=== PATIENT | male | born 1975 | race Caucasian/White ===

== ENCOUNTER 2021-06-12 09:33 | Emergency (ER) | payer OTHER ==
[~2021-06-12] VITALS: Ht 162.6 cm; Wt 59.1 kg
[2021-06-12 09:58] LABS: VENOUS BASE EXCESS -9.2 (-2.0-2.0); VENOUS HCO3 16.9 MEQ/L (23.0-27.0); VENOUS O2 SATURATION 61.9 % (60.0-80.0); VENOUS PARTIAL PRESSURE CO2 37.6 mmHg (38.0-50.0); VENOUS PARTIAL PRESSURE O2 34.9 mmHg (30.0-50.0); VENOUS PH 7.271 UNITS (7.330-7.430); VENOUS STANDARD HCO3 16.5 MEQ/L; VENOUS TOTAL CO2 18.1 MEQ/L (24.0-28.0)
[2021-06-12 10:02] LABS: BASO # 0.1 10^3/uL (0.0-0.2); BASO % 0.5 % (0.0-1.0); EOS # 0.1 10^3/uL (0.0-0.5); EOS % 1.2 % (0.0-3.0); HEMATOCRIT 39.1 % (42.0-52.0); HEMOGLOBIN 12.9 g/dl (13.5-17.5); LYMPH % 19.2 % (24.0-44.0); MEAN CORPUSCULAR HEMOGLOBIN 32.6 pg (27.0-33.0); MEAN CORPUSCULAR VOLUME 98.7 fl (80.0-96.0); MONO % 9.6 % (2.0-8.0); NEUTROPHILS # 7.2 10^3/uL (1.5-8.5); NEUTROPHILS % 68.2 % (36.0-66.0); PLATELET COUNT, AUTOMATED 181 10^3/uL (150-450); RED BLOOD COUNT 3.96 10^6/uL (4.30-6.10); WHITE BLOOD COUNT 10.5 10^3/uL (4.0-10.0)
--- NOTE | 2021-06-12 10:07 | REP ---
INDICATION: Altered Mental Status. COMPARISON: None. TECHNIQUE: Portable FINDINGS: The technique utilized in obtaining the radiograph has magnified the cardiac silhouette and accentuated the interstitial markings. The superior mediastinal structures are midline. The cardiac silhouette is unremarkable in size, shape, and position. The diaphragmatic surfaces of the lungs are regular, and the costophrenic angles are clear. The pulmonary zarco are clear. The imaged osseous structures are intact. IMPRESSION: There is no acute cardiopulmonary disease. <Electronically signed by Kamlesh Choudhury > 06/12/21 [id number]
[2021-06-12 10:18] LABS: OSMOLALITY SERUM 319 MOSM/KG (275-295)
[2021-06-12 10:33] LABS: ACETAMINOPHEN LEVEL < 2.0 UG/ML (10.0-30.0); ALT/SGPT 38 U/L (12-78); BILIRUBIN,DIRECT 0.3 MG/DL (0.0-0.2); BILIRUBIN,TOTAL 0.4 MG/DL (0.2-1.0); BLOOD UREA NITROGEN 28 MG/DL (7-18); CARBON DIOXIDE LEVEL 16 MEQ/L (21-32); CHLORIDE LEVEL 103 MEQ/L (98-107); CK-MB VALUE MASS < 1.0 NG/ML (<3.6); CPK CREATINE PHOSPHOKINASE 154 U/L (39-308); ETHYL ALCOHOL (ETHANOL) 0.133 % (0.000-0.010); GLOMERULAR FILTRATION RATE 11.8 (>60); GLUCOSE, FASTING 108 MG/DL (70-100); MB/CK RELATIVE INDEX 0.65 (< OR =4); POTASSIUM SERUM 3.3 MEQ/L (3.5-5.1); SALICYLATE LEVEL 3.3 MG/DL (5.0-30.0); SODIUM LEVEL 137 MEQ/L (136-145); TOTAL PROTEIN 7.1 GM/DL (6.4-8.2); TROPONIN I < 0.02 NG/ML (< 0.10)
[2021-06-12] MEDS ORDERED: NS 1,770 ML in IV 1 EA IV ONE (10:45)
--- NOTE | 2021-06-12 10:51 | REP ---
INDICATION: trauma. COMPARISON: None. TECHNIQUE: 2 x 2 mm increments using helical technique and reconstructed in both sagittal and coronal planes. FINDINGS: Vertebral body height and alignment is within normal limits. There is no acute fracture or destructive osseous lesion. The facet joints are well aligned bilaterally. There is no abnormal anterior spinal soft tissue swelling. There is air density in the C3-4 disc space consistent with vacuum phenomena. IMPRESSION: No acute osseous abnormality. Vacuum phenomena in the C3-4 disc space consistent with discogenic change. If clinically relevant follow-up with C-spine MRI if acute discopathy is of clinical concern. <Electronically signed by Kamlesh Choudhury > 06/12/21 [id number]
--- NOTE | 2021-06-12 10:53 | REP ---
INDICATION: trauma. COMPARISON: None. TECHNIQUE: 5 mm contiguous transaxial sections were obtained from the skull base to the cerebral convexities with thin cuts through the posterior fossa without the administration of intravenous contrast. FINDINGS: The ventricles and sulci are consistent with the patient's age. There are no extra-axial fluid collections. There is no mass effect. The deep cerebral white matter is consistent with the patient's age. The orbital and petrous structures, cerebellopontine angles, and posterior fossa are unremarkable. The sella turcica, cavernous, and paracavernous structures are essentially unremarkable. The visualized portions of the paranasal sinuses and mastoid air cells are clear. Images of the skull base show no gross abnormality. IMPRESSION: Unremarkable CT examination of the brain. <Electronically signed by Kamlesh Choudhury > 06/12/21 [id number]
[2021-06-12] MEDS ORDERED: cefTRIAXone SOD 2 GM in D5W MINI-BAG PLUS 50 ML IV ONE (10:55)
--- NOTE | 2021-06-12 10:58 | REP ---
INDICATION: trauma COMPARISON: None. TECHNIQUE: Standard helical technique without contrast. This causes exam limitations. FINDINGS: There is no evidence of mediastinal or hilar adenopathy. There are no pleural or pericardial effusions. The imaged osseous structures are within normal limits. Evaluation of the lung zarco shows subtle bibasilar subsegmental atelectatic change. No abnormal nodules, masses, or opacities are evident. IMPRESSION: Limited noncontrast enhanced CT examination of the chest showing no evidence of acute disease. <Electronically signed by Kamlesh Choudhury > 06/12/21 [id number]
--- NOTE | 2021-06-12 11:11 | REP ---
INDICATION: trauma. COMPARISON: None. TECHNIQUE: Noncontrast images through the abdomen and pelvis. Coronal and sagittal reconstructions provided. FINDINGS: CT abdomen: Dependent atelectatic changes noted on the right and some subsegmental atelectasis deep sulcus left lower lobe. No effusion or infiltrate. Heart is not enlarged no hiatal hernia. Stomach unremarkable. Liver has some geographic fatty replacement appearance and prominent left hepatic lobe but somewhat limited evaluation due to spray artifact from the patient's arms at his sides. No hepatic mass or biliary dilatation. Gallbladder without calcified stone. Spleen unremarkable. There is no ascites in the upper abdomen. There are calcifications scattered throughout the pancreatic head, neck, body and proximal tail consistent with chronic pancreatitis. Very minimal stranding in the peripancreatic fat about the tail the pancreas. The duodenal bulb and 2nd portion suggest thickening of its wall may reflect some mild duodenitis and some edema in the fat adjacent to that region. Adrenal glands are normal. Kidneys show no solid mass, hydronephrosis or stone. The aorta is without aneurysm. Has some calcifications there are no pathologic sized periaortic, mesenteric or other retroperitoneal lymph adenopathy. Small bowel loops not abnormally dilated. The lung window shows reviewed showed no sign of perforation or free air anywhere in the abdomen or pelvis. Abdominal portion of the colon grossly unremarkable. The bone windows show a grade 2-3 biconcave burst type fracture of L3. Posterior neural arch is retropulsed a few mm within AP canal diameter of 6 mm and central canal stenosis. Linear fracture lines seen in the spinous process of L3 and L4. No other compression fractures or focal lesions. Visualized ribs intact. CT pelvis: The sacral ala, SI joints and iliac bones unremarkable. The patient has undergone bilateral hip arthroplasty. Visualized portions of ischia, pubic rami and symphysis pubis were intact spray artifact limits evaluation of the deep central pelvis. Distal left colon sigmoid and rectum grossly intact bladder seen only in part a portion of ureters seen show no dilatation no ventral or inguinal hernia. IMPRESSION: 1. Grade 2-3 biconcave burst type fracture of the L3 vertebral body with retropulsion of the posterior neural arch and central canal stenosis with only 6 mm AP diameter. Linear fractures through the spinous processes of L3 and L4 noted. No other fracture. 2. Status post bilateral hip arthroplasty. 3. Evidence of chronic pancreatitis. 4. Geographic fatty infiltration of the liver suggested with prominent left hepatic lobe but no gross hepatomegaly. Critical Findings: Biconcave compression burst fracture of L3 with retropulsion of the posterior neural arch and a 6 millimeter AP diameter of the central canal representing spinal stenosis. The critical information above was relayed directly by me by telephone to Lisa Lovell on 06/12/2021 at 11:06 am with readback verification. <Electronically signed by Deangelo Tay > 06/12/21 [id number]
[2021-06-12 11:44] LABS: RSV AMPLIFICATION NEGATIVE (NEGATIVE)
[2021-06-12] MEDS ORDERED: CYCL-707 PO (11:52)
[2021-06-12] MEDS ORDERED: IBUP80TA PO (11:52)
[2021-06-12] MEDS ORDERED: GABA-282 PO (11:52)
[2021-06-12] MEDS ORDERED: TAMS1CAP17 PO (11:52)
[2021-06-12] MEDS ORDERED: KAPS50CA PO (11:52)
[2021-06-12] MEDS ORDERED: BACTDSTA PO (11:52)
[2021-06-12] MEDS ORDERED: LOSA50TA88 PO (11:52)
[2021-06-12] MEDS ORDERED: ONDANSETRON 4MG/2ML VIAL IV ONE (12:15)
[2021-06-12] MEDS: MORPHINE 4 MG/ML 1ML VIAL/SYRINGE (J2270) IV PRN ×2 (12:19→12:52)
[2021-06-12 12:45] VITALS: BP 106/65
--- NOTE | 2021-06-12 20:33 | ECGEPIP ---
[facility] - ED Test Date: 2021-06-12 Pat Name: ELISA VÁSQUEZ Department: Room: - Gender: Male [employer] Admin: ASTRID : [id number] Requested By: Lisa Lovell Order Number: [id number] Reading MD: Lisa Lovell Measurements Intervals Guston Rate: 113 P: 79 OK: 134 QRS: 80 QRSD: 78 T: 56 QT: 376 QTc: 515 Interpretive Statements Sinus tachycardia NSTTW abnormalities prolonged qtc, clinical correlation No prior Electronically Signed on 06-12-2021 20:33:25 EST by Lisa Lovell
== END 2021-06-12 12:54 | disposition short-term general hospital (02) ==
LOC: M ED 09:33
DX: S32.031A Stable burst fracture of third lumbar vertebra, initial encounter for closed fracture (principal); S32.048A Other fracture of fourth lumbar vertebra, initial encounter for closed fracture; V48.5XXA Car driver injured in noncollision transport accident in traffic accident, initial encounter; F10.120 Alcohol abuse with intoxication, uncomplicated; N17.9 Acute kidney failure, unspecified; Y92.9 Unspecified place or not applicable; Y93.9 Activity, unspecified; Y99.9 Unspecified external cause status
CPT/HCPCS: 70450; 71045; 71250; 72125; 74176; 80047; 80048; 80076; 80143; 82077; 82140; 82550; 82553; 82803; 83605; 83930; 84443; 84484; 85025; 87040; 87077; 87186; 87631; 93005; 93041; 96365; 96366; 96375; 96376; 99285; J0696; J2270; J2405

== ENCOUNTER 2021-06-24 10:48 | Inpatient (IN) | payer OTHER ==
[~2021-06-24] VITALS: Ht 162.6 cm; Wt 55.0 kg
[~2021-06-24 10:48] MED LIST: BACTDSTA PO; CYCL-707 PO; GABA-282 PO; IBUP80TA PO; KAPS50CA PO; LOSA50TA28 PO; TAMS1CAP17 PO
[2021-06-24] MEDS ORDERED: ONDANSETRON 4 MG TAB PO PRN (12:00)
[2021-06-24 13:15] VITALS: BP_SYST 123; BP_DIAS 74; BP_DIAS 94
[2021-06-24] MEDS ORDERED: ACET1TAB55 PO (13:50)
[2021-06-24] MEDS ORDERED: THERTAB21 PO (13:50)
[2021-06-24] MEDS ORDERED: OXAZ10CA3 PO (13:50)
[2021-06-24] MEDS ORDERED: GABA-283 PO (13:50)
[2021-06-24] MEDS ORDERED: METH-1164 PO (13:50)
[2021-06-24] MEDS ORDERED: POLY17PO18 PO (13:50)
[2021-06-24] MEDS ORDERED: MIDO10TA PO (13:50)
[2021-06-24] MEDS ORDERED: HEPA500057 SC (13:50)
[2021-06-24] MEDS ORDERED: PANT-23 PO (13:50)
[2021-06-24] MEDS ORDERED: IBUP1TAB6 PO (13:50)
[2021-06-24] MEDS ORDERED: CHOL400T PO (13:50)
[2021-06-24] MEDS ORDERED: OXYC10TA12 PO (13:50)
[2021-06-24] MEDS ORDERED: NICOINH INH (13:50)
[2021-06-24] MEDS ORDERED: LIDO5DIS41 TOP (13:50)
[2021-06-24] MEDS ORDERED: DOCU100C16 PO (13:50)
[2021-06-24] MEDS ORDERED: HOME MED LIST COMPLETE! XX SCH (13:55)
[2021-06-24 14:00] VITALS: BP 124/83
[2021-06-24] MEDS: MIDODRINE 5 MG TAB PO SCH (16:00)
[2021-06-24] MEDS ORDERED: MIDODRINE 5 MG TAB PO SCH (16:00)
[2021-06-24] MEDS: OXAZEPAM 10 MG CAP PO SCH ×2 (17:11→20:40)
[2021-06-24] MEDS: OYSTER SHELL CALCIUM 500 MG TAB PO SCH ×2 (17:11→20:40)
[2021-06-24] MEDS: GABAPENTIN 400MG CAP PO SCH ×2 (17:11→20:40)
[2021-06-24] MEDS: ACETAMINOPHEN TAB 650MG DOSE (2X325MG) PO PRN (17:12)
[2021-06-24] MEDS: METOPROLOL TART 12.5 MG PER 1/2 TAB PO SCH ×2 (17:12→23:50)
[2021-06-24] MEDS: oxyCODONE 5MG TAB PO PRN (19:27)
[2021-06-24 20:00] VITALS: BP 125/93
[2021-06-24] MEDS: SENNA 8.6 MG TAB (SENOKOT) PO SCH (20:40)
[2021-06-24] MEDS: DOCUSATE SODIUM 100MG CAPSULE PO SCH (20:40)
[2021-06-24] MEDS: HEPARIN SOD (PORCINE) 5000UNITS/ML 1ML VIAL/SYRINGE SC SCH (20:40)
[2021-06-24] MEDS: **NOTE PATIENT COMMENT** MISC XX SCH (20:41)
[2021-06-25] MEDS: methocarbamoL 500 MG TAB PO PRN ×2 (01:47→17:37)
[2021-06-25] MEDS: oxyCODONE 5MG TAB PO PRN ×3 (05:18→20:10)
[2021-06-25] MEDS: METOPROLOL TART 12.5 MG PER 1/2 TAB PO SCH ×4 (05:19→23:44)
[2021-06-25 06:00] VITALS: BP 104/73
[2021-06-25 08:09] LABS: BASO # 0.1 10^3/uL (0.0-0.2); EOS # 0.2 10^3/uL (0.0-0.5); HEMATOCRIT 31.1 % (42.0-52.0); HEMOGLOBIN 9.8 g/dl (13.5-17.5); LYMPH # 2.1 10^3/uL (1.5-5.0); LYMPH % 17.3 % (24.0-44.0); MEAN CORPUSCULAR HEMOGLOBIN 30.6 pg (27.0-33.0); MEAN CORPUSCULAR HGB CONC 31.5 g/dl (32.0-36.5); MEAN CORPUSCULAR VOLUME 97.2 fl (80.0-96.0); MONO # 0.7 10^3/uL (0.0-0.8); NEUTROPHILS # 8.6 10^3/uL (1.5-8.5); NEUTROPHILS % 72.5 % (36.0-66.0); PLATELET COUNT, AUTOMATED 643 10^3/uL (150-450); WHITE BLOOD COUNT 11.8 10^3/uL (4.0-10.0)
[2021-06-25] MEDS: OXAZEPAM 10 MG CAP PO SCH ×3 (08:15→20:10)
[2021-06-25] MEDS: OYSTER SHELL CALCIUM 500 MG TAB PO SCH ×3 (08:16→20:09)
[2021-06-25] MEDS: PANTOPRAZOLE 40MG TAB (PROTONIX) PO SCH (08:16)
[2021-06-25] MEDS: MULTIVITAMINS/MINERALS THERAP 1 TAB PO SCH (08:16)
[2021-06-25] MEDS: MIDODRINE 5 MG TAB PO SCH ×3 (08:16→17:34)
[2021-06-25] MEDS: VITAMIN D (CHOLECALCIFEROL) 400 INTERNATIONAL UNITS TAB PO SCH (08:16)
[2021-06-25] MEDS: DOCUSATE SODIUM 100MG CAPSULE PO SCH ×2 (08:16→20:09)
[2021-06-25] MEDS: HEPARIN SOD (PORCINE) 5000UNITS/ML 1ML VIAL/SYRINGE SC SCH ×2 (08:17→20:08)
[2021-06-25] MEDS: LIDOCAINE 5% (LIDODERM) PATCH TD SCH (08:18)
[2021-06-25] MEDS: NICOTINE 7 MG/24 HR TRANSDERMAL TD SCH ×2 (08:18→17:36)
[2021-06-25] MEDS: GABAPENTIN 400MG CAP PO SCH ×3 (08:19→20:09)
[2021-06-25 08:25] LABS: ALBUMIN 2.9 GM/DL (3.2-5.2); ALT/SGPT 34 U/L (12-78); BILIRUBIN,TOTAL 0.5 MG/DL (0.2-1.0); BLOOD UREA NITROGEN 13 MG/DL (7-18); CALCIUM LEVEL 9.3 MG/DL (8.5-10.1); CARBON DIOXIDE LEVEL 23 MEQ/L (21-32); CHLORIDE LEVEL 107 MEQ/L (98-107); CREATININE FOR GFR 0.54 MG/DL (0.70-1.30); GLOMERULAR FILTRATION RATE > 60.0 (>60); GLUCOSE, FASTING 140 MG/DL (70-100); POTASSIUM SERUM 4.6 MEQ/L (3.5-5.1); SODIUM LEVEL 137 MEQ/L (136-145); TOTAL PROTEIN 7.3 GM/DL (6.4-8.2)
[2021-06-25 14:00] VITALS: BP 145/84
[2021-06-25] MEDS: ACETAMINOPHEN TAB 650MG DOSE (2X325MG) PO PRN (17:34)
[2021-06-25] MEDS: DICLOFENAC EPOLAMINE 1.3 % PATCH TOP SCH (17:36)
[2021-06-25] MEDS: **NOTE PATIENT COMMENT** MISC XX SCH (20:08)
[2021-06-25] MEDS: SENNA 8.6 MG TAB (SENOKOT) PO SCH (20:09)
[2021-06-25] MEDS: TAMSULOSIN 0.4 MG CAP PO SCH (20:09)
[2021-06-25] MEDS ORDERED: traZODone 25MG PER 1/2 TABLET PO SCH (21:00)
[2021-06-25 22:20] VITALS: BP 134/91
[2021-06-26] MEDS: METOPROLOL TART 12.5 MG PER 1/2 TAB PO SCH ×3 (05:43→17:15)
[2021-06-26] MEDS: DICLOFENAC EPOLAMINE 1.3 % PATCH TOP SCH ×2 (05:45→17:15)
[2021-06-26] MEDS: methocarbamoL 500 MG TAB PO PRN ×2 (05:50→22:40)
[2021-06-26] MEDS: oxyCODONE 5MG TAB PO PRN ×4 (05:51→20:24)
[2021-06-26 06:00] VITALS: BP 109/80
[2021-06-26] MEDS: MIDODRINE 5 MG TAB PO SCH ×3 (07:22→15:24)
[2021-06-26] MEDS: NICOTINE 7 MG/24 HR TRANSDERMAL TD SCH (07:29)
[2021-06-26] MEDS: LIDOCAINE 5% (LIDODERM) PATCH TD SCH (07:30)
[2021-06-26] MEDS: OYSTER SHELL CALCIUM 500 MG TAB PO SCH ×3 (07:31→20:23)
[2021-06-26] MEDS: VITAMIN D (CHOLECALCIFEROL) 400 INTERNATIONAL UNITS TAB PO SCH (07:31)
[2021-06-26] MEDS: HEPARIN SOD (PORCINE) 5000UNITS/ML 1ML VIAL/SYRINGE SC SCH ×2 (07:31→20:24)
[2021-06-26] MEDS: DOCUSATE SODIUM 100MG CAPSULE PO SCH ×2 (07:31→20:23)
[2021-06-26] MEDS: PANTOPRAZOLE 40MG TAB (PROTONIX) PO SCH (07:31)
[2021-06-26] MEDS: MULTIVITAMINS/MINERALS THERAP 1 TAB PO SCH (07:31)
[2021-06-26] MEDS: GABAPENTIN 400MG CAP PO SCH (07:31)
[2021-06-26] MEDS: OXAZEPAM 10 MG CAP PO SCH ×3 (07:31→20:23)
[2021-06-26 08:12] LABS: BASO # 0.1 10^3/uL (0.0-0.2); EOS # 0.3 10^3/uL (0.0-0.5); EOS % 2.7 % (0.0-3.0); HEMATOCRIT 30.9 % (42.0-52.0); HEMOGLOBIN 9.7 g/dl (13.5-17.5); LYMPH # 1.8 10^3/uL (1.5-5.0); LYMPH % 19.5 % (24.0-44.0); MEAN CORPUSCULAR HEMOGLOBIN 30.6 pg (27.0-33.0); MEAN CORPUSCULAR HGB CONC 31.4 g/dl (32.0-36.5); MEAN CORPUSCULAR VOLUME 97.5 fl (80.0-96.0); MONO # 0.6 10^3/uL (0.0-0.8); MONO % 6.6 % (2.0-8.0); NEUTROPHILS # 6.3 10^3/uL (1.5-8.5); NEUTROPHILS % 68.8 % (36.0-66.0); PLATELET COUNT, AUTOMATED 594 10^3/uL (150-450); RED BLOOD COUNT 3.17 10^6/uL (4.30-6.10); WHITE BLOOD COUNT 9.1 10^3/uL (4.0-10.0)
[2021-06-26 08:40] LABS: BLOOD UREA NITROGEN 17 MG/DL (7-18); CALCIUM LEVEL 9.5 MG/DL (8.5-10.1); CARBON DIOXIDE LEVEL 23 MEQ/L (21-32); CHLORIDE LEVEL 105 MEQ/L (98-107); CREATININE FOR GFR 0.54 MG/DL (0.70-1.30); GLOMERULAR FILTRATION RATE > 60.0 (>60); GLUCOSE, FASTING 145 MG/DL (70-100); POTASSIUM SERUM 4.5 MEQ/L (3.5-5.1); SODIUM LEVEL 136 MEQ/L (136-145)
[2021-06-26 12:00] VITALS: BP_SYST 116; BP_SYST 136; BP_DIAS 85
[2021-06-26] MEDS: ACETAMINOPHEN TAB 650MG DOSE (2X325MG) PO PRN ×2 (13:11→20:23)
[2021-06-26 14:00] VITALS: BP 132/86
[2021-06-26] MEDS: GABAPENTIN 300 MG CAP PO SCH ×2 (15:50→20:23)
[2021-06-26 17:14] VITALS: BP 129/83
[2021-06-26 20:00] VITALS: BP 119/90
[2021-06-26] MEDS: TAMSULOSIN 0.4 MG CAP PO SCH (20:23)
[2021-06-26] MEDS: traZODone 50 MG TAB PO SCH (20:23)
[2021-06-26] MEDS: SENNA 8.6 MG TAB (SENOKOT) PO SCH (20:23)
[2021-06-26] MEDS: **NOTE PATIENT COMMENT** MISC XX SCH (20:25)
[2021-06-27] MEDS: oxyCODONE 5MG TAB PO PRN ×3 (00:52→21:07)
[2021-06-27] MEDS: DICLOFENAC EPOLAMINE 1.3 % PATCH TOP SCH ×2 (05:18→17:20)
[2021-06-27] MEDS: METOPROLOL TART 12.5 MG PER 1/2 TAB PO SCH ×4 (05:19→17:21)
[2021-06-27 06:00] VITALS: BP 112/72
[2021-06-27] MEDS: ACETAMINOPHEN TAB 650MG DOSE (2X325MG) PO PRN ×2 (06:04→21:06)
[2021-06-27] MEDS: VITAMIN D (CHOLECALCIFEROL) 400 INTERNATIONAL UNITS TAB PO SCH (10:02)
[2021-06-27] MEDS: LIDOCAINE 5% (LIDODERM) PATCH TD SCH (10:02)
[2021-06-27] MEDS: HEPARIN SOD (PORCINE) 5000UNITS/ML 1ML VIAL/SYRINGE SC SCH ×2 (10:02→21:07)
[2021-06-27] MEDS: DOCUSATE SODIUM 100MG CAPSULE PO SCH ×2 (10:03→21:05)
[2021-06-27] MEDS: OYSTER SHELL CALCIUM 500 MG TAB PO SCH ×3 (10:03→21:06)
[2021-06-27] MEDS: NICOTINE 14 MG/24 HR TRANSDERMAL TD SCH (10:03)
[2021-06-27] MEDS: PANTOPRAZOLE 40MG TAB (PROTONIX) PO SCH (10:04)
[2021-06-27] MEDS: MULTIVITAMINS/MINERALS THERAP 1 TAB PO SCH (10:04)
[2021-06-27] MEDS: GABAPENTIN 300 MG CAP PO SCH ×3 (10:04→21:06)
[2021-06-27] MEDS: MIDODRINE 5 MG TAB PO SCH ×3 (10:04→17:22)
[2021-06-27] MEDS: OXAZEPAM 10 MG CAP PO SCH ×3 (10:05→21:06)
[2021-06-27 14:00] VITALS: BP 128/81
[2021-06-27 20:00] VITALS: BP 131/87
[2021-06-27] MEDS: SENNA 8.6 MG TAB (SENOKOT) PO SCH (21:05)
[2021-06-27] MEDS: TAMSULOSIN 0.4 MG CAP PO SCH (21:06)
[2021-06-27] MEDS: traZODone 50 MG TAB PO SCH (21:06)
[2021-06-27] MEDS: **NOTE PATIENT COMMENT** MISC XX SCH (21:07)
[2021-06-27] MEDS: methocarbamoL 500 MG TAB PO PRN (22:28)
[2021-06-28] MEDS: oxyCODONE 5MG TAB PO PRN ×3 (05:16→20:33)
[2021-06-28] MEDS: DICLOFENAC EPOLAMINE 1.3 % PATCH TOP SCH ×2 (05:16→18:12)
[2021-06-28] MEDS: METOPROLOL TART 12.5 MG PER 1/2 TAB PO SCH ×4 (05:17→18:00)
[2021-06-28 06:00] VITALS: BP 103/78
[2021-06-28] MEDS: DOCUSATE SODIUM 100MG CAPSULE PO SCH ×2 (09:00→20:22)
[2021-06-28] MEDS: GABAPENTIN 300 MG CAP PO SCH ×3 (09:13→20:21)
[2021-06-28] MEDS: HEPARIN SOD (PORCINE) 5000UNITS/ML 1ML VIAL/SYRINGE SC SCH ×2 (09:14→20:22)
[2021-06-28] MEDS: OYSTER SHELL CALCIUM 500 MG TAB PO SCH ×3 (09:14→20:22)
[2021-06-28] MEDS: MULTIVITAMINS/MINERALS THERAP 1 TAB PO SCH (09:14)
[2021-06-28] MEDS: PANTOPRAZOLE 40MG TAB (PROTONIX) PO SCH (09:15)
[2021-06-28] MEDS: NICOTINE 14 MG/24 HR TRANSDERMAL TD SCH (09:17)
[2021-06-28] MEDS: LIDOCAINE 5% (LIDODERM) PATCH TD SCH (09:18)
[2021-06-28] MEDS: OXAZEPAM 10 MG CAP PO SCH ×3 (09:18→20:22)
[2021-06-28] MEDS: VITAMIN D (CHOLECALCIFEROL) 400 INTERNATIONAL UNITS TAB PO SCH (09:18)
[2021-06-28] MEDS: MIDODRINE 5 MG TAB PO SCH ×3 (09:26→16:00)
[2021-06-28 14:00] VITALS: BP 133/89
[2021-06-28 20:00] VITALS: BP 135/82
[2021-06-28] MEDS: traZODone 50 MG TAB PO SCH (20:22)
[2021-06-28] MEDS: TAMSULOSIN 0.4 MG CAP PO SCH (20:22)
[2021-06-28] MEDS: SENNA 8.6 MG TAB (SENOKOT) PO SCH (20:22)
[2021-06-28] MEDS: **NOTE PATIENT COMMENT** MISC XX SCH (20:23)
[2021-06-28] MEDS: methocarbamoL 500 MG TAB PO PRN (20:33)
[2021-06-29 06:00] VITALS: BP 112/85
[2021-06-29] MEDS: METOPROLOL TART 12.5 MG PER 1/2 TAB PO SCH ×5 (06:26→23:17)
[2021-06-29] MEDS: DICLOFENAC EPOLAMINE 1.3 % PATCH TOP SCH ×2 (06:27→17:32)
[2021-06-29] MEDS: methocarbamoL 500 MG TAB PO PRN ×2 (06:31→21:47)
[2021-06-29] MEDS: oxyCODONE 5MG TAB PO PRN ×4 (06:32→21:48)
[2021-06-29] MEDS: LIDOCAINE 5% (LIDODERM) PATCH TD SCH (07:34)
[2021-06-29] MEDS: NICOTINE 14 MG/24 HR TRANSDERMAL TD SCH (07:35)
[2021-06-29] MEDS: OYSTER SHELL CALCIUM 500 MG TAB PO SCH ×3 (07:36→21:48)
[2021-06-29] MEDS: HEPARIN SOD (PORCINE) 5000UNITS/ML 1ML VIAL/SYRINGE SC SCH ×2 (07:36→21:47)
[2021-06-29] MEDS: PANTOPRAZOLE 40MG TAB (PROTONIX) PO SCH (07:36)
[2021-06-29] MEDS: VITAMIN D (CHOLECALCIFEROL) 400 INTERNATIONAL UNITS TAB PO SCH (07:36)
[2021-06-29] MEDS: OXAZEPAM 10 MG CAP PO SCH ×3 (07:36→21:49)
[2021-06-29] MEDS: MULTIVITAMINS/MINERALS THERAP 1 TAB PO SCH (07:36)
[2021-06-29] MEDS: GABAPENTIN 300 MG CAP PO SCH ×3 (07:37→21:49)
[2021-06-29] MEDS: MIDODRINE 5 MG TAB PO SCH ×3 (07:37→15:54)
[2021-06-29] MEDS: DOCUSATE SODIUM 100MG CAPSULE PO SCH ×2 (07:47→21:48)
[2021-06-29 13:53] VITALS: BP 109/85
[2021-06-29 20:00] VITALS: BP 107/83
[2021-06-29] MEDS: traZODone 50 MG TAB PO SCH (21:48)
[2021-06-29] MEDS: SENNA 8.6 MG TAB (SENOKOT) PO SCH (21:48)
[2021-06-29] MEDS: TAMSULOSIN 0.4 MG CAP PO SCH (21:48)
[2021-06-29] MEDS: **NOTE PATIENT COMMENT** MISC XX SCH (21:49)
[2021-06-30 06:00] VITALS: BP 114/80
[2021-06-30] MEDS: oxyCODONE 5MG TAB PO PRN ×3 (06:23→16:27)
[2021-06-30] MEDS: DICLOFENAC EPOLAMINE 1.3 % PATCH TOP SCH ×2 (06:24→16:27)
[2021-06-30] MEDS: METOPROLOL TART 12.5 MG PER 1/2 TAB PO SCH ×4 (06:24→20:32)
[2021-06-30] MEDS: LIDOCAINE 5% (LIDODERM) PATCH TD SCH (09:06)
[2021-06-30] MEDS: VITAMIN D (CHOLECALCIFEROL) 400 INTERNATIONAL UNITS TAB PO SCH (09:07)
[2021-06-30] MEDS: OYSTER SHELL CALCIUM 500 MG TAB PO SCH ×3 (09:09→20:32)
[2021-06-30] MEDS: methocarbamoL 500 MG TAB PO PRN (09:09)
[2021-06-30] MEDS: OXAZEPAM 10 MG CAP PO SCH ×3 (09:09→20:33)
[2021-06-30] MEDS: MULTIVITAMINS/MINERALS THERAP 1 TAB PO SCH (09:09)
[2021-06-30] MEDS: PANTOPRAZOLE 40MG TAB (PROTONIX) PO SCH (09:09)
[2021-06-30] MEDS: MIDODRINE 5 MG TAB PO SCH ×3 (09:09→16:06)
[2021-06-30] MEDS: NICOTINE 14 MG/24 HR TRANSDERMAL TD SCH (09:09)
[2021-06-30] MEDS: GABAPENTIN 300 MG CAP PO SCH ×3 (09:09→20:31)
[2021-06-30] MEDS: HEPARIN SOD (PORCINE) 5000UNITS/ML 1ML VIAL/SYRINGE SC SCH ×2 (09:10→20:31)
[2021-06-30] MEDS: DOCUSATE SODIUM 100MG CAPSULE PO SCH ×2 (09:10→20:31)
[2021-06-30 14:00] VITALS: BP 101/66
[2021-06-30 20:00] VITALS: BP 122/86
[2021-06-30] MEDS: SENNA 8.6 MG TAB (SENOKOT) PO SCH (20:31)
[2021-06-30] MEDS: **NOTE PATIENT COMMENT** MISC XX SCH (20:33)
[2021-06-30] MEDS: traZODone 50 MG TAB PO SCH (20:33)
[2021-06-30] MEDS: TAMSULOSIN 0.4 MG CAP PO SCH (20:33)
[2021-07-01] MEDS: METOPROLOL TART 12.5 MG PER 1/2 TAB PO SCH ×3 (05:25→18:06)
[2021-07-01] MEDS: DICLOFENAC EPOLAMINE 1.3 % PATCH TOP SCH ×2 (05:26→18:00)
[2021-07-01] MEDS: oxyCODONE 5MG TAB PO PRN ×3 (05:30→21:01)
[2021-07-01 06:00] VITALS: BP 124/57
[2021-07-01] MEDS: MIDODRINE 5 MG TAB PO SCH ×3 (08:00→16:00)
[2021-07-01] MEDS: HEPARIN SOD (PORCINE) 5000UNITS/ML 1ML VIAL/SYRINGE SC SCH ×3 (09:00→21:01)
[2021-07-01] MEDS: LIDOCAINE 5% (LIDODERM) PATCH TD SCH (09:02)
[2021-07-01] MEDS: DOCUSATE SODIUM 100MG CAPSULE PO SCH ×2 (09:05→21:00)
[2021-07-01] MEDS: NICOTINE 14 MG/24 HR TRANSDERMAL TD SCH (09:05)
[2021-07-01] MEDS: GABAPENTIN 300 MG CAP PO SCH ×3 (09:05→21:01)
[2021-07-01] MEDS: PANTOPRAZOLE 40MG TAB (PROTONIX) PO SCH (09:05)
[2021-07-01] MEDS: MULTIVITAMINS/MINERALS THERAP 1 TAB PO SCH (09:05)
[2021-07-01] MEDS: OYSTER SHELL CALCIUM 500 MG TAB PO SCH ×3 (09:05→21:00)
[2021-07-01] MEDS: VITAMIN D (CHOLECALCIFEROL) 400 INTERNATIONAL UNITS TAB PO SCH (09:06)
[2021-07-01] MEDS: OXAZEPAM 10 MG CAP PO SCH ×3 (09:06→21:00)
[2021-07-01] MEDS: ACETAMINOPHEN TAB 650MG DOSE (2X325MG) PO PRN (09:07)
[2021-07-01 10:25] LABS: BASO # 0.1 10^3/uL (0.0-0.2); BASO % 1.1 % (0.0-1.0); EOS # 0.3 10^3/uL (0.0-0.5); EOS % 3.1 % (0.0-3.0); HEMATOCRIT 33.8 % (42.0-52.0); HEMOGLOBIN 10.5 g/dl (13.5-17.5); LYMPH % 18.8 % (24.0-44.0); MEAN CORPUSCULAR HGB CONC 31.1 g/dl (32.0-36.5); MEAN CORPUSCULAR VOLUME 96.6 fl (80.0-96.0); MONO # 1.2 10^3/uL (0.0-0.8); MONO % 11.3 % (2.0-8.0); NEUTROPHILS # 6.9 10^3/uL (1.5-8.5); PLATELET COUNT, AUTOMATED 505 10^3/uL (150-450); WHITE BLOOD COUNT 10.6 10^3/uL (4.0-10.0)
[2021-07-01 10:52] LABS: BLOOD UREA NITROGEN 15 MG/DL (7-18); CALCIUM LEVEL 9.7 MG/DL (8.5-10.1); CARBON DIOXIDE LEVEL 24 MEQ/L (21-32); CHLORIDE LEVEL 105 MEQ/L (98-107); CREATININE FOR GFR 0.64 MG/DL (0.70-1.30); GLOMERULAR FILTRATION RATE > 60.0 (>60); GLUCOSE, FASTING 110 MG/DL (70-100); POTASSIUM SERUM 4.2 MEQ/L (3.5-5.1); SODIUM LEVEL 135 MEQ/L (136-145)
[2021-07-01 14:00] VITALS: BP 120/87
[2021-07-01] MEDS ORDERED: GABA-282 PO (14:05)
[2021-07-01] MEDS ORDERED: TRAZ-252 PO (14:05)
[2021-07-01] MEDS ORDERED: MIDO5TA PO (14:05)
[2021-07-01] MEDS ORDERED: OXYC-517 PO (14:05)
[2021-07-01] MEDS ORDERED: METO1TAB87 PO (14:05)
[2021-07-01] MEDS ORDERED: FLOM0.4C39 PO (14:05)
[2021-07-01] MEDS ORDERED: OXAZ10CA3 PO (14:05)
[2021-07-01 20:00] VITALS: BP 132/92
[2021-07-01] MEDS: SENNA 8.6 MG TAB (SENOKOT) PO SCH (21:00)
[2021-07-01] MEDS: TAMSULOSIN 0.4 MG CAP PO SCH (21:00)
[2021-07-01] MEDS: traZODone 50 MG TAB PO SCH (21:01)
[2021-07-01] MEDS: **NOTE PATIENT COMMENT** MISC XX SCH (21:02)
[2021-07-02 05:12] VITALS: BP 125/74
[2021-07-02] MEDS: METOPROLOL TART 12.5 MG PER 1/2 TAB PO SCH ×2 (05:12)
[2021-07-02] MEDS: oxyCODONE 5MG TAB PO PRN (05:12)
[2021-07-02] MEDS: DICLOFENAC EPOLAMINE 1.3 % PATCH TOP SCH (05:12)
[2021-07-02 06:00] VITALS: BP 125/74
[2021-07-02] MEDS: MIDODRINE 5 MG TAB PO SCH (08:00)
[2021-07-02] MEDS: MULTIVITAMINS/MINERALS THERAP 1 TAB PO SCH (08:24)
[2021-07-02] MEDS: PANTOPRAZOLE 40MG TAB (PROTONIX) PO SCH (08:24)
[2021-07-02] MEDS: VITAMIN D (CHOLECALCIFEROL) 400 INTERNATIONAL UNITS TAB PO SCH (08:24)
[2021-07-02] MEDS: LIDOCAINE 5% (LIDODERM) PATCH TD SCH (08:24)
[2021-07-02] MEDS: DOCUSATE SODIUM 100MG CAPSULE PO SCH (08:24)
[2021-07-02] MEDS: OYSTER SHELL CALCIUM 500 MG TAB PO SCH (08:24)
[2021-07-02] MEDS: GABAPENTIN 300 MG CAP PO SCH (08:24)
[2021-07-02] MEDS: NICOTINE 14 MG/24 HR TRANSDERMAL TD SCH (08:24)
[2021-07-02] MEDS: OXAZEPAM 10 MG CAP PO SCH (08:24)
[2021-07-02] MEDS: HEPARIN SOD (PORCINE) 5000UNITS/ML 1ML VIAL/SYRINGE SC SCH (08:25)
[2021-07-02] MEDS: ACETAMINOPHEN TAB 650MG DOSE (2X325MG) PO PRN (08:26)
[2021-07-02] MEDS ORDERED: OXAZ10CA3 PO (08:41)
== END 2021-07-02 09:00 | disposition home health service (06) | DRG 48 ==
LOC: M PM&R 13:01
PROVIDERS: ADMIT Physical Medicine & Rehabilitation; ATTEND Physical Medicine & Rehabilitation
DX: G83.4 Cauda equina syndrome (principal); I10 Essential (primary) hypertension; F10.10 Alcohol abuse, uncomplicated; Z74.09 Other reduced mobility; Z74.1 Need for assistance with personal care; S32.031D Stable burst fracture of third lumbar vertebra, subsequent encounter for fracture with routine healing; Z98.1 Arthrodesis status; Z79.899 Other long term (current) drug therapy; F17.200 Nicotine dependence, unspecified, uncomplicated; N40.0 Benign prostatic hyperplasia without lower urinary tract symptoms; K21.9 Gastro-esophageal reflux disease without esophagitis

== ENCOUNTER 2021-08-08 13:16 | Emergency (ER) | payer OTHER ==
[~2021-08-08] VITALS: Ht 162.6 cm; Wt 65.9 kg
[~2021-08-08 13:16] MED LIST changes: +ACET1TAB55 PO; +CHOL400T PO; +DOCU100C16 PO; +FLOM0.4C39 PO; +GABA-283 PO; +HEPA500057 SC; +IBUP1TAB6 PO; +LIDO5DIS41 TOP; +METH-1164 PO; +METO1TAB87 PO; +MIDO10TA PO; +MIDO5TA PO; +NICOINH INH; +OXAZ10CA3 PO; +OXYC-517 PO; +OXYC10TA12 PO; +PANT-23 PO; +POLY17PO18 PO; +THERTAB21 PO; +TRAZ-252 PO
[2021-08-08] MEDS ORDERED: CYCL-707 (13:35)
[2021-08-08] MEDS ORDERED: IBUP80TA (13:35)
[2021-08-08 15:04] LABS: BASO # 0.1 10^3/uL (0.0-0.2); BASO % 1.1 % (0.0-1.0); EOS # 0.1 10^3/uL (0.0-0.5); EOS % 0.8 % (0.0-3.0); HEMATOCRIT 40.4 % (42.0-52.0); HEMOGLOBIN 12.4 g/dl (13.5-17.5); LYMPH # 2.6 10^3/uL (1.5-5.0); LYMPH % 32.8 % (24.0-44.0); MEAN CORPUSCULAR HEMOGLOBIN 27.9 pg (27.0-33.0); MEAN CORPUSCULAR HGB CONC 30.7 g/dl (32.0-36.5); MEAN CORPUSCULAR VOLUME 90.8 fl (80.0-96.0); MONO # 0.7 10^3/uL (0.0-0.8); MONO % 9.4 % (2.0-8.0); NEUTROPHILS # 4.4 10^3/uL (1.5-8.5); NEUTROPHILS % 55.3 % (36.0-66.0); PLATELET COUNT, AUTOMATED 284 10^3/uL (150-450); RED BLOOD COUNT 4.45 10^6/uL (4.30-6.10); WHITE BLOOD COUNT 7.9 10^3/uL (4.0-10.0)
[2021-08-08 15:34] LABS: BLOOD UREA NITROGEN 12 MG/DL (7-18); CALCIUM LEVEL 9.1 MG/DL (8.5-10.1); CARBON DIOXIDE LEVEL 20 MEQ/L (21-32); CHLORIDE LEVEL 108 MEQ/L (98-107); GLOMERULAR FILTRATION RATE > 60.0 (>60); GLUCOSE, FASTING 74 MG/DL (70-100); SODIUM LEVEL 141 MEQ/L (136-145)
[2021-08-08] MEDS ORDERED: KETOROLAC 30 MG/ML 1ML VIAL IV ONE (15:40)
[2021-08-08 15:43] LABS: ERYTHROCYTE SEDIMENTATION RATE 51 mm/hr (0-15)
[2021-08-08] MEDS ORDERED: KETO10TAB PO (16:28)
[2021-08-08 16:35] VITALS: BP 123/90
== END 2021-08-08 16:36 | disposition home or self-care (01) ==
LOC: M ED 13:16
DX: M62.830 Muscle spasm of back (principal); F17.200 Nicotine dependence, unspecified, uncomplicated; I10 Essential (primary) hypertension
CPT/HCPCS: 70450; 72125; 80048; 85025; 85652; 86140; 96374; 99284; J1885

== ENCOUNTER → 2021-09-04 | Outpatient (CLI) | payer OTHER ==
[~2021-09-04] MED LIST changes: +CYCL-707; +IBUP80TA; +KETO10TAB PO
== END ==
LOC: M RAD 09:12
PROVIDERS: ATTEND Internal Medicine Gastroenterology
DX: R94.5 Abnormal results of liver function studies (principal)

== ENCOUNTER → 2021-11-04 | Outpatient (CLI) | payer OTHER ==
[~2021-11-04] MED LIST changes: +FOLI1TAB11 PO; +METO1TAB7; +METO25TA4 PO; +NEUR300C PO; +OXYC-517; +THIA100T22
== END ==
LOC: M LABSMTC 10:16
PROVIDERS: ATTEND Anesthesiology
DX: Z11.52 Encounter for screening for COVID-19 (principal); Z20.822 Contact with and (suspected) exposure to COVID-19

== ENCOUNTER → 2021-12-31 | Outpatient (CLI) | payer OTHER | LOC: M PLAIMG 10:23 | PROVIDERS: ATTEND Nurse Practitioner Family | DX: M54.2 Cervicalgia (principal); M43.9 Deforming dorsopathy, unspecified ==

== ENCOUNTER → 2022-01-20 | Outpatient (REF) | LOC: M RAD 10:11 | PROVIDERS: ATTEND Internal Medicine | DX: S32.031D Stable burst fracture of third lumbar vertebra, subsequent encounter for fracture with routine healing (principal); M48.07 Spinal stenosis, lumbosacral region; R52 Pain, unspecified ==

== ENCOUNTER 2022-02-19 22:29 | Emergency (ER) | payer OTHER ==
[~2022-02-19] VITALS: Ht 162.6 cm; Wt 62.3 kg
[~2022-02-19 22:29] MED LIST changes: +CIPR500T39 PO; +CYCL10TA20 PO; +FURO20TA2 PO; +GABA600T4 PO; +IBUP1TAB7 PO; +LACT20EL PO; +PANT40TA29 PO; +POTA-141 PO; +THIA100T7 PO; +TOPR50TA PO
[2022-02-20 03:15] LABS: BASO % 0.8 % (0.0-1.0); EOS # 0.1 10^3/uL (0.0-0.5); EOS % 1.8 % (0.0-3.0); HEMATOCRIT 30.2 % (42.0-52.0); HEMOGLOBIN 9.8 g/dl (13.5-17.5); LYMPH # 1.8 10^3/uL (1.5-5.0); LYMPH % 35.5 % (24.0-44.0); MEAN CORPUSCULAR HEMOGLOBIN 28.8 pg (27.0-33.0); MEAN CORPUSCULAR HGB CONC 32.5 g/dl (32.0-36.5); MEAN CORPUSCULAR VOLUME 88.8 fl (80.0-96.0); MONO # 0.4 10^3/uL (0.0-0.8); MONO % 8.7 % (2.0-8.0); NEUTROPHILS # 2.6 10^3/uL (1.5-8.5); NEUTROPHILS % 52.8 % (36.0-66.0); PLATELET COUNT, AUTOMATED 100 10^3/uL (150-450)
[2022-02-20 03:34] LABS: BLOOD UREA NITROGEN 8 MG/DL (7-18); CALCIUM LEVEL 9.1 MG/DL (8.5-10.1); CARBON DIOXIDE LEVEL 22 MEQ/L (21-32); CHLORIDE LEVEL 111 MEQ/L (98-107); CREATININE FOR GFR 0.64 MG/DL (0.70-1.30); GLOMERULAR FILTRATION RATE > 60.0 (>60); GLUCOSE, FASTING 91 MG/DL (70-100); POTASSIUM SERUM 3.8 MEQ/L (3.5-5.1); SODIUM LEVEL 144 MEQ/L (136-145)
[2022-02-20 03:37] LABS: CK-MB VALUE MASS 2.7 NG/ML (<3.6); MB/CK RELATIVE INDEX 2.16 (< OR =4)
[2022-02-20] MEDS ORDERED: ISOVUE-370 76% 100ML VIAL As Ordered ONE (11:30)
[2022-02-20] MEDS ORDERED: NS 1,000 ML IV ONE (11:30)
[2022-02-20 11:50] LABS: ALBUMIN 3.6 GM/DL (3.2-5.2); ALT/SGPT 31 U/L (12-78); BILIRUBIN,TOTAL 1.5 MG/DL (0.2-1.0); LIPASE 92 U/L (73-393); TOTAL PROTEIN 8.8 GM/DL (6.4-8.2)
[2022-02-20] MEDS ORDERED: LACTULOSE 20 GM/30 ML SYRUP UD PO ONE (13:20)
[2022-02-20] MEDS ORDERED: MIRALAX *UNIT DOSE* 17GM PACKET PO SCH (13:20)
[2022-02-20 13:31] VITALS: BP 139/73
[2022-02-20] MEDS ORDERED: MIRA3350 PO (14:57)
== END 2022-02-20 15:35 | disposition home or self-care (01) ==
LOC: M ED 22:29
DX: K86.1 Other chronic pancreatitis (principal); K74.60 Unspecified cirrhosis of liver; I10 Essential (primary) hypertension; F17.200 Nicotine dependence, unspecified, uncomplicated; Z79.810 Long term (current) use of selective estrogen receptor modulators (SERMs); Z79.83 Long term (current) use of bisphosphonates; Z79.899 Other long term (current) drug therapy
CPT/HCPCS: 71045; 74177; 80048; 80076; 82550; 82553; 83690; 85025; 93005; 93041; 94760; 96360; 96361; 99284; Q9967

== ENCOUNTER → 2022-05-09 | Outpatient (CLI) | payer OTHER ==
[~2022-05-09] MED LIST changes: +MIRA3350 PO
== END ==
LOC: M PAIN 09:00
PROVIDERS: ATTEND Nurse Practitioner Family
DX: M96.1 Postlaminectomy syndrome, not elsewhere classified (principal); G89.29 Other chronic pain; I10 Essential (primary) hypertension; Z96.643 Presence of artificial hip joint, bilateral; Z87.891 Personal history of nicotine dependence; Z79.899 Other long term (current) drug therapy

== ENCOUNTER → 2022-06-14 | Outpatient (CLI) | payer OTHER | LOC: M PLARAD 13:53 | PROVIDERS: ATTEND Nurse Practitioner Family | DX: M96.1 Postlaminectomy syndrome, not elsewhere classified (principal) ==

== ENCOUNTER 2022-07-23 22:32 | Inpatient (IN) | payer OTHER ==
[~2022-07-23] VITALS: Ht 162.6 cm; Wt 60.0 kg
[2022-07-24] VITALS (7 sets, daily range): BP systolic 101–116; BP diastolic 56–75; O2SAT 93–98
[2022-07-24 00:36] LABS: BASO # 0.1 10^3/uL (0.0-0.2); BASO % 0.5 % (0.0-1.0); EOS # 0.2 10^3/uL (0.0-0.5); EOS % 1.6 % (0.0-3.0); HEMATOCRIT 24.4 % (42.0-52.0); HEMOGLOBIN 8.3 g/dl (13.5-17.5); LYMPH # 0.9 10^3/uL (1.5-5.0); LYMPH % 9.1 % (24.0-44.0); MEAN CORPUSCULAR HEMOGLOBIN 37.1 pg (27.0-33.0); MEAN CORPUSCULAR VOLUME 108.9 fl (80.0-96.0); MONO % 10.6 % (2.0-8.0); NEUTROPHILS # 7.2 10^3/uL (1.5-8.5); NEUTROPHILS % 74.1 % (36.0-66.0); PLATELET COUNT, AUTOMATED 102 10^3/uL (150-450); RED BLOOD COUNT 2.24 10^6/uL (4.30-6.10); WHITE BLOOD COUNT 9.7 10^3/uL (4.0-10.0)
[2022-07-24 00:45] LABS: INR 1.79; PROTHROMBIN TIME 21.1 SECONDS (12.5-14.5)
[2022-07-24 00:46] LABS: PARTIAL THROMBOPLASTIN TIME 36.9 SECONDS (24.8-34.2)
[2022-07-24 00:57] LABS: ETHYL ALCOHOL (ETHANOL) 0.035 % (0.000-0.010); LIPASE 664 U/L (12-53)
[2022-07-24 00:59] LABS: ALBUMIN 1.6 G/DL (3.2-5.2); ALKALINE PHOSPHATASE 176 U/L (46-116); ALT/SGPT 86 U/L (7.0-40); AST/SGOT 179 U/L (<34); BILIRUBIN,DIRECT 8.5 MG/DL (<0.4); BILIRUBIN,TOTAL 10.8 MG/DL (0.3-1.2); BLOOD UREA NITROGEN 10 MG/DL (9-23); CALCIUM LEVEL 7.3 MG/DL (8.5-10.1); CARBON DIOXIDE LEVEL 20 MMOL/L (20-31); CHLORIDE LEVEL 107 MMOL/L (98-107); CREATININE FOR GFR 0.59 MG/DL (0.70-1.30); GLOMERULAR FILTRATION RATE > 60.0 (>60); GLUCOSE, FASTING 119 MG/DL (60-100); POTASSIUM SERUM 3.9 MMOL/L (3.5-5.1); SODIUM LEVEL 135 MMOL/L (136-145); TOTAL PROTEIN 6.3 G/DL (5.7-8.2)
[2022-07-24 01:07] LABS: RSV AMPLIFICATION NEGATIVE (NEGATIVE)
[2022-07-24 01:14] LABS: ANISOCYTOSIS 1+; PLATELET ESTIMATE DECREASED (NORMAL); POIKILOCYTOSIS 1+; POLYCHROMASIA 1+; SCHISTOCYTES 1+; TARGET CELLS 1+
[2022-07-24] MEDS ORDERED: ISOVUE-370 76% 100ML VIAL As Ordered ONE (01:20)
[2022-07-24] MEDS ORDERED: NS 1,000 ML IV ONE ×2 (04:30→05:05)
[2022-07-24] MEDS ORDERED: cefTRIAXone SOD 2 GM in D5W MINI-BAG PLUS 50 ML IV ONE (05:05)
[2022-07-24] MEDS ORDERED: XIFA550T PO (06:52)
[2022-07-24] MEDS ORDERED: NADO20TA PO (06:52)
[2022-07-24] MEDS ORDERED: MIDO10TA PO (06:52)
[2022-07-24] MEDS ORDERED: PANT40TA29 PO (06:52)
[2022-07-24] MEDS ORDERED: GABA-1171 PO (06:52)
[2022-07-24] MEDS ORDERED: LACT10PA PO (06:52)
[2022-07-24] MEDS ORDERED: SPIR50TA4 PO (06:52)
[2022-07-24] MEDS ORDERED: VITMTA PO (06:52)
[2022-07-24] MEDS ORDERED: BENZ1LOZ9 MT (06:52)
[2022-07-24] MEDS ORDERED: HOME MED LIST COMPLETE! XX SCH (07:00)
[2022-07-24] MEDS: FUROSEMIDE 20 MG TAB PO SCH (09:00)
[2022-07-24] MEDS: THIAMINE 100 MG TAB PO SCH (09:00)
[2022-07-24] MEDS: SPIRONOLACTONE 50 MG TAB PO SCH (09:00)
[2022-07-24] MEDS: FOLIC ACID 1MG TAB PO SCH (09:00)
[2022-07-24] MEDS: NADOLOL 20MG TABLET PO SCH (09:00)
[2022-07-24] MEDS: MULTIVITAMINS/MINERALS THERAP 1 TAB PO SCH (09:00)
[2022-07-24] MEDS: LACTULOSE 20GM/30ML SYRUP UDC PO SCH ×2 (09:43→20:26)
[2022-07-24] MEDS: MIDODRINE 5 MG TAB PO SCH ×3 (09:44→15:55)
[2022-07-24] MEDS: rifAXIMin 550 MG TAB (XIFAXAN) PO SCH ×2 (11:32→20:25)
[2022-07-24 12:33] LABS: SOURCE, BODY FLUID ALBUMIN ASCITES
[2022-07-24 12:38] LABS: SOURCE, BODY FLUID GLUCOSE ASCITES
[2022-07-24 12:40] LABS: SOURCE, BODY FLUID TOT PROTEIN ASCITES; TOTAL PROTEIN, BODY FLUID < 2.0 G/DL (NOT ESTABLISHED)
[2022-07-24 13:08] LABS: ASCITES FL COLOR YELLOW (COLORLESS); SOURCE, BODY FLUID ASCITES
[2022-07-24 13:09] LABS: APPEARANCE, BODY FLUID CLEAR (CLEAR)
[2022-07-24] MEDS ORDERED: CEPACOL LOZENGE MT PRN (14:05)
[2022-07-24] MEDS: GABAPENTIN 100 MG CAP PO SCH ×2 (16:22→20:25)
[2022-07-24] MEDS ORDERED: FUROSEMIDE 20 MG TAB PO ONE (16:55)
[2022-07-24] MEDS: ONDANSETRON 4MG 2ML VIAL IV PRN (18:36)
[2022-07-24] MEDS: MORPHINE 2 MG/ML 1ML VIAL IV PRN (18:36)
[2022-07-24] MEDS: oxyCODONE 5MG TAB PO PRN (19:40)
[2022-07-24] MEDS: PANTOPRAZOLE 40MG TAB (PROTONIX) PO SCH (20:25)
[2022-07-25] VITALS (22 sets, daily range): BP systolic 86–109; BP diastolic 51–68; O2SAT 92–97
[2022-07-25] MEDS: MORPHINE 2 MG/ML 1ML VIAL IV PRN (03:48)
[2022-07-25 05:25] LABS: HEMATOCRIT 22.5 % (42.0-52.0); HEMOGLOBIN 7.8 g/dl (13.5-17.5); MEAN CORPUSCULAR HEMOGLOBIN 38.6 pg (27.0-33.0); MEAN CORPUSCULAR HGB CONC 34.7 g/dl (32.0-36.5); MEAN CORPUSCULAR VOLUME 111.4 fl (80.0-96.0); RED BLOOD COUNT 2.02 10^6/uL (4.30-6.10)
[2022-07-25 05:29] LABS: LIPASE 199 U/L (12-53)
[2022-07-25 05:30] LABS: MAGNESIUM LEVEL 1.7 MG/DL (1.8-2.4)
[2022-07-25 05:32] LABS: ALBUMIN 1.4 G/DL (3.2-5.2); ALKALINE PHOSPHATASE 144 U/L (46-116); ALT/SGPT 90 U/L (7.0-40); AST/SGOT 198 U/L (<34); BILIRUBIN,TOTAL 12.3 MG/DL (0.3-1.2); BLOOD UREA NITROGEN 10 MG/DL (9-23); CALCIUM LEVEL 7.7 MG/DL (8.5-10.1); CARBON DIOXIDE LEVEL 20 MMOL/L (20-31); CHLORIDE LEVEL 107 MMOL/L (98-107); CREATININE FOR GFR 0.65 MG/DL (0.70-1.30); GLOMERULAR FILTRATION RATE > 60.0 (>60); GLUCOSE, FASTING 118 MG/DL (60-100); POTASSIUM SERUM 4.3 MMOL/L (3.5-5.1); SODIUM LEVEL 133 MMOL/L (136-145); TOTAL PROTEIN 5.8 G/DL (5.7-8.2)
[2022-07-25 05:33] LABS: PLATELET COUNT, AUTOMATED 89 10^3/uL (150-450)
[2022-07-25] MEDS ORDERED: MAGNESIUM OXIDE 400MG TAB (MAG-OX) PO ONE (07:25)
[2022-07-25] MEDS: SPIRONOLACTONE 50 MG TAB PO SCH (09:00)
[2022-07-25] MEDS: MULTIVITAMINS/MINERALS THERAP 1 TAB PO SCH (09:35)
[2022-07-25] MEDS: FOLIC ACID 1MG TAB PO SCH (09:35)
[2022-07-25] MEDS: NADOLOL 20MG TABLET PO SCH (09:35)
[2022-07-25] MEDS: rifAXIMin 550 MG TAB (XIFAXAN) PO SCH ×2 (09:35→20:21)
[2022-07-25] MEDS: LACTULOSE 20GM/30ML SYRUP UDC PO SCH ×3 (09:35→20:21)
[2022-07-25] MEDS: MIDODRINE 5 MG TAB PO SCH ×3 (09:35→16:48)
[2022-07-25] MEDS: GABAPENTIN 100 MG CAP PO SCH ×3 (09:36→20:21)
[2022-07-25] MEDS: THIAMINE 100 MG TAB PO SCH (09:36)
[2022-07-25] MEDS: PANTOPRAZOLE 40MG TAB (PROTONIX) PO SCH ×2 (09:36→20:21)
[2022-07-25] MEDS: FUROSEMIDE 20 MG TAB PO SCH (09:45)
[2022-07-25] MEDS ORDERED: FUROSEMIDE 20MG/2ML VIAL IV ONE (11:10)
[2022-07-25] MEDS: oxyCODONE 5MG TAB PO PRN ×2 (12:32→20:21)
[2022-07-25] MEDS: SODIUM CHLORIDE 0.9% NASAL GEL 15GM (AYR) PRN (16:48)
[2022-07-26] VITALS (9 sets, daily range): BP systolic 86–99; BP diastolic 51–65
[2022-07-26] MEDS ORDERED: FUROSEMIDE 20MG/2ML VIAL IV ONE (07:55)
[2022-07-26 08:00] LABS: HEMATOCRIT 22.6 % (42.0-52.0); HEMOGLOBIN 7.9 g/dl (13.5-17.5); MEAN CORPUSCULAR VOLUME 108.7 fl (80.0-96.0); RED BLOOD COUNT 2.08 10^6/uL (4.30-6.10); WHITE BLOOD COUNT 8.7 10^3/uL (4.0-10.0)
[2022-07-26 08:03] LABS: PLATELET COUNT, AUTOMATED 84 10^3/uL (150-450)
[2022-07-26 08:23] LABS: LIPASE 19 U/L (12-53)
[2022-07-26 08:26] LABS: ALBUMIN 1.4 G/DL (3.2-5.2); ALKALINE PHOSPHATASE 135 U/L (46-116); ALT/SGPT 83 U/L (7.0-40); AST/SGOT 170 U/L (<34); BILIRUBIN,TOTAL 10.7 MG/DL (0.3-1.2); BLOOD UREA NITROGEN 9 MG/DL (9-23); CALCIUM LEVEL 7.3 MG/DL (8.5-10.1); CARBON DIOXIDE LEVEL 21 MMOL/L (20-31); CHLORIDE LEVEL 102 MMOL/L (98-107); CREATININE FOR GFR 0.73 MG/DL (0.70-1.30); GLOMERULAR FILTRATION RATE > 60.0 (>60); GLUCOSE, FASTING 90 MG/DL (60-100); POTASSIUM SERUM 4.1 MMOL/L (3.5-5.1); SODIUM LEVEL 130 MMOL/L (136-145)
[2022-07-26] MEDS: LACTULOSE 20GM/30ML SYRUP UDC PO SCH ×4 (10:28→20:03)
[2022-07-26] MEDS: MIDODRINE 5 MG TAB PO SCH ×3 (10:29→16:00)
[2022-07-26] MEDS: NADOLOL 20MG TABLET PO SCH (10:29)
[2022-07-26] MEDS: rifAXIMin 550 MG TAB (XIFAXAN) PO SCH ×2 (10:29→20:03)
[2022-07-26] MEDS: FOLIC ACID 1MG TAB PO SCH (10:29)
[2022-07-26] MEDS: GABAPENTIN 100 MG CAP PO SCH ×3 (10:30→20:03)
[2022-07-26] MEDS: PANTOPRAZOLE 40MG TAB (PROTONIX) PO SCH ×2 (10:30→20:03)
[2022-07-26] MEDS: SPIRONOLACTONE 50 MG TAB PO SCH (10:30)
[2022-07-26] MEDS: FUROSEMIDE 20 MG TAB PO SCH (10:30)
[2022-07-26] MEDS: THIAMINE 100 MG TAB PO SCH (10:31)
[2022-07-26] MEDS: MULTIVITAMINS/MINERALS THERAP 1 TAB PO SCH (10:31)
[2022-07-26] MEDS: oxyCODONE 5MG TAB PO PRN (10:44)
[2022-07-26] MEDS: SODIUM CHLORIDE 0.9% NASAL GEL 15GM (AYR) PRN (10:45)
[2022-07-27] VITALS (22 sets, daily range): BP systolic 90–104; BP diastolic 40–57; O2SAT 89–98
[2022-07-27 05:42] LABS: HEMOGLOBIN 7.2 g/dl (13.5-17.5); MEAN CORPUSCULAR HEMOGLOBIN 37.9 pg (27.0-33.0); MEAN CORPUSCULAR VOLUME 108.4 fl (80.0-96.0); WHITE BLOOD COUNT 8.5 10^3/uL (4.0-10.0)
[2022-07-27 05:46] LABS: HEMATOCRIT 20.6 % (42.0-52.0); PLATELET COUNT, AUTOMATED 79 10^3/uL (150-450)
[2022-07-27 06:04] LABS: LIPASE 26 U/L (12-53)
[2022-07-27 06:15] LABS: ALBUMIN 1.5 G/DL (3.2-5.2); ALKALINE PHOSPHATASE 150 U/L (46-116); ALT/SGPT 66 U/L (7.0-40); AST/SGOT 156 U/L (<34); BILIRUBIN,TOTAL 8.5 MG/DL (0.3-1.2); BLOOD UREA NITROGEN 7 MG/DL (9-23); CARBON DIOXIDE LEVEL 20 MMOL/L (20-31); CHLORIDE LEVEL 103 MMOL/L (98-107); CREATININE FOR GFR 0.73 MG/DL (0.70-1.30); GLOMERULAR FILTRATION RATE > 60.0 (>60); GLUCOSE, FASTING 106 MG/DL (60-100); POTASSIUM SERUM 3.4 MMOL/L (3.5-5.1); SODIUM LEVEL 130 MMOL/L (136-145); TOTAL PROTEIN 5.8 G/DL (5.7-8.2)
[2022-07-27] MEDS: LACTULOSE 20GM/30ML SYRUP UDC PO SCH ×4 (09:43→21:26)
[2022-07-27] MEDS: GABAPENTIN 100 MG CAP PO SCH ×3 (09:44→21:26)
[2022-07-27] MEDS: MULTIVITAMINS/MINERALS THERAP 1 TAB PO SCH (09:44)
[2022-07-27] MEDS: PANTOPRAZOLE 40MG TAB (PROTONIX) PO SCH ×2 (09:44→21:26)
[2022-07-27] MEDS: THIAMINE 100 MG TAB PO SCH (09:44)
[2022-07-27] MEDS: rifAXIMin 550 MG TAB (XIFAXAN) PO SCH ×2 (09:44→21:26)
[2022-07-27] MEDS: FOLIC ACID 1MG TAB PO SCH (09:44)
[2022-07-27] MEDS: SPIRONOLACTONE 50 MG TAB PO SCH (09:44)
[2022-07-27] MEDS: ACETAMINOPHEN 325 MG TAB PO PRN ×2 (09:45→17:37)
[2022-07-27 13:16] LABS: HEMATOCRIT 22.3 % (42.0-52.0); HEMOGLOBIN 7.6 g/dl (13.5-17.5)
[2022-07-27] MEDS: FUROSEMIDE 20 MG TAB PO SCH (17:38)
[2022-07-27] MEDS ORDERED: POTASSIUM CHLORIDE 10MEQ SR TABLET PO ONE (18:00)
[2022-07-27] MEDS: oxyCODONE 5MG TAB PO PRN (21:26)
[2022-07-27] MEDS: MORPHINE 2 MG/ML 1ML VIAL IV PRN (23:52)
[2022-07-28 01:30] VITALS: BP 98/59
[2022-07-28 04:37] LABS: HEMATOCRIT 21.4 % (42.0-52.0); HEMOGLOBIN 7.5 g/dl (13.5-17.5); MEAN CORPUSCULAR HEMOGLOBIN 38.5 pg (27.0-33.0); MEAN CORPUSCULAR VOLUME 109.7 fl (80.0-96.0); RED BLOOD COUNT 1.95 10^6/uL (4.30-6.10)
[2022-07-28 04:52] VITALS: BP 100/63
[2022-07-28 04:58] LABS: LIPASE 26 U/L (12-53)
[2022-07-28 05:00] LABS: ALBUMIN 1.7 G/DL (3.2-5.2); ALKALINE PHOSPHATASE 154 U/L (46-116); ALT/SGPT 66 U/L (7.0-40); AST/SGOT 157 U/L (<34); BILIRUBIN,TOTAL 8.8 MG/DL (0.3-1.2); BLOOD UREA NITROGEN 9 MG/DL (9-23); CALCIUM LEVEL 7.1 MG/DL (8.5-10.1); CARBON DIOXIDE LEVEL 20 MMOL/L (20-31); CHLORIDE LEVEL 103 MMOL/L (98-107); CREATININE FOR GFR 0.69 MG/DL (0.70-1.30); GLOMERULAR FILTRATION RATE > 60.0 (>60); GLUCOSE, FASTING 123 MG/DL (60-100); SODIUM LEVEL 129 MMOL/L (136-145); TOTAL PROTEIN 5.9 G/DL (5.7-8.2)
[2022-07-28] MEDS: oxyCODONE 5MG TAB PO PRN ×2 (06:02→20:12)
[2022-07-28 08:00] VITALS: BP 92/66
[2022-07-28 08:50] LABS: BASO # 0.1 10^3/uL (0.0-0.2); BASO % 0.9 % (0.0-1.0); EOS # 0.2 10^3/uL (0.0-0.5); EOS % 1.9 % (0.0-3.0); HEMATOCRIT 25.8 % (42.0-52.0); HEMOGLOBIN 8.7 g/dl (13.5-17.5); LYMPH # 0.9 10^3/uL (1.5-5.0); MEAN CORPUSCULAR HEMOGLOBIN 38.7 pg (27.0-33.0); MEAN CORPUSCULAR HGB CONC 33.7 g/dl (32.0-36.5); MONO # 0.6 10^3/uL (0.0-0.8); MONO % 7.9 % (2.0-8.0); NEUTROPHILS # 6.1 10^3/uL (1.5-8.5); NEUTROPHILS % 76.8 % (36.0-66.0); RED BLOOD COUNT 2.25 10^6/uL (4.30-6.10); WHITE BLOOD COUNT 7.9 10^3/uL (4.0-10.0)
[2022-07-28] MEDS: MULTIVITAMINS/MINERALS THERAP 1 TAB PO SCH (08:50)
[2022-07-28] MEDS: FOLIC ACID 1MG TAB PO SCH (08:50)
[2022-07-28] MEDS: LACTULOSE 20GM/30ML SYRUP UDC PO SCH ×4 (08:50→20:11)
[2022-07-28] MEDS: rifAXIMin 550 MG TAB (XIFAXAN) PO SCH ×2 (08:50→20:11)
[2022-07-28] MEDS: FUROSEMIDE 20 MG TAB PO SCH (08:50)
[2022-07-28] MEDS: SPIRONOLACTONE 50 MG TAB PO SCH ×2 (08:51→09:00)
[2022-07-28] MEDS: THIAMINE 100 MG TAB PO SCH (08:52)
[2022-07-28] MEDS: GABAPENTIN 100 MG CAP PO SCH ×3 (08:52→20:11)
[2022-07-28] MEDS: PANTOPRAZOLE 40MG TAB (PROTONIX) PO SCH ×2 (08:52→20:11)
[2022-07-28 09:29] LABS: PLATELET COUNT, AUTOMATED 81 10^3/uL (150-450)
[2022-07-28 09:30] LABS: MEAN CORPUSCULAR VOLUME 114.7 fl (80.0-96.0)
[2022-07-28] MEDS ORDERED: FUROSEMIDE 40MG/4ML VIAL IV ONE (10:30)
[2022-07-28] MEDS: SENOKOT S TAB PO SCH ×2 (11:22→20:11)
[2022-07-28 12:00] VITALS: BP 111/72
[2022-07-28 16:00] VITALS: BP 94/62
[2022-07-28 19:33] VITALS: BP 101/67
[2022-07-28] MEDS: MORPHINE 2 MG/ML 1ML VIAL IV PRN (21:55)
[2022-07-29] VITALS (7 sets, daily range): BP systolic 96–134; BP diastolic 54–64
[2022-07-29 05:37] LABS: HEMATOCRIT 22.4 % (42.0-52.0); HEMOGLOBIN 7.7 g/dl (13.5-17.5); MEAN CORPUSCULAR HGB CONC 34.4 g/dl (32.0-36.5); MEAN CORPUSCULAR VOLUME 107.7 fl (80.0-96.0); RED BLOOD COUNT 2.08 10^6/uL (4.30-6.10); WHITE BLOOD COUNT 6.7 10^3/uL (4.0-10.0)
[2022-07-29 05:41] LABS: PLATELET COUNT, AUTOMATED 79 10^3/uL (150-450)
[2022-07-29 06:08] LABS: ALBUMIN 1.8 G/DL (3.2-5.2); ALKALINE PHOSPHATASE 172 U/L (46-116); ALT/SGPT 66 U/L (7.0-40); AST/SGOT 156 U/L (<34); BILIRUBIN,TOTAL 8.6 MG/DL (0.3-1.2); BLOOD UREA NITROGEN 10 MG/DL (9-23); CALCIUM LEVEL 7.2 MG/DL (8.5-10.1); CARBON DIOXIDE LEVEL 18 MMOL/L (20-31); CHLORIDE LEVEL 102 MMOL/L (98-107); CREATININE FOR GFR 0.54 MG/DL (0.70-1.30); GLOMERULAR FILTRATION RATE > 60.0 (>60); GLUCOSE, FASTING 111 MG/DL (60-100); POTASSIUM SERUM 3.5 MMOL/L (3.5-5.1); SODIUM LEVEL 131 MMOL/L (136-145); TOTAL PROTEIN 5.9 G/DL (5.7-8.2)
[2022-07-29] MEDS: SENOKOT S TAB PO SCH ×2 (09:00→20:01)
[2022-07-29] MEDS: LACTULOSE 20GM/30ML SYRUP UDC PO SCH ×4 (09:00→20:01)
[2022-07-29] MEDS: GABAPENTIN 100 MG CAP PO SCH ×3 (09:55→20:01)
[2022-07-29] MEDS: FUROSEMIDE 40 MG TAB PO SCH ×2 (09:55→17:16)
[2022-07-29] MEDS: PANTOPRAZOLE 40MG TAB (PROTONIX) PO SCH ×2 (09:55→20:01)
[2022-07-29] MEDS: MULTIVITAMINS/MINERALS THERAP 1 TAB PO SCH (09:55)
[2022-07-29] MEDS: SPIRONOLACTONE 50 MG TAB PO SCH (09:55)
[2022-07-29] MEDS: FOLIC ACID 1MG TAB PO SCH (09:55)
[2022-07-29] MEDS: rifAXIMin 550 MG TAB (XIFAXAN) PO SCH ×2 (09:55→20:01)
[2022-07-29] MEDS: THIAMINE 100 MG TAB PO SCH (09:56)
[2022-07-29 14:12] LABS: HEMATOCRIT 22.6 % (42.0-52.0); HEMOGLOBIN 7.7 g/dl (13.5-17.5)
[2022-07-29] MEDS: oxyCODONE 5MG TAB PO PRN ×2 (14:56→23:48)
[2022-07-29] MEDS: HEPARIN SOD (PORCINE) 5000UNITS/ML 1ML VIAL/SYRINGE SQ SCH (20:00)
[2022-07-29] MEDS: MORPHINE 2 MG/ML 1ML VIAL IV PRN (20:02)
[2022-07-30] VITALS (9 sets, daily range): BP systolic 90–111; BP diastolic 50–61; PULSE 95
[2022-07-30] MEDS: MORPHINE 2 MG/ML 1ML VIAL IV PRN (03:13)
[2022-07-30] MEDS: HEPARIN SOD (PORCINE) 5000UNITS/ML 1ML VIAL/SYRINGE SQ SCH (04:41)
[2022-07-30 05:51] LABS: HEMOGLOBIN 7.3 g/dl (13.5-17.5); MEAN CORPUSCULAR HEMOGLOBIN 38.6 pg (27.0-33.0); MEAN CORPUSCULAR HGB CONC 35.3 g/dl (32.0-36.5); MEAN CORPUSCULAR VOLUME 109.5 fl (80.0-96.0); RED BLOOD COUNT 1.89 10^6/uL (4.30-6.10); WHITE BLOOD COUNT 7.1 10^3/uL (4.0-10.0)
[2022-07-30 05:54] LABS: HEMATOCRIT 20.7 % (42.0-52.0); PLATELET COUNT, AUTOMATED 74 10^3/uL (150-450)
[2022-07-30 06:07] LABS: ALBUMIN 1.7 G/DL (3.2-5.2); ALKALINE PHOSPHATASE 167 U/L (46-116); ALT/SGPT 56 U/L (7.0-40); AST/SGOT 132 U/L (<34); BILIRUBIN,TOTAL 7.6 MG/DL (0.3-1.2); BLOOD UREA NITROGEN 12 MG/DL (9-23); CALCIUM LEVEL 6.9 MG/DL (8.5-10.1); CARBON DIOXIDE LEVEL 22 MMOL/L (20-31); CHLORIDE LEVEL 99 MMOL/L (98-107); CREATININE FOR GFR 0.62 MG/DL (0.70-1.30); GLOMERULAR FILTRATION RATE > 60.0 (>60); GLUCOSE, FASTING 123 MG/DL (60-100); POTASSIUM SERUM 3.4 MMOL/L (3.5-5.1); SODIUM LEVEL 129 MMOL/L (136-145); TOTAL PROTEIN 5.7 G/DL (5.7-8.2)
[2022-07-30 07:51] LABS: IRON (FE) 38 UG/DL (65-175); PERCENT SATURATION 25.3 % (19.7-50.0); TOTAL IRON BINDING CAPACITY 150 UG/DL (250-425)
[2022-07-30 07:53] LABS: FERRITIN 107.2 NG/ML (10.5-307.3)
[2022-07-30 07:54] LABS: FOLATE 9.6 NG/ML (>5.4); VITAMIN B12 LEVEL 1012 PG/ML (211-911)
[2022-07-30] MEDS: PANTOPRAZOLE 40MG TAB (PROTONIX) PO SCH ×2 (08:41→20:20)
[2022-07-30] MEDS: GABAPENTIN 100 MG CAP PO SCH ×3 (08:41→20:20)
[2022-07-30] MEDS: rifAXIMin 550 MG TAB (XIFAXAN) PO SCH ×2 (08:41→20:21)
[2022-07-30] MEDS: LACTULOSE 20GM/30ML SYRUP UDC PO SCH ×4 (08:41→20:20)
[2022-07-30] MEDS: MULTIVITAMINS/MINERALS THERAP 1 TAB PO SCH (08:41)
[2022-07-30] MEDS: FOLIC ACID 1MG TAB PO SCH (08:42)
[2022-07-30] MEDS: SPIRONOLACTONE 50 MG TAB PO SCH ×2 (08:42→17:06)
[2022-07-30] MEDS: THIAMINE 100 MG TAB PO SCH (08:42)
[2022-07-30] MEDS: FUROSEMIDE 40 MG TAB PO SCH (08:42)
[2022-07-30] MEDS: SENOKOT S TAB PO SCH ×2 (08:42→20:21)
[2022-07-30] MEDS: oxyCODONE 5MG TAB PO PRN ×2 (08:43→18:27)
[2022-07-30] MEDS: ONDANSETRON 4MG 2ML VIAL IV PRN (13:04)
[2022-07-30] MEDS: ACETAMINOPHEN 325 MG TAB PO PRN (13:05)
[2022-07-30 15:42] LABS: CK-MB VALUE MASS < 1.0 NG/ML (<3.6)
[2022-07-30 15:43] LABS: CPK CREATINE PHOSPHOKINASE 30 U/L (46-171); MB/CK RELATIVE INDEX 3.33 (< OR =4)
[2022-07-30] MEDS ORDERED: GI COCKTAIL 50ML BTL(HYOSCYAMINE/MAALOX/LIDOCAINE VISCOUS)(1:3:1) PO ONE (16:00)
[2022-07-30] MEDS: SODIUM CHLORIDE 0.9% NASAL GEL 15GM (AYR) PRN (16:30)
[2022-07-30] MEDS: FUROSEMIDE 20 MG TAB PO SCH (17:05)
[2022-07-30 19:47] LABS: CK-MB VALUE MASS < 1.0 NG/ML (<3.6)
[2022-07-30 19:53] LABS: CPK CREATINE PHOSPHOKINASE 28 U/L (46-171); MB/CK RELATIVE INDEX 3.57 (< OR =4)
[2022-07-30] MEDS: predniSONE 20 MG TAB PO SCH (20:20)
[2022-07-31] MEDS: oxyCODONE 5MG TAB PO PRN ×4 (01:20→22:31)
[2022-07-31 04:00] VITALS: BP 99/51
[2022-07-31 05:21] LABS: HEMATOCRIT 22.6 % (42.0-52.0); HEMOGLOBIN 7.7 g/dl (13.5-17.5); MEAN CORPUSCULAR HEMOGLOBIN 36.8 pg (27.0-33.0); MEAN CORPUSCULAR HGB CONC 34.1 g/dl (32.0-36.5); MEAN CORPUSCULAR VOLUME 108.1 fl (80.0-96.0); RED BLOOD COUNT 2.09 10^6/uL (4.30-6.10)
[2022-07-31 05:22] LABS: PLATELET COUNT, AUTOMATED 78 10^3/uL (150-450)
[2022-07-31 05:46] LABS: ALBUMIN 1.9 G/DL (3.2-5.2); ALKALINE PHOSPHATASE 187 U/L (46-116); ALT/SGPT 57 U/L (7.0-40); AST/SGOT 133 U/L (<34); BILIRUBIN,TOTAL 8.2 MG/DL (0.3-1.2); BLOOD UREA NITROGEN 13 MG/DL (9-23); CALCIUM LEVEL 7.2 MG/DL (8.5-10.1); CARBON DIOXIDE LEVEL 23 MMOL/L (20-31); CHLORIDE LEVEL 97 MMOL/L (98-107); CREATININE FOR GFR 0.68 MG/DL (0.70-1.30); GLOMERULAR FILTRATION RATE > 60.0 (>60); GLUCOSE, FASTING 214 MG/DL (60-100); POTASSIUM SERUM 3.6 MMOL/L (3.5-5.1); SODIUM LEVEL 129 MMOL/L (136-145); TOTAL PROTEIN 6.2 G/DL (5.7-8.2)
[2022-07-31] MEDS: LACTULOSE 20GM/30ML SYRUP UDC PO SCH ×4 (08:03→20:32)
[2022-07-31] MEDS: THIAMINE 100 MG TAB PO SCH (08:03)
[2022-07-31] MEDS: FOLIC ACID 1MG TAB PO SCH (08:03)
[2022-07-31] MEDS: GABAPENTIN 100 MG CAP PO SCH ×3 (08:04→20:31)
[2022-07-31] MEDS: SPIRONOLACTONE 50 MG TAB PO SCH ×2 (08:04→15:56)
[2022-07-31] MEDS: FUROSEMIDE 20 MG TAB PO SCH ×2 (08:04→15:56)
[2022-07-31] MEDS: MULTIVITAMINS/MINERALS THERAP 1 TAB PO SCH (08:05)
[2022-07-31] MEDS: predniSONE 20 MG TAB PO SCH (08:05)
[2022-07-31] MEDS: PANTOPRAZOLE 40MG TAB (PROTONIX) PO SCH ×2 (08:05→20:31)
[2022-07-31] MEDS: SENOKOT S TAB PO SCH ×2 (08:05→20:32)
[2022-07-31] MEDS: rifAXIMin 550 MG TAB (XIFAXAN) PO SCH ×2 (08:10→20:31)
[2022-07-31 08:19] VITALS: BP 105/61
[2022-07-31 16:35] VITALS: BP 104/53
[2022-07-31] MEDS: ACETAMINOPHEN 325 MG TAB PO PRN (18:27)
[2022-07-31 20:00] VITALS: BP 97/57
[2022-07-31 22:00] VITALS: BP 93/62
[2022-08-01] MEDS: ACETAMINOPHEN 325 MG TAB PO PRN (03:36)
[2022-08-01] MEDS: oxyCODONE 5MG TAB PO PRN ×3 (04:39→16:21)
[2022-08-01 06:00] VITALS: BP 85/53
[2022-08-01 06:35] LABS: BASO % 0.1 % (0.0-1.0); EOS # 0.1 10^3/uL (0.0-0.5); EOS % 0.7 % (0.0-3.0); HEMATOCRIT 21.6 % (42.0-52.0); HEMOGLOBIN 7.5 g/dl (13.5-17.5); LYMPH # 1.3 10^3/uL (1.5-5.0); LYMPH % 14.5 % (24.0-44.0); MEAN CORPUSCULAR HEMOGLOBIN 37.1 pg (27.0-33.0); MEAN CORPUSCULAR HGB CONC 34.7 g/dl (32.0-36.5); MEAN CORPUSCULAR VOLUME 106.9 fl (80.0-96.0); MONO # 0.7 10^3/uL (0.0-0.8); MONO % 8.2 % (2.0-8.0); NEUTROPHILS # 6.6 10^3/uL (1.5-8.5); NEUTROPHILS % 75.4 % (36.0-66.0); RED BLOOD COUNT 2.02 10^6/uL (4.30-6.10); WHITE BLOOD COUNT 8.7 10^3/uL (4.0-10.0)
[2022-08-01 06:44] LABS: PLATELET COUNT, AUTOMATED 78 10^3/uL (150-450)
[2022-08-01 07:02] LABS: ALBUMIN 1.8 G/DL (3.2-5.2); ALKALINE PHOSPHATASE 193 U/L (46-116); ALT/SGPT 54 U/L (7.0-40); AST/SGOT 115 U/L (<34); BILIRUBIN,TOTAL 7.2 MG/DL (0.3-1.2); BLOOD UREA NITROGEN 19 MG/DL (9-23); CALCIUM LEVEL 7.5 MG/DL (8.5-10.1); CARBON DIOXIDE LEVEL 24 MMOL/L (20-31); CHLORIDE LEVEL 101 MMOL/L (98-107); CREATININE FOR GFR 0.71 MG/DL (0.70-1.30); GLOMERULAR FILTRATION RATE > 60.0 (>60); GLUCOSE, FASTING 116 MG/DL (60-100); POTASSIUM SERUM 3.5 MMOL/L (3.5-5.1); SODIUM LEVEL 133 MMOL/L (136-145)
[2022-08-01] MEDS: LACTULOSE 20GM/30ML SYRUP UDC PO SCH ×4 (10:06→20:54)
[2022-08-01] MEDS: THIAMINE 100 MG TAB PO SCH (10:13)
[2022-08-01] MEDS: SENOKOT S TAB PO SCH ×2 (10:13→20:55)
[2022-08-01] MEDS: FUROSEMIDE 20 MG TAB PO SCH ×2 (10:14→16:20)
[2022-08-01] MEDS: PANTOPRAZOLE 40MG TAB (PROTONIX) PO SCH ×2 (10:14→20:55)
[2022-08-01] MEDS: rifAXIMin 550 MG TAB (XIFAXAN) PO SCH ×2 (10:14→20:54)
[2022-08-01] MEDS: SPIRONOLACTONE 50 MG TAB PO SCH ×2 (10:14→16:20)
[2022-08-01] MEDS: predniSONE 20 MG TAB PO SCH (10:14)
[2022-08-01] MEDS: MULTIVITAMINS/MINERALS THERAP 1 TAB PO SCH (10:14)
[2022-08-01] MEDS: FOLIC ACID 1MG TAB PO SCH (10:14)
[2022-08-01] MEDS: GABAPENTIN 100 MG CAP PO SCH ×3 (10:14→20:54)
[2022-08-01 10:23] VITALS: BP 100/70
[2022-08-01] MEDS ORDERED: POTASSIUM CHLORIDE 10MEQ SR TABLET PO ONE (10:30)
[2022-08-01] MEDS: ONDANSETRON 4MG ORAL DISINTEGRATING TAB SL PRN (13:20)
[2022-08-01] MEDS: IBUPROFEN 600MG TAB PO PRN (13:40)
[2022-08-01 14:00] VITALS: BP 96/56
[2022-08-01] MEDS: MIDODRINE 2.5 MG TAB PO SCH (16:20)
[2022-08-01 20:05] VITALS: BP 103/67
[2022-08-01] MEDS: traZODone 50 MG TAB PO PRN (20:55)
[2022-08-02 05:00] VITALS: BP 102/60
[2022-08-02 06:29] LABS: EOS % 0.1 % (0.0-3.0); HEMOGLOBIN 7.1 g/dl (13.5-17.5); LYMPH # 0.8 10^3/uL (1.5-5.0); LYMPH % 11.4 % (24.0-44.0); MEAN CORPUSCULAR HEMOGLOBIN 36.6 pg (27.0-33.0); MEAN CORPUSCULAR HGB CONC 34.5 g/dl (32.0-36.5); MEAN CORPUSCULAR VOLUME 106.2 fl (80.0-96.0); MONO # 0.7 10^3/uL (0.0-0.8); NEUTROPHILS # 5.2 10^3/uL (1.5-8.5); NEUTROPHILS % 77.5 % (36.0-66.0); RED BLOOD COUNT 1.94 10^6/uL (4.30-6.10); WHITE BLOOD COUNT 6.7 10^3/uL (4.0-10.0)
[2022-08-02 06:31] LABS: HEMATOCRIT 20.6 % (42.0-52.0); PLATELET COUNT, AUTOMATED 78 10^3/uL (150-450)
[2022-08-02 06:53] LABS: ALBUMIN 1.8 G/DL (3.2-5.2); ALKALINE PHOSPHATASE 167 U/L (46-116); ALT/SGPT 70 U/L (7.0-40); AST/SGOT 175 U/L (<34); BILIRUBIN,TOTAL 7.2 MG/DL (0.3-1.2); BLOOD UREA NITROGEN 20 MG/DL (9-23); CALCIUM LEVEL 7.4 MG/DL (8.5-10.1); CARBON DIOXIDE LEVEL 23 MMOL/L (20-31); CHLORIDE LEVEL 102 MMOL/L (98-107); GLOMERULAR FILTRATION RATE > 60.0 (>60); GLUCOSE, FASTING 90 MG/DL (60-100); POTASSIUM SERUM 3.5 MMOL/L (3.5-5.1); SODIUM LEVEL 133 MMOL/L (136-145); TOTAL PROTEIN 5.9 G/DL (5.7-8.2)
[2022-08-02] MEDS: MIDODRINE 2.5 MG TAB PO SCH ×2 (10:21→17:05)
[2022-08-02] MEDS: PANTOPRAZOLE 40MG TAB (PROTONIX) PO SCH ×2 (10:23→21:02)
[2022-08-02] MEDS: THIAMINE 100 MG TAB PO SCH (10:23)
[2022-08-02] MEDS: GABAPENTIN 100 MG CAP PO SCH ×3 (10:23→21:02)
[2022-08-02] MEDS: predniSONE 20 MG TAB PO SCH (10:23)
[2022-08-02] MEDS: oxyCODONE 5MG TAB PO PRN (10:23)
[2022-08-02] MEDS: rifAXIMin 550 MG TAB (XIFAXAN) PO SCH ×2 (10:23→21:03)
[2022-08-02] MEDS: SPIRONOLACTONE 50 MG TAB PO SCH ×2 (10:23→17:05)
[2022-08-02] MEDS: MULTIVITAMINS/MINERALS THERAP 1 TAB PO SCH (10:24)
[2022-08-02] MEDS: FOLIC ACID 1MG TAB PO SCH (10:24)
[2022-08-02] MEDS: FUROSEMIDE 20 MG TAB PO SCH ×2 (10:24→17:06)
[2022-08-02] MEDS: SENOKOT S TAB PO SCH ×2 (10:24→21:03)
[2022-08-02] MEDS: LACTULOSE 20GM/30ML SYRUP UDC PO SCH ×4 (10:24→21:02)
[2022-08-02] MEDS: POTASSIUM CHLORIDE 10MEQ SR TABLET PO SCH ×2 (13:41→21:03)
[2022-08-02] MEDS: IBUPROFEN 600MG TAB PO PRN (13:41)
[2022-08-02 14:00] VITALS: BP 113/73
[2022-08-02 20:00] VITALS: BP 108/56
[2022-08-02] MEDS: traZODone 50 MG TAB PO PRN (21:03)
[2022-08-03 06:00] VITALS: BP 118/64
[2022-08-03 06:27] LABS: EOS # 0.1 10^3/uL (0.0-0.5); EOS % 1.1 % (0.0-3.0); HEMOGLOBIN 7.2 g/dl (13.5-17.5); LYMPH # 1.2 10^3/uL (1.5-5.0); LYMPH % 14.7 % (24.0-44.0); MEAN CORPUSCULAR HEMOGLOBIN 37.3 pg (27.0-33.0); MEAN CORPUSCULAR HGB CONC 34.6 g/dl (32.0-36.5); MEAN CORPUSCULAR VOLUME 107.8 fl (80.0-96.0); MONO # 0.8 10^3/uL (0.0-0.8); MONO % 9.7 % (2.0-8.0); NEUTROPHILS # 6.2 10^3/uL (1.5-8.5); NEUTROPHILS % 73.7 % (36.0-66.0); RED BLOOD COUNT 1.93 10^6/uL (4.30-6.10); WHITE BLOOD COUNT 8.4 10^3/uL (4.0-10.0)
[2022-08-03 06:34] LABS: PLATELET COUNT, AUTOMATED 78 10^3/uL (150-450)
[2022-08-03 06:35] LABS: HEMATOCRIT 20.8 % (42.0-52.0)
[2022-08-03 06:49] LABS: ALBUMIN 1.8 G/DL (3.2-5.2); ALKALINE PHOSPHATASE 180 U/L (46-116); ALT/SGPT 76 U/L (7.0-40); AST/SGOT 175 U/L (<34); BILIRUBIN,TOTAL 6.7 MG/DL (0.3-1.2); BLOOD UREA NITROGEN 21 MG/DL (9-23); CALCIUM LEVEL 7.5 MG/DL (8.5-10.1); CARBON DIOXIDE LEVEL 21 MMOL/L (20-31); CHLORIDE LEVEL 101 MMOL/L (98-107); CREATININE FOR GFR 0.99 MG/DL (0.70-1.30); GLOMERULAR FILTRATION RATE > 60.0 (>60); GLUCOSE, FASTING 138 MG/DL (60-100); POTASSIUM SERUM 3.3 MMOL/L (3.5-5.1); SODIUM LEVEL 133 MMOL/L (136-145); TOTAL PROTEIN 5.9 G/DL (5.7-8.2)
[2022-08-03 07:49] LABS: MAGNESIUM LEVEL 1.8 MG/DL (1.8-2.4)
[2022-08-03] MEDS: predniSONE 20 MG TAB PO SCH (08:28)
[2022-08-03] MEDS: rifAXIMin 550 MG TAB (XIFAXAN) PO SCH ×2 (08:28→22:51)
[2022-08-03] MEDS: FOLIC ACID 1MG TAB PO SCH (08:28)
[2022-08-03] MEDS: GABAPENTIN 100 MG CAP PO SCH ×3 (08:29→22:52)
[2022-08-03] MEDS: PANTOPRAZOLE 40MG TAB (PROTONIX) PO SCH ×2 (08:29→22:52)
[2022-08-03] MEDS: MIDODRINE 2.5 MG TAB PO SCH ×2 (08:29→17:22)
[2022-08-03] MEDS: SPIRONOLACTONE 50 MG TAB PO SCH ×2 (08:29→17:00)
[2022-08-03] MEDS: MULTIVITAMINS/MINERALS THERAP 1 TAB PO SCH (08:29)
[2022-08-03] MEDS: SENOKOT S TAB PO SCH ×2 (08:30→22:52)
[2022-08-03] MEDS: FUROSEMIDE 20 MG TAB PO SCH ×2 (08:30→17:00)
[2022-08-03] MEDS: MAGNESIUM OXIDE 400MG TAB (MAG-OX) PO SCH ×2 (08:30→22:52)
[2022-08-03] MEDS: THIAMINE 100 MG TAB PO SCH (08:30)
[2022-08-03] MEDS: LACTULOSE 20GM/30ML SYRUP UDC PO SCH ×4 (08:31→21:00)
[2022-08-03] MEDS: POTASSIUM CHLORIDE 10MEQ SR TABLET PO SCH ×2 (08:31→22:54)
[2022-08-03 08:34] VITALS: BP 108/70
[2022-08-03] MEDS: oxyCODONE 5MG TAB PO PRN (08:44)
[2022-08-03] MEDS: ANALGESIC BALM CRM 3OZ TOP SCH ×3 (09:00→22:55)
[2022-08-03] MEDS: IBUPROFEN 600MG TAB PO PRN (09:41)
[2022-08-03 17:23] VITALS: BP 96/54
[2022-08-03 18:35] VITALS: BP 90/52
[2022-08-03] MEDS ORDERED: SODIUM CHLORIDE 0.9% NASAL GEL 15GM (AYR) SCH (21:00)
[2022-08-03] MEDS: traZODone 50 MG TAB PO PRN (22:52)
[2022-08-03] MEDS: SODIUM CHLORIDE 0.9% NASAL GEL 15GM (AYR) SCH (23:01)
[2022-08-04] MEDS: ONDANSETRON 4MG ORAL DISINTEGRATING TAB SL PRN ×3 (00:28→22:24)
[2022-08-04] MEDS: oxyCODONE 5MG TAB PO PRN ×3 (00:28→20:24)
[2022-08-04] MEDS ORDERED: MORPHINE 2 MG/ML 1ML VIAL IV ONE (02:00)
[2022-08-04] MEDS ORDERED: oxyCODONE 5MG TAB PO ONE (02:10)
[2022-08-04 03:44] LABS: EOS % 0.4 % (0.0-3.0); HEMATOCRIT 21.1 % (42.0-52.0); HEMOGLOBIN 7.2 g/dl (13.5-17.5); LYMPH # 0.9 10^3/uL (1.5-5.0); LYMPH % 11.8 % (24.0-44.0); MEAN CORPUSCULAR HEMOGLOBIN 36.2 pg (27.0-33.0); MEAN CORPUSCULAR HGB CONC 34.1 g/dl (32.0-36.5); MONO # 0.7 10^3/uL (0.0-0.8); MONO % 8.4 % (2.0-8.0); NEUTROPHILS # 6.2 10^3/uL (1.5-8.5); NEUTROPHILS % 78.4 % (36.0-66.0); RED BLOOD COUNT 1.99 10^6/uL (4.30-6.10); WHITE BLOOD COUNT 7.9 10^3/uL (4.0-10.0)
[2022-08-04 03:48] LABS: PLATELET COUNT, AUTOMATED 75 10^3/uL (150-450)
[2022-08-04 03:57] LABS: LIPASE 20 U/L (12-53)
[2022-08-04 03:59] LABS: ALBUMIN 1.8 G/DL (3.2-5.2); ALKALINE PHOSPHATASE 185 U/L (46-116); ALT/SGPT 85 U/L (7.0-40); AST/SGOT 173 U/L (<34); BILIRUBIN,TOTAL 6.5 MG/DL (0.3-1.2); BLOOD UREA NITROGEN 22 MG/DL (9-23); CALCIUM LEVEL 7.4 MG/DL (8.5-10.1); CARBON DIOXIDE LEVEL 23 MMOL/L (20-31); CHLORIDE LEVEL 101 MMOL/L (98-107); GLOMERULAR FILTRATION RATE > 60.0 (>60); GLUCOSE, FASTING 121 MG/DL (60-100); INR 1.8; POTASSIUM SERUM 3.7 MMOL/L (3.5-5.1); PROTHROMBIN TIME 21.2 SECONDS (12.5-14.5); SODIUM LEVEL 131 MMOL/L (136-145)
[2022-08-04 06:00] VITALS: BP 100/66
[2022-08-04] MEDS: LACTULOSE 20GM/30ML SYRUP UDC PO SCH ×2 (08:40→20:25)
[2022-08-04 08:55] VITALS: BP 92/50
[2022-08-04] MEDS: rifAXIMin 550 MG TAB (XIFAXAN) PO SCH ×2 (08:58→20:24)
[2022-08-04] MEDS: MIDODRINE 5 MG TAB PO SCH ×2 (08:58→16:30)
[2022-08-04] MEDS: PANTOPRAZOLE 40MG TAB (PROTONIX) PO SCH ×2 (08:58→20:23)
[2022-08-04] MEDS: GABAPENTIN 100 MG CAP PO SCH ×3 (08:58→20:23)
[2022-08-04] MEDS: FOLIC ACID 1MG TAB PO SCH (08:58)
[2022-08-04] MEDS: predniSONE 20 MG TAB PO SCH (08:58)
[2022-08-04] MEDS: POTASSIUM CHLORIDE 10MEQ SR TABLET PO SCH ×2 (08:59→20:24)
[2022-08-04] MEDS: MAGNESIUM OXIDE 400MG TAB (MAG-OX) PO SCH ×2 (08:59→20:25)
[2022-08-04] MEDS: MULTIVITAMINS/MINERALS THERAP 1 TAB PO SCH (08:59)
[2022-08-04] MEDS: THIAMINE 100 MG TAB PO SCH (08:59)
[2022-08-04] MEDS: SENOKOT S TAB PO SCH ×2 (08:59→20:23)
[2022-08-04] MEDS: SODIUM CHLORIDE 0.9% NASAL GEL 15GM (AYR) SCH ×4 (09:00→20:26)
[2022-08-04] MEDS: ANALGESIC BALM CRM 3OZ TOP SCH ×3 (09:00→20:26)
[2022-08-04] MEDS: SPIRONOLACTONE 50 MG TAB PO SCH ×2 (09:00→16:53)
[2022-08-04] MEDS: FUROSEMIDE 20 MG TAB PO SCH ×2 (09:00→16:53)
[2022-08-04 14:00] VITALS: BP 90/54
[2022-08-04 16:22] VITALS: BP 90/48
[2022-08-04 20:35] VITALS: BP 96/56
[2022-08-04] MEDS: IBUPROFEN 600MG TAB PO PRN (22:24)
[2022-08-05] VITALS (8 sets, daily range): BP systolic 99–112; BP diastolic 55–71
[2022-08-05 06:05] LABS: BASO % 0.1 % (0.0-1.0); EOS # 0.2 10^3/uL (0.0-0.5); EOS % 2.7 % (0.0-3.0); HEMATOCRIT 21.8 % (42.0-52.0); HEMOGLOBIN 7.4 g/dl (13.5-17.5); LYMPH # 1.3 10^3/uL (1.5-5.0); LYMPH % 15.7 % (24.0-44.0); MEAN CORPUSCULAR HEMOGLOBIN 36.1 pg (27.0-33.0); MEAN CORPUSCULAR HGB CONC 33.9 g/dl (32.0-36.5); MEAN CORPUSCULAR VOLUME 106.3 fl (80.0-96.0); MONO # 0.8 10^3/uL (0.0-0.8); MONO % 9.5 % (2.0-8.0); NEUTROPHILS % 70.6 % (36.0-66.0); RED BLOOD COUNT 2.05 10^6/uL (4.30-6.10); WHITE BLOOD COUNT 8.5 10^3/uL (4.0-10.0)
[2022-08-05 06:08] LABS: PLATELET COUNT, AUTOMATED 78 10^3/uL (150-450)
[2022-08-05 06:34] LABS: ALBUMIN 1.8 G/DL (3.2-5.2); ALKALINE PHOSPHATASE 203 U/L (46-116); ALT/SGPT 83 U/L (7.0-40); AST/SGOT 169 U/L (<34); BILIRUBIN,TOTAL 6.6 MG/DL (0.3-1.2); BLOOD UREA NITROGEN 24 MG/DL (9-23); CALCIUM LEVEL 7.8 MG/DL (8.5-10.1); CARBON DIOXIDE LEVEL 22 MMOL/L (20-31); CHLORIDE LEVEL 100 MMOL/L (98-107); CREATININE FOR GFR 0.84 MG/DL (0.70-1.30); GLOMERULAR FILTRATION RATE > 60.0 (>60); GLUCOSE, FASTING 110 MG/DL (60-100); POTASSIUM SERUM 4.2 MMOL/L (3.5-5.1); SODIUM LEVEL 131 MMOL/L (136-145); TOTAL PROTEIN 6.1 G/DL (5.7-8.2)
[2022-08-05] MEDS ORDERED: LASI40TA9 PO (08:36)
[2022-08-05] MEDS ORDERED: ALDA50TA2 PO (08:36)
[2022-08-05] MEDS ORDERED: PRED20TA PO (08:38)
[2022-08-05] MEDS: LACTULOSE 20GM/30ML SYRUP UDC PO SCH ×2 (08:55→20:06)
[2022-08-05] MEDS: MULTIVITAMINS/MINERALS THERAP 1 TAB PO SCH (08:56)
[2022-08-05] MEDS: FUROSEMIDE 20 MG TAB PO SCH ×2 (08:56→16:44)
[2022-08-05] MEDS: SENOKOT S TAB PO SCH ×2 (08:56→20:06)
[2022-08-05] MEDS: THIAMINE 100 MG TAB PO SCH (08:56)
[2022-08-05] MEDS: GABAPENTIN 100 MG CAP PO SCH ×3 (08:56→20:07)
[2022-08-05] MEDS: FOLIC ACID 1MG TAB PO SCH (08:56)
[2022-08-05] MEDS: SPIRONOLACTONE 50 MG TAB PO SCH ×2 (08:56→16:44)
[2022-08-05] MEDS: predniSONE 20 MG TAB PO SCH (08:57)
[2022-08-05] MEDS: rifAXIMin 550 MG TAB (XIFAXAN) PO SCH ×2 (08:57→20:07)
[2022-08-05] MEDS: MIDODRINE 5 MG TAB PO SCH ×3 (08:57→16:44)
[2022-08-05] MEDS: PANTOPRAZOLE 40MG TAB (PROTONIX) PO SCH ×2 (08:57→20:07)
[2022-08-05] MEDS: MAGNESIUM OXIDE 400MG TAB (MAG-OX) PO SCH ×2 (08:57→20:10)
[2022-08-05] MEDS: ANALGESIC BALM CRM 3OZ TOP SCH ×3 (08:58→20:11)
[2022-08-05] MEDS: SODIUM CHLORIDE 0.9% NASAL GEL 15GM (AYR) SCH ×4 (08:58→20:11)
[2022-08-05] MEDS: POTASSIUM CHLORIDE 10MEQ SR TABLET PO SCH ×2 (08:58→20:10)
[2022-08-05 12:12] LABS: HEMATOCRIT 23.1 % (42.0-52.0); HEMOGLOBIN 7.7 g/dl (13.5-17.5)
[2022-08-05] MEDS ORDERED: LIDOCAINE 1% MDV 20ML VIAL As Ordered ONE (13:01)
[2022-08-05 14:49] LABS: ASCITES FL COLOR YELLOW (COLORLESS); SOURCE, BODY FLUID ASCITES
[2022-08-05 14:50] LABS: APPEARANCE, BODY FLUID HAZY (CLEAR)
[2022-08-05 15:39] LABS: HEMATOCRIT 25.4 % (42.0-52.0); HEMOGLOBIN 8.6 g/dl (13.5-17.5)
[2022-08-05] MEDS: oxyCODONE 5MG TAB PO PRN (23:43)
[2022-08-06] MEDS ORDERED: OXYC1TAB23 PO (05:57)
[2022-08-06 06:00] VITALS: BP 111/65
[2022-08-06 08:15] VITALS: BP 104/62
[2022-08-06] MEDS: FOLIC ACID 1MG TAB PO SCH (08:21)
[2022-08-06] MEDS: PANTOPRAZOLE 40MG TAB (PROTONIX) PO SCH (08:21)
[2022-08-06] MEDS: predniSONE 20 MG TAB PO SCH (08:21)
[2022-08-06] MEDS: POTASSIUM CHLORIDE 10MEQ SR TABLET PO SCH (08:22)
[2022-08-06] MEDS: rifAXIMin 550 MG TAB (XIFAXAN) PO SCH (08:23)
[2022-08-06] MEDS: MIDODRINE 5 MG TAB PO SCH (08:23)
[2022-08-06] MEDS: MULTIVITAMINS/MINERALS THERAP 1 TAB PO SCH (08:23)
[2022-08-06] MEDS: THIAMINE 100 MG TAB PO SCH (08:23)
[2022-08-06] MEDS: GABAPENTIN 100 MG CAP PO SCH (08:23)
[2022-08-06] MEDS: SPIRONOLACTONE 50 MG TAB PO SCH (08:23)
[2022-08-06] MEDS: FUROSEMIDE 20 MG TAB PO SCH (08:23)
[2022-08-06] MEDS: SENOKOT S TAB PO SCH (08:23)
[2022-08-06] MEDS: SODIUM CHLORIDE 0.9% NASAL GEL 15GM (AYR) SCH (08:24)
[2022-08-06] MEDS: MAGNESIUM OXIDE 400MG TAB (MAG-OX) PO SCH (08:24)
[2022-08-06] MEDS: LACTULOSE 20GM/30ML SYRUP UDC PO SCH (08:24)
[2022-08-06] MEDS: ANALGESIC BALM CRM 3OZ TOP SCH (08:25)
== END 2022-08-06 08:59 | disposition home or self-care (01) | DRG 280 ==
LOC: EDBD 22:32 → M ED 22:32 → M ED INP 07-24 05:05 → ENRESERV 07-24 13:31 → M PCU 07-24 15:07 → M MSPAV 07-31 21:50 → UNDODISIN 08-05 12:30
PROVIDERS: ADMIT Internal Medicine; ATTEND General Practice
PROC: 0W9G3ZZ Drainage of Peritoneal Cavity, Percutaneous Approach (ICD-10-PCS; principal; 2022-07-29 10:00)
PROC: 30233N1 Transfusion of Nonautologous Red Blood Cells into Peripheral Vein, Percutaneous Approach (ICD-10-PCS; 2022-08-05)
PROC: 0W9G3ZZ Drainage of Peritoneal Cavity, Percutaneous Approach (ICD-10-PCS; 2022-08-05)
DX: K70.31 Alcoholic cirrhosis of liver with ascites (principal); K70.10 Alcoholic hepatitis without ascites; K76.6 Portal hypertension; E72.20 Disorder of urea cycle metabolism, unspecified; E87.1 Hypo-osmolality and hyponatremia; I95.89 Other hypotension; K72.90 Hepatic failure, unspecified without coma; D69.6 Thrombocytopenia, unspecified; E87.70 Fluid overload, unspecified; K86.0 Alcohol-induced chronic pancreatitis; D53.9 Nutritional anemia, unspecified; D63.8 Anemia in other chronic diseases classified elsewhere; F10.20 Alcohol dependence, uncomplicated; F17.210 Nicotine dependence, cigarettes, uncomplicated; K44.9 Diaphragmatic hernia without obstruction or gangrene; K64.9 Unspecified hemorrhoids; K76.82 Hepatic encephalopathy; R74.01 Elevation of levels of liver transaminase levels; Z96.643 Presence of artificial hip joint, bilateral; I10 Essential (primary) hypertension; Z79.899 Other long term (current) drug therapy; R26.89 Other abnormalities of gait and mobility

== ENCOUNTER 2022-08-18 18:34 | Inpatient (IN) | payer OTHER ==
[~2022-08-18] VITALS: Ht 162.6 cm; Wt 61.5 kg
[~2022-08-18 18:34] MED LIST changes: +ALDA50TA2 PO; +BENZ1LOZ9 MT; +GABA-1171 PO; +LACT10PA PO; +LASI40TA9 PO; +NADO20TA PO; +OXYC1TAB23 PO; +PRED20TA PO; +SPIR50TA4 PO; +VITMTA PO; +XIFA550T PO
[2022-08-18] MEDS ORDERED: ONDANSETRON 4MG 2ML VIAL IV ONE (19:25)
[2022-08-18] MEDS ORDERED: MORPHINE 4 MG/ML 1ML VIAL IV ONE (19:25)
[2022-08-18] MEDS ORDERED: NS 1,000 ML IV ONE (19:25)
[2022-08-18 19:47] LABS: BASO % 0.3 % (0.0-1.0); EOS # 0.1 10^3/uL (0.0-0.5); EOS % 1.2 % (0.0-3.0); HEMATOCRIT 29.4 % (42.0-52.0); HEMOGLOBIN 9.6 g/dl (13.5-17.5); LYMPH # 1.1 10^3/uL (1.5-5.0); LYMPH % 14.4 % (24.0-44.0); MEAN CORPUSCULAR HEMOGLOBIN 33.7 pg (27.0-33.0); MEAN CORPUSCULAR HGB CONC 32.7 g/dl (32.0-36.5); MEAN CORPUSCULAR VOLUME 103.2 fl (80.0-96.0); MONO # 0.6 10^3/uL (0.0-0.8); MONO % 7.9 % (2.0-8.0); NEUTROPHILS # 5.6 10^3/uL (1.5-8.5); NEUTROPHILS % 75.5 % (36.0-66.0); RED BLOOD COUNT 2.85 10^6/uL (4.30-6.10); WHITE BLOOD COUNT 7.4 10^3/uL (4.0-10.0)
[2022-08-18 19:49] LABS: PLATELET COUNT, AUTOMATED 61 10^3/uL (150-450)
[2022-08-18 19:52] LABS: MAGNESIUM LEVEL 1.7 MG/DL (1.8-2.4)
[2022-08-18 19:53] LABS: BILIRUBIN,DIRECT 4.4 MG/DL (<0.4); CPK CREATINE PHOSPHOKINASE 45 U/L (46-171)
[2022-08-18 20:20] LABS: ALBUMIN 2.3 G/DL (3.2-5.2); ALKALINE PHOSPHATASE 233 U/L (46-116); ALT/SGPT 65 U/L (7.0-40); AST/SGOT 120 U/L (<34); BILIRUBIN,TOTAL 6.9 MG/DL (0.3-1.2); BLOOD UREA NITROGEN 9 MG/DL (9-23); CARBON DIOXIDE LEVEL 24 MMOL/L (20-31); CHLORIDE LEVEL 105 MMOL/L (98-107); GLOMERULAR FILTRATION RATE > 60.0 (>60); GLUCOSE, FASTING 131 MG/DL (60-100); POTASSIUM SERUM 2.9 MMOL/L (3.5-5.1); SODIUM LEVEL 138 MMOL/L (136-145)
[2022-08-18 20:44] LABS: LIPASE 47 U/L (12-53)
[2022-08-18] MEDS ORDERED: KCL 10MEQ/100ML SWI (KRUN) 10 MEQ in IV 1 EA IV ONE (20:50)
[2022-08-18] MEDS ORDERED: MAG SULF 1GM/100ML (MAG RUN) 1 GM in IV 1 EA IV ONE ×4 (20:50)
[2022-08-18] MEDS ORDERED: ISOVUE-370 76% 100ML VIAL As Ordered ONE (20:54)
[2022-08-18] MEDS ORDERED: METOCLOPRAMIDE INJ 10MG/2ML VIAL IV ONE (21:15)
[2022-08-18] MEDS ORDERED: HEPARIN SOD (PORCINE) 5000UNITS/ML 1ML VIAL/SYRINGE SC SCH (23:25)
[2022-08-18] MEDS ORDERED: cefTRIAXone SOD 1 GM in D5W MINI-BAG PLUS 50 ML IV SCH (23:30)
[2022-08-19] MEDS ORDERED: FURO40TA2 PO (00:05)
[2022-08-19] MEDS ORDERED: PROM25TA12 PO (00:05)
[2022-08-19] MEDS ORDERED: PRED20TA PO (00:05)
[2022-08-19] MEDS ORDERED: SPIR50TA4 PO (00:05)
[2022-08-19] MEDS ORDERED: HOME MED LIST COMPLETE! XX SCH (00:10)
[2022-08-19] MEDS ORDERED: POTASSIUM CHLORIDE 10MEQ SR TABLET PO ONE (00:10)
[2022-08-19] MEDS ORDERED: MAG SULF 1GM/100ML (MAG RUN) 1 GM in IV 1 EA IV ONE (00:20)
[2022-08-19] MEDS ORDERED: PROMETHAZINE 25 MG TAB PO PRN (00:25)
[2022-08-19] MEDS ORDERED: CEPACOL LOZENGE MT PRN (00:25)
[2022-08-19] MEDS: KCL 10MEQ/100ML SWI (KRUN) 10 MEQ in IV 1 EA IV SCH ×4 (01:45→08:47)
[2022-08-19] MEDS: CYCLOBENZAPRINE 10MG TABLET PO PRN (01:59)
[2022-08-19] MEDS ORDERED: LACTULOSE 20GM/30ML SYRUP UDC PO ONE (06:05)
[2022-08-19] MEDS ORDERED: PROMETHAZINE 25MG/ML 1ML VIAL IV PRN (06:40)
[2022-08-19 07:00] LABS: BASO % 0.4 % (0.0-1.0); EOS # 0.1 10^3/uL (0.0-0.5); EOS % 1.8 % (0.0-3.0); HEMATOCRIT 27.4 % (42.0-52.0); HEMOGLOBIN 8.9 g/dl (13.5-17.5); LYMPH # 1.3 10^3/uL (1.5-5.0); LYMPH % 19.5 % (24.0-44.0); MEAN CORPUSCULAR HEMOGLOBIN 34.1 pg (27.0-33.0); MEAN CORPUSCULAR HGB CONC 32.5 g/dl (32.0-36.5); MONO # 0.4 10^3/uL (0.0-0.8); MONO % 5.2 % (2.0-8.0); NEUTROPHILS # 4.9 10^3/uL (1.5-8.5); NEUTROPHILS % 72.4 % (36.0-66.0); RED BLOOD COUNT 2.61 10^6/uL (4.30-6.10); WHITE BLOOD COUNT 6.8 10^3/uL (4.0-10.0)
[2022-08-19 07:17] LABS: PLATELET COUNT, AUTOMATED 56 10^3/uL (150-450)
[2022-08-19 07:46] LABS: ALBUMIN 2.1 G/DL (3.2-5.2); ALKALINE PHOSPHATASE 204 U/L (46-116); ALT/SGPT 55 U/L (7.0-40); AST/SGOT 110 U/L (<34); BILIRUBIN,TOTAL 6.3 MG/DL (0.3-1.2); BLOOD UREA NITROGEN 10 MG/DL (9-23); CALCIUM LEVEL 7.3 MG/DL (8.5-10.1); CARBON DIOXIDE LEVEL 19 MMOL/L (20-31); CHLORIDE LEVEL 106 MMOL/L (98-107); CREATININE FOR GFR 0.56 MG/DL (0.70-1.30); GLOMERULAR FILTRATION RATE > 60.0 (>60); GLUCOSE, FASTING 225 MG/DL (60-100); POTASSIUM SERUM 3.3 MMOL/L (3.5-5.1); SODIUM LEVEL 135 MMOL/L (136-145); TOTAL PROTEIN 6.5 G/DL (5.7-8.2)
[2022-08-19] MEDS: PANTOPRAZOLE 40MG VIAL IV SCH ×2 (08:06→20:05)
[2022-08-19] MEDS: MULTIVITAMINS/MINERALS THERAP 1 TAB PO SCH (08:06)
[2022-08-19] MEDS: GABAPENTIN 100 MG CAP PO SCH ×3 (08:06→20:05)
[2022-08-19] MEDS: FOLIC ACID 1MG TAB PO SCH (08:06)
[2022-08-19] MEDS: DOCUSATE SODIUM 100MG CAPSULE PO SCH ×2 (08:07→20:05)
[2022-08-19] MEDS: THIAMINE 100 MG TAB PO SCH (08:07)
[2022-08-19] MEDS: predniSONE 20 MG TAB PO SCH (08:07)
[2022-08-19] MEDS: rifAXIMin 550 MG TAB (XIFAXAN) PO SCH ×2 (08:15→20:05)
[2022-08-19] MEDS ORDERED: LIDOCAINE 1% MDV 20ML VIAL As Ordered ONE (08:29)
[2022-08-19] MEDS ORDERED: PANTOPRAZOLE 40MG TAB (PROTONIX) PO SCH (09:00)
[2022-08-19] MEDS ORDERED: POTASSIUM CHLORIDE 10MEQ SR TABLET PO SCH (09:00)
[2022-08-19] MEDS: MIDODRINE 5 MG TAB PO SCH ×3 (09:39→18:05)
[2022-08-19 09:47] LABS: APPEARANCE, BODY FLUID HAZY (CLEAR); ASCITES FL COLOR PALE YELLOW (COLORLESS); SOURCE, BODY FLUID ASCITES
[2022-08-19] MEDS: LACTULOSE 20GM/30ML SYRUP UDC PO SCH ×7 (10:00→20:03)
[2022-08-19 10:16] LABS: SOURCE, BODY FLUID ALBUMIN ASCITES
[2022-08-19 10:21] LABS: SOURCE, BODY FLUID GLUCOSE ASCITES
[2022-08-19 10:23] LABS: SOURCE, BODY FLUID TOT PROTEIN ASCITES; TOTAL PROTEIN, BODY FLUID < 2.0 G/DL (NOT ESTABLISHED)
[2022-08-19 14:22] VITALS: BP_SYST 114; BP_SYST 118; BP_DIAS 69; BP_DIAS 74
[2022-08-19 15:54] VITALS: BP 102/62
[2022-08-19 16:29] LABS: POTASSIUM SERUM 4.3 MMOL/L (3.5-5.1)
[2022-08-19] MEDS ORDERED: LACTULOSE 20GM/30ML SYRUP UDC PR ONE ×2 (16:35→21:00)
[2022-08-19] MEDS ORDERED: cefTRIAXone SOD 2 GM in D5W MINI-BAG PLUS 50 ML IV SCH (18:00)
[2022-08-19 18:09] VITALS: BP 115/71
[2022-08-19 18:26] VITALS: BP 110/62
[2022-08-19 20:00] VITALS: BP 92/55
[2022-08-19] MEDS: cefTRIAXone SOD 2 GM in D5W MINI-BAG PLUS 50 ML IV SCH (20:06)
[2022-08-19] MEDS: oxyCODONE 5MG TAB PO PRN (20:08)
[2022-08-19 22:00] VITALS: BP 92/55
[2022-08-20] VITALS (13 sets, daily range): BP systolic 92–113; BP diastolic 53–66
[2022-08-20] MEDS ORDERED: cefTRIAXone SOD 1 GM in D5W MINI-BAG PLUS 50 ML IV SCH (01:00)
[2022-08-20 05:42] LABS: BASO % 0.2 % (0.0-1.0); EOS # 0.1 10^3/uL (0.0-0.5); EOS % 1.6 % (0.0-3.0); HEMATOCRIT 27.4 % (42.0-52.0); HEMOGLOBIN 8.8 g/dl (13.5-17.5); LYMPH # 1.7 10^3/uL (1.5-5.0); LYMPH % 19.1 % (24.0-44.0); MEAN CORPUSCULAR HEMOGLOBIN 33.8 pg (27.0-33.0); MEAN CORPUSCULAR HGB CONC 32.1 g/dl (32.0-36.5); MEAN CORPUSCULAR VOLUME 105.4 fl (80.0-96.0); MONO # 0.6 10^3/uL (0.0-0.8); MONO % 7.2 % (2.0-8.0); NEUTROPHILS # 6.3 10^3/uL (1.5-8.5); NEUTROPHILS % 71.4 % (36.0-66.0); WHITE BLOOD COUNT 8.8 10^3/uL (4.0-10.0)
[2022-08-20 05:47] LABS: PLATELET COUNT, AUTOMATED 61 10^3/uL (150-450)
[2022-08-20 06:04] LABS: ALBUMIN 2.4 G/DL (3.2-5.2); ALKALINE PHOSPHATASE 200 U/L (46-116); ALT/SGPT 49 U/L (7.0-40); AST/SGOT 95 U/L (<34); BLOOD UREA NITROGEN 8 MG/DL (9-23); CALCIUM LEVEL 8.1 MG/DL (8.5-10.1); CARBON DIOXIDE LEVEL 18 MMOL/L (20-31); CHLORIDE LEVEL 111 MMOL/L (98-107); CREATININE FOR GFR 0.65 MG/DL (0.70-1.30); GLOMERULAR FILTRATION RATE > 60.0 (>60); GLUCOSE, FASTING 120 MG/DL (60-100); POTASSIUM SERUM 3.5 MMOL/L (3.5-5.1); SODIUM LEVEL 139 MMOL/L (136-145); TOTAL PROTEIN 6.5 G/DL (5.7-8.2)
[2022-08-20] MEDS: LACTULOSE 20GM/30ML SYRUP UDC PO SCH ×10 (08:20→17:22)
[2022-08-20] MEDS: DOCUSATE SODIUM 100MG CAPSULE PO SCH ×2 (08:20→20:35)
[2022-08-20] MEDS: predniSONE 20 MG TAB PO SCH (08:20)
[2022-08-20] MEDS: MIDODRINE 5 MG TAB PO SCH ×3 (08:21→17:22)
[2022-08-20] MEDS: GABAPENTIN 100 MG CAP PO SCH ×3 (08:21→20:36)
[2022-08-20] MEDS: THIAMINE 100 MG TAB PO SCH (08:21)
[2022-08-20] MEDS: FOLIC ACID 1MG TAB PO SCH (08:21)
[2022-08-20] MEDS: oxyCODONE 5MG TAB PO PRN ×2 (08:21→20:36)
[2022-08-20] MEDS: PANTOPRAZOLE 40MG VIAL IV SCH ×2 (08:22→20:35)
[2022-08-20] MEDS: MULTIVITAMINS/MINERALS THERAP 1 TAB PO SCH (08:22)
[2022-08-20] MEDS: rifAXIMin 550 MG TAB (XIFAXAN) PO SCH ×2 (08:22→20:35)
[2022-08-20] MEDS ORDERED: SODIUM BICARBONATE 150 MEQ in STERILE WATER LITER BAG 1,000 ML IV SCH (10:00)
[2022-08-20] MEDS: LORazepam 2 MG TAB PO PRN ×2 (12:38→22:07)
[2022-08-20 16:21] LABS: BLOOD UREA NITROGEN 10 MG/DL (9-23); CALCIUM LEVEL 8.1 MG/DL (8.5-10.1); CARBON DIOXIDE LEVEL 21 MMOL/L (20-31); CHLORIDE LEVEL 110 MMOL/L (98-107); CREATININE FOR GFR 0.69 MG/DL (0.70-1.30); GLOMERULAR FILTRATION RATE > 60.0 (>60); GLUCOSE, FASTING 163 MG/DL (60-100); POTASSIUM SERUM 3.7 MMOL/L (3.5-5.1); SODIUM LEVEL 140 MMOL/L (136-145)
[2022-08-20] MEDS: CYCLOBENZAPRINE 10MG TABLET PO PRN (20:36)
[2022-08-20] MEDS: SODIUM BICARBONATE 325 MG TAB PO SCH (20:36)
[2022-08-20] MEDS: cefTRIAXone SOD 2 GM in D5W MINI-BAG PLUS 50 ML IV SCH (20:37)
[2022-08-21] VITALS (10 sets, daily range): BP systolic 98–114; BP diastolic 57–68
[2022-08-21] MEDS: LORazepam 2 MG TAB PO PRN (02:07)
[2022-08-21 05:16] LABS: BASO % 0.1 % (0.0-1.0); EOS % 0.3 % (0.0-3.0); HEMATOCRIT 25.8 % (42.0-52.0); HEMOGLOBIN 8.4 g/dl (13.5-17.5); LYMPH # 0.9 10^3/uL (1.5-5.0); LYMPH % 11.2 % (24.0-44.0); MEAN CORPUSCULAR HEMOGLOBIN 33.6 pg (27.0-33.0); MEAN CORPUSCULAR HGB CONC 32.6 g/dl (32.0-36.5); MEAN CORPUSCULAR VOLUME 103.2 fl (80.0-96.0); MONO # 0.4 10^3/uL (0.0-0.8); MONO % 5.3 % (2.0-8.0); NEUTROPHILS # 6.3 10^3/uL (1.5-8.5); NEUTROPHILS % 82.4 % (36.0-66.0); WHITE BLOOD COUNT 7.7 10^3/uL (4.0-10.0)
[2022-08-21 05:23] LABS: PLATELET COUNT, AUTOMATED 55 10^3/uL (150-450)
[2022-08-21 05:41] LABS: ALBUMIN 2.2 G/DL (3.2-5.2); ALKALINE PHOSPHATASE 213 U/L (46-116); ALT/SGPT 48 U/L (7.0-40); AST/SGOT 83 U/L (<34); BILIRUBIN,TOTAL 4.3 MG/DL (0.3-1.2); BLOOD UREA NITROGEN 11 MG/DL (9-23); CALCIUM LEVEL 8.1 MG/DL (8.5-10.1); CARBON DIOXIDE LEVEL 21 MMOL/L (20-31); CHLORIDE LEVEL 105 MMOL/L (98-107); CREATININE FOR GFR 0.62 MG/DL (0.70-1.30); GLOMERULAR FILTRATION RATE > 60.0 (>60); GLUCOSE, FASTING 123 MG/DL (60-100); POTASSIUM SERUM 3.8 MMOL/L (3.5-5.1); SODIUM LEVEL 136 MMOL/L (136-145)
[2022-08-21] MEDS ORDERED: LACT10SO3 PO (07:38)
[2022-08-21] MEDS ORDERED: SELF1KIT MC (07:38)
[2022-08-21] MEDS ORDERED: SODI325T9 PO (07:38)
[2022-08-21] MEDS: rifAXIMin 550 MG TAB (XIFAXAN) PO SCH ×2 (08:28→20:58)
[2022-08-21] MEDS: FOLIC ACID 1MG TAB PO SCH (08:28)
[2022-08-21] MEDS: SODIUM BICARBONATE 325 MG TAB PO SCH ×2 (08:28→20:58)
[2022-08-21] MEDS: MULTIVITAMINS/MINERALS THERAP 1 TAB PO SCH (08:28)
[2022-08-21] MEDS: predniSONE 20 MG TAB PO SCH (08:28)
[2022-08-21] MEDS: DOCUSATE SODIUM 100MG CAPSULE PO SCH (08:28)
[2022-08-21] MEDS: LACTULOSE 20GM/30ML SYRUP UDC PO SCH ×3 (08:28→12:25)
[2022-08-21] MEDS: THIAMINE 100 MG TAB PO SCH (08:29)
[2022-08-21] MEDS: MIDODRINE 5 MG TAB PO SCH ×3 (08:29→17:27)
[2022-08-21] MEDS: GABAPENTIN 100 MG CAP PO SCH (08:29)
[2022-08-21] MEDS: PANTOPRAZOLE 40MG VIAL IV SCH (08:29)
[2022-08-21] MEDS: SENOKOT S TAB PO SCH ×2 (10:05→20:59)
[2022-08-21] MEDS ORDERED: PILL CUTTER 1 EACH XX PRN (14:55)
[2022-08-21] MEDS: oxyCODONE 5MG TAB PO PRN ×2 (17:28→20:59)
[2022-08-21] MEDS: PANTOPRAZOLE 40MG TAB (PROTONIX) PO SCH (20:58)
[2022-08-21] MEDS: HYDROCORTISONE 5MG TABLET PO SCH (20:58)
[2022-08-22 04:52] LABS: BASO % 0.1 % (0.0-1.0); EOS # 0.1 10^3/uL (0.0-0.5); EOS % 1.2 % (0.0-3.0); HEMATOCRIT 24.9 % (42.0-52.0); HEMOGLOBIN 8.1 g/dl (13.5-17.5); LYMPH # 1.3 10^3/uL (1.5-5.0); LYMPH % 16.3 % (24.0-44.0); MEAN CORPUSCULAR HEMOGLOBIN 33.5 pg (27.0-33.0); MEAN CORPUSCULAR HGB CONC 32.5 g/dl (32.0-36.5); MEAN CORPUSCULAR VOLUME 102.9 fl (80.0-96.0); MONO # 0.6 10^3/uL (0.0-0.8); MONO % 7.8 % (2.0-8.0); NEUTROPHILS % 73.9 % (36.0-66.0); RED BLOOD COUNT 2.42 10^6/uL (4.30-6.10); WHITE BLOOD COUNT 8.2 10^3/uL (4.0-10.0)
[2022-08-22 05:02] LABS: PLATELET COUNT, AUTOMATED 63 10^3/uL (150-450)
[2022-08-22 05:21] LABS: ALKALINE PHOSPHATASE 208 U/L (46-116); ALT/SGPT 46 U/L (7.0-40); AST/SGOT 84 U/L (<34); BLOOD UREA NITROGEN 11 MG/DL (9-23); CARBON DIOXIDE LEVEL 21 MMOL/L (20-31); CHLORIDE LEVEL 109 MMOL/L (98-107); GLOMERULAR FILTRATION RATE > 60.0 (>60); GLUCOSE, FASTING 168 MG/DL (60-100); POTASSIUM SERUM 3.4 MMOL/L (3.5-5.1); SODIUM LEVEL 138 MMOL/L (136-145); TOTAL PROTEIN 5.8 G/DL (5.7-8.2)
[2022-08-22 08:08] VITALS: BP 106/65
[2022-08-22] MEDS: SENOKOT S TAB PO SCH ×2 (09:00→20:48)
[2022-08-22] MEDS: predniSONE 20 MG TAB PO SCH (09:12)
[2022-08-22] MEDS: LACTULOSE 20GM/30ML SYRUP UDC PO SCH ×3 (09:12→20:47)
[2022-08-22] MEDS: MULTIVITAMINS/MINERALS THERAP 1 TAB PO SCH (09:12)
[2022-08-22] MEDS: THIAMINE 100 MG TAB PO SCH (09:12)
[2022-08-22] MEDS: SODIUM BICARBONATE 325 MG TAB PO SCH ×2 (09:12→20:47)
[2022-08-22] MEDS: PANTOPRAZOLE 40MG TAB (PROTONIX) PO SCH ×2 (09:12→20:48)
[2022-08-22] MEDS: FLUDROCORTISONE ACETATE 0.1 MG TAB PO SCH (09:13)
[2022-08-22] MEDS: rifAXIMin 550 MG TAB (XIFAXAN) PO SCH ×2 (09:13→20:47)
[2022-08-22] MEDS: FOLIC ACID 1MG TAB PO SCH (09:14)
[2022-08-22] MEDS: POTASSIUM CHLORIDE 10MEQ SR TABLET PO SCH (09:14)
[2022-08-22] MEDS: MIDODRINE 5 MG TAB PO SCH ×3 (09:32→17:11)
[2022-08-22] MEDS: oxyCODONE 5MG TAB PO PRN (17:11)
[2022-08-22 19:49] VITALS: BP 101/63
[2022-08-22] MEDS: HYDROCORTISONE 5MG TABLET PO SCH (20:47)
[2022-08-22 22:27] VITALS: BP 117/78
[2022-08-23] MEDS: oxyCODONE 5MG TAB PO PRN ×2 (03:35→23:02)
[2022-08-23 05:53] VITALS: BP 96/51
[2022-08-23 08:00] VITALS: BP 101/68
[2022-08-23] MEDS: LACTOBACILLUS ACIDOPHILUS CAP (BACID) PO SCH ×3 (08:00→17:45)
[2022-08-23] MEDS: predniSONE 20 MG TAB PO SCH (08:12)
[2022-08-23] MEDS: FLUDROCORTISONE ACETATE 0.1 MG TAB PO SCH (08:12)
[2022-08-23] MEDS: rifAXIMin 550 MG TAB (XIFAXAN) PO SCH ×2 (08:12→20:15)
[2022-08-23] MEDS: SODIUM BICARBONATE 325 MG TAB PO SCH ×2 (08:13→20:15)
[2022-08-23] MEDS: POTASSIUM CHLORIDE 10MEQ SR TABLET PO SCH (08:13)
[2022-08-23] MEDS: MIDODRINE 5 MG TAB PO SCH ×3 (08:14→17:45)
[2022-08-23] MEDS: FOLIC ACID 1MG TAB PO SCH (08:14)
[2022-08-23] MEDS: MULTIVITAMINS/MINERALS THERAP 1 TAB PO SCH (08:15)
[2022-08-23] MEDS: THIAMINE 100 MG TAB PO SCH (08:15)
[2022-08-23] MEDS: PANTOPRAZOLE 40MG TAB (PROTONIX) PO SCH ×2 (08:15→20:16)
[2022-08-23] MEDS: LACTULOSE 20GM/30ML SYRUP UDC PO SCH ×3 (08:15→20:15)
[2022-08-23] MEDS: SENOKOT S TAB PO SCH ×2 (08:15→20:16)
[2022-08-23] MEDS ORDERED: DOXY-444 PO (10:08)
[2022-08-23] MEDS ORDERED: CORT5TAB2 PO (10:11)
[2022-08-23] MEDS ORDERED: FLUD0.1T PO (10:11)
[2022-08-23] MEDS ORDERED: BACI1CAP PO (10:11)
[2022-08-23] MEDS: DOXYCYCLINE HYCLATE 100MG TABLET PO SCH ×2 (11:05→20:16)
[2022-08-23] MEDS: HYDROCORTISONE 5MG TABLET PO SCH (20:15)
[2022-08-24] MEDS: oxyCODONE 5MG TAB PO PRN ×2 (05:16→15:37)
[2022-08-24 05:30] VITALS: BP 100/64
[2022-08-24] MEDS ORDERED: PROMETHAZINE 25 MG TAB PO PRN (05:40)
[2022-08-24] MEDS: MIDODRINE 5 MG TAB PO SCH ×3 (07:47→17:23)
[2022-08-24] MEDS: LACTOBACILLUS ACIDOPHILUS CAP (BACID) PO SCH ×3 (07:47→17:23)
[2022-08-24 07:52] VITALS: BP 115/82
[2022-08-24] MEDS: POTASSIUM CHLORIDE 10MEQ SR TABLET PO SCH (08:14)
[2022-08-24] MEDS: SODIUM BICARBONATE 325 MG TAB PO SCH ×2 (08:14→20:40)
[2022-08-24] MEDS: MULTIVITAMINS/MINERALS THERAP 1 TAB PO SCH (08:14)
[2022-08-24] MEDS: rifAXIMin 550 MG TAB (XIFAXAN) PO SCH ×2 (08:15→20:40)
[2022-08-24] MEDS: SENOKOT S TAB PO SCH ×2 (08:15→20:41)
[2022-08-24] MEDS: THIAMINE 100 MG TAB PO SCH (08:15)
[2022-08-24] MEDS: DOXYCYCLINE HYCLATE 100MG TABLET PO SCH ×2 (08:15→20:41)
[2022-08-24] MEDS: predniSONE 20 MG TAB PO SCH (08:15)
[2022-08-24] MEDS: PANTOPRAZOLE 40MG TAB (PROTONIX) PO SCH ×2 (08:15→20:40)
[2022-08-24] MEDS: FOLIC ACID 1MG TAB PO SCH (08:16)
[2022-08-24] MEDS: LACTULOSE 20GM/30ML SYRUP UDC PO SCH ×3 (08:16→20:40)
[2022-08-24] MEDS: FLUDROCORTISONE ACETATE 0.1 MG TAB PO SCH (08:48)
[2022-08-24] MEDS: HYDROCORTISONE 5MG TABLET PO SCH (20:40)
[2022-08-24] MEDS: CYCLOBENZAPRINE 10MG TABLET PO PRN (20:40)
[2022-08-25] MEDS: oxyCODONE 5MG TAB PO PRN ×3 (00:08→21:46)
[2022-08-25 06:00] VITALS: BP 101/60
[2022-08-25] MEDS: LACTULOSE 20GM/30ML SYRUP UDC PO SCH ×3 (08:45→21:38)
[2022-08-25] MEDS: predniSONE 20 MG TAB PO SCH (08:46)
[2022-08-25] MEDS: rifAXIMin 550 MG TAB (XIFAXAN) PO SCH ×2 (08:46→21:38)
[2022-08-25] MEDS: MULTIVITAMINS/MINERALS THERAP 1 TAB PO SCH (08:46)
[2022-08-25] MEDS: PANTOPRAZOLE 40MG TAB (PROTONIX) PO SCH ×2 (08:46→21:39)
[2022-08-25] MEDS: MIDODRINE 5 MG TAB PO SCH ×3 (08:46→18:15)
[2022-08-25] MEDS: SODIUM BICARBONATE 325 MG TAB PO SCH ×2 (08:46→21:38)
[2022-08-25] MEDS: LACTOBACILLUS ACIDOPHILUS CAP (BACID) PO SCH ×3 (08:46→18:15)
[2022-08-25] MEDS: FLUDROCORTISONE ACETATE 0.1 MG TAB PO SCH (08:47)
[2022-08-25] MEDS: THIAMINE 100 MG TAB PO SCH (08:47)
[2022-08-25] MEDS: FOLIC ACID 1MG TAB PO SCH (08:47)
[2022-08-25] MEDS: POTASSIUM CHLORIDE 10MEQ SR TABLET PO SCH (08:47)
[2022-08-25] MEDS: DOXYCYCLINE HYCLATE 100MG TABLET PO SCH ×2 (08:47→21:39)
[2022-08-25] MEDS: SENOKOT S TAB PO SCH ×2 (08:47→21:38)
[2022-08-25] MEDS ORDERED: SENOKOT S TAB PO ONE (11:00)
[2022-08-25] MEDS ORDERED: FLEET ENEMA PR ONE (11:00)
[2022-08-25 12:03] LABS: BASO % 0.1 % (0.0-1.0); EOS # 0.1 10^3/uL (0.0-0.5); HEMOGLOBIN 9.3 g/dl (13.5-17.5); LYMPH % 13.4 % (24.0-44.0); MEAN CORPUSCULAR HEMOGLOBIN 33.6 pg (27.0-33.0); MEAN CORPUSCULAR HGB CONC 32.1 g/dl (32.0-36.5); MEAN CORPUSCULAR VOLUME 104.7 fl (80.0-96.0); MONO # 0.5 10^3/uL (0.0-0.8); MONO % 6.9 % (2.0-8.0); NEUTROPHILS # 5.5 10^3/uL (1.5-8.5); NEUTROPHILS % 77.8 % (36.0-66.0); RED BLOOD COUNT 2.77 10^6/uL (4.30-6.10); WHITE BLOOD COUNT 7.1 10^3/uL (4.0-10.0)
[2022-08-25 12:04] LABS: PLATELET COUNT, AUTOMATED 74 10^3/uL (150-450)
[2022-08-25] MEDS ORDERED: SIMETHICONE 80MG CHEW TAB PO PRN (12:05)
[2022-08-25 12:32] LABS: ALBUMIN 2.3 G/DL (3.2-5.2); ALKALINE PHOSPHATASE 226 U/L (46-116); ALT/SGPT 70 U/L (7.0-40); AST/SGOT 112 U/L (<34); BILIRUBIN,TOTAL 4.5 MG/DL (0.3-1.2); BLOOD UREA NITROGEN 14 MG/DL (9-23); CALCIUM LEVEL 8.4 MG/DL (8.5-10.1); CARBON DIOXIDE LEVEL 21 MMOL/L (20-31); CHLORIDE LEVEL 110 MMOL/L (98-107); CREATININE FOR GFR 0.65 MG/DL (0.70-1.30); GLOMERULAR FILTRATION RATE > 60.0 (>60); GLUCOSE, FASTING 244 MG/DL (60-100); POTASSIUM SERUM 3.6 MMOL/L (3.5-5.1); SODIUM LEVEL 137 MMOL/L (136-145); TOTAL PROTEIN 6.3 G/DL (5.7-8.2)
[2022-08-25] MEDS: HYDROCORTISONE 5MG TABLET PO SCH (21:39)
[2022-08-26 05:58] VITALS: BP 100/62
[2022-08-26] MEDS: SENOKOT S TAB PO SCH (08:52)
[2022-08-26] MEDS: POTASSIUM CHLORIDE 10MEQ SR TABLET PO SCH (08:52)
[2022-08-26] MEDS: FOLIC ACID 1MG TAB PO SCH (08:52)
[2022-08-26] MEDS: LACTULOSE 20GM/30ML SYRUP UDC PO SCH (08:52)
[2022-08-26] MEDS: SODIUM BICARBONATE 325 MG TAB PO SCH (08:52)
[2022-08-26] MEDS: rifAXIMin 550 MG TAB (XIFAXAN) PO SCH (08:52)
[2022-08-26] MEDS: DOXYCYCLINE HYCLATE 100MG TABLET PO SCH (08:53)
[2022-08-26] MEDS: PANTOPRAZOLE 40MG TAB (PROTONIX) PO SCH (08:53)
[2022-08-26] MEDS: predniSONE 20 MG TAB PO SCH (08:53)
[2022-08-26] MEDS: LACTOBACILLUS ACIDOPHILUS CAP (BACID) PO SCH ×2 (08:53→12:41)
[2022-08-26] MEDS: THIAMINE 100 MG TAB PO SCH (08:53)
[2022-08-26] MEDS: FLUDROCORTISONE ACETATE 0.1 MG TAB PO SCH (08:53)
[2022-08-26] MEDS: MIDODRINE 5 MG TAB PO SCH ×2 (08:53→12:41)
[2022-08-26] MEDS: MULTIVITAMINS/MINERALS THERAP 1 TAB PO SCH (08:53)
== END 2022-08-26 14:16 | disposition home health service (06) | DRG 280 ==
LOC: M ED 20:19 → M ED INP 23:31 → ENRESERV 08-19 13:43 → M PCU 08-19 14:32 → M MSPAV 08-22 22:21
PROVIDERS: ADMIT Family Medicine; ATTEND General Practice
PROC: 0W9G3ZZ Drainage of Peritoneal Cavity, Percutaneous Approach (ICD-10-PCS; principal; 2022-08-20)
DX: K70.31 Alcoholic cirrhosis of liver with ascites (principal); I95.89 Other hypotension; E87.20 Acidosis, unspecified; E46 Unspecified protein-calorie malnutrition; K76.6 Portal hypertension; E87.1 Hypo-osmolality and hyponatremia; I85.10 Secondary esophageal varices without bleeding; E83.42 Hypomagnesemia; K70.10 Alcoholic hepatitis without ascites; D53.9 Nutritional anemia, unspecified; K29.20 Alcoholic gastritis without bleeding; E87.6 Hypokalemia; F17.200 Nicotine dependence, unspecified, uncomplicated; M62.838 Other muscle spasm; Z66 Do not resuscitate; Z79.899 Other long term (current) drug therapy

== ENCOUNTER 2022-10-21 15:04 | Inpatient (IN) | payer OTHER ==
[~2022-10-21] VITALS: Ht 162.6 cm; Wt 60.6 kg
[~2022-10-21 15:04] MED LIST changes: +BACI1CAP PO; +CORT5TAB2 PO; +DOXY-444 PO; +FLUD0.1T PO; +FURO40TA2 PO; +LACT10SO3 PO; +PROM25TA12 PO; +SELF1KIT MC; +SODI325T9 PO
[2022-10-21 15:53] LABS: BASO # 0.1 10^3/uL (0.0-0.2); BASO % 0.9 % (0.0-1.0); EOS # 0.2 10^3/uL (0.0-0.5); EOS % 3.9 % (0.0-3.0); HEMATOCRIT 28.1 % (42.0-52.0); HEMOGLOBIN 9.7 g/dl (13.5-17.5); LYMPH # 2.1 10^3/uL (1.5-5.0); MEAN CORPUSCULAR HEMOGLOBIN 32.7 pg (27.0-33.0); MEAN CORPUSCULAR HGB CONC 34.5 g/dl (32.0-36.5); MEAN CORPUSCULAR VOLUME 94.6 fl (80.0-96.0); MONO # 0.8 10^3/uL (0.0-0.8); NEUTROPHILS # 2.2 10^3/uL (1.5-8.5); NEUTROPHILS % 40.8 % (36.0-66.0); RED BLOOD COUNT 2.97 10^6/uL (4.30-6.10); WHITE BLOOD COUNT 5.4 10^3/uL (4.0-10.0)
[2022-10-21 15:58] LABS: PLATELET COUNT, AUTOMATED 66 10^3/uL (150-450)
[2022-10-21] MEDS ORDERED: NS 1,000 ML IV ONE ×2 (16:10→18:00)
[2022-10-21 16:14] LABS: ETHYL ALCOHOL (ETHANOL) 0.004 % (0.000-0.010)
[2022-10-21 16:16] LABS: ALBUMIN 2.4 G/DL (3.2-5.2); ALKALINE PHOSPHATASE 180 U/L (46-116); ALT/SGPT 23 U/L (7.0-40); AST/SGOT 72 U/L (<34); BILIRUBIN,DIRECT 1.6 MG/DL (<0.4); BILIRUBIN,TOTAL 2.7 MG/DL (0.3-1.2); BLOOD UREA NITROGEN 15 MG/DL (9-23); CALCIUM LEVEL 7.7 MG/DL (8.5-10.1); CARBON DIOXIDE LEVEL 30 MMOL/L (20-31); CHLORIDE LEVEL 102 MMOL/L (98-107); GLOMERULAR FILTRATION RATE > 60.0 (>60); GLUCOSE, FASTING 96 MG/DL (60-100); MAGNESIUM LEVEL 1.4 MG/DL (1.8-2.4); POTASSIUM SERUM 3.3 MMOL/L (3.5-5.1); SODIUM LEVEL 139 MMOL/L (136-145); TOTAL PROTEIN 6.4 G/DL (5.7-8.2)
[2022-10-21] MEDS ORDERED: MAG SULF 1GM/100ML (MAG RUN) 1 GM in IV 1 EA IV ONE ×2 (16:40→20:10)
[2022-10-21] MEDS ORDERED: MIDODRINE 5 MG TAB PO ONE (17:25)
[2022-10-21 19:48] LABS: PHOSPHORUS LEVEL 4.4 MG/DL (2.5-4.9)
[2022-10-21] MEDS ORDERED: POTASSIUM CHLORIDE 10MEQ SR TABLET PO ONE (20:10)
[2022-10-21] MEDS: MAGNESIUM OXIDE 400MG TAB (MAG-OX) PO SCH (21:20)
[2022-10-21] MEDS ORDERED: MIDO5TA PO (22:00)
[2022-10-21] MEDS ORDERED: FLOM0.4C39 PO (22:00)
[2022-10-21] MEDS ORDERED: OXYC-517 PO (22:00)
[2022-10-21] MEDS ORDERED: FOLI1TAB11 PO (22:00)
[2022-10-21] MEDS ORDERED: HOME MED LIST COMPLETE! XX SCH (22:00)
[2022-10-21] MEDS ORDERED: SODI650T PO (22:00)
[2022-10-21] MEDS ORDERED: POTA-150 PO (22:00)
[2022-10-21] MEDS ORDERED: LACT20EL PO (22:00)
[2022-10-21] MEDS ORDERED: MIRA1POW3 PO (22:00)
[2022-10-21] MEDS ORDERED: FURO20TA2 PO (22:00)
[2022-10-21 22:40] VITALS: BP 101/53
[2022-10-21 23:00] VITALS: BP 95/54
[2022-10-21] MEDS: VASOPRESSIN INJ 20 UNITS in NS 499 ML IV SCH (23:00)
[2022-10-21 23:22] VITALS: BP 95/54
[2022-10-22] VITALS (51 sets, daily range): BP systolic 69–103; BP diastolic 38–67
[2022-10-22] MEDS: VASOPRESSIN INJ 20 UNITS in NS 499 ML IV SCH (02:00)
[2022-10-22 06:28] LABS: EOS # 0.1 10^3/uL (0.0-0.5); EOS % 3.3 % (0.0-3.0); HEMATOCRIT 26.6 % (42.0-52.0); LYMPH # 1.3 10^3/uL (1.5-5.0); LYMPH % 32.6 % (24.0-44.0); MEAN CORPUSCULAR HEMOGLOBIN 32.5 pg (27.0-33.0); MEAN CORPUSCULAR HGB CONC 33.8 g/dl (32.0-36.5); MONO # 0.5 10^3/uL (0.0-0.8); MONO % 12.8 % (2.0-8.0); NEUTROPHILS # 1.9 10^3/uL (1.5-8.5); NEUTROPHILS % 49.8 % (36.0-66.0); RED BLOOD COUNT 2.77 10^6/uL (4.30-6.10); WHITE BLOOD COUNT 3.9 10^3/uL (4.0-10.0)
[2022-10-22 06:33] LABS: PLATELET COUNT, AUTOMATED 53 10^3/uL (150-450)
[2022-10-22 06:44] LABS: INR 1.83; PARTIAL THROMBOPLASTIN TIME 36.6 SECONDS (24.8-34.2); PROTHROMBIN TIME 21.5 SECONDS (12.5-14.5)
[2022-10-22 07:05] LABS: BLOOD UREA NITROGEN 12 MG/DL (9-23); CALCIUM LEVEL 7.8 MG/DL (8.5-10.1); CARBON DIOXIDE LEVEL 25 MMOL/L (20-31); CHLORIDE LEVEL 105 MMOL/L (98-107); CREATININE FOR GFR 0.86 MG/DL (0.70-1.30); GLOMERULAR FILTRATION RATE > 60.0 (>60); GLUCOSE, FASTING 113 MG/DL (60-100); MAGNESIUM LEVEL 1.9 MG/DL (1.8-2.4); POTASSIUM SERUM 3.7 MMOL/L (3.5-5.1); SODIUM LEVEL 140 MMOL/L (136-145)
[2022-10-22] MEDS ORDERED: MIDODRINE 5 MG TAB PO SCH (08:00)
[2022-10-22] MEDS: MAGNESIUM OXIDE 400MG TAB (MAG-OX) PO SCH ×2 (08:38→20:53)
[2022-10-22] MEDS: POTASSIUM CHLORIDE 10MEQ SR TABLET PO SCH (08:39)
[2022-10-22] MEDS ORDERED: SPIRONOLACTONE 50 MG TAB PO SCH (09:00)
[2022-10-22] MEDS: MIDODRINE 5 MG TAB PO SCH ×2 (13:04→20:53)
[2022-10-22] MEDS: THIAMINE 100 MG TAB PO SCH (13:04)
[2022-10-22] MEDS ORDERED: cefTRIAXone SOD 2GM VIAL IM SCH (15:20)
[2022-10-22] MEDS: cefTRIAXone SOD 2 GM in D5W MINI-BAG PLUS 50 ML IV SCH (15:48)
[2022-10-23] VITALS (14 sets, daily range): BP systolic 83–118; BP diastolic 48–76
[2022-10-23 05:35] LABS: BASO % 0.7 % (0.0-1.0); EOS # 0.1 10^3/uL (0.0-0.5); EOS % 2.8 % (0.0-3.0); HEMATOCRIT 23.9 % (42.0-52.0); LYMPH # 1.8 10^3/uL (1.5-5.0); LYMPH % 39.3 % (24.0-44.0); MEAN CORPUSCULAR HEMOGLOBIN 31.9 pg (27.0-33.0); MEAN CORPUSCULAR HGB CONC 33.5 g/dl (32.0-36.5); MEAN CORPUSCULAR VOLUME 95.2 fl (80.0-96.0); MONO # 0.5 10^3/uL (0.0-0.8); MONO % 11.7 % (2.0-8.0); NEUTROPHILS # 2.1 10^3/uL (1.5-8.5); NEUTROPHILS % 45.1 % (36.0-66.0); RED BLOOD COUNT 2.51 10^6/uL (4.30-6.10); WHITE BLOOD COUNT 4.6 10^3/uL (4.0-10.0)
[2022-10-23 05:37] LABS: PLATELET COUNT, AUTOMATED 54 10^3/uL (150-450)
[2022-10-23 06:00] LABS: BLOOD UREA NITROGEN 9 MG/DL (9-23); CALCIUM LEVEL 8.8 MG/DL (8.5-10.1); CARBON DIOXIDE LEVEL 24 MMOL/L (20-31); CHLORIDE LEVEL 110 MMOL/L (98-107); CREATININE FOR GFR 0.81 MG/DL (0.70-1.30); GLOMERULAR FILTRATION RATE > 60.0 (>60); GLUCOSE, FASTING 153 MG/DL (60-100); MAGNESIUM LEVEL 1.9 MG/DL (1.8-2.4); POTASSIUM SERUM 3.7 MMOL/L (3.5-5.1); SODIUM LEVEL 141 MMOL/L (136-145)
[2022-10-23] MEDS: MIDODRINE 5 MG TAB PO SCH ×3 (06:20→21:27)
[2022-10-23] MEDS: MAGNESIUM OXIDE 400MG TAB (MAG-OX) PO SCH ×2 (08:26→21:27)
[2022-10-23] MEDS: POTASSIUM CHLORIDE 10MEQ SR TABLET PO SCH (08:26)
[2022-10-23] MEDS: THIAMINE 100 MG TAB PO SCH (08:26)
[2022-10-23] MEDS ORDERED: SPIRONOLACTONE 25 MG TAB PO SCH ×2 (09:00→17:00)
[2022-10-23] MEDS: PANTOPRAZOLE 40MG TAB (PROTONIX) PO SCH (14:02)
[2022-10-23] MEDS: cefTRIAXone SOD 2 GM in D5W MINI-BAG PLUS 50 ML IV SCH (15:02)
[2022-10-23] MEDS: LACTULOSE 20GM/30ML SYRUP UDC PO SCH ×2 (16:13→21:26)
[2022-10-23] MEDS: FOLIC ACID 1MG TAB PO SCH (16:13)
[2022-10-23] MEDS: LORazepam 2 MG TAB PO PRN (22:47)
[2022-10-23] MEDS: KETOROLAC 30 MG/ML 1ML VIAL IV PRN (23:25)
[2022-10-24] VITALS (7 sets, daily range): BP systolic 92–120; BP diastolic 55–80
[2022-10-24] MEDS ORDERED: ACETAMINOPHEN TAB 650MG DOSE (2X325MG) PO ONE (01:00)
[2022-10-24] MEDS ORDERED: LORazepam 2 MG/ML 1ML VIAL IV ONE ×2 (01:00→03:00)
[2022-10-24] MEDS ORDERED: SODIUM CHLORIDE 0.9% 1000ML IV ONE (01:00)
[2022-10-24] MEDS: OXAZEPAM 15MG CAP PO SCH ×3 (02:24→18:47)
[2022-10-24] MEDS ORDERED: diphenhydrAMINE 50MG/ML VIAL IV ONE (03:00)
[2022-10-24] MEDS: LORazepam 2 MG TAB PO PRN (04:29)
[2022-10-24 05:26] LABS: VENOUS BASE EXCESS 0.8 (-2.0-2.0); VENOUS HCO3 24.4 MEQ/L (23.0-27.0); VENOUS O2 SATURATION 99.1 % (60.0-80.0); VENOUS PARTIAL PRESSURE CO2 35.3 mmHg (38.0-50.0); VENOUS PARTIAL PRESSURE O2 161.7 mmHg (30.0-50.0); VENOUS PH 7.458 UNITS (7.330-7.430); VENOUS STANDARD HCO3 25.2 MEQ/L; VENOUS TOTAL CO2 25.5 MEQ/L (24.0-28.0)
[2022-10-24 05:31] LABS: BASO # 0.1 10^3/uL (0.0-0.2); BASO % 0.8 % (0.0-1.0); EOS # 0.2 10^3/uL (0.0-0.5); EOS % 3.2 % (0.0-3.0); HEMATOCRIT 26.7 % (42.0-52.0); HEMOGLOBIN 9.1 g/dl (13.5-17.5); LYMPH # 2.3 10^3/uL (1.5-5.0); LYMPH % 37.5 % (24.0-44.0); MEAN CORPUSCULAR HEMOGLOBIN 32.3 pg (27.0-33.0); MEAN CORPUSCULAR HGB CONC 34.1 g/dl (32.0-36.5); MEAN CORPUSCULAR VOLUME 94.7 fl (80.0-96.0); MONO # 0.8 10^3/uL (0.0-0.8); NEUTROPHILS # 2.7 10^3/uL (1.5-8.5); NEUTROPHILS % 44.2 % (36.0-66.0); RED BLOOD COUNT 2.82 10^6/uL (4.30-6.10)
[2022-10-24 05:32] LABS: PLATELET COUNT, AUTOMATED 57 10^3/uL (150-450)
[2022-10-24] MEDS: MIDODRINE 5 MG TAB PO SCH ×3 (05:47→22:06)
[2022-10-24 05:53] LABS: IRON (FE) 146 UG/DL (65-175); PERCENT SATURATION 63.5 % (19.7-50.0); TOTAL IRON BINDING CAPACITY 230 UG/DL (250-425)
[2022-10-24 05:56] LABS: ALBUMIN 2.6 G/DL (3.2-5.2); ALKALINE PHOSPHATASE 150 U/L (46-116); ALT/SGPT 21 U/L (7.0-40); AST/SGOT 60 U/L (<34); BILIRUBIN,TOTAL 2.5 MG/DL (0.3-1.2); BLOOD UREA NITROGEN 8 MG/DL (9-23); CALCIUM LEVEL 9.9 MG/DL (8.5-10.1); CARBON DIOXIDE LEVEL 24 MMOL/L (20-31); CHLORIDE LEVEL 108 MMOL/L (98-107); CREATININE FOR GFR 0.78 MG/DL (0.70-1.30); FERRITIN 43.7 NG/ML (10.5-307.3); FOLATE 19.59 NG/ML (>5.4); GLOMERULAR FILTRATION RATE > 60.0 (>60); GLUCOSE, FASTING 106 MG/DL (60-100); MAGNESIUM LEVEL 1.9 MG/DL (1.8-2.4); SODIUM LEVEL 139 MMOL/L (136-145); TOTAL PROTEIN 6.3 G/DL (5.7-8.2); VITAMIN B12 LEVEL 343 PG/ML (211-911)
[2022-10-24] MEDS ORDERED: LACTULOSE 20GM/30ML SYRUP UDC PO SCH (09:00)
[2022-10-24] MEDS: MULTIVITAMINS/MINERALS THERAP 1 TAB PO SCH (10:19)
[2022-10-24] MEDS: THIAMINE 100 MG TAB PO SCH (10:19)
[2022-10-24] MEDS: PANTOPRAZOLE 40MG TAB (PROTONIX) PO SCH (10:19)
[2022-10-24] MEDS: SPIRONOLACTONE 25 MG TAB PO SCH (10:19)
[2022-10-24] MEDS: POTASSIUM CHLORIDE 10MEQ SR TABLET PO SCH (10:20)
[2022-10-24] MEDS: FOLIC ACID 1MG TAB PO SCH (10:20)
[2022-10-24] MEDS: MAGNESIUM OXIDE 400MG TAB (MAG-OX) PO SCH ×2 (10:20→22:06)
[2022-10-24] MEDS: cefTRIAXone SOD 2 GM in D5W MINI-BAG PLUS 50 ML IV SCH (17:01)
[2022-10-25] MEDS: OXAZEPAM 15MG CAP PO SCH (02:21)
[2022-10-25 05:10] VITALS: BP 104/69
[2022-10-25 05:56] LABS: BASO # 0.1 10^3/uL (0.0-0.2); EOS # 0.3 10^3/uL (0.0-0.5); EOS % 3.8 % (0.0-3.0); HEMATOCRIT 30.9 % (42.0-52.0); HEMOGLOBIN 10.5 g/dl (13.5-17.5); LYMPH # 1.9 10^3/uL (1.5-5.0); LYMPH % 26.9 % (24.0-44.0); MEAN CORPUSCULAR HEMOGLOBIN 32.1 pg (27.0-33.0); MEAN CORPUSCULAR VOLUME 94.5 fl (80.0-96.0); MONO # 0.9 10^3/uL (0.0-0.8); MONO % 12.9 % (2.0-8.0); NEUTROPHILS # 3.8 10^3/uL (1.5-8.5); RED BLOOD COUNT 3.27 10^6/uL (4.30-6.10); WHITE BLOOD COUNT 6.9 10^3/uL (4.0-10.0)
[2022-10-25 05:58] LABS: PLATELET COUNT, AUTOMATED 63 10^3/uL (150-450)
[2022-10-25 06:00] VITALS: BP 104/69
[2022-10-25] MEDS: MIDODRINE 5 MG TAB PO SCH ×3 (06:11→22:36)
[2022-10-25 06:24] LABS: BLOOD UREA NITROGEN 11 MG/DL (9-23); CALCIUM LEVEL 9.6 MG/DL (8.5-10.1); CARBON DIOXIDE LEVEL 22 MMOL/L (20-31); CHLORIDE LEVEL 109 MMOL/L (98-107); CREATININE FOR GFR 0.73 MG/DL (0.70-1.30); GLOMERULAR FILTRATION RATE > 60.0 (>60); GLUCOSE, FASTING 107 MG/DL (60-100); POTASSIUM SERUM 4.3 MMOL/L (3.5-5.1); SODIUM LEVEL 138 MMOL/L (136-145)
[2022-10-25] MEDS: LACTULOSE 20GM/30ML SYRUP UDC PO SCH ×3 (09:31→20:03)
[2022-10-25] MEDS: FOLIC ACID 1MG TAB PO SCH (09:32)
[2022-10-25] MEDS: PANTOPRAZOLE 40MG TAB (PROTONIX) PO SCH (09:32)
[2022-10-25] MEDS: MULTIVITAMINS/MINERALS THERAP 1 TAB PO SCH (09:32)
[2022-10-25] MEDS: MAGNESIUM OXIDE 400MG TAB (MAG-OX) PO SCH ×2 (09:32→20:03)
[2022-10-25] MEDS: POTASSIUM CHLORIDE 10MEQ SR TABLET PO SCH (09:32)
[2022-10-25] MEDS: SPIRONOLACTONE 25 MG TAB PO SCH (09:33)
[2022-10-25] MEDS: THIAMINE 100 MG TAB PO SCH (09:33)
[2022-10-25 14:00] VITALS: BP 101/69
[2022-10-25] MEDS ORDERED: ONDANSETRON 4MG ORAL DISINTEGRATING TAB SL PRN (14:10)
[2022-10-25 14:27] VITALS: BP 101/69
[2022-10-25] MEDS: KETOROLAC 30 MG/ML 1ML VIAL IV PRN (14:38)
[2022-10-25] MEDS ORDERED: LACT20EL PO (15:48)
[2022-10-25] MEDS ORDERED: MIDO10TA PO (15:48)
[2022-10-25] MEDS: DOCUSATE SODIUM 100MG CAPSULE PO SCH (20:03)
[2022-10-25 21:29] VITALS: BP 94/58
[2022-10-26] MEDS: MIDODRINE 5 MG TAB PO SCH (05:18)
[2022-10-26 05:39] VITALS: BP 95/56
[2022-10-26 06:24] LABS: BASO # 0.1 10^3/uL (0.0-0.2); BASO % 1.2 % (0.0-1.0); EOS # 0.3 10^3/uL (0.0-0.5); EOS % 3.4 % (0.0-3.0); HEMATOCRIT 29.1 % (42.0-52.0); LYMPH # 2.8 10^3/uL (1.5-5.0); LYMPH % 37.8 % (24.0-44.0); MEAN CORPUSCULAR HEMOGLOBIN 32.7 pg (27.0-33.0); MEAN CORPUSCULAR HGB CONC 34.4 g/dl (32.0-36.5); MEAN CORPUSCULAR VOLUME 95.1 fl (80.0-96.0); MONO # 1.1 10^3/uL (0.0-0.8); MONO % 14.3 % (2.0-8.0); NEUTROPHILS # 3.2 10^3/uL (1.5-8.5); NEUTROPHILS % 42.9 % (36.0-66.0); RED BLOOD COUNT 3.06 10^6/uL (4.30-6.10); WHITE BLOOD COUNT 7.4 10^3/uL (4.0-10.0)
[2022-10-26 06:26] LABS: PLATELET COUNT, AUTOMATED 68 10^3/uL (150-450)
[2022-10-26 06:49] LABS: BLOOD UREA NITROGEN 12 MG/DL (9-23); CARBON DIOXIDE LEVEL 23 MMOL/L (20-31); CHLORIDE LEVEL 108 MMOL/L (98-107); CREATININE FOR GFR 0.88 MG/DL (0.70-1.30); GLOMERULAR FILTRATION RATE > 60.0 (>60); GLUCOSE, FASTING 101 MG/DL (60-100); POTASSIUM SERUM 5.3 MMOL/L (3.5-5.1); SODIUM LEVEL 137 MMOL/L (136-145)
[2022-10-26] MEDS ORDERED: FURO20TA2 PO (08:24)
[2022-10-26] MEDS ORDERED: SPIR-10 PO (08:24)
[2022-10-26] MEDS: LACTULOSE 20GM/30ML SYRUP UDC PO SCH (08:52)
[2022-10-26] MEDS: MULTIVITAMINS/MINERALS THERAP 1 TAB PO SCH (08:52)
[2022-10-26] MEDS: DOCUSATE SODIUM 100MG CAPSULE PO SCH (08:53)
[2022-10-26] MEDS: PANTOPRAZOLE 40MG TAB (PROTONIX) PO SCH (08:53)
[2022-10-26] MEDS: THIAMINE 100 MG TAB PO SCH (08:53)
[2022-10-26] MEDS: MAGNESIUM OXIDE 400MG TAB (MAG-OX) PO SCH (08:53)
[2022-10-26] MEDS: FOLIC ACID 1MG TAB PO SCH (08:53)
== END 2022-10-26 12:22 | disposition home health service (06) | DRG 207 ==
LOC: M ED 15:04 → M ED INP 19:11 → M ICU 22:36 → M MSPAV 10-23 22:16
PROVIDERS: ADMIT Internal Medicine Nephrology; ATTEND Internal Medicine Nephrology
PROC: 30233J1 Transfusion of Nonautologous Serum Albumin into Peripheral Vein, Percutaneous Approach (ICD-10-PCS; principal; 2022-10-21)
DX: I95.9 Hypotension, unspecified (principal); I85.00 Esophageal varices without bleeding; D69.6 Thrombocytopenia, unspecified; K86.0 Alcohol-induced chronic pancreatitis; E83.42 Hypomagnesemia; K70.30 Alcoholic cirrhosis of liver without ascites; K70.10 Alcoholic hepatitis without ascites; M96.1 Postlaminectomy syndrome, not elsewhere classified; I10 Essential (primary) hypertension; F10.230 Alcohol dependence with withdrawal, uncomplicated; K25.9 Gastric ulcer, unspecified as acute or chronic, without hemorrhage or perforation; E87.6 Hypokalemia; D53.9 Nutritional anemia, unspecified; Z96.643 Presence of artificial hip joint, bilateral; F17.210 Nicotine dependence, cigarettes, uncomplicated; Z20.822 Contact with and (suspected) exposure to COVID-19; Z79.899 Other long term (current) drug therapy

== ENCOUNTER 2022-11-04 14:03 | Emergency (ER) | payer OTHER ==
[~2022-11-04] VITALS: Ht 162.6 cm; Wt 60.0 kg
[~2022-11-04 14:03] MED LIST changes: +MIRA1POW3 PO; +POTA-150 PO; +SODI650T PO; +SPIR-10 PO
[2022-11-04] MEDS ORDERED: POTA1TAB23 (15:19)
[2022-11-04 15:20] LABS: BASO % 0.5 % (0.0-1.0); EOS # 0.3 10^3/uL (0.0-0.5); HEMATOCRIT 28.8 % (42.0-52.0); HEMOGLOBIN 9.9 g/dl (13.5-17.5); LYMPH % 35.5 % (24.0-44.0); MEAN CORPUSCULAR HEMOGLOBIN 32.9 pg (27.0-33.0); MEAN CORPUSCULAR HGB CONC 34.4 g/dl (32.0-36.5); MEAN CORPUSCULAR VOLUME 95.7 fl (80.0-96.0); MONO # 0.7 10^3/uL (0.0-0.8); MONO % 12.8 % (2.0-8.0); NEUTROPHILS # 2.5 10^3/uL (1.5-8.5); NEUTROPHILS % 44.8 % (36.0-66.0); RED BLOOD COUNT 3.01 10^6/uL (4.30-6.10); WHITE BLOOD COUNT 5.6 10^3/uL (4.0-10.0)
[2022-11-04 15:31] LABS: PLATELET COUNT, AUTOMATED 63 10^3/uL (150-450)
[2022-11-04 15:51] LABS: RSV AMPLIFICATION NEGATIVE (NEGATIVE)
[2022-11-04 18:25] LABS: CK-MB VALUE MASS 1.2 NG/ML (<3.6)
[2022-11-04 18:26] LABS: BLOOD UREA NITROGEN 13 MG/DL (9-23); CARBON DIOXIDE LEVEL 22 MMOL/L (20-31); CHLORIDE LEVEL 111 MMOL/L (98-107); CPK CREATINE PHOSPHOKINASE 148 U/L (46-171); CREATININE FOR GFR 1.02 MG/DL (0.70-1.30); GLOMERULAR FILTRATION RATE > 60.0 (>60); GLUCOSE, FASTING 89 MG/DL (60-100); MB/CK RELATIVE INDEX 0.81 (< OR =4); POTASSIUM SERUM 3.2 MMOL/L (3.5-5.1); SODIUM LEVEL 142 MMOL/L (136-145)
[2022-11-04 18:51] VITALS: BP 101/67
== END 2022-11-04 18:58 | disposition home or self-care (01) ==
LOC: EDBD 14:03 → M ED 14:03
DX: R07.9 Chest pain, unspecified (principal); F17.200 Nicotine dependence, unspecified, uncomplicated; F10.10 Alcohol abuse, uncomplicated; Z79.83 Long term (current) use of bisphosphonates; Z79.899 Other long term (current) drug therapy

== ENCOUNTER 2022-11-30 08:18 | Inpatient (IN) | payer OTHER ==
[~2022-11-30] VITALS: Ht 162.6 cm; Wt 62.3 kg
[~2022-11-30 08:18] MED LIST changes: +POTA1TAB23 PO
[2022-11-30] MEDS ORDERED: NS 1,000 ML IV ONE ×2 (08:25→09:50)
[2022-11-30] MEDS ORDERED: THIAMINE 200MG 2ML VIAL IV ONE (08:25)
[2022-11-30 08:59] LABS: BASO # 0.1 10^3/uL (0.0-0.2); BASO % 1.3 % (0.0-1.0); EOS # 0.1 10^3/uL (0.0-0.5); EOS % 2.4 % (0.0-3.0); HEMATOCRIT 31.8 % (42.0-52.0); HEMOGLOBIN 10.6 g/dl (13.5-17.5); LYMPH # 1.4 10^3/uL (1.5-5.0); LYMPH % 26.6 % (24.0-44.0); MEAN CORPUSCULAR HEMOGLOBIN 32.1 pg (27.0-33.0); MEAN CORPUSCULAR HGB CONC 33.3 g/dl (32.0-36.5); MEAN CORPUSCULAR VOLUME 96.4 fl (80.0-96.0); MONO # 0.6 10^3/uL (0.0-0.8); MONO % 11.1 % (2.0-8.0); NEUTROPHILS # 3.2 10^3/uL (1.5-8.5); NEUTROPHILS % 58.2 % (36.0-66.0); WHITE BLOOD COUNT 5.4 10^3/uL (4.0-10.0)
[2022-11-30 09:11] LABS: PLATELET COUNT, AUTOMATED 91 10^3/uL (150-450)
[2022-11-30 09:19] LABS: ETHYL ALCOHOL (ETHANOL) 0.124 % (0.000-0.010); LIPASE 32 U/L (12-53)
[2022-11-30 09:21] LABS: ALBUMIN 2.9 G/DL (3.2-5.2); ALKALINE PHOSPHATASE 172 U/L (46-116); ALT/SGPT 19 U/L (7.0-40); AST/SGOT 53 U/L (<34); BILIRUBIN,DIRECT 1.5 MG/DL (<0.4); BILIRUBIN,TOTAL 2.8 MG/DL (0.3-1.2); BLOOD UREA NITROGEN 7 MG/DL (9-23); CALCIUM LEVEL 9.2 MG/DL (8.5-10.1); CARBON DIOXIDE LEVEL 19 MMOL/L (20-31); CHLORIDE LEVEL 108 MMOL/L (98-107); CREATININE FOR GFR 0.72 MG/DL (0.70-1.30); GLOMERULAR FILTRATION RATE > 60.0 (>60); GLUCOSE, FASTING 117 MG/DL (60-100); POTASSIUM SERUM 3.8 MMOL/L (3.5-5.1); SODIUM LEVEL 136 MMOL/L (136-145); TOTAL PROTEIN 7.6 G/DL (5.7-8.2)
[2022-11-30 10:10] LABS: INR 1.51; PROTHROMBIN TIME 18.5 SECONDS (12.5-14.5)
[2022-11-30 10:11] LABS: PARTIAL THROMBOPLASTIN TIME 32.2 SECONDS (24.8-34.2)
[2022-11-30 10:22] LABS: CK-MB VALUE MASS 2.9 NG/ML (<3.6); CPK CREATINE PHOSPHOKINASE 102 U/L (46-171); MB/CK RELATIVE INDEX 2.84 (< OR =4)
[2022-11-30] MEDS ORDERED: MORPHINE 2 MG/ML 1ML VIAL IV ONE (11:40)
[2022-11-30 13:43] LABS: VENOUS BASE EXCESS -6.3 (-2.0-2.0); VENOUS HCO3 17.1 MMOL/L (23.0-27.0); VENOUS O2 SATURATION 99.2 % (60.0-80.0); VENOUS PARTIAL PRESSURE CO2 27.8 mmHg (38.0-50.0); VENOUS PARTIAL PRESSURE O2 204.5 mmHg (30.0-50.0); VENOUS PH 7.408 UNITS (7.330-7.430); VENOUS STANDARD HCO3 19.3 MMOL/L
[2022-11-30] MEDS ORDERED: MOM 30ML SUSPENSION UDC PO PRN (13:55)
[2022-11-30] MEDS ORDERED: ISOVUE-370 76% 100ML VIAL As Ordered ONE (14:02)
[2022-11-30] MEDS ORDERED: MIDO5TA PO (14:16)
[2022-11-30] MEDS ORDERED: SODI650T PO (14:16)
[2022-11-30] MEDS ORDERED: CYCL-707 PO (14:16)
[2022-11-30] MEDS ORDERED: LACT20EL PO (14:16)
[2022-11-30] MEDS ORDERED: ALDA25TA2 PO (14:18)
[2022-11-30] MEDS ORDERED: HOME MED LIST COMPLETE! XX SCH (14:20)
[2022-11-30] MEDS ORDERED: LR 1,000 ML IV SCH (14:30)
[2022-11-30] MEDS: D5W/LR 1,000 ML IV SCH (15:03)
[2022-11-30 15:20] VITALS: BP 139/88
[2022-11-30 15:30] VITALS: BP_SYST 132; BP_SYST 138; BP_SYST 139; BP_DIAS 82; BP_DIAS 88
[2022-11-30 15:45] VITALS: BP 139/88
[2022-11-30] MEDS: FOLIC ACID 1MG TAB PO SCH (15:52)
[2022-11-30] MEDS: MULTIVITAMINS/MINERALS THERAP 1 TAB PO SCH (15:52)
[2022-11-30] MEDS: ACETAMINOPHEN TAB 650MG DOSE (2X325MG) PO PRN ×2 (15:52→20:28)
[2022-11-30] MEDS: DOCUSATE SODIUM 100MG CAPSULE PO SCH ×2 (15:52→20:28)
[2022-11-30 16:01] LABS: AMPHETAMINES LEVEL URINE NEGATIVE (NEGATIVE); BARBITURATES URINE NEGATIVE (NEGATIVE); BENZODIAZEPINES URINE NEGATIVE (NEGATIVE); COCAINE METABOLITE URINE NEGATIVE (NEGATIVE); METHADONE URINE NEGATIVE (NEGATIVE); OPIATES URINE NEGATIVE (NEGATIVE); PHENCYCLIDINE URINE NEGATIVE (NEGATIVE)
[2022-11-30 16:02] LABS: CANNABINOIDS URINE POSITIVE (NEGATIVE)
[2022-11-30] MEDS: ONDANSETRON 4MG ORAL DISINTEGRATING TAB SL PRN (18:33)
[2022-11-30 20:26] VITALS: BP 106/66
[2022-11-30] MEDS: THIAMINE 100 MG TAB PO SCH (20:27)
[2022-11-30 22:09] VITALS: BP 104/66
[2022-11-30] MEDS ORDERED: FIORICET TAB PO ONE (22:35)
[2022-11-30] MEDS: LORazepam 2 MG TAB PO PRN (22:58)
[2022-12-01] MEDS: OXAZEPAM 15MG CAP PO SCH ×4 (00:07→16:54)
[2022-12-01] MEDS: D5W/LR 1,000 ML IV SCH (01:09)
[2022-12-01 05:33] VITALS: BP 122/73
[2022-12-01 06:00] VITALS: BP 122/73
[2022-12-01 06:36] LABS: HEMATOCRIT 27.5 % (42.0-52.0); HEMOGLOBIN 9.3 g/dl (13.5-17.5); MEAN CORPUSCULAR HEMOGLOBIN 32.2 pg (27.0-33.0); MEAN CORPUSCULAR HGB CONC 33.8 g/dl (32.0-36.5); MEAN CORPUSCULAR VOLUME 95.2 fl (80.0-96.0); RED BLOOD COUNT 2.89 10^6/uL (4.30-6.10); WHITE BLOOD COUNT 5.2 10^3/uL (4.0-10.0)
[2022-12-01 06:39] LABS: PLATELET COUNT, AUTOMATED 76 10^3/uL (150-450)
[2022-12-01 06:53] LABS: ALBUMIN 2.3 G/DL (3.2-5.2); ALKALINE PHOSPHATASE 187 U/L (46-116); ALT/SGPT 15 U/L (7.0-40); AST/SGOT 45 U/L (<34); BILIRUBIN,TOTAL 1.8 MG/DL (0.3-1.2); BLOOD UREA NITROGEN 7 MG/DL (9-23); CALCIUM LEVEL 8.8 MG/DL (8.5-10.1); CARBON DIOXIDE LEVEL 21 MMOL/L (20-31); CHLORIDE LEVEL 108 MMOL/L (98-107); CREATININE FOR GFR 0.67 MG/DL (0.70-1.30); GLOMERULAR FILTRATION RATE > 60.0 (>60); GLUCOSE, FASTING 133 MG/DL (60-100); POTASSIUM SERUM 3.5 MMOL/L (3.5-5.1); SODIUM LEVEL 136 MMOL/L (136-145); TOTAL PROTEIN 6.4 G/DL (5.7-8.2)
[2022-12-01 06:57] LABS: INR 1.51; PROTHROMBIN TIME 18.5 SECONDS (12.5-14.5)
[2022-12-01] MEDS: MULTIVITAMINS/MINERALS THERAP 1 TAB PO SCH (07:57)
[2022-12-01] MEDS: FOLIC ACID 1MG TAB PO SCH (07:57)
[2022-12-01] MEDS: THIAMINE 100 MG TAB PO SCH ×2 (07:57→21:00)
[2022-12-01] MEDS: DOCUSATE SODIUM 100MG CAPSULE PO SCH ×2 (07:57→21:00)
[2022-12-01] MEDS: ONDANSETRON 4MG ORAL DISINTEGRATING TAB SL PRN (08:01)
[2022-12-01 13:16] VITALS: BP 119/80
[2022-12-01] MEDS: LORazepam 2 MG TAB PO PRN (13:32)
[2022-12-01 14:00] VITALS: BP 111/79
[2022-12-01] MEDS: MORPHINE 4 MG/ML 1ML VIAL IV PRN (14:35)
[2022-12-01] MEDS ORDERED: LORazepam 2 MG/ML 1ML VIAL IV PRN (15:10)
[2022-12-01] MEDS: SODIUM BICARBONATE 325 MG TAB PO SCH (15:48)
[2022-12-01] MEDS: SERTRALINE HCL 50 MG TAB PO SCH (15:48)
[2022-12-01] MEDS: TAMSULOSIN 0.4 MG CAP PO SCH (15:48)
[2022-12-01 16:56] VITALS: BP 130/84
[2022-12-01] MEDS ORDERED: MIDODRINE 5 MG TAB PO SCH (17:00)
[2022-12-01 20:00] VITALS: BP 126/83
[2022-12-01] MEDS: LACTULOSE 20GM/30ML SYRUP UDC PO SCH (21:00)
[2022-12-01] MEDS: POTASSIUM CHLORIDE 10MEQ SR TABLET PO SCH (21:00)
[2022-12-01] MEDS ORDERED: PANTOPRAZOLE 40MG TAB (PROTONIX) PO SCH (21:00)
[2022-12-01] MEDS ORDERED: PANTOPRAZOLE 40MG VIAL IV ONE (22:30)
[2022-12-02 00:45] VITALS: BP 105/62
[2022-12-02] MEDS: OXAZEPAM 15MG CAP PO SCH ×5 (00:49→23:15)
[2022-12-02 03:47] VITALS: BP 117/72
[2022-12-02] MEDS: LORazepam 2 MG TAB PO PRN ×2 (03:52→09:04)
[2022-12-02 05:43] VITALS: BP 95/61
[2022-12-02 06:00] LABS: HEMATOCRIT 27.1 % (42.0-52.0); HEMOGLOBIN 9.2 g/dl (13.5-17.5); MEAN CORPUSCULAR HEMOGLOBIN 32.2 pg (27.0-33.0); MEAN CORPUSCULAR HGB CONC 33.9 g/dl (32.0-36.5); MEAN CORPUSCULAR VOLUME 94.8 fl (80.0-96.0); RED BLOOD COUNT 2.86 10^6/uL (4.30-6.10); WHITE BLOOD COUNT 4.8 10^3/uL (4.0-10.0)
[2022-12-02 06:07] LABS: INR 1.71; PROTHROMBIN TIME 20.4 SECONDS (12.5-14.5)
[2022-12-02 06:11] LABS: PLATELET COUNT, AUTOMATED 77 10^3/uL (150-450)
[2022-12-02] MEDS: ACETAMINOPHEN TAB 650MG DOSE (2X325MG) PO PRN ×2 (06:21→21:37)
[2022-12-02 06:27] LABS: ALBUMIN 2.6 G/DL (3.2-5.2); ALKALINE PHOSPHATASE 151 U/L (46-116); ALT/SGPT 20 U/L (7.0-40); AST/SGOT 40 U/L (<34); BILIRUBIN,TOTAL 3.1 MG/DL (0.3-1.2); BLOOD UREA NITROGEN 10 MG/DL (9-23); CALCIUM LEVEL 8.6 MG/DL (8.5-10.1); CARBON DIOXIDE LEVEL 20 MMOL/L (20-31); CHLORIDE LEVEL 110 MMOL/L (98-107); CREATININE FOR GFR 0.72 MG/DL (0.70-1.30); GLOMERULAR FILTRATION RATE > 60.0 (>60); GLUCOSE, FASTING 98 MG/DL (60-100); POTASSIUM SERUM 3.6 MMOL/L (3.5-5.1); SODIUM LEVEL 139 MMOL/L (136-145); TOTAL PROTEIN 6.3 G/DL (5.7-8.2)
[2022-12-02] MEDS: SERTRALINE HCL 50 MG TAB PO SCH (09:04)
[2022-12-02] MEDS: MORPHINE 4 MG/ML 1ML VIAL IV PRN ×3 (09:07→23:14)
[2022-12-02] MEDS: PANTOPRAZOLE 40MG TAB (PROTONIX) PO SCH ×2 (10:27→21:37)
[2022-12-02] MEDS: POTASSIUM CHLORIDE 10MEQ SR TABLET PO SCH ×2 (10:27→21:36)
[2022-12-02] MEDS: TAMSULOSIN 0.4 MG CAP PO SCH (10:27)
[2022-12-02] MEDS: SODIUM BICARBONATE 325 MG TAB PO SCH (10:27)
[2022-12-02] MEDS: FOLIC ACID 1MG TAB PO SCH (10:27)
[2022-12-02] MEDS: MULTIVITAMINS/MINERALS THERAP 1 TAB PO SCH (10:27)
[2022-12-02] MEDS: LACTULOSE 20GM/30ML SYRUP UDC PO SCH ×2 (10:27→21:37)
[2022-12-02] MEDS: DOCUSATE SODIUM 100MG CAPSULE PO SCH ×2 (10:27→21:36)
[2022-12-02] MEDS: THIAMINE 100 MG TAB PO SCH ×2 (10:27→21:36)
[2022-12-02] MEDS: predniSONE 20 MG TAB PO SCH (11:47)
[2022-12-02] MEDS ORDERED: HEPARIN SOD (PORCINE) 5000UNITS/ML 1ML VIAL/SYRINGE SQ SCH (12:05)
[2022-12-02 12:43] LABS: IRON (FE) 135 UG/DL (65-175); PERCENT SATURATION 45.2 % (19.7-50.0); TOTAL IRON BINDING CAPACITY 299 UG/DL (250-425)
[2022-12-02 12:45] LABS: FERRITIN 26.1 NG/ML (10.5-307.3); FOLATE 17.5 NG/ML (>5.4); VITAMIN B12 LEVEL 499 PG/ML (211-911)
[2022-12-02 21:00] VITALS: BP_DIAS 95
[2022-12-02] MEDS ORDERED: TEMAZEPAM 7.5 MG CAP PO PRN (21:40)
[2022-12-02 21:50] VITALS: BP 95/57
[2022-12-02] MEDS: RAMELTEON 8 MG TAB (ROZEREM) PO PRN (23:14)
[2022-12-03 00:01] VITALS: BP_DIAS 125
[2022-12-03] MEDS: OXAZEPAM 15MG CAP PO SCH ×3 (05:21→21:10)
[2022-12-03 06:00] VITALS: BP 107/63
[2022-12-03 06:07] LABS: HEMATOCRIT 24.6 % (42.0-52.0); HEMOGLOBIN 8.3 g/dl (13.5-17.5); MEAN CORPUSCULAR HEMOGLOBIN 32.9 pg (27.0-33.0); MEAN CORPUSCULAR HGB CONC 33.7 g/dl (32.0-36.5); MEAN CORPUSCULAR VOLUME 97.6 fl (80.0-96.0); RED BLOOD COUNT 2.52 10^6/uL (4.30-6.10); WHITE BLOOD COUNT 6.3 10^3/uL (4.0-10.0)
[2022-12-03 06:10] LABS: PLATELET COUNT, AUTOMATED 68 10^3/uL (150-450)
[2022-12-03 06:17] LABS: INR 1.57; PROTHROMBIN TIME 19.1 SECONDS (12.5-14.5)
[2022-12-03 06:31] LABS: ALBUMIN 2.4 G/DL (3.2-5.2); ALKALINE PHOSPHATASE 139 U/L (46-116); ALT/SGPT 15 U/L (7.0-40); AST/SGOT 33 U/L (<34); BILIRUBIN,TOTAL 1.9 MG/DL (0.3-1.2); BLOOD UREA NITROGEN 9 MG/DL (9-23); CALCIUM LEVEL 8.4 MG/DL (8.5-10.1); CARBON DIOXIDE LEVEL 21 MMOL/L (20-31); CHLORIDE LEVEL 111 MMOL/L (98-107); CREATININE FOR GFR 0.66 MG/DL (0.70-1.30); GLOMERULAR FILTRATION RATE > 60.0 (>60); GLUCOSE, FASTING 132 MG/DL (60-100); POTASSIUM SERUM 3.7 MMOL/L (3.5-5.1); SODIUM LEVEL 139 MMOL/L (136-145); TOTAL PROTEIN 6.2 G/DL (5.7-8.2)
[2022-12-03] MEDS: SODIUM BICARBONATE 325 MG TAB PO SCH (08:18)
[2022-12-03] MEDS: TAMSULOSIN 0.4 MG CAP PO SCH (08:18)
[2022-12-03] MEDS: SERTRALINE HCL 50 MG TAB PO SCH (08:18)
[2022-12-03] MEDS: PANTOPRAZOLE 40MG TAB (PROTONIX) PO SCH ×2 (08:18→20:08)
[2022-12-03] MEDS: FOLIC ACID 1MG TAB PO SCH (08:18)
[2022-12-03] MEDS: THIAMINE 100 MG TAB PO SCH (08:18)
[2022-12-03] MEDS: predniSONE 20 MG TAB PO SCH (08:18)
[2022-12-03] MEDS: LACTULOSE 20GM/30ML SYRUP UDC PO SCH ×3 (08:18→20:06)
[2022-12-03] MEDS: MULTIVITAMINS/MINERALS THERAP 1 TAB PO SCH (08:18)
[2022-12-03] MEDS: POTASSIUM CHLORIDE 10MEQ SR TABLET PO SCH ×2 (08:19→20:08)
[2022-12-03] MEDS: DOCUSATE SODIUM 100MG CAPSULE PO SCH ×2 (08:19→20:07)
[2022-12-03] MEDS: ONDANSETRON 4MG ORAL DISINTEGRATING TAB SL PRN (12:18)
[2022-12-03 14:00] VITALS: BP 98/46
[2022-12-03] MEDS: MORPHINE 4 MG/ML 1ML VIAL IV PRN (14:49)
[2022-12-03] MEDS ORDERED: MORPHINE 4 MG/ML 1ML VIAL IV PRN (16:25)
[2022-12-03] MEDS ORDERED: MOM 30ML SUSPENSION UDC PO ONE (16:25)
[2022-12-03] MEDS: RAMELTEON 8 MG TAB (ROZEREM) PO PRN (21:10)
[2022-12-03 21:25] VITALS: BP 122/77
[2022-12-04] MEDS: OXAZEPAM 15MG CAP PO SCH (05:19)
[2022-12-04 05:54] VITALS: BP 110/64
[2022-12-04 06:23] LABS: HEMATOCRIT 25.4 % (42.0-52.0); HEMOGLOBIN 8.6 g/dl (13.5-17.5); MEAN CORPUSCULAR HEMOGLOBIN 32.7 pg (27.0-33.0); MEAN CORPUSCULAR HGB CONC 33.9 g/dl (32.0-36.5); MEAN CORPUSCULAR VOLUME 96.6 fl (80.0-96.0); RED BLOOD COUNT 2.63 10^6/uL (4.30-6.10); WHITE BLOOD COUNT 7.1 10^3/uL (4.0-10.0)
[2022-12-04 06:30] LABS: PLATELET COUNT, AUTOMATED 72 10^3/uL (150-450)
[2022-12-04 06:37] LABS: INR 1.65; PROTHROMBIN TIME 19.8 SECONDS (12.5-14.5)
[2022-12-04 06:56] LABS: ALBUMIN 2.5 G/DL (3.2-5.2); ALKALINE PHOSPHATASE 146 U/L (46-116); ALT/SGPT 11 U/L (7.0-40); AST/SGOT 34 U/L (<34); BILIRUBIN,TOTAL 1.8 MG/DL (0.3-1.2); BLOOD UREA NITROGEN 7 MG/DL (9-23); CALCIUM LEVEL 8.6 MG/DL (8.5-10.1); CARBON DIOXIDE LEVEL 24 MMOL/L (20-31); CHLORIDE LEVEL 110 MMOL/L (98-107); CREATININE FOR GFR 0.61 MG/DL (0.70-1.30); GLOMERULAR FILTRATION RATE > 60.0 (>60); GLUCOSE, FASTING 125 MG/DL (60-100); POTASSIUM SERUM 3.9 MMOL/L (3.5-5.1); SODIUM LEVEL 139 MMOL/L (136-145); TOTAL PROTEIN 6.1 G/DL (5.7-8.2)
[2022-12-04] MEDS: MULTIVITAMINS/MINERALS THERAP 1 TAB PO SCH (08:48)
[2022-12-04] MEDS: LACTULOSE 20GM/30ML SYRUP UDC PO SCH ×3 (08:48→20:06)
[2022-12-04] MEDS: TAMSULOSIN 0.4 MG CAP PO SCH (08:48)
[2022-12-04] MEDS: SODIUM BICARBONATE 325 MG TAB PO SCH (08:48)
[2022-12-04] MEDS: PANTOPRAZOLE 40MG TAB (PROTONIX) PO SCH ×2 (08:48→20:06)
[2022-12-04] MEDS: DOCUSATE SODIUM 100MG CAPSULE PO SCH ×2 (08:49→20:06)
[2022-12-04] MEDS: FOLIC ACID 1MG TAB PO SCH (08:49)
[2022-12-04] MEDS: POTASSIUM CHLORIDE 10MEQ SR TABLET PO SCH (08:49)
[2022-12-04] MEDS: SERTRALINE HCL 50 MG TAB PO SCH (08:49)
[2022-12-04] MEDS: predniSONE 20 MG TAB PO SCH (08:49)
[2022-12-04 14:00] VITALS: BP 101/60
[2022-12-04] MEDS ORDERED: MORPHINE 4 MG/ML 1ML VIAL IV PRN (14:30)
[2022-12-04] MEDS: SPIRONOLACTONE 12.5MG PER 1/2 TABLET PO SCH (16:59)
[2022-12-04] MEDS: SENNA 8.6 MG TAB (SENOKOT) PO SCH (16:59)
[2022-12-04] MEDS: RAMELTEON 8 MG TAB (ROZEREM) PO PRN (20:06)
[2022-12-04 20:53] VITALS: BP 116/66
[2022-12-05 05:58] LABS: HEMATOCRIT 28.1 % (42.0-52.0); HEMOGLOBIN 9.3 g/dl (13.5-17.5); MEAN CORPUSCULAR HEMOGLOBIN 32.2 pg (27.0-33.0); MEAN CORPUSCULAR HGB CONC 33.1 g/dl (32.0-36.5); MEAN CORPUSCULAR VOLUME 97.2 fl (80.0-96.0); RED BLOOD COUNT 2.89 10^6/uL (4.30-6.10); WHITE BLOOD COUNT 7.9 10^3/uL (4.0-10.0)
[2022-12-05 06:05] LABS: INR 1.5; PROTHROMBIN TIME 18.4 SECONDS (12.5-14.5)
[2022-12-05 06:13] VITALS: BP 102/55
[2022-12-05 06:15] LABS: PLATELET COUNT, AUTOMATED 80 10^3/uL (150-450)
[2022-12-05 06:27] LABS: ALBUMIN 2.6 G/DL (3.2-5.2); ALKALINE PHOSPHATASE 149 U/L (46-116); ALT/SGPT 20 U/L (7.0-40); AST/SGOT 40 U/L (<34); BILIRUBIN,TOTAL 1.9 MG/DL (0.3-1.2); BLOOD UREA NITROGEN 9 MG/DL (9-23); CALCIUM LEVEL 9.1 MG/DL (8.5-10.1); CARBON DIOXIDE LEVEL 22 MMOL/L (20-31); CHLORIDE LEVEL 110 MMOL/L (98-107); CREATININE FOR GFR 0.61 MG/DL (0.70-1.30); GLOMERULAR FILTRATION RATE > 60.0 (>60); GLUCOSE, FASTING 150 MG/DL (60-100); POTASSIUM SERUM 3.7 MMOL/L (3.5-5.1); SODIUM LEVEL 137 MMOL/L (136-145); TOTAL PROTEIN 6.6 G/DL (5.7-8.2)
[2022-12-05] MEDS: SERTRALINE HCL 50 MG TAB PO SCH (08:53)
[2022-12-05] MEDS: DOCUSATE SODIUM 100MG CAPSULE PO SCH (08:53)
[2022-12-05] MEDS: TAMSULOSIN 0.4 MG CAP PO SCH (08:53)
[2022-12-05] MEDS: LACTULOSE 20GM/30ML SYRUP UDC PO SCH (08:53)
[2022-12-05] MEDS: SENNA 8.6 MG TAB (SENOKOT) PO SCH (08:53)
[2022-12-05] MEDS: predniSONE 20 MG TAB PO SCH (08:53)
[2022-12-05] MEDS: FOLIC ACID 1MG TAB PO SCH (08:53)
[2022-12-05] MEDS: MULTIVITAMINS/MINERALS THERAP 1 TAB PO SCH (08:54)
[2022-12-05] MEDS: PANTOPRAZOLE 40MG TAB (PROTONIX) PO SCH (08:54)
[2022-12-05] MEDS: SODIUM BICARBONATE 325 MG TAB PO SCH (08:54)
[2022-12-05] MEDS: SPIRONOLACTONE 12.5MG PER 1/2 TABLET PO SCH (08:56)
[2022-12-05] MEDS ORDERED: OXAZEPAM 15MG CAP PO SCH (09:00)
[2022-12-05] MEDS ORDERED: PRED20TA PO (11:18)
[2022-12-05] MEDS: ONDANSETRON 4MG ORAL DISINTEGRATING TAB SL PRN (12:35)
[2022-12-05] MEDS ORDERED: SERT50TA29 PO (12:40)
[2022-12-05] MEDS ORDERED: COLA100C5 PO (12:40)
== END 2022-12-05 14:23 | disposition home health service (06) | DRG 280 ==
LOC: M ED 08:18 → EDBD 08:18 → M ED INP 14:16 → ENRESERV 14:46 → M MSPAV 15:17 → OBSVTOIN 12-01 13:16
PROVIDERS: ADMIT Student in an Organized Health Care Education/Training Program; ATTEND Internal Medicine
DX: K70.30 Alcoholic cirrhosis of liver without ascites (principal); I95.89 Other hypotension; E87.20 Acidosis, unspecified; I50.32 Chronic diastolic (congestive) heart failure; E46 Unspecified protein-calorie malnutrition; R45.851 Suicidal ideations; D69.6 Thrombocytopenia, unspecified; D64.9 Anemia, unspecified; K86.1 Other chronic pancreatitis; K70.10 Alcoholic hepatitis without ascites; E86.1 Hypovolemia; F10.959 Alcohol use, unspecified with alcohol-induced psychotic disorder, unspecified; F12.90 Cannabis use, unspecified, uncomplicated; F17.210 Nicotine dependence, cigarettes, uncomplicated; G89.29 Other chronic pain; K57.90 Diverticulosis of intestine, part unspecified, without perforation or abscess without bleeding; K64.8 Other hemorrhoids; M96.1 Postlaminectomy syndrome, not elsewhere classified; R07.9 Chest pain, unspecified; R11.0 Nausea; R53.81 Other malaise; R74.01 Elevation of levels of liver transaminase levels; Z79.899 Other long term (current) drug therapy; Z66 Do not resuscitate

== ENCOUNTER 2023-01-05 22:01 | Emergency (ER) | payer OTHER ==
[~2023-01-05] VITALS: Ht 162.6 cm; Wt 62.7 kg
[~2023-01-05 22:01] MED LIST changes: +ALDA25TA2 PO; +COLA100C5 PO; +SERT50TA29 PO
[2023-01-06 07:19] LABS: BASO % 0.7 % (0.0-1.0); EOS # 0.1 10^3/uL (0.0-0.5); EOS % 2.4 % (0.0-3.0); HEMATOCRIT 30.4 % (42.0-52.0); LYMPH # 1.5 10^3/uL (1.5-5.0); LYMPH % 35.4 % (24.0-44.0); MEAN CORPUSCULAR HGB CONC 32.9 g/dl (32.0-36.5); MEAN CORPUSCULAR VOLUME 94.1 fl (80.0-96.0); MONO # 0.4 10^3/uL (0.0-0.8); MONO % 10.5 % (2.0-8.0); NEUTROPHILS # 2.1 10^3/uL (1.5-8.5); NEUTROPHILS % 50.3 % (36.0-66.0); RED BLOOD COUNT 3.23 10^6/uL (4.30-6.10); WHITE BLOOD COUNT 4.2 10^3/uL (4.0-10.0)
[2023-01-06 07:30] LABS: PLATELET COUNT, AUTOMATED 88 10^3/uL (150-450)
[2023-01-06 07:32] LABS: INR 1.52; PROTHROMBIN TIME 18.6 SECONDS (12.5-14.5)
[2023-01-06 07:33] LABS: PARTIAL THROMBOPLASTIN TIME 34.9 SECONDS (24.8-34.2)
[2023-01-06 07:42] LABS: AMPHETAMINES LEVEL URINE NEGATIVE (NEGATIVE); BARBITURATES URINE NEGATIVE (NEGATIVE); BENZODIAZEPINES URINE NEGATIVE (NEGATIVE); COCAINE METABOLITE URINE NEGATIVE (NEGATIVE); METHADONE URINE NEGATIVE (NEGATIVE); OPIATES URINE NEGATIVE (NEGATIVE); PHENCYCLIDINE URINE NEGATIVE (NEGATIVE)
[2023-01-06 07:44] LABS: ETHYL ALCOHOL (ETHANOL) 0.201 % (0.000-0.010)
[2023-01-06 07:46] LABS: ALBUMIN 2.7 G/DL (3.2-5.2); ALKALINE PHOSPHATASE 124 U/L (46-116); ALT/SGPT 20 U/L (7.0-40); AST/SGOT 51 U/L (<34); BILIRUBIN,DIRECT 1.3 MG/DL (<0.4); BILIRUBIN,TOTAL 2.5 MG/DL (0.3-1.2); BLOOD UREA NITROGEN 9 MG/DL (9-23); CALCIUM LEVEL 9.1 MG/DL (8.5-10.1); CARBON DIOXIDE LEVEL 20 MMOL/L (20-31); CHLORIDE LEVEL 112 MMOL/L (98-107); CREATININE FOR GFR 0.64 MG/DL (0.70-1.30); GLOMERULAR FILTRATION RATE > 60.0 (>60); GLUCOSE, FASTING 114 MG/DL (60-100); POTASSIUM SERUM 3.2 MMOL/L (3.5-5.1); SALICYLATE LEVEL < 3.0 MG/DL (<30); SODIUM LEVEL 143 MMOL/L (136-145); TOTAL PROTEIN 7.2 G/DL (5.7-8.2)
[2023-01-06 07:47] LABS: CANNABINOIDS URINE POSITIVE (NEGATIVE)
[2023-01-06 07:48] LABS: THYROID STIMULATING HORMONE 0.865 uIU/ML (0.55-4.78)
[2023-01-06 07:50] LABS: ACETAMINOPHEN LEVEL < 2.0 UG/ML (10.0-20.0)
[2023-01-06] MEDS ORDERED: POTASSIUM CHLORIDE 10MEQ SR TABLET PO ONE (09:15)
[2023-01-06 10:20] VITALS: BP 133/78; TEMP 98.1; O2SAT 98
== END 2023-01-06 10:24 | disposition home or self-care (01) ==
LOC: M ED 22:01 → EDBD 22:01 → M ED 01-06 10:24
DX: F43.0 Acute stress reaction (principal); E87.6 Hypokalemia; F10.10 Alcohol abuse, uncomplicated; K70.30 Alcoholic cirrhosis of liver without ascites; M54.50 Low back pain, unspecified; F17.200 Nicotine dependence, unspecified, uncomplicated; I10 Essential (primary) hypertension; Z98.84 Bariatric surgery status; Z79.52 Long term (current) use of systemic steroids; Z79.899 Other long term (current) drug therapy

== ENCOUNTER 2023-03-18 09:53 | Inpatient (IN) | payer OTHER ==
[~2023-03-18] VITALS: Ht 162.6 cm; Wt 54.7 kg
[~2023-03-18 09:53] MED LIST changes: -GABA-283 PO; +GABA-284 PO
[2023-03-18 11:34] LABS: BASO % 0.6 % (0.0-1.0); EOS # 0.1 10^3/uL (0.0-0.5); EOS % 1.5 % (0.0-3.0); HEMATOCRIT 27.7 % (42.0-52.0); HEMOGLOBIN 9.6 g/dl (13.5-17.5); LYMPH # 1.1 10^3/uL (1.5-5.0); LYMPH % 20.1 % (24.0-44.0); MEAN CORPUSCULAR HEMOGLOBIN 30.2 pg (27.0-33.0); MEAN CORPUSCULAR HGB CONC 34.7 g/dl (32.0-36.5); MEAN CORPUSCULAR VOLUME 87.1 fl (80.0-96.0); MONO # 0.7 10^3/uL (0.0-0.8); MONO % 13.6 % (2.0-8.0); NEUTROPHILS # 3.4 10^3/uL (1.5-8.5); NEUTROPHILS % 62.7 % (36.0-66.0); RED BLOOD COUNT 3.18 10^6/uL (4.30-6.10); WHITE BLOOD COUNT 5.4 10^3/uL (4.0-10.0)
[2023-03-18] MEDS ORDERED: PANTOPRAZOLE 40MG VIAL IV ONE (11:35)
[2023-03-18] MEDS ORDERED: NS 1,000 ML IV ONE (11:35)
[2023-03-18] MEDS ORDERED: MORPHINE 4 MG/ML 1ML VIAL IV ONE (11:35)
[2023-03-18 11:39] LABS: PLATELET COUNT, AUTOMATED 51 10^3/uL (150-450)
[2023-03-18 11:54] LABS: LIPASE 23 U/L (12-53)
[2023-03-18 12:00] LABS: ALBUMIN 3.1 G/DL (3.2-5.2); ALKALINE PHOSPHATASE 149 U/L (46-116); ALT/SGPT 33 U/L (7.0-40); AST/SGOT 102 U/L (<34); BILIRUBIN,DIRECT 1.9 MG/DL (<0.4); BLOOD UREA NITROGEN 11 MG/DL (9-23); CALCIUM LEVEL 9.1 MG/DL (8.5-10.1); CARBON DIOXIDE LEVEL 22 MMOL/L (20-31); CHLORIDE LEVEL 106 MMOL/L (98-107); CREATININE FOR GFR 0.62 MG/DL (0.70-1.30); GLOMERULAR FILTRATION RATE > 60.0 (>60); GLUCOSE, FASTING 130 MG/DL (60-100); POTASSIUM SERUM 2.8 MMOL/L (3.5-5.1); SODIUM LEVEL 137 MMOL/L (136-145); TOTAL PROTEIN 7.6 G/DL (5.7-8.2)
[2023-03-18 12:16] LABS: MAGNESIUM LEVEL 1.9 MG/DL (1.8-2.4)
[2023-03-18 12:36] LABS: INR 1.75
[2023-03-18 12:37] LABS: PARTIAL THROMBOPLASTIN TIME 33.6 SECONDS (24.8-34.2)
[2023-03-18] MEDS ORDERED: ISOVUE-370 76% 100ML VIAL As Ordered ONE (12:37)
[2023-03-18] MEDS ORDERED: KCL 10MEQ/100ML SWI (KRUN) 10 MEQ in IV 1 EA IV ONE (12:45)
[2023-03-18] MEDS ORDERED: MED REC IN PROGRESS XX SCH (14:05)
[2023-03-18] MEDS ORDERED: MORPHINE 2 MG/ML 1ML VIAL IV ONE (14:25)
[2023-03-18] MEDS ORDERED: FERR325T18 PO (14:57)
[2023-03-18] MEDS ORDERED: MIDO10TA PO (14:57)
[2023-03-18] MEDS ORDERED: POTA-298 PO (14:57)
[2023-03-18] MEDS ORDERED: TRAZ-257 PO (14:57)
[2023-03-18] MEDS ORDERED: SERT50TA29 PO (14:57)
[2023-03-18] MEDS ORDERED: POTASSIUM CHLORIDE 10MEQ SR TABLET PO ONE ×2 (15:00→18:00)
[2023-03-18 15:13] LABS: ETHYL ALCOHOL (ETHANOL) 0.095 % (0.000-0.010)
[2023-03-18] MEDS: LACTULOSE 20GM/30ML SYRUP UDC PO SCH ×2 (15:17→21:32)
[2023-03-18] MEDS ORDERED: MED REC CURRENTLY UNOBTAINABLE XX SCH (18:35)
[2023-03-18 20:05] VITALS: BP 126/88; TEMP 98.7; O2SAT 99
[2023-03-18] MEDS ORDERED: oxyCODONE 10 MG CR TAB PO SCH (21:00)
[2023-03-18] MEDS: DOCUSATE SODIUM 100MG CAPSULE PO SCH (21:32)
[2023-03-18] MEDS ORDERED: HOME MED LIST COMPLETE! XX SCH (22:25)
[2023-03-18 23:32] LABS: BLOOD UREA NITROGEN 9 MG/DL (9-23); CALCIUM LEVEL 8.7 MG/DL (8.5-10.1); CARBON DIOXIDE LEVEL 23 MMOL/L (20-31); CHLORIDE LEVEL 107 MMOL/L (98-107); CREATININE FOR GFR 0.64 MG/DL (0.70-1.30); GLOMERULAR FILTRATION RATE > 60.0 (>60); GLUCOSE, FASTING 137 MG/DL (60-100); POTASSIUM SERUM 3.3 MMOL/L (3.5-5.1); SODIUM LEVEL 138 MMOL/L (136-145)
[2023-03-19] MEDS ORDERED: POTASSIUM CHLORIDE 10MEQ SR TABLET PO ONE
[2023-03-19] MEDS: LACTULOSE 20GM/30ML SYRUP UDC PO SCH ×7 (00:23→23:30)
[2023-03-19 01:09] VITALS: BP 107/67; TEMP 98.3; O2SAT 96
[2023-03-19 04:36] VITALS: BP 105/65; TEMP 98.5; O2SAT 94
[2023-03-19 05:33] LABS: BASO % 0.8 % (0.0-1.0); EOS # 0.1 10^3/uL (0.0-0.5); EOS % 3.3 % (0.0-3.0); HEMATOCRIT 25.3 % (42.0-52.0); HEMOGLOBIN 8.8 g/dl (13.5-17.5); LYMPH # 1.4 10^3/uL (1.5-5.0); LYMPH % 34.1 % (24.0-44.0); MEAN CORPUSCULAR HEMOGLOBIN 30.4 pg (27.0-33.0); MEAN CORPUSCULAR HGB CONC 34.8 g/dl (32.0-36.5); MEAN CORPUSCULAR VOLUME 87.5 fl (80.0-96.0); MONO # 0.6 10^3/uL (0.0-0.8); MONO % 15.8 % (2.0-8.0); NEUTROPHILS # 1.8 10^3/uL (1.5-8.5); NEUTROPHILS % 45.2 % (36.0-66.0); RED BLOOD COUNT 2.89 10^6/uL (4.30-6.10)
[2023-03-19 05:42] LABS: PLATELET COUNT, AUTOMATED 47 10^3/uL (150-450)
[2023-03-19 06:05] LABS: ALBUMIN 2.6 G/DL (3.2-5.2); ALKALINE PHOSPHATASE 123 U/L (46-116); ALT/SGPT 28 U/L (7.0-40); AST/SGOT 80 U/L (<34); BILIRUBIN,TOTAL 3.2 MG/DL (0.3-1.2); BLOOD UREA NITROGEN 7 MG/DL (9-23); CALCIUM LEVEL 8.6 MG/DL (8.5-10.1); CARBON DIOXIDE LEVEL 21 MMOL/L (20-31); CHLORIDE LEVEL 110 MMOL/L (98-107); CREATININE FOR GFR 0.65 MG/DL (0.70-1.30); GLOMERULAR FILTRATION RATE > 60.0 (>60); GLUCOSE, FASTING 106 MG/DL (60-100); MAGNESIUM LEVEL 1.8 MG/DL (1.8-2.4); POTASSIUM SERUM 3.5 MMOL/L (3.5-5.1); SODIUM LEVEL 139 MMOL/L (136-145); TOTAL PROTEIN 6.5 G/DL (5.7-8.2)
[2023-03-19 07:54] VITALS: BP 109/65; TEMP 98.7; O2SAT 95
[2023-03-19] MEDS: DOCUSATE SODIUM 100MG CAPSULE PO SCH ×2 (08:56→20:21)
[2023-03-19] MEDS: SPIRONOLACTONE 25 MG TAB PO SCH (08:56)
[2023-03-19] MEDS: MIDODRINE 5 MG TAB PO SCH ×3 (08:56→17:01)
[2023-03-19] MEDS: PANTOPRAZOLE 40MG TAB (PROTONIX) PO SCH ×2 (08:56→20:20)
[2023-03-19] MEDS: POTASSIUM CHLORIDE 10MEQ SR TABLET PO SCH (08:57)
[2023-03-19] MEDS: oxyCODONE 10 MG CR TAB PO SCH ×2 (08:57→20:21)
[2023-03-19] MEDS: SENNA 8.6 MG TAB (SENOKOT) PO SCH ×2 (08:58→20:21)
[2023-03-19] MEDS ORDERED: FLEET ENEMA PR ONE (10:00)
[2023-03-19 11:47] VITALS: BP 113/73; TEMP 98.7; O2SAT 98
[2023-03-19 20:00] VITALS: BP 98/63; TEMP 99.7; O2SAT 98
[2023-03-20 04:00] VITALS: BP 111/73; TEMP 99.7; O2SAT 97
[2023-03-20] MEDS: LACTULOSE 20GM/30ML SYRUP UDC PO SCH ×3 (04:07→12:59)
[2023-03-20 05:33] LABS: BASO # 0.1 10^3/uL (0.0-0.2); BASO % 1.1 % (0.0-1.0); EOS # 0.1 10^3/uL (0.0-0.5); EOS % 2.9 % (0.0-3.0); HEMATOCRIT 27.9 % (42.0-52.0); HEMOGLOBIN 9.4 g/dl (13.5-17.5); LYMPH # 1.5 10^3/uL (1.5-5.0); LYMPH % 32.8 % (24.0-44.0); MEAN CORPUSCULAR HEMOGLOBIN 29.7 pg (27.0-33.0); MEAN CORPUSCULAR HGB CONC 33.7 g/dl (32.0-36.5); MEAN CORPUSCULAR VOLUME 88.3 fl (80.0-96.0); MONO # 0.8 10^3/uL (0.0-0.8); MONO % 17.6 % (2.0-8.0); NEUTROPHILS % 44.5 % (36.0-66.0); RED BLOOD COUNT 3.16 10^6/uL (4.30-6.10); WHITE BLOOD COUNT 4.5 10^3/uL (4.0-10.0)
[2023-03-20 05:38] LABS: PLATELET COUNT, AUTOMATED 52 10^3/uL (150-450)
[2023-03-20 05:55] LABS: ALBUMIN 2.6 G/DL (3.2-5.2); ALKALINE PHOSPHATASE 139 U/L (46-116); ALT/SGPT 30 U/L (7.0-40); AST/SGOT 70 U/L (<34); BILIRUBIN,TOTAL 2.8 MG/DL (0.3-1.2); BLOOD UREA NITROGEN 8 MG/DL (9-23); CALCIUM LEVEL 9.2 MG/DL (8.5-10.1); CARBON DIOXIDE LEVEL 20 MMOL/L (20-31); CHLORIDE LEVEL 107 MMOL/L (98-107); CREATININE FOR GFR 0.67 MG/DL (0.70-1.30); GLOMERULAR FILTRATION RATE > 60.0 (>60); GLUCOSE, FASTING 130 MG/DL (60-100); POTASSIUM SERUM 3.7 MMOL/L (3.5-5.1); SODIUM LEVEL 135 MMOL/L (136-145); TOTAL PROTEIN 6.9 G/DL (5.7-8.2)
[2023-03-20 07:53] VITALS: BP 102/66; TEMP 98.6; O2SAT 98
[2023-03-20] MEDS: POTASSIUM CHLORIDE 10MEQ SR TABLET PO SCH (08:51)
[2023-03-20] MEDS: oxyCODONE 10 MG CR TAB PO SCH (08:51)
[2023-03-20] MEDS: SPIRONOLACTONE 25 MG TAB PO SCH (08:51)
[2023-03-20] MEDS: MIDODRINE 5 MG TAB PO SCH ×2 (08:51→12:59)
[2023-03-20] MEDS: PANTOPRAZOLE 40MG TAB (PROTONIX) PO SCH (08:51)
[2023-03-20] MEDS: DOCUSATE SODIUM 100MG CAPSULE PO SCH (08:51)
[2023-03-20] MEDS: SENNA 8.6 MG TAB (SENOKOT) PO SCH (08:51)
[2023-03-20] MEDS ORDERED: SENN-188 PO (10:35)
[2023-03-20] MEDS ORDERED: POTA-298 PO (10:35)
[2023-03-20] MEDS ORDERED: LACT20EL PO (10:35)
== END 2023-03-20 13:10 | disposition home or self-care (01) | DRG 425 ==
LOC: M ED 09:53 → EDBD 09:53 → M ED INP 14:59 → ENRESERV 19:53 → M PCU 20:01 → M MSPAV 03-20 07:47
PROVIDERS: ADMIT Internal Medicine Nephrology; ATTEND Internal Medicine Nephrology
DX: E87.6 Hypokalemia (principal); K59.00 Constipation, unspecified; K76.82 Hepatic encephalopathy; F10.10 Alcohol abuse, uncomplicated; E87.20 Acidosis, unspecified; K86.1 Other chronic pancreatitis; K70.10 Alcoholic hepatitis without ascites; K70.30 Alcoholic cirrhosis of liver without ascites; K21.9 Gastro-esophageal reflux disease without esophagitis; D69.6 Thrombocytopenia, unspecified; K76.6 Portal hypertension; F17.200 Nicotine dependence, unspecified, uncomplicated; M48.56XA Collapsed vertebra, not elsewhere classified, lumbar region, initial encounter for fracture; I85.00 Esophageal varices without bleeding; I95.9 Hypotension, unspecified; D64.9 Anemia, unspecified; M54.50 Low back pain, unspecified; Z96.643 Presence of artificial hip joint, bilateral; Z87.891 Personal history of nicotine dependence; Z79.899 Other long term (current) drug therapy; Z20.822 Contact with and (suspected) exposure to COVID-19

== ENCOUNTER 2023-03-25 09:00 | Inpatient (IN) | payer OTHER, MEDICAID ==
[~2023-03-25] VITALS: Ht 162.6 cm; Wt 58.4 kg
[~2023-03-25 09:00] MED LIST changes: +FERR325T18 PO; +POTA-298 PO; +SENN-188 PO; +TRAZ-257 PO
[2023-03-25] MEDS ORDERED: NS 1,000 ML IV ONE ×4 (12:10→17:00)
[2023-03-25 12:57] LABS: VENOUS BASE EXCESS -5.6 (-2.0-2.0); VENOUS HCO3 18.4 MMOL/L (23.0-27.0); VENOUS O2 SATURATION 91.2 % (60.0-80.0); VENOUS PARTIAL PRESSURE CO2 30.9 mmHg (38.0-50.0); VENOUS PARTIAL PRESSURE O2 67.3 mmHg (30.0-50.0); VENOUS PH 7.393 UNITS (7.330-7.430); VENOUS STANDARD HCO3 19.8 MMOL/L; VENOUS TOTAL CO2 19.4 MMOL/L (24.0-28.0)
[2023-03-25 13:05] LABS: BASO # 0.1 10^3/uL (0.0-0.2); BASO % 1.2 % (0.0-1.0); EOS # 0.1 10^3/uL (0.0-0.5); EOS % 1.6 % (0.0-3.0); HEMATOCRIT 27.9 % (42.0-52.0); HEMOGLOBIN 9.6 g/dl (13.5-17.5); LYMPH # 1.4 10^3/uL (1.5-5.0); LYMPH % 24.7 % (24.0-44.0); MEAN CORPUSCULAR HEMOGLOBIN 30.5 pg (27.0-33.0); MEAN CORPUSCULAR HGB CONC 34.4 g/dl (32.0-36.5); MEAN CORPUSCULAR VOLUME 88.6 fl (80.0-96.0); MONO # 0.7 10^3/uL (0.0-0.8); MONO % 12.2 % (2.0-8.0); NEUTROPHILS # 3.4 10^3/uL (1.5-8.5); NEUTROPHILS % 59.8 % (36.0-66.0); RED BLOOD COUNT 3.15 10^6/uL (4.30-6.10); WHITE BLOOD COUNT 5.7 10^3/uL (4.0-10.0)
[2023-03-25 13:18] LABS: PLATELET COUNT, AUTOMATED 59 10^3/uL (150-450)
[2023-03-25 13:19] LABS: INR 1.96; PROTHROMBIN TIME 21.8 SECONDS (12.5-14.5)
[2023-03-25 13:24] LABS: OSMOLALITY SERUM 321 MOSM/KG (275-295)
[2023-03-25 13:28] LABS: C REACTIVE PROTEIN QUANTITATIV < 0.40 MG/DL (<1.0); ETHYL ALCOHOL (ETHANOL) 0.138 % (0.000-0.010); LIPASE 27 U/L (12-53)
[2023-03-25 13:29] LABS: SALICYLATE LEVEL < 3.0 MG/DL (<30)
[2023-03-25 13:30] LABS: ALBUMIN 2.6 G/DL (3.2-5.2); ALKALINE PHOSPHATASE 142 U/L (46-116); ALT/SGPT 36 U/L (7.0-40); AST/SGOT 97 U/L (<34); BILIRUBIN,DIRECT 1.7 MG/DL (<0.4); BILIRUBIN,TOTAL 3.2 MG/DL (0.3-1.2); BLOOD UREA NITROGEN 6 MG/DL (9-23); CALCIUM LEVEL 8.2 MG/DL (8.5-10.1); CARBON DIOXIDE LEVEL 21 MMOL/L (20-31); CHLORIDE LEVEL 107 MMOL/L (98-107); CK-MB VALUE MASS 1.4 NG/ML (<3.6); CREATININE FOR GFR 0.54 MG/DL (0.70-1.30); GLOMERULAR FILTRATION RATE > 60.0 (>60); GLUCOSE, FASTING 120 MG/DL (60-100); MAGNESIUM LEVEL 1.6 MG/DL (1.8-2.4); POTASSIUM SERUM 4.3 MMOL/L (3.5-5.1); SODIUM LEVEL 138 MMOL/L (136-145); TOTAL PROTEIN 6.9 G/DL (5.7-8.2)
[2023-03-25 13:31] LABS: THYROID STIMULATING HORMONE 1.215 uIU/ML (0.55-4.78)
[2023-03-25 13:32] LABS: RSV AMPLIFICATION NEGATIVE (NEGATIVE)
[2023-03-25 13:34] LABS: ACETAMINOPHEN LEVEL 4.4 UG/ML (10.0-20.0); CPK CREATINE PHOSPHOKINASE 102 U/L (46-171); MB/CK RELATIVE INDEX 1.37 (< OR =4)
[2023-03-25] MEDS ORDERED: NS 890 ML in IV 1 EA IV ONE (13:35)
[2023-03-25 13:36] LABS: AMPHETAMINES LEVEL URINE NEGATIVE (NEGATIVE); BARBITURATES URINE NEGATIVE (NEGATIVE); BENZODIAZEPINES URINE NEGATIVE (NEGATIVE); COCAINE METABOLITE URINE NEGATIVE (NEGATIVE)
[2023-03-25 13:37] LABS: METHADONE URINE NEGATIVE (NEGATIVE); OPIATES URINE NEGATIVE (NEGATIVE); PHENCYCLIDINE URINE NEGATIVE (NEGATIVE)
[2023-03-25 13:40] LABS: CANNABINOIDS URINE POSITIVE (NEGATIVE)
[2023-03-25 13:41] LABS: ERYTHROCYTE SEDIMENTATION RATE 50 mm/hr (0-15)
[2023-03-25] MEDS: THIAMINE 100 MG TAB PO SCH ×2 (14:48→20:25)
[2023-03-25] MEDS: FOLIC ACID 1MG TAB PO SCH (14:48)
[2023-03-25] MEDS: MULTIVITAMINS/MINERALS THERAP 1 TAB PO SCH (14:48)
[2023-03-25] MEDS ORDERED: LACTULOSE 20GM/30ML SYRUP UDC PO SCH (15:00)
[2023-03-25] MEDS ORDERED: MAGNESIUM OXIDE 400MG TAB (MAG-OX) PO ONE (15:00)
[2023-03-25] MEDS ORDERED: ONDANSETRON 4MG 2ML VIAL IV PRN (15:10)
[2023-03-25] MEDS ORDERED: GLUCAGON INJ 1MG VIAL SC PRN (15:10)
[2023-03-25] MEDS ORDERED: DEXTROSE 50% 50ML SYRINGE IV PRN (15:10)
[2023-03-25] MEDS ORDERED: MORPHINE 2 MG/ML 1ML VIAL IV PRN (15:10)
[2023-03-25] MEDS ORDERED: GLUCOSE 4GM CHEW TABLET PO PRN (15:10)
[2023-03-25] MEDS ORDERED: MED REC IN PROGRESS XX SCH (15:30)
[2023-03-25] MEDS: GASTROGRAFIN SOLUTION 30ML PO SCH ×2 (15:45→16:15)
[2023-03-25 16:24] LABS: C REACTIVE PROTEIN QUANTITATIV < 0.40 MG/DL (<1.0)
[2023-03-25] MEDS ORDERED: PANTOPRAZOLE 40MG TAB (PROTONIX) PO ONE (16:25)
[2023-03-25 16:37] LABS: PROCALCITONIN 0.05 ng/ml
[2023-03-25] MEDS ORDERED: PHYTONADIONE 5 MG TAB PO ONE (17:00)
[2023-03-25] MEDS ORDERED: NS 1,000 ML IV SCH (18:00)
[2023-03-25] MEDS ORDERED: HOME MED LIST COMPLETE! XX SCH (19:25)
[2023-03-25 20:03] VITALS: BP 147/89
[2023-03-25 20:09] VITALS: BP 147/89; TEMP 100.2; O2SAT 97
[2023-03-25] MEDS: PANTOPRAZOLE 40MG TAB (PROTONIX) PO SCH (20:25)
[2023-03-25] MEDS: SUCRALFATE SUSP 1GM/10ML UD PO SCH (20:26)
[2023-03-25] MEDS: LACTULOSE 20GM/30ML SYRUP UDC PO SCH ×3 (20:26→22:28)
[2023-03-25] MEDS: LORazepam 2 MG TAB PO PRN (22:09)
[2023-03-25] MEDS: NS 1,000 ML IV SCH (22:10)
[2023-03-25 23:47] VITALS: BP 127/73; TEMP 99.9; O2SAT 98
[2023-03-26] MEDS: SUCRALFATE SUSP 1GM/10ML UD PO SCH ×5 (00:23→23:55)
[2023-03-26 03:51] VITALS: BP 140/76; TEMP 100.5; O2SAT 97
[2023-03-26 04:00] VITALS: BP 140/76
[2023-03-26] MEDS: LORazepam 2 MG TAB PO PRN (04:23)
[2023-03-26] MEDS: ACETAMINOPHEN 500 MG TAB PO PRN (04:43)
[2023-03-26] MEDS: NS 1,000 ML IV SCH ×3 (04:43→22:16)
[2023-03-26 05:10] LABS: HEMATOCRIT 26.2 % (42.0-52.0); HEMOGLOBIN 8.9 g/dl (13.5-17.5); MEAN CORPUSCULAR HEMOGLOBIN 29.8 pg (27.0-33.0); MEAN CORPUSCULAR VOLUME 87.6 fl (80.0-96.0); RED BLOOD COUNT 2.99 10^6/uL (4.30-6.10); WHITE BLOOD COUNT 5.6 10^3/uL (4.0-10.0)
[2023-03-26 05:15] LABS: PLATELET COUNT, AUTOMATED 43 10^3/uL (150-450)
[2023-03-26 05:27] LABS: INR 1.99; PARTIAL THROMBOPLASTIN TIME 40.4 SECONDS (24.8-34.2); PROTHROMBIN TIME 22.1 SECONDS (12.5-14.5)
[2023-03-26 05:43] LABS: ALBUMIN 2.4 G/DL (3.2-5.2); ALKALINE PHOSPHATASE 141 U/L (46-116); ALT/SGPT 35 U/L (7.0-40); AST/SGOT 108 U/L (<34); BILIRUBIN,TOTAL 4.6 MG/DL (0.3-1.2); BLOOD UREA NITROGEN < 5 MG/DL (9-23); CALCIUM LEVEL 8.3 MG/DL (8.5-10.1); CARBON DIOXIDE LEVEL 22 MMOL/L (20-31); CHLORIDE LEVEL 108 MMOL/L (98-107); CREATININE FOR GFR 0.53 MG/DL (0.70-1.30); GLOMERULAR FILTRATION RATE > 60.0 (>60); GLUCOSE, FASTING 113 MG/DL (60-100); POTASSIUM SERUM 3.4 MMOL/L (3.5-5.1); SODIUM LEVEL 138 MMOL/L (136-145); TOTAL PROTEIN 6.3 G/DL (5.7-8.2)
[2023-03-26 06:26] VITALS: BP 131/74; TEMP 100
[2023-03-26] MEDS ORDERED: POTASSIUM CHLORIDE 10MEQ SR TABLET PO ONE ×2 (07:00→08:30)
[2023-03-26] MEDS: PHYTONADIONE 5 MG TAB PO SCH (08:54)
[2023-03-26] MEDS: LACTULOSE 20GM/30ML SYRUP UDC PO SCH ×3 (08:54→11:41)
[2023-03-26] MEDS: PANTOPRAZOLE 40MG TAB (PROTONIX) PO SCH ×2 (08:55→20:09)
[2023-03-26] MEDS: FOLIC ACID 1MG TAB PO SCH (08:55)
[2023-03-26] MEDS: MULTIVITAMINS/MINERALS THERAP 1 TAB PO SCH (08:55)
[2023-03-26] MEDS: THIAMINE 100 MG TAB PO SCH (08:55)
[2023-03-26 08:59] VITALS: BP 131/91; TEMP 99.8; O2SAT 95
[2023-03-26] MEDS ORDERED: PANTOPRAZOLE 40MG TAB (PROTONIX) PO SCH (09:00)
[2023-03-26] MEDS ORDERED: CIPROFLOXACIN 400 MG in IV 1 EA IV SCH (11:05)
[2023-03-26] MEDS: metroNIDAZOLE 500 MG in IV 1 EA IV SCH ×2 (15:14→20:09)
[2023-03-26] MEDS: cefTRIAXone SOD 2 GM in D5W MINI-BAG PLUS 50 ML IV SCH (16:15)
[2023-03-26 16:16] VITALS: BP 134/86; TEMP 99.3; O2SAT 96
[2023-03-26 23:43] VITALS: BP 144/92; TEMP 98.7; O2SAT 99
[2023-03-27] MEDS: NS 1,000 ML IV SCH ×4 (04:50→21:01)
[2023-03-27] MEDS: metroNIDAZOLE 500 MG in IV 1 EA IV SCH ×3 (04:50→20:21)
[2023-03-27] MEDS: SUCRALFATE SUSP 1GM/10ML UD PO SCH ×3 (06:01→17:15)
[2023-03-27 06:29] LABS: HEMATOCRIT 25.3 % (42.0-52.0); HEMOGLOBIN 8.7 g/dl (13.5-17.5); MEAN CORPUSCULAR HEMOGLOBIN 30.1 pg (27.0-33.0); MEAN CORPUSCULAR HGB CONC 34.4 g/dl (32.0-36.5); MEAN CORPUSCULAR VOLUME 87.5 fl (80.0-96.0); RED BLOOD COUNT 2.89 10^6/uL (4.30-6.10); WHITE BLOOD COUNT 4.2 10^3/uL (4.0-10.0)
[2023-03-27 06:35] LABS: PLATELET COUNT, AUTOMATED 41 10^3/uL (150-450)
[2023-03-27 06:38] LABS: INR 2.11; PROTHROMBIN TIME 23.1 SECONDS (12.5-14.5)
[2023-03-27 06:39] LABS: PARTIAL THROMBOPLASTIN TIME 40.1 SECONDS (24.8-34.2)
[2023-03-27 06:55] LABS: ALBUMIN 2.2 G/DL (3.2-5.2); ALKALINE PHOSPHATASE 131 U/L (46-116); ALT/SGPT 28 U/L (7.0-40); AST/SGOT 79 U/L (<34); BILIRUBIN,TOTAL 3.6 MG/DL (0.3-1.2); BLOOD UREA NITROGEN < 5 MG/DL (9-23); CALCIUM LEVEL 7.5 MG/DL (8.5-10.1); CARBON DIOXIDE LEVEL 20 MMOL/L (20-31); CHLORIDE LEVEL 109 MMOL/L (98-107); CREATININE FOR GFR 0.55 MG/DL (0.70-1.30); GLOMERULAR FILTRATION RATE > 60.0 (>60); GLUCOSE, FASTING 107 MG/DL (60-100); POTASSIUM SERUM 3.5 MMOL/L (3.5-5.1); SODIUM LEVEL 136 MMOL/L (136-145); TOTAL PROTEIN 5.9 G/DL (5.7-8.2)
[2023-03-27] MEDS ORDERED: PERCOCET 5MG/325MG TAB PO PRN (07:05)
[2023-03-27] MEDS ORDERED: KETOROLAC 30 MG/ML 1ML VIAL IV ONE (07:30)
[2023-03-27] MEDS ORDERED: PERCOCET 5MG/325MG TAB PO ONE (07:45)
[2023-03-27 07:57] VITALS: BP 130/74; TEMP 100; O2SAT 95
[2023-03-27] MEDS ORDERED: SODIUM BICARBONATE 325 MG TAB PO SCH (09:00)
[2023-03-27] MEDS: LACTULOSE 20GM/30ML SYRUP UDC PO SCH ×2 (09:22→09:50)
[2023-03-27] MEDS: PANTOPRAZOLE 40MG TAB (PROTONIX) PO SCH ×2 (09:23→20:22)
[2023-03-27] MEDS: PHYTONADIONE 5 MG TAB PO SCH (09:24)
[2023-03-27] MEDS: PERCOCET 5MG/325MG TAB PO PRN ×2 (12:01→20:22)
[2023-03-27 12:48] VITALS: BP 127/79
[2023-03-27] MEDS: cefTRIAXone SOD 2 GM in D5W MINI-BAG PLUS 50 ML IV SCH (14:51)
[2023-03-27] MEDS: FERROUS SULFATE 325MG TAB PO SCH (15:01)
[2023-03-27] MEDS: SERTRALINE HCL 50 MG TAB PO SCH (15:01)
[2023-03-27] MEDS: TAMSULOSIN 0.4 MG CAP PO SCH (15:01)
[2023-03-27 17:12] VITALS: BP 125/84; TEMP 97.8; O2SAT 99
[2023-03-27 20:00] VITALS: BP 102/76; TEMP 97.5; O2SAT 97
[2023-03-27] MEDS ORDERED: LACTULOSE 20GM/30ML SYRUP UDC PO SCH (21:00)
[2023-03-28] MEDS: SUCRALFATE SUSP 1GM/10ML UD PO SCH ×5 (00:04→23:16)
[2023-03-28] MEDS: traZODone 100 MG TAB PO PRN (00:10)
[2023-03-28] MEDS: PERCOCET 5MG/325MG TAB PO PRN ×2 (02:52→20:50)
[2023-03-28] MEDS: NS 1,000 ML IV SCH (02:53)
[2023-03-28 05:40] VITALS: BP 98/52; TEMP 98.4; O2SAT 98
[2023-03-28] MEDS: metroNIDAZOLE 500 MG in IV 1 EA IV SCH ×3 (05:47→20:15)
[2023-03-28 06:25] LABS: HEMATOCRIT 23.5 % (42.0-52.0); HEMOGLOBIN 8.1 g/dl (13.5-17.5); MEAN CORPUSCULAR HEMOGLOBIN 30.6 pg (27.0-33.0); MEAN CORPUSCULAR HGB CONC 34.5 g/dl (32.0-36.5); MEAN CORPUSCULAR VOLUME 88.7 fl (80.0-96.0); RED BLOOD COUNT 2.65 10^6/uL (4.30-6.10); WHITE BLOOD COUNT 3.8 10^3/uL (4.0-10.0)
[2023-03-28 06:27] LABS: PLATELET COUNT, AUTOMATED 42 10^3/uL (150-450)
[2023-03-28 06:37] LABS: INR 2.21; PROTHROMBIN TIME 23.9 SECONDS (12.5-14.5)
[2023-03-28 06:38] LABS: PARTIAL THROMBOPLASTIN TIME 40.7 SECONDS (24.8-34.2)
[2023-03-28 06:51] LABS: ALKALINE PHOSPHATASE 153 U/L (46-116); ALT/SGPT 24 U/L (7.0-40); AST/SGOT 68 U/L (<34); BILIRUBIN,TOTAL 1.7 MG/DL (0.3-1.2); BLOOD UREA NITROGEN 5 MG/DL (9-23); CALCIUM LEVEL 8.4 MG/DL (8.5-10.1); CARBON DIOXIDE LEVEL 18 MMOL/L (20-31); CHLORIDE LEVEL 112 MMOL/L (98-107); CREATININE FOR GFR 0.59 MG/DL (0.70-1.30); GLOMERULAR FILTRATION RATE > 60.0 (>60); GLUCOSE, FASTING 135 MG/DL (60-100); POTASSIUM SERUM 3.4 MMOL/L (3.5-5.1); SODIUM LEVEL 140 MMOL/L (136-145); TOTAL PROTEIN 5.4 G/DL (5.7-8.2)
[2023-03-28] MEDS ORDERED: POTASSIUM CHLORIDE 10MEQ SR TABLET PO ONE (07:30)
[2023-03-28] MEDS: LACTULOSE 20GM/30ML SYRUP UDC PO SCH ×2 (08:47→10:26)
[2023-03-28] MEDS: PHYTONADIONE 5 MG TAB PO SCH (08:47)
[2023-03-28] MEDS: TAMSULOSIN 0.4 MG CAP PO SCH (08:47)
[2023-03-28] MEDS: MIDODRINE 5 MG TAB PO SCH ×3 (08:48→17:04)
[2023-03-28] MEDS: PANTOPRAZOLE 40MG TAB (PROTONIX) PO SCH ×2 (08:48→20:15)
[2023-03-28] MEDS: FERROUS SULFATE 325MG TAB PO SCH (08:48)
[2023-03-28] MEDS: SERTRALINE HCL 50 MG TAB PO SCH (08:48)
[2023-03-28] MEDS: SODIUM BICARBONATE 325 MG TAB PO SCH ×2 (08:48→20:15)
[2023-03-28] MEDS ORDERED: SODIUM BICARBONATE 150 MEQ in STERILE WATER LITER BAG 1,000 ML IV SCH (09:00)
[2023-03-28 12:26] VITALS: BP 122/62
[2023-03-28] MEDS: cefTRIAXone SOD 2 GM in D5W MINI-BAG PLUS 50 ML IV SCH (13:49)
[2023-03-28 14:00] VITALS: BP 104/60; TEMP 98.4; O2SAT 98
[2023-03-28] MEDS ORDERED: METOCLOPRAMIDE INJ 10MG/2ML VIAL IV ONE (14:55)
[2023-03-28] MEDS ORDERED: FIORICET TAB PO ONE (14:55)
[2023-03-28 15:45] LABS: IONIZED CALCIUM 4.6 MG/DL (4.5-5.3)
[2023-03-28 16:12] LABS: BLOOD UREA NITROGEN < 5 MG/DL (9-23); CALCIUM LEVEL 8.2 MG/DL (8.5-10.1); CARBON DIOXIDE LEVEL 22 MMOL/L (20-31); CHLORIDE LEVEL 111 MMOL/L (98-107); CREATININE FOR GFR 0.63 MG/DL (0.70-1.30); GLOMERULAR FILTRATION RATE > 60.0 (>60); GLUCOSE, FASTING 141 MG/DL (60-100); MAGNESIUM LEVEL 1.4 MG/DL (1.8-2.4); POTASSIUM SERUM 3.4 MMOL/L (3.5-5.1); SODIUM LEVEL 140 MMOL/L (136-145)
[2023-03-28 16:56] VITALS: BP 112/60
[2023-03-28 20:00] VITALS: BP 90/54; TEMP 98.6; O2SAT 94
[2023-03-29] VITALS (17 sets, daily range): BP systolic 82–120; BP diastolic 46–78; TEMP 97.9–98.8; O2SAT 87–95
[2023-03-29] MEDS: SUCRALFATE SUSP 1GM/10ML UD PO SCH ×3 (05:09→18:20)
[2023-03-29] MEDS: metroNIDAZOLE 500 MG in IV 1 EA IV SCH (05:09)
[2023-03-29] MEDS: MIDODRINE 5 MG TAB PO SCH ×3 (06:12→16:28)
[2023-03-29] MEDS ORDERED: NS 2,000 ML IV ONE (07:15)
[2023-03-29 07:16] LABS: HEMATOCRIT 22.8 % (42.0-52.0); HEMOGLOBIN 7.8 g/dl (13.5-17.5); MEAN CORPUSCULAR HEMOGLOBIN 30.4 pg (27.0-33.0); MEAN CORPUSCULAR HGB CONC 34.2 g/dl (32.0-36.5); MEAN CORPUSCULAR VOLUME 88.7 fl (80.0-96.0); RED BLOOD COUNT 2.57 10^6/uL (4.30-6.10); WHITE BLOOD COUNT 4.1 10^3/uL (4.0-10.0)
[2023-03-29 07:19] LABS: PLATELET COUNT, AUTOMATED 40 10^3/uL (150-450)
[2023-03-29 07:32] LABS: INR 2.05; PROTHROMBIN TIME 22.6 SECONDS (12.5-14.5)
[2023-03-29 07:34] LABS: PARTIAL THROMBOPLASTIN TIME 41.3 SECONDS (24.8-34.2)
[2023-03-29 07:44] LABS: ALBUMIN 1.8 G/DL (3.2-5.2); ALKALINE PHOSPHATASE 153 U/L (46-116); ALT/SGPT 21 U/L (7.0-40); AST/SGOT 58 U/L (<34); BILIRUBIN,TOTAL 1.5 MG/DL (0.3-1.2); BLOOD UREA NITROGEN 6 MG/DL (9-23); CALCIUM LEVEL 8.4 MG/DL (8.5-10.1); CARBON DIOXIDE LEVEL 21 MMOL/L (20-31); CHLORIDE LEVEL 111 MMOL/L (98-107); CREATININE FOR GFR 0.68 MG/DL (0.70-1.30); GLOMERULAR FILTRATION RATE > 60.0 (>60); GLUCOSE, FASTING 128 MG/DL (60-100); POTASSIUM SERUM 3.8 MMOL/L (3.5-5.1); SODIUM LEVEL 141 MMOL/L (136-145)
[2023-03-29] MEDS: PHYTONADIONE 5 MG TAB PO SCH (09:33)
[2023-03-29] MEDS: SODIUM BICARBONATE 325 MG TAB PO SCH ×2 (09:33→19:54)
[2023-03-29] MEDS: FERROUS SULFATE 325MG TAB PO SCH (09:33)
[2023-03-29] MEDS: CEFDINIR 300 MG CAP (OMNICEF) PO SCH ×2 (09:33→19:54)
[2023-03-29] MEDS: SERTRALINE HCL 50 MG TAB PO SCH (09:33)
[2023-03-29] MEDS: PANTOPRAZOLE 40MG TAB (PROTONIX) PO SCH ×2 (09:33→19:54)
[2023-03-29] MEDS: TAMSULOSIN 0.4 MG CAP PO SCH (09:33)
[2023-03-29] MEDS ORDERED: oxyCODONE 5MG TAB PO ONE (14:15)
[2023-03-29] MEDS ORDERED: NS 1,000 ML IV ONE (14:15)
[2023-03-29] MEDS: metroNIDAZOLE (FLAGYL) 500MG TABLET PO SCH ×2 (14:27→21:18)
[2023-03-29] MEDS: LACTULOSE 20GM/30ML SYRUP UDC PO SCH ×2 (14:28→16:33)
[2023-03-29 16:11] LABS: HEMATOCRIT 25.8 % (42.0-52.0); HEMOGLOBIN 8.8 g/dl (13.5-17.5)
[2023-03-29 16:24] LABS: INR 1.97; PROTHROMBIN TIME 21.9 SECONDS (12.5-14.5)
[2023-03-29 16:25] LABS: PARTIAL THROMBOPLASTIN TIME 39.3 SECONDS (24.8-34.2)
[2023-03-29] MEDS: oxyCODONE 5MG TAB PO PRN (21:18)
[2023-03-29] MEDS: traZODone 100 MG TAB PO PRN (21:18)
[2023-03-30] VITALS (8 sets, daily range): BP systolic 100–124; BP diastolic 56–96; TEMP 98.6–98.8; O2SAT 91–94
[2023-03-30] MEDS: SUCRALFATE SUSP 1GM/10ML UD PO SCH ×5 (00:14→23:51)
[2023-03-30] MEDS: metroNIDAZOLE (FLAGYL) 500MG TABLET PO SCH ×3 (05:26→20:23)
[2023-03-30 06:03] LABS: HEMATOCRIT 25.9 % (42.0-52.0); HEMOGLOBIN 8.9 g/dl (13.5-17.5); MEAN CORPUSCULAR HEMOGLOBIN 30.1 pg (27.0-33.0); MEAN CORPUSCULAR HGB CONC 34.4 g/dl (32.0-36.5); MEAN CORPUSCULAR VOLUME 87.5 fl (80.0-96.0); RED BLOOD COUNT 2.96 10^6/uL (4.30-6.10); WHITE BLOOD COUNT 4.8 10^3/uL (4.0-10.0)
[2023-03-30 06:10] LABS: PLATELET COUNT, AUTOMATED 48 10^3/uL (150-450)
[2023-03-30 06:12] LABS: ALBUMIN 2.3 G/DL (3.2-5.2); ALKALINE PHOSPHATASE 141 U/L (46-116); ALT/SGPT 22 U/L (7.0-40); AST/SGOT 53 U/L (<34); BILIRUBIN,TOTAL 2.5 MG/DL (0.3-1.2); BLOOD UREA NITROGEN < 5 MG/DL (9-23); CALCIUM LEVEL 8.1 MG/DL (8.5-10.1); CARBON DIOXIDE LEVEL 22 MMOL/L (20-31); CHLORIDE LEVEL 112 MMOL/L (98-107); CREATININE FOR GFR 0.58 MG/DL (0.70-1.30); GLOMERULAR FILTRATION RATE > 60.0 (>60); GLUCOSE, FASTING 90 MG/DL (60-100); POTASSIUM SERUM 3.7 MMOL/L (3.5-5.1); SODIUM LEVEL 142 MMOL/L (136-145); TOTAL PROTEIN 5.4 G/DL (5.7-8.2)
[2023-03-30 06:14] LABS: INR 2.17; PROTHROMBIN TIME 23.6 SECONDS (12.5-14.5)
[2023-03-30 06:15] LABS: PARTIAL THROMBOPLASTIN TIME 40.6 SECONDS (24.8-34.2)
[2023-03-30] MEDS: oxyCODONE 5MG TAB PO PRN ×3 (06:35→20:23)
[2023-03-30] MEDS ORDERED: ISOVUE-370 76% 100ML VIAL As Ordered ONE (08:58)
[2023-03-30] MEDS: LACTULOSE 20GM/30ML SYRUP UDC PO SCH ×3 (10:21→20:17)
[2023-03-30] MEDS: SERTRALINE HCL 50 MG TAB PO SCH (10:21)
[2023-03-30] MEDS: SODIUM BICARBONATE 325 MG TAB PO SCH ×2 (10:22→20:17)
[2023-03-30] MEDS: predniSONE 20 MG TAB PO SCH (10:22)
[2023-03-30] MEDS: MIDODRINE 5 MG TAB PO SCH ×3 (10:22→16:22)
[2023-03-30] MEDS: TAMSULOSIN 0.4 MG CAP PO SCH (10:23)
[2023-03-30] MEDS: FERROUS SULFATE 325MG TAB PO SCH (10:23)
[2023-03-30] MEDS: CEFDINIR 300 MG CAP (OMNICEF) PO SCH ×2 (10:23→20:18)
[2023-03-30] MEDS: PHYTONADIONE 5 MG TAB PO SCH (10:23)
[2023-03-30] MEDS: PANTOPRAZOLE 40MG TAB (PROTONIX) PO SCH ×2 (10:24→20:18)
[2023-03-30] MEDS: traZODone 100 MG TAB PO PRN (20:22)
[2023-03-31] MEDS ORDERED: CEPACOL LOZENGE PO PRN (00:15)
[2023-03-31 05:23] VITALS: BP 109/69; TEMP 97; O2SAT 92
[2023-03-31] MEDS: SUCRALFATE SUSP 1GM/10ML UD PO SCH ×3 (05:29→17:47)
[2023-03-31] MEDS: metroNIDAZOLE (FLAGYL) 500MG TABLET PO SCH ×3 (05:29→20:57)
[2023-03-31] MEDS: oxyCODONE 5MG TAB PO PRN ×4 (05:30→20:57)
[2023-03-31 06:20] LABS: HEMOGLOBIN 8.9 g/dl (13.5-17.5); MEAN CORPUSCULAR HEMOGLOBIN 30.3 pg (27.0-33.0); MEAN CORPUSCULAR HGB CONC 34.2 g/dl (32.0-36.5); MEAN CORPUSCULAR VOLUME 88.4 fl (80.0-96.0); RED BLOOD COUNT 2.94 10^6/uL (4.30-6.10); WHITE BLOOD COUNT 6.4 10^3/uL (4.0-10.0)
[2023-03-31 06:25] LABS: PLATELET COUNT, AUTOMATED 52 10^3/uL (150-450)
[2023-03-31 06:42] LABS: ALBUMIN 2.2 G/DL (3.2-5.2); ALKALINE PHOSPHATASE 124 U/L (46-116); ALT/SGPT 22 U/L (7.0-40); AST/SGOT 50 U/L (<34); BILIRUBIN,TOTAL 2.1 MG/DL (0.3-1.2); BLOOD UREA NITROGEN 6 MG/DL (9-23); CALCIUM LEVEL 8.8 MG/DL (8.5-10.1); CARBON DIOXIDE LEVEL 22 MMOL/L (20-31); CHLORIDE LEVEL 113 MMOL/L (98-107); CREATININE FOR GFR 0.58 MG/DL (0.70-1.30); GLOMERULAR FILTRATION RATE > 60.0 (>60); GLUCOSE, FASTING 151 MG/DL (60-100); POTASSIUM SERUM 3.6 MMOL/L (3.5-5.1); SODIUM LEVEL 145 MMOL/L (136-145); TOTAL PROTEIN 5.5 G/DL (5.7-8.2)
[2023-03-31] MEDS: FERROUS SULFATE 325MG TAB PO SCH (07:52)
[2023-03-31] MEDS: PANTOPRAZOLE 40MG TAB (PROTONIX) PO SCH ×2 (07:52→20:58)
[2023-03-31] MEDS: SODIUM BICARBONATE 325 MG TAB PO SCH ×2 (07:53→20:58)
[2023-03-31] MEDS: CEFDINIR 300 MG CAP (OMNICEF) PO SCH ×2 (07:53→20:58)
[2023-03-31] MEDS: MIDODRINE 5 MG TAB PO SCH ×3 (07:53→16:10)
[2023-03-31] MEDS: SERTRALINE HCL 50 MG TAB PO SCH (07:53)
[2023-03-31] MEDS: TAMSULOSIN 0.4 MG CAP PO SCH (07:53)
[2023-03-31] MEDS: predniSONE 20 MG TAB PO SCH (07:53)
[2023-03-31] MEDS: PHYTONADIONE 5 MG TAB PO SCH (07:53)
[2023-03-31] MEDS: LACTULOSE 20GM/30ML SYRUP UDC PO SCH ×3 (07:54→20:58)
[2023-03-31 14:00] VITALS: BP 95/60; TEMP 97.6; O2SAT 93
[2023-03-31 20:04] VITALS: BP 108/69; TEMP 98.1; O2SAT 92
[2023-04-01] MEDS: SUCRALFATE SUSP 1GM/10ML UD PO SCH ×5 (00:13→23:27)
[2023-04-01] MEDS ORDERED: KETOROLAC 30 MG/ML 1ML VIAL IV ONE ×2 (00:25→15:00)
[2023-04-01] MEDS: metroNIDAZOLE (FLAGYL) 500MG TABLET PO SCH ×3 (05:11→20:27)
[2023-04-01] MEDS: oxyCODONE 5MG TAB PO PRN ×3 (05:15→19:50)
[2023-04-01 05:20] VITALS: BP 94/56; TEMP 98.1; O2SAT 93
[2023-04-01 05:54] LABS: HEMATOCRIT 26.3 % (42.0-52.0); HEMOGLOBIN 9.3 g/dl (13.5-17.5); MEAN CORPUSCULAR HEMOGLOBIN 31.1 pg (27.0-33.0); MEAN CORPUSCULAR HGB CONC 35.4 g/dl (32.0-36.5); PLATELET COUNT, AUTOMATED 56 10^3/uL (150-450); RED BLOOD COUNT 2.99 10^6/uL (4.30-6.10); WHITE BLOOD COUNT 6.3 10^3/uL (4.0-10.0)
[2023-04-01 06:20] LABS: ALBUMIN 2.3 G/DL (3.2-5.2); ALKALINE PHOSPHATASE 141 U/L (46-116); ALT/SGPT 28 U/L (7.0-40); AST/SGOT 61 U/L (<34); BILIRUBIN,TOTAL 1.9 MG/DL (0.3-1.2); BLOOD UREA NITROGEN 7 MG/DL (9-23); CALCIUM LEVEL 8.9 MG/DL (8.5-10.1); CARBON DIOXIDE LEVEL 22 MMOL/L (20-31); CHLORIDE LEVEL 110 MMOL/L (98-107); CREATININE FOR GFR 0.64 MG/DL (0.70-1.30); GLOMERULAR FILTRATION RATE > 60.0 (>60); GLUCOSE, FASTING 204 MG/DL (60-100); POTASSIUM SERUM 3.9 MMOL/L (3.5-5.1); SODIUM LEVEL 141 MMOL/L (136-145); TOTAL PROTEIN 5.8 G/DL (5.7-8.2)
[2023-04-01 07:42] LABS: MAGNESIUM LEVEL 1.8 MG/DL (1.8-2.4)
[2023-04-01] MEDS: LACTULOSE 20GM/30ML SYRUP UDC PO SCH ×3 (07:58→19:51)
[2023-04-01] MEDS: TAMSULOSIN 0.4 MG CAP PO SCH (07:59)
[2023-04-01] MEDS: predniSONE 20 MG TAB PO SCH (07:59)
[2023-04-01] MEDS: FERROUS SULFATE 325MG TAB PO SCH (07:59)
[2023-04-01] MEDS: MIDODRINE 5 MG TAB PO SCH ×3 (07:59→15:42)
[2023-04-01] MEDS: SERTRALINE HCL 50 MG TAB PO SCH (07:59)
[2023-04-01] MEDS: PANTOPRAZOLE 40MG TAB (PROTONIX) PO SCH ×2 (07:59→19:50)
[2023-04-01] MEDS: CEFDINIR 300 MG CAP (OMNICEF) PO SCH ×2 (07:59→19:50)
[2023-04-01] MEDS: PHYTONADIONE 5 MG TAB PO SCH (07:59)
[2023-04-01] MEDS: SODIUM BICARBONATE 325 MG TAB PO SCH ×2 (07:59→19:50)
[2023-04-01] MEDS: SENOKOT S TAB PO PRN (11:47)
[2023-04-01] MEDS: ACETAMINOPHEN 500 MG TAB PO PRN (11:47)
[2023-04-01 14:00] VITALS: BP 137/91; TEMP 98.2; O2SAT 96
[2023-04-01 19:36] VITALS: BP 119/76; TEMP 98.4; O2SAT 92
[2023-04-01] MEDS: traZODone 100 MG TAB PO PRN (19:50)
[2023-04-02 05:27] VITALS: BP 89/52; TEMP 98.1; O2SAT 96
[2023-04-02] MEDS: SUCRALFATE SUSP 1GM/10ML UD PO SCH ×4 (05:51→23:49)
[2023-04-02] MEDS: metroNIDAZOLE (FLAGYL) 500MG TABLET PO SCH (05:51)
[2023-04-02] MEDS: oxyCODONE 5MG TAB PO PRN ×3 (05:52→20:05)
[2023-04-02 06:25] VITALS: BP 100/60
[2023-04-02 07:58] LABS: BASO % 0.3 % (0.0-1.0); EOS # 0.1 10^3/uL (0.0-0.5); EOS % 1.9 % (0.0-3.0); HEMATOCRIT 27.3 % (42.0-52.0); HEMOGLOBIN 9.5 g/dl (13.5-17.5); LYMPH # 1.4 10^3/uL (1.5-5.0); LYMPH % 21.9 % (24.0-44.0); MEAN CORPUSCULAR HEMOGLOBIN 30.9 pg (27.0-33.0); MEAN CORPUSCULAR HGB CONC 34.8 g/dl (32.0-36.5); MEAN CORPUSCULAR VOLUME 88.9 fl (80.0-96.0); MONO # 0.9 10^3/uL (0.0-0.8); MONO % 13.8 % (2.0-8.0); NEUTROPHILS # 3.8 10^3/uL (1.5-8.5); NEUTROPHILS % 61.1 % (36.0-66.0); RED BLOOD COUNT 3.07 10^6/uL (4.30-6.10); WHITE BLOOD COUNT 6.2 10^3/uL (4.0-10.0)
[2023-04-02 08:00] LABS: PLATELET COUNT, AUTOMATED 58 10^3/uL (150-450)
[2023-04-02 08:29] LABS: ALBUMIN 2.3 G/DL (3.2-5.2); ALKALINE PHOSPHATASE 156 U/L (46-116); ALT/SGPT 33 U/L (7.0-40); AST/SGOT 64 U/L (<34); BILIRUBIN,TOTAL 2.2 MG/DL (0.3-1.2); BLOOD UREA NITROGEN 9 MG/DL (9-23); CALCIUM LEVEL 9.3 MG/DL (8.5-10.1); CARBON DIOXIDE LEVEL 24 MMOL/L (20-31); CHLORIDE LEVEL 108 MMOL/L (98-107); CREATININE FOR GFR 0.66 MG/DL (0.70-1.30); GLOMERULAR FILTRATION RATE > 60.0 (>60); GLUCOSE, FASTING 253 MG/DL (60-100); MAGNESIUM LEVEL 1.6 MG/DL (1.8-2.4); POTASSIUM SERUM 4.3 MMOL/L (3.5-5.1); SODIUM LEVEL 138 MMOL/L (136-145)
[2023-04-02] MEDS: SODIUM BICARBONATE 325 MG TAB PO SCH ×2 (09:01→20:02)
[2023-04-02] MEDS: LACTULOSE 20GM/30ML SYRUP UDC PO SCH ×7 (09:03→20:03)
[2023-04-02] MEDS: PHYTONADIONE 5 MG TAB PO SCH (09:03)
[2023-04-02] MEDS: PANTOPRAZOLE 40MG TAB (PROTONIX) PO SCH ×2 (09:03→20:02)
[2023-04-02] MEDS: predniSONE 20 MG TAB PO SCH (09:04)
[2023-04-02] MEDS: FERROUS SULFATE 325MG TAB PO SCH (09:04)
[2023-04-02] MEDS: SERTRALINE HCL 50 MG TAB PO SCH (09:04)
[2023-04-02] MEDS: TAMSULOSIN 0.4 MG CAP PO SCH (09:04)
[2023-04-02] MEDS: MIDODRINE 5 MG TAB PO SCH ×3 (09:05→17:45)
[2023-04-02 14:00] VITALS: BP 110/70; TEMP 98.4; O2SAT 95
[2023-04-02] MEDS ORDERED: HumuLIN R (REGULAR) INSULIN (NovoLIN R) **100U/ML** PER UNIT SC ONE ×2 (17:15→18:35)
[2023-04-02] MEDS: traZODone 100 MG TAB PO PRN (20:02)
[2023-04-02 20:10] VITALS: BP 111/69; TEMP 98.4; O2SAT 94
[2023-04-02] MEDS ORDERED: INSULIN LISPRO (NovoLOG) PER UNIT SC STA ×2 (20:16→20:32)
[2023-04-02] MEDS ORDERED: NS 500 ML IV ONE (20:20)
[2023-04-02] MEDS: INSULIN LISPRO (NovoLOG) PER UNIT SC SCH (22:35)
[2023-04-03] MEDS: SUCRALFATE SUSP 1GM/10ML UD PO SCH ×3 (05:47→18:13)
[2023-04-03 05:53] VITALS: BP 87/51; TEMP 97.7; O2SAT 97
[2023-04-03 06:03] VITALS: BP 82/52
[2023-04-03] MEDS ORDERED: NS 500 ML IV ONE (06:05)
[2023-04-03 06:58] VITALS: BP 89/58
[2023-04-03 07:27] LABS: BASO % 0.6 % (0.0-1.0); EOS # 0.2 10^3/uL (0.0-0.5); EOS % 2.8 % (0.0-3.0); HEMOGLOBIN 9.2 g/dl (13.5-17.5); LYMPH % 29.2 % (24.0-44.0); MEAN CORPUSCULAR HEMOGLOBIN 30.3 pg (27.0-33.0); MEAN CORPUSCULAR HGB CONC 34.1 g/dl (32.0-36.5); MEAN CORPUSCULAR VOLUME 88.8 fl (80.0-96.0); MONO % 14.8 % (2.0-8.0); NEUTROPHILS # 3.4 10^3/uL (1.5-8.5); NEUTROPHILS % 51.3 % (36.0-66.0); RED BLOOD COUNT 3.04 10^6/uL (4.30-6.10); WHITE BLOOD COUNT 6.7 10^3/uL (4.0-10.0)
[2023-04-03 07:29] LABS: PLATELET COUNT, AUTOMATED 56 10^3/uL (150-450)
[2023-04-03 07:41] LABS: ALBUMIN 2.1 G/DL (3.2-5.2); ALKALINE PHOSPHATASE 131 U/L (46-116); ALT/SGPT 33 U/L (7.0-40); AST/SGOT 56 U/L (<34); BLOOD UREA NITROGEN 13 MG/DL (9-23); CARBON DIOXIDE LEVEL 24 MMOL/L (20-31); CHLORIDE LEVEL 110 MMOL/L (98-107); CREATININE FOR GFR 0.65 MG/DL (0.70-1.30); GLOMERULAR FILTRATION RATE > 60.0 (>60); GLUCOSE, FASTING 152 MG/DL (60-100); MAGNESIUM LEVEL 1.6 MG/DL (1.8-2.4); POTASSIUM SERUM 4.1 MMOL/L (3.5-5.1); SODIUM LEVEL 141 MMOL/L (136-145); TOTAL PROTEIN 5.4 G/DL (5.7-8.2)
[2023-04-03] MEDS: INSULIN LISPRO (NovoLOG) PER UNIT SC SCH ×4 (08:29→20:05)
[2023-04-03] MEDS: LACTULOSE 20GM/30ML SYRUP UDC PO SCH ×3 (08:29→20:05)
[2023-04-03] MEDS: PHYTONADIONE 5 MG TAB PO SCH (08:29)
[2023-04-03] MEDS: oxyCODONE 5MG TAB PO PRN ×2 (08:30→16:29)
[2023-04-03] MEDS: SODIUM BICARBONATE 325 MG TAB PO SCH ×2 (08:30→20:05)
[2023-04-03] MEDS: MIDODRINE 5 MG TAB PO SCH ×3 (08:30→16:28)
[2023-04-03] MEDS: SERTRALINE HCL 50 MG TAB PO SCH (08:31)
[2023-04-03] MEDS: PANTOPRAZOLE 40MG TAB (PROTONIX) PO SCH ×2 (08:31→20:05)
[2023-04-03] MEDS: FERROUS SULFATE 325MG TAB PO SCH (08:31)
[2023-04-03] MEDS: TAMSULOSIN 0.4 MG CAP PO SCH (10:35)
[2023-04-03 14:00] VITALS: BP 96/60; TEMP 98.4; O2SAT 92
[2023-04-03] MEDS ORDERED: NS 1,000 ML IV ONE (20:15)
[2023-04-03 21:40] VITALS: BP 98/61; TEMP 98.1; O2SAT 95
[2023-04-04] MEDS: SUCRALFATE SUSP 1GM/10ML UD PO SCH ×5 (00:36→23:16)
[2023-04-04 02:45] VITALS: BP 102/56
[2023-04-04 06:00] VITALS: BP 103/63; TEMP 98.4; O2SAT 94
[2023-04-04 07:04] LABS: BASO # 0.1 10^3/uL (0.0-0.2); BASO % 1.1 % (0.0-1.0); EOS # 0.2 10^3/uL (0.0-0.5); EOS % 3.6 % (0.0-3.0); HEMATOCRIT 26.8 % (42.0-52.0); HEMOGLOBIN 9.3 g/dl (13.5-17.5); LYMPH # 1.8 10^3/uL (1.5-5.0); LYMPH % 33.3 % (24.0-44.0); MEAN CORPUSCULAR HEMOGLOBIN 30.7 pg (27.0-33.0); MEAN CORPUSCULAR HGB CONC 34.7 g/dl (32.0-36.5); MEAN CORPUSCULAR VOLUME 88.4 fl (80.0-96.0); MONO # 0.7 10^3/uL (0.0-0.8); MONO % 13.8 % (2.0-8.0); NEUTROPHILS # 2.5 10^3/uL (1.5-8.5); NEUTROPHILS % 47.3 % (36.0-66.0); RED BLOOD COUNT 3.03 10^6/uL (4.30-6.10); WHITE BLOOD COUNT 5.3 10^3/uL (4.0-10.0)
[2023-04-04 07:15] LABS: PLATELET COUNT, AUTOMATED 56 10^3/uL (150-450)
[2023-04-04 07:31] LABS: ALBUMIN 2.2 G/DL (3.2-5.2); ALKALINE PHOSPHATASE 121 U/L (46-116); ALT/SGPT 36 U/L (7.0-40); AST/SGOT 60 U/L (<34); BILIRUBIN,TOTAL 1.9 MG/DL (0.3-1.2); BLOOD UREA NITROGEN 14 MG/DL (9-23); CALCIUM LEVEL 8.7 MG/DL (8.5-10.1); CARBON DIOXIDE LEVEL 24 MMOL/L (20-31); CHLORIDE LEVEL 106 MMOL/L (98-107); CREATININE FOR GFR 0.65 MG/DL (0.70-1.30); GLOMERULAR FILTRATION RATE > 60.0 (>60); GLUCOSE, FASTING 132 MG/DL (60-100); MAGNESIUM LEVEL 1.4 MG/DL (1.8-2.4); SODIUM LEVEL 136 MMOL/L (136-145); TOTAL PROTEIN 5.5 G/DL (5.7-8.2)
[2023-04-04] MEDS: TAMSULOSIN 0.4 MG CAP PO SCH (08:50)
[2023-04-04] MEDS: SODIUM BICARBONATE 325 MG TAB PO SCH ×2 (08:50→19:53)
[2023-04-04] MEDS: INSULIN LISPRO (NovoLOG) PER UNIT SC SCH ×4 (08:50→20:14)
[2023-04-04] MEDS: MIDODRINE 5 MG TAB PO SCH ×3 (08:50→15:52)
[2023-04-04] MEDS: LACTULOSE 20GM/30ML SYRUP UDC PO SCH ×3 (08:51→19:53)
[2023-04-04] MEDS: PANTOPRAZOLE 40MG TAB (PROTONIX) PO SCH ×2 (08:51→19:53)
[2023-04-04] MEDS: SERTRALINE HCL 50 MG TAB PO SCH (08:51)
[2023-04-04] MEDS: PHYTONADIONE 5 MG TAB PO SCH (08:51)
[2023-04-04] MEDS: FERROUS SULFATE 325MG TAB PO SCH (08:51)
[2023-04-04] MEDS: oxyCODONE 5MG TAB PO PRN ×3 (08:56→23:19)
[2023-04-04 14:00] VITALS: BP 94/61; TEMP 97.7; O2SAT 93
[2023-04-04 21:18] VITALS: BP 97/61; TEMP 98.6; O2SAT 93
[2023-04-05] MEDS: SUCRALFATE SUSP 1GM/10ML UD PO SCH ×3 (05:04→17:01)
[2023-04-05] MEDS: oxyCODONE 5MG TAB PO PRN ×4 (05:07→21:21)
[2023-04-05 06:00] VITALS: BP 97/60; TEMP 97.7; O2SAT 93
[2023-04-05 06:22] LABS: BASO # 0.1 10^3/uL (0.0-0.2); BASO % 0.9 % (0.0-1.0); EOS # 0.2 10^3/uL (0.0-0.5); EOS % 3.9 % (0.0-3.0); HEMATOCRIT 27.5 % (42.0-52.0); HEMOGLOBIN 9.5 g/dl (13.5-17.5); LYMPH % 35.8 % (24.0-44.0); MEAN CORPUSCULAR HEMOGLOBIN 31.3 pg (27.0-33.0); MEAN CORPUSCULAR HGB CONC 34.5 g/dl (32.0-36.5); MEAN CORPUSCULAR VOLUME 90.5 fl (80.0-96.0); MONO # 0.8 10^3/uL (0.0-0.8); MONO % 14.7 % (2.0-8.0); NEUTROPHILS # 2.4 10^3/uL (1.5-8.5); NEUTROPHILS % 43.6 % (36.0-66.0); RED BLOOD COUNT 3.04 10^6/uL (4.30-6.10); WHITE BLOOD COUNT 5.6 10^3/uL (4.0-10.0)
[2023-04-05 06:24] LABS: PLATELET COUNT, AUTOMATED 66 10^3/uL (150-450)
[2023-04-05 06:50] LABS: ALBUMIN 2.3 G/DL (3.2-5.2); ALKALINE PHOSPHATASE 131 U/L (46-116); ALT/SGPT 35 U/L (7.0-40); AST/SGOT 64 U/L (<34); BLOOD UREA NITROGEN 10 MG/DL (9-23); CALCIUM LEVEL 8.8 MG/DL (8.5-10.1); CARBON DIOXIDE LEVEL 24 MMOL/L (20-31); CHLORIDE LEVEL 107 MMOL/L (98-107); CREATININE FOR GFR 0.64 MG/DL (0.70-1.30); GLOMERULAR FILTRATION RATE > 60.0 (>60); GLUCOSE, FASTING 140 MG/DL (60-100); MAGNESIUM LEVEL 1.6 MG/DL (1.8-2.4); POTASSIUM SERUM 3.7 MMOL/L (3.5-5.1); SODIUM LEVEL 138 MMOL/L (136-145); TOTAL PROTEIN 5.7 G/DL (5.7-8.2)
[2023-04-05] MEDS: INSULIN LISPRO (NovoLOG) PER UNIT SC SCH ×4 (08:28→21:00)
[2023-04-05] MEDS: TAMSULOSIN 0.4 MG CAP PO SCH (08:29)
[2023-04-05] MEDS: LACTULOSE 20GM/30ML SYRUP UDC PO SCH ×3 (08:29→21:20)
[2023-04-05] MEDS: PANTOPRAZOLE 40MG TAB (PROTONIX) PO SCH ×2 (08:29→21:21)
[2023-04-05] MEDS: FERROUS SULFATE 325MG TAB PO SCH (08:29)
[2023-04-05] MEDS: MIDODRINE 5 MG TAB PO SCH ×3 (08:29→17:01)
[2023-04-05] MEDS: SERTRALINE HCL 50 MG TAB PO SCH (08:29)
[2023-04-05] MEDS: PHYTONADIONE 5 MG TAB PO SCH (08:30)
[2023-04-05] MEDS: SODIUM BICARBONATE 325 MG TAB PO SCH ×2 (08:30→21:20)
[2023-04-05 14:00] VITALS: BP 115/61; TEMP 98.6; O2SAT 92
[2023-04-05 19:26] VITALS: BP 109/61; TEMP 98.6; O2SAT 94
[2023-04-05] MEDS ORDERED: MAALOX 30 ML SUSP *UDC PO ONE (19:40)
[2023-04-05] MEDS: ACETAMINOPHEN 500 MG TAB PO PRN (19:53)
[2023-04-05] MEDS: traZODone 100 MG TAB PO PRN (21:21)
[2023-04-06] MEDS: SUCRALFATE SUSP 1GM/10ML UD PO SCH ×4 (05:24→18:08)
[2023-04-06] MEDS: oxyCODONE 5MG TAB PO PRN ×2 (05:25→20:30)
[2023-04-06 06:00] VITALS: BP 94/54; TEMP 98.2; O2SAT 96
[2023-04-06 06:48] LABS: BASO % 0.7 % (0.0-1.0); EOS # 0.2 10^3/uL (0.0-0.5); EOS % 4.3 % (0.0-3.0); HEMOGLOBIN 8.9 g/dl (13.5-17.5); LYMPH # 1.3 10^3/uL (1.5-5.0); MEAN CORPUSCULAR HEMOGLOBIN 31.1 pg (27.0-33.0); MEAN CORPUSCULAR HGB CONC 34.2 g/dl (32.0-36.5); MEAN CORPUSCULAR VOLUME 90.9 fl (80.0-96.0); MONO # 0.7 10^3/uL (0.0-0.8); MONO % 15.7 % (2.0-8.0); NEUTROPHILS # 2.2 10^3/uL (1.5-8.5); NEUTROPHILS % 49.2 % (36.0-66.0); RED BLOOD COUNT 2.86 10^6/uL (4.30-6.10); WHITE BLOOD COUNT 4.5 10^3/uL (4.0-10.0)
[2023-04-06 06:58] LABS: PLATELET COUNT, AUTOMATED 58 10^3/uL (150-450)
[2023-04-06 07:10] LABS: ALBUMIN 2.1 G/DL (3.2-5.2); ALKALINE PHOSPHATASE 116 U/L (46-116); ALT/SGPT 31 U/L (7.0-40); AST/SGOT 60 U/L (<34); BILIRUBIN,TOTAL 1.9 MG/DL (0.3-1.2); BLOOD UREA NITROGEN 10 MG/DL (9-23); CALCIUM LEVEL 8.6 MG/DL (8.5-10.1); CARBON DIOXIDE LEVEL 26 MMOL/L (20-31); CHLORIDE LEVEL 107 MMOL/L (98-107); CREATININE FOR GFR 0.62 MG/DL (0.70-1.30); GLOMERULAR FILTRATION RATE > 60.0 (>60); GLUCOSE, FASTING 143 MG/DL (60-100); MAGNESIUM LEVEL 1.8 MG/DL (1.8-2.4); POTASSIUM SERUM 3.8 MMOL/L (3.5-5.1); SODIUM LEVEL 139 MMOL/L (136-145); TOTAL PROTEIN 5.3 G/DL (5.7-8.2)
[2023-04-06] MEDS: LACTULOSE 20GM/30ML SYRUP UDC PO SCH ×3 (08:12→20:28)
[2023-04-06] MEDS: PHYTONADIONE 5 MG TAB PO SCH (08:13)
[2023-04-06] MEDS: INSULIN LISPRO (NovoLOG) PER UNIT SC SCH ×4 (08:13→20:30)
[2023-04-06] MEDS: TAMSULOSIN 0.4 MG CAP PO SCH (08:13)
[2023-04-06] MEDS: MIDODRINE 5 MG TAB PO SCH ×3 (08:14→16:18)
[2023-04-06] MEDS: SODIUM BICARBONATE 325 MG TAB PO SCH ×2 (08:14→20:30)
[2023-04-06] MEDS: FERROUS SULFATE 325MG TAB PO SCH (08:14)
[2023-04-06] MEDS: PANTOPRAZOLE 40MG TAB (PROTONIX) PO SCH ×2 (08:14→20:29)
[2023-04-06] MEDS: SERTRALINE HCL 50 MG TAB PO SCH (08:14)
[2023-04-06 08:17] VITALS: BP 98/54
[2023-04-06 12:05] VITALS: BP 110/64; O2SAT 92
[2023-04-06 14:00] VITALS: BP 112/73; TEMP 98.6; O2SAT 91
[2023-04-06 16:17] VITALS: BP 112/74; O2SAT 89
[2023-04-06] MEDS ORDERED: FAT EMULSION IV 250 ML IV ONE (18:00)
[2023-04-06] MEDS ORDERED: INSULIN LISPRO (NovoLOG) PER UNIT SC SCH (18:00)
[2023-04-06] MEDS: AMINO AC/ELECTROLYTE/DEX/CALC 1,000 ML IV SCH (18:51)
[2023-04-06] MEDS: traZODone 100 MG TAB PO PRN (20:30)
[2023-04-06 21:59] VITALS: BP 106/59; TEMP 98.8; O2SAT 92
[2023-04-07] MEDS: SUCRALFATE SUSP 1GM/10ML UD PO SCH ×4 (00:15→17:19)
[2023-04-07 06:34] VITALS: BP 103/57; TEMP 98.6; O2SAT 88
[2023-04-07 07:03] LABS: BASO # 0.1 10^3/uL (0.0-0.2); BASO % 1.2 % (0.0-1.0); EOS # 0.2 10^3/uL (0.0-0.5); EOS % 3.9 % (0.0-3.0); HEMATOCRIT 27.5 % (42.0-52.0); HEMOGLOBIN 9.2 g/dl (13.5-17.5); LYMPH # 1.7 10^3/uL (1.5-5.0); MEAN CORPUSCULAR HEMOGLOBIN 31.1 pg (27.0-33.0); MEAN CORPUSCULAR HGB CONC 33.5 g/dl (32.0-36.5); MEAN CORPUSCULAR VOLUME 92.9 fl (80.0-96.0); MONO # 0.8 10^3/uL (0.0-0.8); MONO % 15.2 % (2.0-8.0); NEUTROPHILS # 2.4 10^3/uL (1.5-8.5); NEUTROPHILS % 45.9 % (36.0-66.0); RED BLOOD COUNT 2.96 10^6/uL (4.30-6.10); WHITE BLOOD COUNT 5.1 10^3/uL (4.0-10.0)
[2023-04-07 07:10] LABS: PLATELET COUNT, AUTOMATED 68 10^3/uL (150-450)
[2023-04-07 07:28] LABS: ALBUMIN 2.2 G/DL (3.2-5.2); ALKALINE PHOSPHATASE 103 U/L (46-116); ALT/SGPT 33 U/L (7.0-40); AST/SGOT 59 U/L (<34); BILIRUBIN,TOTAL 1.6 MG/DL (0.3-1.2); BLOOD UREA NITROGEN 9 MG/DL (9-23); CALCIUM LEVEL 8.3 MG/DL (8.5-10.1); CARBON DIOXIDE LEVEL 25 MMOL/L (20-31); CHLORIDE LEVEL 109 MMOL/L (98-107); CREATININE FOR GFR 0.56 MG/DL (0.70-1.30); GLOMERULAR FILTRATION RATE > 60.0 (>60); GLUCOSE, FASTING 150 MG/DL (60-100); MAGNESIUM LEVEL 1.8 MG/DL (1.8-2.4); POTASSIUM SERUM 3.8 MMOL/L (3.5-5.1); SODIUM LEVEL 140 MMOL/L (136-145); TOTAL PROTEIN 5.6 G/DL (5.7-8.2)
[2023-04-07 08:20] LABS: PROCALCITONIN 0.12 ng/ml
[2023-04-07] MEDS ORDERED: INSULIN LISPRO (NovoLOG) PER UNIT SC SCH (08:40)
[2023-04-07] MEDS: SODIUM BICARBONATE 325 MG TAB PO SCH ×2 (09:56→20:43)
[2023-04-07] MEDS: PANTOPRAZOLE 40MG TAB (PROTONIX) PO SCH ×2 (09:56→20:43)
[2023-04-07] MEDS: SERTRALINE HCL 50 MG TAB PO SCH (09:56)
[2023-04-07] MEDS: TAMSULOSIN 0.4 MG CAP PO SCH (09:56)
[2023-04-07] MEDS: FERROUS SULFATE 325MG TAB PO SCH (09:56)
[2023-04-07] MEDS: PHYTONADIONE 5 MG TAB PO SCH (09:57)
[2023-04-07] MEDS: MIDODRINE 5 MG TAB PO SCH ×3 (09:57→17:20)
[2023-04-07] MEDS: LACTULOSE 20GM/30ML SYRUP UDC PO SCH ×3 (09:58→20:42)
[2023-04-07] MEDS: oxyCODONE 5MG TAB PO PRN ×2 (10:53→20:43)
[2023-04-07 12:07] VITALS: O2SAT 97
[2023-04-07 12:28] VITALS: BP 100/62
[2023-04-07] MEDS: INSULIN LISPRO (NovoLOG) PER UNIT SC SCH ×2 (12:28→17:46)
[2023-04-07] MEDS: AMINO AC/ELECTROLYTE/DEX/CALC 1,000 ML IV SCH (15:11)
[2023-04-07] MEDS ORDERED: LIDOCAINE 1% MDV 20ML VIAL As Ordered ONE (15:45)
[2023-04-07 17:21] VITALS: BP 102/58
[2023-04-07] MEDS ORDERED: FAT EMULSION IV 250 ML IV ONE (18:00)
[2023-04-07] MEDS ORDERED: AMINO AC/ELECTROLYTE/DEX/CALC 2,566 ML IV SCH (18:00)
[2023-04-07] MEDS: SODIUM CHLORIDE 0.9% INJ 10 ML SYR IV PRN (18:51)
[2023-04-07] MEDS: traZODone 100 MG TAB PO PRN (20:43)
[2023-04-08] MEDS: SUCRALFATE SUSP 1GM/10ML UD PO SCH ×4 (00:23→17:51)
[2023-04-08] MEDS: INSULIN LISPRO (NovoLOG) PER UNIT SC SCH ×4 (00:24→18:39)
[2023-04-08 05:37] VITALS: BP 93/51; TEMP 97.9; O2SAT 94
[2023-04-08 05:45] VITALS: BP 95/62
[2023-04-08 05:47] VITALS: BP 94/62
[2023-04-08 06:08] LABS: BASO # 0.1 10^3/uL (0.0-0.2); EOS # 0.3 10^3/uL (0.0-0.5); EOS % 5.8 % (0.0-3.0); HEMATOCRIT 28.1 % (42.0-52.0); HEMOGLOBIN 9.4 g/dl (13.5-17.5); LYMPH # 1.6 10^3/uL (1.5-5.0); LYMPH % 32.9 % (24.0-44.0); MEAN CORPUSCULAR HEMOGLOBIN 31.4 pg (27.0-33.0); MEAN CORPUSCULAR HGB CONC 33.5 g/dl (32.0-36.5); MONO # 0.8 10^3/uL (0.0-0.8); MONO % 15.4 % (2.0-8.0); NEUTROPHILS # 2.2 10^3/uL (1.5-8.5); NEUTROPHILS % 44.3 % (36.0-66.0); RED BLOOD COUNT 2.99 10^6/uL (4.30-6.10); WHITE BLOOD COUNT 4.9 10^3/uL (4.0-10.0)
[2023-04-08] MEDS: SODIUM CHLORIDE 0.9% INJ 10 ML SYR IV SCH ×2 (06:08→17:51)
[2023-04-08 06:16] LABS: PLATELET COUNT, AUTOMATED 64 10^3/uL (150-450)
[2023-04-08 06:43] LABS: ALBUMIN 2.2 G/DL (3.2-5.2); ALKALINE PHOSPHATASE 81 U/L (46-116); ALT/SGPT 30 U/L (7.0-40); AST/SGOT 57 U/L (<34); BILIRUBIN,TOTAL 1.5 MG/DL (0.3-1.2); BLOOD UREA NITROGEN 11 MG/DL (9-23); CALCIUM LEVEL 8.2 MG/DL (8.5-10.1); CARBON DIOXIDE LEVEL 27 MMOL/L (20-31); CHLORIDE LEVEL 108 MMOL/L (98-107); CREATININE FOR GFR 0.65 MG/DL (0.70-1.30); GLOMERULAR FILTRATION RATE > 60.0 (>60); GLUCOSE, FASTING 131 MG/DL (60-100); MAGNESIUM LEVEL 1.8 MG/DL (1.8-2.4); POTASSIUM SERUM 3.9 MMOL/L (3.5-5.1); SODIUM LEVEL 140 MMOL/L (136-145); TOTAL PROTEIN 5.5 G/DL (5.7-8.2)
[2023-04-08] MEDS: TAMSULOSIN 0.4 MG CAP PO SCH (08:44)
[2023-04-08] MEDS: MIDODRINE 5 MG TAB PO SCH ×3 (08:44→17:08)
[2023-04-08] MEDS: PANTOPRAZOLE 40MG TAB (PROTONIX) PO SCH ×2 (08:44→20:08)
[2023-04-08] MEDS: SERTRALINE HCL 50 MG TAB PO SCH (08:45)
[2023-04-08] MEDS: FERROUS SULFATE 325MG TAB PO SCH (08:45)
[2023-04-08] MEDS: LACTULOSE 20GM/30ML SYRUP UDC PO SCH ×3 (08:45→20:08)
[2023-04-08] MEDS: SODIUM BICARBONATE 325 MG TAB PO SCH ×2 (08:45→20:08)
[2023-04-08] MEDS: PHYTONADIONE 5 MG TAB PO SCH (08:45)
[2023-04-08] MEDS: oxyCODONE 5MG TAB PO PRN ×2 (14:04→20:25)
[2023-04-08 14:15] VITALS: BP 101/59; TEMP 98.3; O2SAT 94
[2023-04-08] MEDS ORDERED: MULTIVITAMIN -ADULT INJECTION 10 ML, ZINC/COPPER/MANGANESE/SELENIUM 1 ML in AMINO AC/EL... IV SCH (18:00)
[2023-04-08] MEDS: traZODone 100 MG TAB PO PRN (20:08)
[2023-04-08 20:31] VITALS: BP 117/72; TEMP 98.1; O2SAT 96
[2023-04-09] MEDS: SUCRALFATE SUSP 1GM/10ML UD PO SCH ×4 (00:11→18:44)
[2023-04-09] MEDS: INSULIN LISPRO (NovoLOG) PER UNIT SC SCH ×4 (00:11→18:44)
[2023-04-09 05:48] VITALS: BP 107/69; TEMP 98.6; O2SAT 92
[2023-04-09] MEDS: SODIUM CHLORIDE 0.9% INJ 10 ML SYR IV SCH ×2 (06:16→18:00)
[2023-04-09] MEDS: oxyCODONE 5MG TAB PO PRN ×3 (06:17→20:09)
[2023-04-09 06:21] LABS: BASO # 0.1 10^3/uL (0.0-0.2); EOS # 0.3 10^3/uL (0.0-0.5); EOS % 5.4 % (0.0-3.0); HEMATOCRIT 27.3 % (42.0-52.0); HEMOGLOBIN 9.1 g/dl (13.5-17.5); LYMPH # 1.7 10^3/uL (1.5-5.0); LYMPH % 34.1 % (24.0-44.0); MEAN CORPUSCULAR HEMOGLOBIN 31.3 pg (27.0-33.0); MEAN CORPUSCULAR HGB CONC 33.3 g/dl (32.0-36.5); MEAN CORPUSCULAR VOLUME 93.8 fl (80.0-96.0); MONO # 0.8 10^3/uL (0.0-0.8); MONO % 15.3 % (2.0-8.0); NEUTROPHILS # 2.2 10^3/uL (1.5-8.5); NEUTROPHILS % 43.6 % (36.0-66.0); RED BLOOD COUNT 2.91 10^6/uL (4.30-6.10)
[2023-04-09 06:22] LABS: PLATELET COUNT, AUTOMATED 66 10^3/uL (150-450)
[2023-04-09 06:55] LABS: ALBUMIN 2.1 G/DL (3.2-5.2); ALKALINE PHOSPHATASE 76 U/L (46-116); ALT/SGPT 32 U/L (7.0-40); AST/SGOT 64 U/L (<34); BILIRUBIN,TOTAL 1.3 MG/DL (0.3-1.2); BLOOD UREA NITROGEN 13 MG/DL (9-23); CALCIUM LEVEL 8.4 MG/DL (8.5-10.1); CARBON DIOXIDE LEVEL 24 MMOL/L (20-31); CHLORIDE LEVEL 110 MMOL/L (98-107); CREATININE FOR GFR 0.62 MG/DL (0.70-1.30); GLOMERULAR FILTRATION RATE > 60.0 (>60); GLUCOSE, FASTING 123 MG/DL (60-100); MAGNESIUM LEVEL 1.8 MG/DL (1.8-2.4); POTASSIUM SERUM 3.7 MMOL/L (3.5-5.1); SODIUM LEVEL 140 MMOL/L (136-145); TOTAL PROTEIN 5.4 G/DL (5.7-8.2)
[2023-04-09] MEDS: FERROUS SULFATE 325MG TAB PO SCH (08:21)
[2023-04-09] MEDS: TAMSULOSIN 0.4 MG CAP PO SCH (08:21)
[2023-04-09] MEDS: SERTRALINE HCL 50 MG TAB PO SCH (08:21)
[2023-04-09] MEDS: SODIUM BICARBONATE 325 MG TAB PO SCH ×2 (08:21→20:08)
[2023-04-09] MEDS: PANTOPRAZOLE 40MG TAB (PROTONIX) PO SCH ×2 (08:21→20:09)
[2023-04-09] MEDS: LACTULOSE 20GM/30ML SYRUP UDC PO SCH ×3 (08:21→20:08)
[2023-04-09] MEDS: MIDODRINE 5 MG TAB PO SCH ×3 (08:21→16:30)
[2023-04-09] MEDS: PHYTONADIONE 5 MG TAB PO SCH (08:21)
[2023-04-09 14:00] VITALS: BP 104/68; TEMP 98.3; O2SAT 93
[2023-04-09] MEDS ORDERED: AMINO AC/ELECTROLYTE/DEX/CALC 2,566 ML IV SCH (18:00)
[2023-04-09] MEDS ORDERED: INSULIN LISPRO (NovoLOG) PER UNIT SC SCH (18:00)
[2023-04-09] MEDS: traZODone 100 MG TAB PO PRN (20:09)
[2023-04-09 20:13] VITALS: BP 113/71; TEMP 97.7; O2SAT 96
[2023-04-09] MEDS: SODIUM CHLORIDE NASAL 0.65% SPRAY BTL (OCEAN) PRN (23:14)
[2023-04-10] MEDS: SUCRALFATE SUSP 1GM/10ML UD PO SCH ×4 (00:08→18:40)
[2023-04-10] MEDS: INSULIN LISPRO (NovoLOG) PER UNIT SC SCH ×5 (00:09→18:41)
[2023-04-10] MEDS: oxyCODONE 5MG TAB PO PRN ×3 (02:32→21:39)
[2023-04-10] MEDS: SODIUM CHLORIDE NASAL 0.65% SPRAY BTL (OCEAN) PRN (02:33)
[2023-04-10 05:38] VITALS: BP 102/64; TEMP 97.5; O2SAT 95
[2023-04-10] MEDS: SODIUM CHLORIDE 0.9% INJ 10 ML SYR IV SCH ×2 (06:02→18:41)
[2023-04-10 06:16] LABS: HEMATOCRIT 26.3 % (42.0-52.0); HEMOGLOBIN 8.8 g/dl (13.5-17.5); MEAN CORPUSCULAR HEMOGLOBIN 31.7 pg (27.0-33.0); MEAN CORPUSCULAR HGB CONC 33.5 g/dl (32.0-36.5); MEAN CORPUSCULAR VOLUME 94.6 fl (80.0-96.0); RED BLOOD COUNT 2.78 10^6/uL (4.30-6.10); WHITE BLOOD COUNT 4.6 10^3/uL (4.0-10.0)
[2023-04-10 06:17] LABS: PLATELET COUNT, AUTOMATED 61 10^3/uL (150-450)
[2023-04-10 06:40] LABS: ALBUMIN 2.2 G/DL (3.2-5.2); ALKALINE PHOSPHATASE 71 U/L (46-116); ALT/SGPT 29 U/L (7.0-40); AST/SGOT 54 U/L (<34); BILIRUBIN,TOTAL 1.4 MG/DL (0.3-1.2); BLOOD UREA NITROGEN 13 MG/DL (9-23); CALCIUM LEVEL 8.2 MG/DL (8.5-10.1); CARBON DIOXIDE LEVEL 26 MMOL/L (20-31); CHLORIDE LEVEL 109 MMOL/L (98-107); CREATININE FOR GFR 0.61 MG/DL (0.70-1.30); GLOMERULAR FILTRATION RATE > 60.0 (>60); GLUCOSE, FASTING 120 MG/DL (60-100); POTASSIUM SERUM 3.6 MMOL/L (3.5-5.1); SODIUM LEVEL 139 MMOL/L (136-145); TOTAL PROTEIN 5.7 G/DL (5.7-8.2)
[2023-04-10] MEDS: MIDODRINE 5 MG TAB PO SCH ×3 (08:17→16:54)
[2023-04-10] MEDS: TAMSULOSIN 0.4 MG CAP PO SCH (08:17)
[2023-04-10] MEDS: PHYTONADIONE 5 MG TAB PO SCH (08:17)
[2023-04-10] MEDS: SERTRALINE HCL 50 MG TAB PO SCH (08:17)
[2023-04-10] MEDS: SODIUM BICARBONATE 325 MG TAB PO SCH ×2 (08:17→19:49)
[2023-04-10] MEDS: PANTOPRAZOLE 40MG TAB (PROTONIX) PO SCH ×2 (08:17→19:49)
[2023-04-10] MEDS: LACTULOSE 20GM/30ML SYRUP UDC PO SCH ×3 (08:17→19:49)
[2023-04-10] MEDS: FERROUS SULFATE 325MG TAB PO SCH (08:17)
[2023-04-10] MEDS: MOM 30ML SUSPENSION UDC PO PRN ×2 (11:21→16:54)
[2023-04-10] MEDS: SENOKOT S TAB PO PRN (11:22)
[2023-04-10 15:00] VITALS: BP 106/62; TEMP 97.7; O2SAT 95
[2023-04-10] MEDS ORDERED: MULTIVITAMIN -ADULT INJECTION 10 ML, ZINC/COPPER/MANGANESE/SELENIUM 1 ML in AMINO AC/EL... IV SCH (18:00)
[2023-04-10] MEDS: RAMELTEON 8 MG TAB (ROZEREM) PO SCH (19:49)
[2023-04-10] MEDS: SENOKOT S TAB PO SCH (19:49)
[2023-04-10] MEDS: SENNA 8.6 MG TAB (SENOKOT) PO SCH (19:49)
[2023-04-10] MEDS: traZODone 100 MG TAB PO PRN (19:52)
[2023-04-10 21:45] VITALS: BP 99/62; TEMP 98.2; O2SAT 93
[2023-04-11] MEDS: SUCRALFATE SUSP 1GM/10ML UD PO SCH ×4 (05:46→18:15)
[2023-04-11] MEDS: oxyCODONE 5MG TAB PO PRN ×3 (05:47→22:07)
[2023-04-11] MEDS: SODIUM CHLORIDE 0.9% INJ 10 ML SYR IV SCH ×2 (05:48→18:16)
[2023-04-11] MEDS: INSULIN LISPRO (NovoLOG) PER UNIT SC SCH ×8 (05:48→18:00)
[2023-04-11 06:00] VITALS: BP 99/60; TEMP 98.1; O2SAT 98
[2023-04-11 06:57] LABS: HEMATOCRIT 28.1 % (42.0-52.0); HEMOGLOBIN 9.3 g/dl (13.5-17.5); MEAN CORPUSCULAR HEMOGLOBIN 31.1 pg (27.0-33.0); MEAN CORPUSCULAR HGB CONC 33.1 g/dl (32.0-36.5); RED BLOOD COUNT 2.99 10^6/uL (4.30-6.10); WHITE BLOOD COUNT 4.3 10^3/uL (4.0-10.0)
[2023-04-11 07:01] LABS: PLATELET COUNT, AUTOMATED 58 10^3/uL (150-450)
[2023-04-11 07:25] LABS: ALBUMIN 2.3 G/DL (3.2-5.2); ALKALINE PHOSPHATASE 75 U/L (46-116); ALT/SGPT 25 U/L (7.0-40); AST/SGOT 49 U/L (<34); BILIRUBIN,TOTAL 1.6 MG/DL (0.3-1.2); BLOOD UREA NITROGEN 12 MG/DL (9-23); CALCIUM LEVEL 8.3 MG/DL (8.5-10.1); CARBON DIOXIDE LEVEL 24 MMOL/L (20-31); CHLORIDE LEVEL 109 MMOL/L (98-107); CREATININE FOR GFR 0.54 MG/DL (0.70-1.30); GLOMERULAR FILTRATION RATE > 60.0 (>60); GLUCOSE, FASTING 130 MG/DL (60-100); POTASSIUM SERUM 4.1 MMOL/L (3.5-5.1); SODIUM LEVEL 140 MMOL/L (136-145); TOTAL PROTEIN 5.8 G/DL (5.7-8.2)
[2023-04-11] MEDS: FERROUS SULFATE 325MG TAB PO SCH (08:38)
[2023-04-11] MEDS: LACTULOSE 20GM/30ML SYRUP UDC PO SCH ×3 (08:38→22:03)
[2023-04-11] MEDS: MIDODRINE 5 MG TAB PO SCH ×3 (08:38→15:46)
[2023-04-11] MEDS: SENOKOT S TAB PO SCH ×2 (08:39→22:04)
[2023-04-11] MEDS: PHYTONADIONE 5 MG TAB PO SCH (08:39)
[2023-04-11] MEDS: TAMSULOSIN 0.4 MG CAP PO SCH (08:39)
[2023-04-11] MEDS: PANTOPRAZOLE 40MG TAB (PROTONIX) PO SCH ×2 (08:39→22:04)
[2023-04-11] MEDS: SODIUM BICARBONATE 325 MG TAB PO SCH ×2 (08:39→22:05)
[2023-04-11] MEDS: SERTRALINE HCL 50 MG TAB PO SCH (08:39)
[2023-04-11 15:00] VITALS: BP 92/57; TEMP 98.6; O2SAT 98
[2023-04-11] MEDS ORDERED: AMINO AC/ELECTROLYTE/DEX/CALC 2,566 ML IV SCH (18:00)
[2023-04-11 21:49] VITALS: BP 96/54; TEMP 98.6; O2SAT 92
[2023-04-11] MEDS: MOM 30ML SUSPENSION UDC PO PRN (22:03)
[2023-04-11] MEDS: RAMELTEON 8 MG TAB (ROZEREM) PO SCH (22:04)
[2023-04-11] MEDS: traZODone 100 MG TAB PO PRN (22:04)
[2023-04-11] MEDS: SENNA 8.6 MG TAB (SENOKOT) PO SCH (22:04)
[2023-04-12] MEDS: INSULIN LISPRO (NovoLOG) PER UNIT SC SCH ×6 (00:07→23:47)
[2023-04-12] MEDS: SUCRALFATE SUSP 1GM/10ML UD PO SCH ×5 (00:07→23:46)
[2023-04-12 00:13] VITALS: O2SAT 89
[2023-04-12 00:14] VITALS: O2SAT 98
[2023-04-12] MEDS: SODIUM CHLORIDE 0.9% INJ 10 ML SYR IV SCH ×2 (05:39→18:09)
[2023-04-12 06:00] VITALS: BP 98/50; TEMP 96.6; O2SAT 93
[2023-04-12 08:09] LABS: HEMATOCRIT 28.7 % (42.0-52.0); HEMOGLOBIN 9.6 g/dl (13.5-17.5); MEAN CORPUSCULAR HEMOGLOBIN 31.3 pg (27.0-33.0); MEAN CORPUSCULAR HGB CONC 33.4 g/dl (32.0-36.5); MEAN CORPUSCULAR VOLUME 93.5 fl (80.0-96.0); RED BLOOD COUNT 3.07 10^6/uL (4.30-6.10); WHITE BLOOD COUNT 4.7 10^3/uL (4.0-10.0)
[2023-04-12 08:11] LABS: PLATELET COUNT, AUTOMATED 60 10^3/uL (150-450)
[2023-04-12] MEDS: LACTULOSE 20GM/30ML SYRUP UDC PO SCH ×3 (08:15→20:48)
[2023-04-12] MEDS: TAMSULOSIN 0.4 MG CAP PO SCH (08:15)
[2023-04-12] MEDS: MIDODRINE 5 MG TAB PO SCH ×3 (08:15→16:09)
[2023-04-12] MEDS: PANTOPRAZOLE 40MG TAB (PROTONIX) PO SCH ×2 (08:15→20:49)
[2023-04-12] MEDS: FERROUS SULFATE 325MG TAB PO SCH (08:15)
[2023-04-12] MEDS: SODIUM BICARBONATE 325 MG TAB PO SCH ×2 (08:16→20:49)
[2023-04-12] MEDS: PHYTONADIONE 5 MG TAB PO SCH (08:16)
[2023-04-12] MEDS: SERTRALINE HCL 50 MG TAB PO SCH (08:16)
[2023-04-12] MEDS: SENOKOT S TAB PO SCH ×2 (08:16→20:49)
[2023-04-12 08:28] LABS: ALBUMIN 2.3 G/DL (3.2-5.2); ALKALINE PHOSPHATASE 74 U/L (46-116); ALT/SGPT 22 U/L (7.0-40); AST/SGOT 43 U/L (<34); BILIRUBIN,TOTAL 1.6 MG/DL (0.3-1.2); BLOOD UREA NITROGEN 11 MG/DL (9-23); CALCIUM LEVEL 8.1 MG/DL (8.5-10.1); CARBON DIOXIDE LEVEL 24 MMOL/L (20-31); CHLORIDE LEVEL 110 MMOL/L (98-107); CREATININE FOR GFR 0.56 MG/DL (0.70-1.30); GLOMERULAR FILTRATION RATE > 60.0 (>60); GLUCOSE, FASTING 117 MG/DL (60-100); POTASSIUM SERUM 3.8 MMOL/L (3.5-5.1); SODIUM LEVEL 140 MMOL/L (136-145); TOTAL PROTEIN 5.8 G/DL (5.7-8.2)
[2023-04-12] MEDS: oxyCODONE 5MG TAB PO PRN ×2 (11:47→20:50)
[2023-04-12 15:15] VITALS: BP 93/58; TEMP 98.1; O2SAT 95
[2023-04-12] MEDS: ACETAMINOPHEN 500 MG TAB PO PRN (16:10)
[2023-04-12] MEDS ORDERED: AMINO AC/ELECTROLYTE/DEX/CALC 2,566 ML IV SCH (18:00)
[2023-04-12] MEDS: RAMELTEON 8 MG TAB (ROZEREM) PO SCH (20:48)
[2023-04-12] MEDS: SENNA 8.6 MG TAB (SENOKOT) PO SCH (20:49)
[2023-04-12 22:00] VITALS: BP 109/71; TEMP 97.9; O2SAT 95
[2023-04-13] MEDS ORDERED: KETOROLAC 30 MG/ML 1ML VIAL IV ONE
[2023-04-13] MEDS: SUCRALFATE SUSP 1GM/10ML UD PO SCH ×3 (05:53→18:00)
[2023-04-13] MEDS: INSULIN LISPRO (NovoLOG) PER UNIT SC SCH ×3 (05:53→18:00)
[2023-04-13] MEDS: SODIUM CHLORIDE 0.9% INJ 10 ML SYR IV PRN (05:54)
[2023-04-13] MEDS: SODIUM CHLORIDE 0.9% INJ 10 ML SYR IV SCH ×2 (05:54→18:00)
[2023-04-13 06:00] VITALS: BP 94/62; TEMP 98.4; O2SAT 91
[2023-04-13 07:39] LABS: HEMOGLOBIN 9.8 g/dl (13.5-17.5); MEAN CORPUSCULAR HEMOGLOBIN 31.7 pg (27.0-33.0); MEAN CORPUSCULAR HGB CONC 33.8 g/dl (32.0-36.5); MEAN CORPUSCULAR VOLUME 93.9 fl (80.0-96.0); RED BLOOD COUNT 3.09 10^6/uL (4.30-6.10); WHITE BLOOD COUNT 5.4 10^3/uL (4.0-10.0)
[2023-04-13 07:40] LABS: ALBUMIN 2.2 G/DL (3.2-5.2); ALKALINE PHOSPHATASE 68 U/L (46-116); ALT/SGPT 22 U/L (7.0-40); AST/SGOT 40 U/L (<34); BILIRUBIN,TOTAL 1.6 MG/DL (0.3-1.2); BLOOD UREA NITROGEN 14 MG/DL (9-23); CALCIUM LEVEL 8.3 MG/DL (8.5-10.1); CARBON DIOXIDE LEVEL 23 MMOL/L (20-31); CHLORIDE LEVEL 109 MMOL/L (98-107); CREATININE FOR GFR 0.68 MG/DL (0.70-1.30); GLOMERULAR FILTRATION RATE > 60.0 (>60); GLUCOSE, FASTING 119 MG/DL (60-100); POTASSIUM SERUM 3.7 MMOL/L (3.5-5.1); SODIUM LEVEL 138 MMOL/L (136-145)
[2023-04-13 08:00] LABS: PLATELET COUNT, AUTOMATED 63 10^3/uL (150-450)
[2023-04-13] MEDS: TAMSULOSIN 0.4 MG CAP PO SCH (08:18)
[2023-04-13] MEDS: SODIUM BICARBONATE 325 MG TAB PO SCH ×2 (08:18→21:04)
[2023-04-13] MEDS: MIDODRINE 5 MG TAB PO SCH ×3 (08:18→16:27)
[2023-04-13] MEDS: MOM 30ML SUSPENSION UDC PO PRN ×2 (08:18→16:27)
[2023-04-13] MEDS: SERTRALINE HCL 50 MG TAB PO SCH (08:18)
[2023-04-13] MEDS: PANTOPRAZOLE 40MG TAB (PROTONIX) PO SCH ×2 (08:18→21:05)
[2023-04-13] MEDS: LACTULOSE 20GM/30ML SYRUP UDC PO SCH ×3 (08:18→21:04)
[2023-04-13] MEDS: FERROUS SULFATE 325MG TAB PO SCH (08:18)
[2023-04-13] MEDS: PHYTONADIONE 5 MG TAB PO SCH (08:18)
[2023-04-13] MEDS: SENOKOT S TAB PO SCH ×2 (08:18→21:05)
[2023-04-13] MEDS: oxyCODONE 5MG TAB PO PRN ×2 (08:19→16:28)
[2023-04-13 14:00] VITALS: BP 101/64; TEMP 98.6; O2SAT 94
[2023-04-13] MEDS ORDERED: MULTIVITAMIN -ADULT INJECTION 10 ML, ZINC/COPPER/MANGANESE/SELENIUM 1 ML in AMINO AC/EL... IV SCH (18:00)
[2023-04-13] MEDS: RAMELTEON 8 MG TAB (ROZEREM) PO SCH (21:04)
[2023-04-13] MEDS: SENNA 8.6 MG TAB (SENOKOT) PO SCH (21:05)
[2023-04-13 21:21] VITALS: BP 100/56; TEMP 97.9; O2SAT 94
[2023-04-14] MEDS: SUCRALFATE SUSP 1GM/10ML UD PO SCH ×5 (00:33→23:45)
[2023-04-14] MEDS: INSULIN LISPRO (NovoLOG) PER UNIT SC SCH ×5 (00:34→23:43)
[2023-04-14] MEDS: oxyCODONE 5MG TAB PO PRN ×3 (00:35→20:25)
[2023-04-14] MEDS: SODIUM CHLORIDE 0.9% INJ 10 ML SYR IV SCH ×2 (05:44→17:26)
[2023-04-14 05:49] LABS: HEMOGLOBIN 9.6 g/dl (13.5-17.5); MEAN CORPUSCULAR HEMOGLOBIN 31.3 pg (27.0-33.0); MEAN CORPUSCULAR HGB CONC 33.1 g/dl (32.0-36.5); MEAN CORPUSCULAR VOLUME 94.5 fl (80.0-96.0); RED BLOOD COUNT 3.07 10^6/uL (4.30-6.10); WHITE BLOOD COUNT 5.4 10^3/uL (4.0-10.0)
[2023-04-14 05:52] LABS: PLATELET COUNT, AUTOMATED 59 10^3/uL (150-450)
[2023-04-14 06:13] LABS: ALBUMIN 2.2 G/DL (3.2-5.2); ALKALINE PHOSPHATASE 68 U/L (46-116); ALT/SGPT 21 U/L (7.0-40); AST/SGOT 43 U/L (<34); BILIRUBIN,TOTAL 1.7 MG/DL (0.3-1.2); BLOOD UREA NITROGEN 12 MG/DL (9-23); CALCIUM LEVEL 8.1 MG/DL (8.5-10.1); CARBON DIOXIDE LEVEL 22 MMOL/L (20-31); CHLORIDE LEVEL 108 MMOL/L (98-107); GLOMERULAR FILTRATION RATE > 60.0 (>60); GLUCOSE, FASTING 124 MG/DL (60-100); POTASSIUM SERUM 3.8 MMOL/L (3.5-5.1); SODIUM LEVEL 138 MMOL/L (136-145)
[2023-04-14 06:34] VITALS: BP 98/55; TEMP 98.7; O2SAT 93
[2023-04-14] MEDS: TAMSULOSIN 0.4 MG CAP PO SCH (09:38)
[2023-04-14] MEDS: MIDODRINE 5 MG TAB PO SCH ×3 (09:38→17:27)
[2023-04-14] MEDS: PANTOPRAZOLE 40MG TAB (PROTONIX) PO SCH ×2 (09:38→20:24)
[2023-04-14] MEDS: FERROUS SULFATE 325MG TAB PO SCH (09:38)
[2023-04-14] MEDS: PHYTONADIONE 5 MG TAB PO SCH (09:39)
[2023-04-14] MEDS: LACTULOSE 20GM/30ML SYRUP UDC PO SCH ×3 (09:39→20:24)
[2023-04-14] MEDS: SERTRALINE HCL 50 MG TAB PO SCH (09:39)
[2023-04-14] MEDS: SENOKOT S TAB PO SCH ×2 (09:40→20:24)
[2023-04-14] MEDS: SODIUM BICARBONATE 325 MG TAB PO SCH (09:40)
[2023-04-14 14:00] VITALS: BP 94/55; TEMP 98.4; O2SAT 95
[2023-04-14] MEDS ORDERED: POTASSIUM CHLORIDE IV SCH (18:00)
[2023-04-14] MEDS ORDERED: CALC IV SCH (18:00)
[2023-04-14] MEDS ORDERED: ELECTROLYTE IV SCH (18:00)
[2023-04-14] MEDS ORDERED: DEX IV SCH (18:00)
[2023-04-14] MEDS ORDERED: AMINO AC IV SCH (18:00)
[2023-04-14 20:15] VITALS: BP 94/54; TEMP 98.8; O2SAT 98
[2023-04-14] MEDS: RAMELTEON 8 MG TAB (ROZEREM) PO SCH (20:24)
[2023-04-14] MEDS: SENNA 8.6 MG TAB (SENOKOT) PO SCH (20:24)
[2023-04-15] MEDS: traZODone 100 MG TAB PO PRN (02:10)
[2023-04-15] MEDS ORDERED: MORPHINE 2 MG/ML 1ML VIAL IV ONE (03:00)
[2023-04-15] MEDS: SUCRALFATE SUSP 1GM/10ML UD PO SCH ×3 (05:36→17:31)
[2023-04-15] MEDS: INSULIN LISPRO (NovoLOG) PER UNIT SC SCH ×4 (05:37→23:51)
[2023-04-15] MEDS: SODIUM CHLORIDE 0.9% INJ 10 ML SYR IV SCH ×2 (05:38→17:32)
[2023-04-15 05:46] VITALS: BP 105/65; TEMP 98.6; O2SAT 96
[2023-04-15 06:59] LABS: HEMATOCRIT 29.4 % (42.0-52.0); HEMOGLOBIN 9.9 g/dl (13.5-17.5); MEAN CORPUSCULAR HEMOGLOBIN 31.5 pg (27.0-33.0); MEAN CORPUSCULAR HGB CONC 33.7 g/dl (32.0-36.5); MEAN CORPUSCULAR VOLUME 93.6 fl (80.0-96.0); RED BLOOD COUNT 3.14 10^6/uL (4.30-6.10); WHITE BLOOD COUNT 4.8 10^3/uL (4.0-10.0)
[2023-04-15 07:20] LABS: PLATELET COUNT, AUTOMATED 61 10^3/uL (150-450)
[2023-04-15 07:21] LABS: ALBUMIN 2.4 G/DL (3.2-5.2); ALKALINE PHOSPHATASE 75 U/L (46-116); ALT/SGPT 24 U/L (7.0-40); AST/SGOT 44 U/L (<34); BILIRUBIN,TOTAL 1.6 MG/DL (0.3-1.2); BLOOD UREA NITROGEN 12 MG/DL (9-23); CALCIUM LEVEL 8.6 MG/DL (8.5-10.1); CARBON DIOXIDE LEVEL 20 MMOL/L (20-31); CHLORIDE LEVEL 111 MMOL/L (98-107); CREATININE FOR GFR 0.59 MG/DL (0.70-1.30); GLOMERULAR FILTRATION RATE > 60.0 (>60); GLUCOSE, FASTING 101 MG/DL (60-100); POTASSIUM SERUM 3.8 MMOL/L (3.5-5.1); SODIUM LEVEL 140 MMOL/L (136-145); TOTAL PROTEIN 6.2 G/DL (5.7-8.2)
[2023-04-15 08:45] VITALS: BP 99/57
[2023-04-15] MEDS: PANTOPRAZOLE 40MG TAB (PROTONIX) PO SCH ×2 (08:51→20:05)
[2023-04-15] MEDS: LACTULOSE 20GM/30ML SYRUP UDC PO SCH ×3 (08:51→20:06)
[2023-04-15] MEDS: SENOKOT S TAB PO SCH ×2 (08:51→20:05)
[2023-04-15] MEDS: MIDODRINE 5 MG TAB PO SCH ×3 (08:51→16:20)
[2023-04-15] MEDS: TAMSULOSIN 0.4 MG CAP PO SCH (08:51)
[2023-04-15] MEDS: SERTRALINE HCL 50 MG TAB PO SCH (08:51)
[2023-04-15] MEDS: FERROUS SULFATE 325MG TAB PO SCH (08:52)
[2023-04-15] MEDS: oxyCODONE 5MG TAB PO PRN ×2 (08:58→17:32)
[2023-04-15 14:00] VITALS: BP 105/61; TEMP 98.1; O2SAT 97
[2023-04-15] MEDS ORDERED: SELENIUM IV SCH ×4 (18:00)
[2023-04-15] MEDS ORDERED: MULTIVITAMIN ADULT IV SCH ×4 (18:00)
[2023-04-15] MEDS ORDERED: MANGANESE IV SCH ×4 (18:00)
[2023-04-15] MEDS ORDERED: ZINC IV SCH ×4 (18:00)
[2023-04-15] MEDS ORDERED: [UNRECOGNIZED DRUG - OTHER] IV SCH ×4 (18:00)
[2023-04-15] MEDS ORDERED: COPPER IV SCH ×4 (18:00)
[2023-04-15] MEDS: SENNA 8.6 MG TAB (SENOKOT) PO SCH (20:05)
[2023-04-15] MEDS: RAMELTEON 8 MG TAB (ROZEREM) PO SCH (20:05)
[2023-04-15 23:15] VITALS: BP 100/56; TEMP 97.9; O2SAT 97
[2023-04-16] MEDS: SUCRALFATE SUSP 1GM/10ML UD PO SCH ×4 (01:39→18:05)
[2023-04-16] MEDS: oxyCODONE 5MG TAB PO PRN ×3 (01:40→21:03)
[2023-04-16] MEDS: INSULIN LISPRO (NovoLOG) PER UNIT SC SCH ×3 (06:00→18:00)
[2023-04-16 06:03] VITALS: BP 89/54; TEMP 98.2; O2SAT 97
[2023-04-16] MEDS: SODIUM CHLORIDE 0.9% INJ 10 ML SYR IV SCH ×2 (06:16→18:06)
[2023-04-16] MEDS: SENOKOT S TAB PO SCH ×2 (08:06→21:02)
[2023-04-16] MEDS: FERROUS SULFATE 325MG TAB PO SCH (08:06)
[2023-04-16] MEDS: MIDODRINE 5 MG TAB PO SCH ×3 (08:06→15:54)
[2023-04-16] MEDS: SERTRALINE HCL 50 MG TAB PO SCH (08:06)
[2023-04-16] MEDS: LACTULOSE 20GM/30ML SYRUP UDC PO SCH ×3 (08:06→21:02)
[2023-04-16] MEDS: TAMSULOSIN 0.4 MG CAP PO SCH (08:06)
[2023-04-16] MEDS: PANTOPRAZOLE 40MG TAB (PROTONIX) PO SCH ×2 (08:07→21:02)
[2023-04-16 08:08] VITALS: BP 107/62
[2023-04-16 14:00] VITALS: BP 98/60; TEMP 97.1; O2SAT 96
[2023-04-16] MEDS: GABAPENTIN 100 MG CAP PO SCH ×2 (14:08→21:03)
[2023-04-16 15:55] VITALS: BP 104/61
[2023-04-16] MEDS ORDERED: AMINO AC IV SCH (18:00)
[2023-04-16] MEDS ORDERED: POTASSIUM PHOSPHATE IV SCH (18:00)
[2023-04-16] MEDS ORDERED: CALC IV SCH (18:00)
[2023-04-16] MEDS ORDERED: DEX IV SCH (18:00)
[2023-04-16] MEDS ORDERED: ELECTROLYTE IV SCH (18:00)
[2023-04-16 20:21] VITALS: BP 105/62; TEMP 98.6; O2SAT 96
[2023-04-16] MEDS: SENNA 8.6 MG TAB (SENOKOT) PO SCH (21:02)
[2023-04-16] MEDS: RAMELTEON 8 MG TAB (ROZEREM) PO SCH (21:03)
[2023-04-17] MEDS: SUCRALFATE SUSP 1GM/10ML UD PO SCH ×4 (00:23→18:27)
[2023-04-17] MEDS: SODIUM CHLORIDE 0.9% INJ 10 ML SYR IV SCH ×2 (05:34→18:27)
[2023-04-17] MEDS: ACETAMINOPHEN 500 MG TAB PO PRN (05:39)
[2023-04-17] MEDS: oxyCODONE 5MG TAB PO PRN ×2 (05:39→15:03)
[2023-04-17] MEDS: INSULIN LISPRO (NovoLOG) PER UNIT SC SCH ×4 (06:00→18:26)
[2023-04-17 06:15] LABS: BASO # 0.1 10^3/uL (0.0-0.2); BASO % 1.4 % (0.0-1.0); EOS # 0.3 10^3/uL (0.0-0.5); EOS % 7.1 % (0.0-3.0); HEMATOCRIT 29.7 % (42.0-52.0); HEMOGLOBIN 10.2 g/dl (13.5-17.5); LYMPH # 1.4 10^3/uL (1.5-5.0); LYMPH % 32.7 % (24.0-44.0); MEAN CORPUSCULAR HEMOGLOBIN 31.8 pg (27.0-33.0); MEAN CORPUSCULAR HGB CONC 34.3 g/dl (32.0-36.5); MEAN CORPUSCULAR VOLUME 92.5 fl (80.0-96.0); MONO # 0.7 10^3/uL (0.0-0.8); MONO % 15.4 % (2.0-8.0); NEUTROPHILS # 1.9 10^3/uL (1.5-8.5); NEUTROPHILS % 42.9 % (36.0-66.0); RED BLOOD COUNT 3.21 10^6/uL (4.30-6.10); WHITE BLOOD COUNT 4.3 10^3/uL (4.0-10.0)
[2023-04-17 06:17] LABS: PLATELET COUNT, AUTOMATED 50 10^3/uL (150-450)
[2023-04-17 06:22] VITALS: BP 92/49; TEMP 98.1; O2SAT 96
[2023-04-17 06:45] LABS: BLOOD UREA NITROGEN 13 MG/DL (9-23); CALCIUM LEVEL 8.5 MG/DL (8.5-10.1); CARBON DIOXIDE LEVEL 22 MMOL/L (20-31); CHLORIDE LEVEL 108 MMOL/L (98-107); GLOMERULAR FILTRATION RATE > 60.0 (>60); GLUCOSE, FASTING 127 MG/DL (60-100); PHOSPHORUS LEVEL 4.2 MG/DL (2.5-4.9); POTASSIUM SERUM 3.9 MMOL/L (3.5-5.1); SODIUM LEVEL 138 MMOL/L (136-145)
[2023-04-17] MEDS: SERTRALINE HCL 50 MG TAB PO SCH (08:36)
[2023-04-17] MEDS: FERROUS SULFATE 325MG TAB PO SCH (08:36)
[2023-04-17] MEDS: MIDODRINE 5 MG TAB PO SCH ×3 (08:36→15:03)
[2023-04-17] MEDS: GABAPENTIN 100 MG CAP PO SCH ×2 (08:36→23:05)
[2023-04-17] MEDS: PANTOPRAZOLE 40MG TAB (PROTONIX) PO SCH ×2 (08:36→23:05)
[2023-04-17] MEDS: SENOKOT S TAB PO SCH (08:36)
[2023-04-17] MEDS: LACTULOSE 20GM/30ML SYRUP UDC PO SCH ×2 (08:36→15:03)
[2023-04-17] MEDS: TAMSULOSIN 0.4 MG CAP PO SCH (08:36)
[2023-04-17 15:29] VITALS: BP 105/61; TEMP 98.6; O2SAT 94
[2023-04-17] MEDS ORDERED: ZINC IV SCH ×4 (18:00)
[2023-04-17] MEDS ORDERED: [UNRECOGNIZED DRUG - OTHER] IV SCH ×4 (18:00)
[2023-04-17] MEDS ORDERED: MULTIVITAMIN ADULT IV SCH ×4 (18:00)
[2023-04-17] MEDS ORDERED: SELENIUM IV SCH ×4 (18:00)
[2023-04-17] MEDS ORDERED: MANGANESE IV SCH ×4 (18:00)
[2023-04-17] MEDS ORDERED: COPPER IV SCH ×4 (18:00)
[2023-04-17] MEDS ORDERED: oxyCODONE 5MG TAB PO ONE (22:45)
[2023-04-17 23:01] VITALS: BP 103/58; TEMP 97.9; O2SAT 96
[2023-04-17] MEDS: RAMELTEON 8 MG TAB (ROZEREM) PO SCH (23:05)
[2023-04-18] MEDS ORDERED: GABA-1171 PO (08:23)
== END 2023-04-17 23:20 | disposition short-term general hospital (02) | DRG 282 ==
LOC: M ED 09:00 → M ED INP 15:00 → M PCU 20:03 → M MS5PR 03-27 18:21
PROVIDERS: ADMIT General Practice; ATTEND Internal Medicine Nephrology
PROC: 02HV33Z Insertion of Infusion Device into Superior Vena Cava, Percutaneous Approach (ICD-10-PCS; principal; 2023-04-07 11:30)
DX: K86.0 Alcohol-induced chronic pancreatitis (principal); D61.818 Other pancytopenia; I95.89 Other hypotension; D68.9 Coagulation defect, unspecified; D69.6 Thrombocytopenia, unspecified; E87.21 Acute metabolic acidosis; K81.2 Acute cholecystitis with chronic cholecystitis; G62.1 Alcoholic polyneuropathy; K70.10 Alcoholic hepatitis without ascites; K70.30 Alcoholic cirrhosis of liver without ascites; K76.82 Hepatic encephalopathy; D63.8 Anemia in other chronic diseases classified elsewhere; E87.6 Hypokalemia; F10.20 Alcohol dependence, uncomplicated; K57.90 Diverticulosis of intestine, part unspecified, without perforation or abscess without bleeding; R29.6 Repeated falls; R26.89 Other abnormalities of gait and mobility; Z96.643 Presence of artificial hip joint, bilateral; M96.1 Postlaminectomy syndrome, not elsewhere classified; K21.9 Gastro-esophageal reflux disease without esophagitis; K64.4 Residual hemorrhoidal skin tags; K64.8 Other hemorrhoids; Z79.899 Other long term (current) drug therapy

== ENCOUNTER 2023-05-22 14:21 | Inpatient (IN) | payer MEDICAID, OTHER ==
[~2023-05-22] VITALS: Ht 162.6 cm; Wt 61.8 kg
[~2023-05-22 14:21] MED LIST changes: +MAGN400T2 PO; +NEUR100C PO; +med rec comment
[2023-05-22 16:04] LABS: HEMATOCRIT 29.1 % (42.0-52.0); HEMOGLOBIN 10.1 g/dl (13.5-17.5); MEAN CORPUSCULAR HEMOGLOBIN 33.4 pg (27.0-33.0); MEAN CORPUSCULAR HGB CONC 34.7 g/dl (32.0-36.5); MEAN CORPUSCULAR VOLUME 96.4 fl (80.0-96.0); RED BLOOD COUNT 3.02 10^6/uL (4.30-6.10); WHITE BLOOD COUNT 6.3 10^3/uL (4.0-10.0)
[2023-05-22 16:12] LABS: PLATELET COUNT, AUTOMATED 61 10^3/uL (150-450)
[2023-05-22] MEDS ORDERED: SPIR-10 PO (20:31)
[2023-05-22] MEDS ORDERED: POTA-164 PO (20:31)
[2023-05-22] MEDS ORDERED: MAGN400C PO (20:31)
[2023-05-22] MEDS ORDERED: SODI650T PO (20:31)
[2023-05-22] MEDS ORDERED: MM S100C PO (20:31)
[2023-05-22] MEDS ORDERED: SUCR1TA PO (20:31)
[2023-05-22] MEDS ORDERED: GABA-1171 PO (20:31)
[2023-05-22] MEDS ORDERED: TRAZ-189 PO (20:31)
[2023-05-22] MEDS ORDERED: POTA-165 PO (20:37)
[2023-05-22] MEDS ORDERED: HOME MED LIST COMPLETE! XX SCH (20:40)
[2023-05-22] MEDS ORDERED: POTASSIUM CHLORIDE 10MEQ SR TABLET PO ONE (23:20)
[2023-05-23] VITALS (8 sets, daily range): BP systolic 114–143; BP diastolic 76–89; TEMP 98.7–100.8; O2SAT 96–98
[2023-05-23] MEDS ORDERED: IBUPROFEN 400MG TAB PO PRN (00:30)
[2023-05-23] MEDS ORDERED: traZODone 50 MG TAB PO PRN (00:30)
[2023-05-23] MEDS ORDERED: diphenhydrAMINE 25MG CAP PO PRN (00:30)
[2023-05-23] MEDS ORDERED: ACETAMINOPHEN TAB 650MG DOSE (2X325MG) PO PRN (00:30)
[2023-05-23] MEDS ORDERED: MAALOX 30 ML SUSP *UDC PO PRN (00:30)
[2023-05-23] MEDS ORDERED: MOM 30ML SUSPENSION UDC PO PRN (00:30)
[2023-05-23] MEDS ORDERED: LORazepam 2 MG TAB PO PRN (01:25)
[2023-05-23] MEDS: oxyCODONE 5MG TAB PO PRN ×2 (03:12→21:50)
[2023-05-23] MEDS: LACTULOSE 20GM/30ML SYRUP UDC PO SCH ×3 (03:43→16:01)
[2023-05-23] MEDS: THIAMINE 100 MG TAB PO SCH ×2 (03:44→09:37)
[2023-05-23 08:25] LABS: BLOOD UREA NITROGEN 8 MG/DL (7-21); CARBON DIOXIDE LEVEL 16 MEQ/L (22-30); CHLORIDE LEVEL 113 MEQ/L (98-107); CREATININE FOR GFR 0.7 MG/DL (0.7-1.5); GLOMERULAR FILTRATION RATE > 60.0 (>60); GLUCOSE, FASTING 119 MG/DL (70-99); POTASSIUM SERUM 3.3 MEQ/L (3.6-5.0); SODIUM LEVEL 142 MEQ/L (134-153)
[2023-05-23 08:26] LABS: ALBUMIN 2.9 G/DL (3.9-5.0); ALKALINE PHOSPHATASE 226 U/L (40-129); ALT/SGPT 16 U/L (1-41); AST/SGOT 41 U/L (5-40); BILIRUBIN,DIRECT 0.7 MG/DL (0.1-0.4); BILIRUBIN,TOTAL 1.6 MG/DL (0.2-1.3); TOTAL PROTEIN 6.8 G/DL (6.3-8.2)
[2023-05-23 08:27] LABS: THYROID STIMULATING HORMONE 0.85 UIU/ML (0.47-5.01)
[2023-05-23 08:38] LABS: AMPHETAMINES LEVEL URINE NEGATIVE (NEGATIVE); BARBITURATES URINE NEGATIVE (NEGATIVE); BENZODIAZEPINES URINE NEGATIVE (NEGATIVE); CANNABINOIDS URINE NEGATIVE (NEGATIVE); COCAINE METABOLITE URINE NEGATIVE (NEGATIVE); OPIATES URINE NEGATIVE (NEGATIVE); PHENCYCLIDINE URINE NEGATIVE (NEGATIVE)
[2023-05-23] MEDS ORDERED: DOCUSATE SODIUM 100MG CAPSULE PO SCH (09:00)
[2023-05-23] MEDS ORDERED: SPIRONOLACTONE 25 MG TAB PO SCH (09:00)
[2023-05-23] MEDS ORDERED: POTASSIUM CHLORIDE 10MEQ SR TABLET PO SCH (09:00)
[2023-05-23] MEDS ORDERED: PANTOPRAZOLE 40MG TAB (PROTONIX) PO SCH (09:00)
[2023-05-23] MEDS ORDERED: SODIUM BICARBONATE 325 MG TAB PO SCH (09:00)
[2023-05-23] MEDS ORDERED: FOLIC ACID 1MG TAB PO SCH (09:00)
[2023-05-23] MEDS ORDERED: TAMSULOSIN 0.4 MG CAP PO SCH (09:00)
[2023-05-23] MEDS ORDERED: MULTIVITAMINS/MINERALS THERAP 1 TAB PO SCH (09:00)
[2023-05-23 12:16] LABS: HEMATOCRIT 26.5 % (42.0-52.0); HEMOGLOBIN 9.4 g/dl (13.5-17.5); MEAN CORPUSCULAR HEMOGLOBIN 33.5 pg (27.0-33.0); MEAN CORPUSCULAR HGB CONC 35.5 g/dl (32.0-36.5); MEAN CORPUSCULAR VOLUME 94.3 fl (80.0-96.0); PLATELET COUNT, AUTOMATED 56 10^3/uL (150-450); RED BLOOD COUNT 2.81 10^6/uL (4.30-6.10); WHITE BLOOD COUNT 4.8 10^3/uL (4.0-10.0)
[2023-05-23 12:26] LABS: INR 1.59; PROTHROMBIN TIME 18.5 SECONDS (12.5-14.5)
[2023-05-23] MEDS: SUCRALFATE 1 GM TAB PO SCH ×2 (13:28→16:02)
[2023-05-23] MEDS: MIDODRINE 5 MG TAB PO SCH ×2 (14:23→17:47)
[2023-05-24 07:11] LABS: BLOOD UREA NITROGEN 8 MG/DL (7-21); CREATININE FOR GFR 0.6 MG/DL (0.7-1.5); GLUCOSE, FASTING 183 MG/DL (70-99)
[2023-05-24 07:12] LABS: AST/SGOT 35 U/L (5-40); CARBON DIOXIDE LEVEL 20 MEQ/L (22-30); CHLORIDE LEVEL 114 MEQ/L (98-107); POTASSIUM SERUM 3.6 MEQ/L (3.6-5.0); SODIUM LEVEL 143 MEQ/L (134-153)
[2023-05-24 07:13] LABS: ALBUMIN 2.5 G/DL (3.9-5.0); ALKALINE PHOSPHATASE 178 U/L (40-129); ALT/SGPT 14 U/L (1-41); BILIRUBIN,TOTAL 2.1 MG/DL (0.2-1.3)
[2023-05-24 07:14] LABS: MAGNESIUM LEVEL 1.8 MG/DL (1.7-2.2)
[2023-05-24 07:32] LABS: GLOMERULAR FILTRATION RATE > 60.0 (>60)
[2023-05-24 07:36] LABS: C REACTIVE PROTEIN QUANTITATIV 2.67 MG/L (1.00-3.00)
[2023-05-24] MEDS ORDERED: ENOXAPARIN 40MG/0.4ML SYRINGE (J1650 PER 10MG) SC SCH (09:00)
[2023-05-24] MEDS ORDERED: LACT20EL PO (09:23)
[2023-05-24] MEDS ORDERED: MIDO5TA PO (09:23)
[2023-05-24] MEDS ORDERED: METR-265 IV (09:28)
[2023-05-24] MEDS ORDERED: LEVO1INJ IV (09:28)
[2023-05-24] MEDS ORDERED: ALDA25TA2 PO (09:31)
[2023-05-24] MEDS ORDERED: SODI325T9 PO (09:31)
[2023-05-24] MEDS ORDERED: [UNRECOGNIZED DRUG - CODE] IV (09:31)
[2023-05-24] MEDS ORDERED: PROT40IN4 IV (09:31)
== END 2023-05-23 22:56 | disposition short-term general hospital (02) | DRG 753 ==
LOC: M ED 14:21 → M ED INP 05-23 00:28 → M PSY 05-23 02:49
PROVIDERS: ADMIT Student in an Organized Health Care Education/Training Program; ATTEND Internal Medicine
DX: F32.89 Other specified depressive episodes (principal); I95.89 Other hypotension; E87.20 Acidosis, unspecified; D69.6 Thrombocytopenia, unspecified; K86.0 Alcohol-induced chronic pancreatitis; R45.851 Suicidal ideations; E83.42 Hypomagnesemia; K70.30 Alcoholic cirrhosis of liver without ascites; K76.82 Hepatic encephalopathy; F10.20 Alcohol dependence, uncomplicated; M54.59 Other low back pain; F17.200 Nicotine dependence, unspecified, uncomplicated; R29.6 Repeated falls; R26.89 Other abnormalities of gait and mobility; F12.90 Cannabis use, unspecified, uncomplicated; E87.6 Hypokalemia; K21.9 Gastro-esophageal reflux disease without esophagitis; G89.29 Other chronic pain; N40.0 Benign prostatic hyperplasia without lower urinary tract symptoms; Z79.899 Other long term (current) drug therapy

== ENCOUNTER 2023-05-23 22:13 | Inpatient (IN) | payer OTHER ==
[~2023-05-23 22:13] MED LIST changes: +MAGN400C PO; +MM S100C PO; +POTA-164 PO; +POTA-165 PO; +SUCR1TA PO; +TRAZ-189 PO
[2023-05-23] MEDS ORDERED: LevoFLOXacin IV 750 MG in IV 1 EA IV SCH (23:00)
[2023-05-23] MEDS ORDERED: ACETAMINOPHEN TAB 650MG DOSE (2X325MG) PO PRN (23:00)
[2023-05-23 23:02] VITALS: BP 130/78; TEMP 98.6; O2SAT 99
[2023-05-23] MEDS ORDERED: HOME MED LIST COMPLETE! XX SCH (23:15)
[2023-05-23 23:17] LABS: HEMATOCRIT 27.4 % (42.0-52.0); HEMOGLOBIN 9.7 g/dl (13.5-17.5); MEAN CORPUSCULAR HEMOGLOBIN 33.4 pg (27.0-33.0); MEAN CORPUSCULAR HGB CONC 35.4 g/dl (32.0-36.5); MEAN CORPUSCULAR VOLUME 94.5 fl (80.0-96.0); WHITE BLOOD COUNT 4.8 10^3/uL (4.0-10.0)
[2023-05-23 23:18] LABS: PLATELET COUNT, AUTOMATED 59 10^3/uL (150-450)
[2023-05-24] MEDS ORDERED: traZODone 100 MG TAB PO PRN (00:05)
[2023-05-24] MEDS ORDERED: oxyCODONE 5MG TAB PO PRN (00:05)
[2023-05-24] MEDS: metroNIDAZOLE 500 MG in IV 1 EA IV SCH ×2 (00:54→08:48)
[2023-05-24 03:11] VITALS: BP 106/73; TEMP 99.3; O2SAT 98
[2023-05-24] MEDS ORDERED: MORPHINE 2 MG/ML 1ML VIAL IV ONE (05:00)
[2023-05-24 07:20] VITALS: BP 108/67; TEMP 97.7; O2SAT 97
[2023-05-24 07:35] LABS: BASO % 0.9 % (0.0-1.0); EOS # 0.1 10^3/uL (0.0-0.5); EOS % 2.2 % (0.0-3.0); HEMATOCRIT 26.5 % (42.0-52.0); HEMOGLOBIN 9.4 g/dl (13.5-17.5); LYMPH # 1.6 10^3/uL (1.5-5.0); LYMPH % 34.4 % (24.0-44.0); MEAN CORPUSCULAR HEMOGLOBIN 33.8 pg (27.0-33.0); MEAN CORPUSCULAR HGB CONC 35.5 g/dl (32.0-36.5); MEAN CORPUSCULAR VOLUME 95.3 fl (80.0-96.0); MONO # 0.9 10^3/uL (0.0-0.8); MONO % 19.1 % (2.0-8.0); NEUTROPHILS # 1.9 10^3/uL (1.5-8.5); RED BLOOD COUNT 2.78 10^6/uL (4.30-6.10); WHITE BLOOD COUNT 4.5 10^3/uL (4.0-10.0)
[2023-05-24 07:36] LABS: PLATELET COUNT, AUTOMATED 52 10^3/uL (150-450)
[2023-05-24] MEDS ORDERED: MIDODRINE 5 MG TAB PO SCH (08:00)
[2023-05-24] MEDS ORDERED: OCTREOTIDE ACETATE 100MCG/ML VIAL **SC ADMINISTRATION ONLY SC SCH (08:20)
[2023-05-24] MEDS ORDERED: PANTOPRAZOLE SODIUM 40 MG in D5W 50 ML IV SCH (08:25)
[2023-05-24] MEDS ORDERED: DEXTROSE 50% 50ML SYRINGE IV PRN (08:30)
[2023-05-24] MEDS ORDERED: GLUCOSE 4GM CHEW TABLET PO PRN (08:30)
[2023-05-24] MEDS ORDERED: GLUCAGON INJ 1MG VIAL SC PRN (08:30)
[2023-05-24] MEDS ORDERED: SODIUM BICARBONATE 325 MG TAB PO SCH (09:00)
[2023-05-24] MEDS ORDERED: TAMSULOSIN 0.4 MG CAP PO SCH (09:00)
[2023-05-24] MEDS ORDERED: OCTREOTIDE ACETATE 100MCG/ML VIAL **IV ADMINISTRATION ONLY IV ONE (09:00)
[2023-05-24] MEDS ORDERED: SPIRONOLACTONE 25 MG TAB PO SCH (09:00)
[2023-05-24] MEDS ORDERED: POTASSIUM CHLORIDE 10MEQ SR TABLET PO SCH (09:00)
[2023-05-24] MEDS ORDERED: GABAPENTIN 100 MG CAP PO SCH (09:00)
[2023-05-24] MEDS ORDERED: PANTOPRAZOLE 40MG VIAL IV SCH (09:00)
[2023-05-24] MEDS ORDERED: SUCRALFATE 1 GM TAB PO SCH (09:00)
[2023-05-24] MEDS ORDERED: SENNA 8.6 MG TAB (SENOKOT) PO SCH (09:00)
[2023-05-24] MEDS ORDERED: DOCUSATE SODIUM 100MG CAPSULE PO SCH (09:00)
[2023-05-24] MEDS ORDERED: LACTULOSE 20GM/30ML SYRUP UDC PO SCH (09:00)
[2023-05-24] MEDS ORDERED: FOLIC ACID 1MG TAB PO SCH (09:00)
[2023-05-24] MEDS ORDERED: THIAMINE 100 MG TAB PO SCH (09:00)
[2023-05-24] MEDS ORDERED: PIPERACILLIN/TAZOBACTAM SOD 4.5 GM in D5W MINI-BAG PLUS 50 ML IV SCH (09:15)
[2023-05-24 09:21] VITALS: O2SAT 95
[2023-05-24] MEDS ORDERED: LACT20EL PO (09:23)
[2023-05-24] MEDS ORDERED: MIDO5TA PO (09:23)
[2023-05-24] MEDS ORDERED: LEVO1INJ IV (09:28)
[2023-05-24] MEDS ORDERED: METR-265 IV (09:28)
[2023-05-24] MEDS ORDERED: SODI325T9 PO (09:31)
[2023-05-24] MEDS ORDERED: [UNRECOGNIZED DRUG - CODE] IV (09:31)
[2023-05-24] MEDS ORDERED: PROT40IN4 IV (09:31)
[2023-05-24] MEDS ORDERED: ALDA25TA2 PO (09:31)
[2023-05-24] MEDS ORDERED: OCTREOTIDE ACETATE 1,200 MCG in NS 238.8 ML IV SCH (11:00)
[2023-05-24 11:30] LABS: ALBUMIN 2.5 G/DL (3.9-5.0); ALKALINE PHOSPHATASE 179 U/L (40-129); ALT/SGPT 15 U/L (1-41); AST/SGOT 39 U/L (5-40); BILIRUBIN,DIRECT 0.7 MG/DL (0.1-0.4); BILIRUBIN,TOTAL 2.4 MG/DL (0.2-1.3); LIPASE 53 U/L (13-60); TOTAL PROTEIN 6.3 G/DL (6.3-8.2)
[2023-05-26 14:24] LABS: BLOOD UREA NITROGEN 9 MG/DL (7-21); CREATININE FOR GFR 0.7 MG/DL (0.7-1.5); GLOMERULAR FILTRATION RATE > 60.0 (>60); GLUCOSE, FASTING 121 MG/DL (70-99)
[2023-05-26 14:25] LABS: ALBUMIN 2.3 G/DL (3.9-5.0); ALKALINE PHOSPHATASE 165 U/L (40-129); ALT/SGPT 12 U/L (1-41); AST/SGOT 35 U/L (5-40); BILIRUBIN,TOTAL 2.3 MG/DL (0.2-1.3); CALCIUM LEVEL 8.9 MG/DL (8.4-10.2); CARBON DIOXIDE LEVEL 20 MEQ/L (22-30); CHLORIDE LEVEL 111 MEQ/L (98-107); POTASSIUM SERUM 3.7 MEQ/L (3.6-5.0); SODIUM LEVEL 139 MEQ/L (134-153); TOTAL PROTEIN 5.8 G/DL (6.3-8.2)
== END 2023-05-24 11:19 | disposition short-term general hospital (02) | DRG 197 ==
LOC: M ED INP 22:13 → ENRESERV 22:41 → M PCU 22:59
PROVIDERS: ADMIT Internal Medicine; ATTEND General Practice
DX: I86.4 Gastric varices (principal); I95.89 Other hypotension; D69.6 Thrombocytopenia, unspecified; R45.851 Suicidal ideations; K85.90 Acute pancreatitis without necrosis or infection, unspecified; D62 Acute posthemorrhagic anemia; K86.1 Other chronic pancreatitis; K76.82 Hepatic encephalopathy; K70.31 Alcoholic cirrhosis of liver with ascites; K92.1 Melena; F32.A Depression, unspecified; M54.59 Other low back pain; Z96.643 Presence of artificial hip joint, bilateral; N40.0 Benign prostatic hyperplasia without lower urinary tract symptoms; K27.9 Peptic ulcer, site unspecified, unspecified as acute or chronic, without hemorrhage or perforation; Z79.899 Other long term (current) drug therapy; K64.8 Other hemorrhoids

== ENCOUNTER 2023-06-03 22:41 | Emergency (ER) | payer OTHER, MEDICAID ==
[~2023-06-03] VITALS: Ht 162.6 cm; Wt 61.4 kg
[~2023-06-03 22:41] MED LIST changes: +LEVO1INJ IV; +METR-265 IV; +PROT40IN4 IV; +[UNRECOGNIZED DRUG - CODE] IV
[2023-06-04 00:37] LABS: BASO # 0.1 10^3/uL (0.0-0.2); BASO % 1.2 % (0.0-1.0); EOS # 0.2 10^3/uL (0.0-0.5); EOS % 2.5 % (0.0-3.0); HEMATOCRIT 28.4 % (42.0-52.0); HEMOGLOBIN 9.8 g/dl (13.5-17.5); LYMPH # 2.3 10^3/uL (1.5-5.0); MEAN CORPUSCULAR HEMOGLOBIN 33.9 pg (27.0-33.0); MEAN CORPUSCULAR HGB CONC 34.5 g/dl (32.0-36.5); MEAN CORPUSCULAR VOLUME 98.3 fl (80.0-96.0); MONO # 0.6 10^3/uL (0.0-0.8); MONO % 9.4 % (2.0-8.0); NEUTROPHILS # 3.5 10^3/uL (1.5-8.5); NEUTROPHILS % 52.6 % (36.0-66.0); RED BLOOD COUNT 2.89 10^6/uL (4.30-6.10); WHITE BLOOD COUNT 6.7 10^3/uL (4.0-10.0)
[2023-06-04 00:42] LABS: PLATELET COUNT, AUTOMATED 73 10^3/uL (150-450)
[2023-06-04 00:56] VITALS: TEMP 97.7
[2023-06-04 01:00] LABS: BLOOD UREA NITROGEN 10 MG/DL (9-23); CALCIUM LEVEL 9.1 MG/DL (8.5-10.1); CARBON DIOXIDE LEVEL 25 MMOL/L (20-31); CHLORIDE LEVEL 107 MMOL/L (98-107); CREATININE FOR GFR 0.67 MG/DL (0.70-1.30); GLOMERULAR FILTRATION RATE > 60.0 (>60); GLUCOSE, FASTING 134 MG/DL (60-100); POTASSIUM SERUM 3.2 MMOL/L (3.5-5.1); SODIUM LEVEL 140 MMOL/L (136-145)
[2023-06-04 03:15] VITALS: BP 123/72; O2SAT 96
== END 2023-06-04 05:33 | disposition home or self-care (01) ==
LOC: M ED 22:41 → EDBD 22:41 → M ED 06-04 05:33
DX: R33.9 Retention of urine, unspecified (principal); I10 Essential (primary) hypertension; F17.200 Nicotine dependence, unspecified, uncomplicated; F12.10 Cannabis abuse, uncomplicated; F10.10 Alcohol abuse, uncomplicated; Z79.2 Long term (current) use of antibiotics; Z79.818 Long term (current) use of other agents affecting estrogen receptors and estrogen levels; Z79.899 Other long term (current) drug therapy

== ENCOUNTER 2023-06-05 21:08 | Emergency (ER) | payer MEDICAID, OTHER ==
[~2023-06-05] VITALS: Ht 170.2 cm; Wt 61.4 kg
[2023-06-05 23:19] LABS: BASO # 0.1 10^3/uL (0.0-0.2); BASO % 0.8 % (0.0-1.0); EOS # 0.1 10^3/uL (0.0-0.5); HEMATOCRIT 30.2 % (42.0-52.0); HEMOGLOBIN 10.3 g/dl (13.5-17.5); LYMPH # 1.8 10^3/uL (1.5-5.0); LYMPH % 28.8 % (24.0-44.0); MEAN CORPUSCULAR HEMOGLOBIN 34.2 pg (27.0-33.0); MEAN CORPUSCULAR HGB CONC 34.1 g/dl (32.0-36.5); MEAN CORPUSCULAR VOLUME 100.3 fl (80.0-96.0); MONO # 0.7 10^3/uL (0.0-0.8); MONO % 10.9 % (2.0-8.0); NEUTROPHILS # 3.5 10^3/uL (1.5-8.5); NEUTROPHILS % 57.2 % (36.0-66.0); RED BLOOD COUNT 3.01 10^6/uL (4.30-6.10); WHITE BLOOD COUNT 6.2 10^3/uL (4.0-10.0)
[2023-06-05 23:21] LABS: ETHYL ALCOHOL (ETHANOL) 0.082 % (0.000-0.010)
[2023-06-05 23:22] LABS: PLATELET COUNT, AUTOMATED 57 10^3/uL (150-450)
[2023-06-05 23:23] LABS: BLOOD UREA NITROGEN 13 MG/DL (9-23); CALCIUM LEVEL 9.3 MG/DL (8.5-10.1); CARBON DIOXIDE LEVEL 17 MMOL/L (20-31); CHLORIDE LEVEL 108 MMOL/L (98-107); CREATININE FOR GFR 0.72 MG/DL (0.70-1.30); GLOMERULAR FILTRATION RATE > 60.0 (>60); GLUCOSE, FASTING 81 MG/DL (60-100); POTASSIUM SERUM 4.2 MMOL/L (3.5-5.1); SODIUM LEVEL 138 MMOL/L (136-145)
[2023-06-05 23:26] LABS: THYROID STIMULATING HORMONE 2.466 uIU/ML (0.55-4.78)
[2023-06-05 23:42] LABS: INR 1.36; PROTHROMBIN TIME 16.3 SECONDS (12.5-14.5)
[2023-06-05 23:43] LABS: PARTIAL THROMBOPLASTIN TIME 34.4 SECONDS (24.8-34.2)
[2023-06-06 00:18] LABS: CK-MB VALUE MASS 1.8 NG/ML (<3.6)
[2023-06-06 00:22] LABS: CPK CREATINE PHOSPHOKINASE 83 U/L (46-171); MB/CK RELATIVE INDEX 2.16 (< OR =4)
[2023-06-06 01:47] LABS: ALBUMIN 2.7 G/DL (3.2-5.2); BILIRUBIN,DIRECT 1.1 MG/DL (<0.4); BILIRUBIN,TOTAL 2.6 MG/DL (0.3-1.2); TOTAL PROTEIN 7.6 G/DL (5.7-8.2)
[2023-06-06] MEDS ORDERED: oxyCODONE 5MG TAB PO ONE (02:05)
[2023-06-06 02:09] VITALS: TEMP 97
[2023-06-06 04:15] VITALS: BP 127/74; O2SAT 96
== END 2023-06-06 04:44 | disposition home or self-care (01) ==
LOC: M ED 21:08
DX: F10.129 Alcohol abuse with intoxication, unspecified (principal); W10.8XXA Fall (on) (from) other stairs and steps, initial encounter; R00.0 Tachycardia, unspecified; I45.81 Long QT syndrome; K21.9 Gastro-esophageal reflux disease without esophagitis; K74.60 Unspecified cirrhosis of liver; Z79.2 Long term (current) use of antibiotics; Z79.899 Other long term (current) drug therapy

== ENCOUNTER 2023-07-14 07:08 | Day surgery (SDC) | payer OTHER ==
[~2023-07-14] VITALS: Ht 162.6 cm; Wt 66.2 kg
[~2023-07-14 07:08] MED LIST changes: +FERR325T19 PO; +NS 1,000 ML IV ONE; +PERC5TAB12 PO; +POTA10CA60 PO; +SENO8.6T5 PO; +VITA100T28 PO
[2023-07-14] MEDS ORDERED: propofoL 200 MG/20 ML VIAL As Ordered ONE (08:32)
[2023-07-14 08:41] VITALS: TEMP 98.6
[2023-07-14 09:50] VITALS: BP 114/73; O2SAT 98
== END 2023-07-14 13:10 | disposition home or self-care (01) ==
LOC: M OPP 07:08
PROVIDERS: ATTEND Internal Medicine Gastroenterology
DX: Z86.010 Personal history of colon polyps (principal); K64.9 Unspecified hemorrhoids; Z79.1 Long term (current) use of non-steroidal anti-inflammatories (NSAID); Z79.83 Long term (current) use of bisphosphonates; Z79.891 Long term (current) use of opiate analgesic; Z79.899 Other long term (current) drug therapy; F17.200 Nicotine dependence, unspecified, uncomplicated; Z53.8 Procedure and treatment not carried out for other reasons

== ENCOUNTER 2023-08-10 17:14 | Emergency (ER) | payer OTHER ==
[~2023-08-10] VITALS: Ht 162.6 cm; Wt 66.4 kg
[~2023-08-10 17:14] MED LIST changes: -NS 1,000 ML IV ONE
[2023-08-11] MEDS ORDERED: methocarbamoL 750 MG TAB PO ONE (00:40)
[2023-08-11] MEDS ORDERED: KETOROLAC 30 MG/ML 1ML VIAL IM ONE (00:40)
[2023-08-11] MEDS ORDERED: LIDOCAINE 5% (LIDODERM) PATCH TD ONE (00:40)
[2023-08-11 02:29] VITALS: BP 115/73; TEMP 97.6; O2SAT 98
== END 2023-08-11 02:42 | disposition home or self-care (01) ==
LOC: M ED 17:14 → EDBD 17:14 → M ED 08-11 02:42
DX: M54.50 Low back pain, unspecified (principal); I10 Essential (primary) hypertension; F10.10 Alcohol abuse, uncomplicated; F17.200 Nicotine dependence, unspecified, uncomplicated; Z79.891 Long term (current) use of opiate analgesic; Z79.810 Long term (current) use of selective estrogen receptor modulators (SERMs); Z79.899 Other long term (current) drug therapy
CPT/HCPCS: 72110; 96372; 99284; J1885

== ENCOUNTER 2023-08-31 14:57 | Inpatient (IN) | payer OTHER ==
[~2023-08-31] VITALS: Ht 162.6 cm; Wt 60.7 kg
[2023-08-31 21:49] LABS: BASO % 0.4 % (0.0-1.0); EOS # 0.2 10^3/uL (0.0-0.5); EOS % 3.3 % (0.0-3.0); HEMATOCRIT 28.6 % (42.0-52.0); HEMOGLOBIN 9.8 g/dl (13.5-17.5); LYMPH # 1.4 10^3/uL (1.5-5.0); LYMPH % 19.5 % (24.0-44.0); MEAN CORPUSCULAR HEMOGLOBIN 30.2 pg (27.0-33.0); MEAN CORPUSCULAR HGB CONC 34.3 g/dl (32.0-36.5); MONO # 0.9 10^3/uL (0.0-0.8); MONO % 13.3 % (2.0-8.0); NEUTROPHILS # 4.4 10^3/uL (1.5-8.5); NEUTROPHILS % 62.4 % (36.0-66.0); PLATELET COUNT, AUTOMATED 109 10^3/uL (150-450); RED BLOOD COUNT 3.25 10^6/uL (4.30-6.10); WHITE BLOOD COUNT 7.1 10^3/uL (4.0-10.0)
[2023-08-31] MEDS: NS 500 ML IV ONE (22:00)
[2023-08-31] MEDS: MORPHINE 4 MG/ML 1ML VIAL IV ONE (22:01)
[2023-08-31 22:02] LABS: INR 2.1; PARTIAL THROMBOPLASTIN TIME 35.9 SECONDS (24.8-34.2); PROTHROMBIN TIME 22.8 SECONDS (12.5-14.5)
[2023-08-31] MEDS ORDERED: ISOVUE-370 76% 100ML VIAL As Ordered ONE (22:21)
[2023-08-31 22:22] LABS: LIPASE 55 U/L (12-53)
[2023-08-31 22:24] LABS: ALBUMIN 2.4 G/DL (3.2-5.2); ALKALINE PHOSPHATASE 151 U/L (46-116); ALT/SGPT 25 U/L (7.0-40); AST/SGOT 38 U/L (<34); BILIRUBIN,DIRECT 1.9 MG/DL (<0.4); BILIRUBIN,TOTAL 3.7 MG/DL (0.3-1.2); MAGNESIUM LEVEL 2.1 MG/DL (1.8-2.4); TOTAL PROTEIN 6.7 G/DL (5.7-8.2)
[2023-08-31 22:35] LABS: CK-MB VALUE MASS < 1.0 NG/ML (<3.6)
[2023-08-31 22:36] LABS: CPK CREATINE PHOSPHOKINASE 72 U/L (46-171); MB/CK RELATIVE INDEX 1.38 (< OR =4)
[2023-08-31 23:07] LABS: BLOOD UREA NITROGEN 6 MG/DL (9-23); CALCIUM LEVEL 7.8 MG/DL (8.5-10.1); CARBON DIOXIDE LEVEL 21 MMOL/L (20-31); CHLORIDE LEVEL 106 MMOL/L (98-107); CREATININE FOR GFR 0.65 MG/DL (0.70-1.30); GLOMERULAR FILTRATION RATE > 60.0 (>60); GLUCOSE, FASTING 146 MG/DL (60-100); POTASSIUM SERUM 2.1 MMOL/L (3.5-5.1); SODIUM LEVEL 136 MMOL/L (136-145)
[2023-08-31 23:15] LABS: CK-MB VALUE MASS < 1.0 NG/ML (<3.6)
[2023-08-31] MEDS: KCL 10MEQ/100ML SWI (KRUN) 10 MEQ in IV 1 EA IV ONE (23:19)
[2023-08-31] MEDS: POTASSIUM CHLORIDE 10MEQ SR TABLET PO ONE (23:19)
[2023-08-31 23:22] LABS: CPK CREATINE PHOSPHOKINASE 54 U/L (46-171); MB/CK RELATIVE INDEX 1.85 (< OR =4)
[2023-08-31] MEDS ORDERED: LORazepam 2 MG TAB PO PRN (23:50)
[2023-08-31 23:54] LABS: ETHYL ALCOHOL (ETHANOL) 0.006 % (0.000-0.010)
[2023-08-31] MEDS: PANTOPRAZOLE 40MG VIAL IV ONE (23:57)
[2023-09-01] VITALS (8 sets, daily range): BP systolic 103–126; BP diastolic 70–80; TEMP 97.9–101; O2SAT 96–100
[2023-09-01 00:27] LABS: AMPHETAMINES LEVEL URINE NEGATIVE (NEGATIVE); BARBITURATES URINE NEGATIVE (NEGATIVE); BENZODIAZEPINES URINE NEGATIVE (NEGATIVE); COCAINE METABOLITE URINE NEGATIVE (NEGATIVE); METHADONE URINE NEGATIVE (NEGATIVE); PHENCYCLIDINE URINE NEGATIVE (NEGATIVE)
[2023-09-01 00:28] LABS: CANNABINOIDS URINE NEGATIVE (NEGATIVE)
[2023-09-01 00:29] LABS: OPIATES URINE POSITIVE (NEGATIVE)
[2023-09-01] MEDS: KCL 10MEQ/100ML SWI (KRUN) 10 MEQ in IV 1 EA IV SCH ×2 (01:09→06:11)
[2023-09-01] MEDS: LIDOCAINE 5% (LIDODERM) PATCH TD SCH (02:22)
[2023-09-01] MEDS: cefTRIAXone SOD 1 GM in D5W MINI-BAG PLUS 50 ML IV SCH (03:37)
[2023-09-01] MEDS: POTASSIUM CHLORIDE 10MEQ SR TABLET PO ONE ×2 (05:49→20:07)
[2023-09-01] MEDS: LACTULOSE 20GM/30ML SYRUP UDC PO SCH ×2 (06:11→11:52)
[2023-09-01] MEDS: rifAXIMin 550 MG TAB (XIFAXAN) PO SCH (09:08)
[2023-09-01] MEDS: MULTIVITAMINS/MINERALS THERAP 1 TAB PO SCH (09:09)
[2023-09-01] MEDS: THIAMINE 100 MG TAB PO SCH (09:09)
[2023-09-01] MEDS: FOLIC ACID 1MG TAB PO SCH (09:09)
[2023-09-01] MEDS: KETOROLAC 30 MG/ML 1ML VIAL IV ONE ×2 (09:35→20:15)
[2023-09-01 09:51] LABS: HEMATOCRIT 26.5 % (42.0-52.0); HEMOGLOBIN 9.2 g/dl (13.5-17.5); MEAN CORPUSCULAR HEMOGLOBIN 30.3 pg (27.0-33.0); MEAN CORPUSCULAR HGB CONC 34.7 g/dl (32.0-36.5); MEAN CORPUSCULAR VOLUME 87.2 fl (80.0-96.0); PLATELET COUNT, AUTOMATED 100 10^3/uL (150-450); RED BLOOD COUNT 3.04 10^6/uL (4.30-6.10); WHITE BLOOD COUNT 6.4 10^3/uL (4.0-10.0)
[2023-09-01 10:10] LABS: C REACTIVE PROTEIN QUANTITATIV 1.6 MG/DL (<1.0)
[2023-09-01 10:12] LABS: ALKALINE PHOSPHATASE 140 U/L (46-116); ALT/SGPT 22 U/L (7.0-40); AST/SGOT 31 U/L (<34); BILIRUBIN,TOTAL 2.4 MG/DL (0.3-1.2); BLOOD UREA NITROGEN 6 MG/DL (9-23); CALCIUM LEVEL 7.7 MG/DL (8.5-10.1); CARBON DIOXIDE LEVEL 20 MMOL/L (20-31); CHLORIDE LEVEL 113 MMOL/L (98-107); GLOMERULAR FILTRATION RATE > 60.0 (>60); GLUCOSE, FASTING 117 MG/DL (60-100); SODIUM LEVEL 139 MMOL/L (136-145)
[2023-09-01 10:25] LABS: PROCALCITONIN 0.12 ng/ml
[2023-09-01] MEDS ORDERED: SERT-141 PO (11:28)
[2023-09-01] MEDS ORDERED: SUCR1ORA PO (11:28)
[2023-09-01] MEDS ORDERED: ACAM0.05 PO (11:28)
[2023-09-01] MEDS ORDERED: CREO12CA PO (11:28)
[2023-09-01] MEDS ORDERED: OXYC1TAB23 PO (11:28)
[2023-09-01] MEDS ORDERED: ACE65ERTAB PO (11:28)
[2023-09-01] MEDS ORDERED: SENN-186 PO (11:28)
[2023-09-01] MEDS ORDERED: POTA-151 PO (11:28)
[2023-09-01] MEDS ORDERED: ROZE8TAB16 PO (11:28)
[2023-09-01] MEDS ORDERED: OXYC-517 PO (11:55)
[2023-09-01] MEDS ORDERED: IBUP-359 PO (11:59)
[2023-09-01] MEDS ORDERED: LORA-622 PO (11:59)
[2023-09-01] MEDS ORDERED: THERTAB52 PO (11:59)
[2023-09-01] MEDS ORDERED: MIRA3350 PO (11:59)
[2023-09-01] MEDS ORDERED: PROM25TA12 PO (11:59)
[2023-09-01] MEDS ORDERED: HOME MED LIST COMPLETE! XX SCH (12:10)
[2023-09-01 12:50] LABS: IRON (FE) 48 UG/DL (65-175); PERCENT SATURATION 24.2 % (19.7-50.0); TOTAL IRON BINDING CAPACITY 198 UG/DL (250-425)
[2023-09-01 12:52] LABS: VITAMIN B12 LEVEL 1131 PG/ML (211-911)
[2023-09-01 12:53] LABS: FERRITIN 55.5 NG/ML (10.5-307.3); FOLATE > 24.00 NG/ML (>5.4)
[2023-09-01] MEDS: oxyCODONE 5MG TAB PO PRN (14:29)
[2023-09-01] MEDS: GABAPENTIN 100 MG CAP PO SCH (14:52)
[2023-09-01] MEDS: PANTOPRAZOLE 40MG TAB (PROTONIX) PO SCH (14:52)
[2023-09-01] MEDS: MAGNESIUM OXIDE 400MG TAB (MAG-OX) PO SCH (14:52)
[2023-09-01] MEDS: FERROUS SULFATE 325MG TAB PO SCH (14:52)
[2023-09-01] MEDS: LORATADINE 10 MG TAB PO SCH (14:52)
[2023-09-01] MEDS: SODIUM BICARBONATE 325 MG TAB PO SCH (14:53)
[2023-09-01] MEDS: CREON-12 CAPSULE PO SCH (14:53)
[2023-09-01] MEDS: SUCRALFATE SUSP 1GM/10ML UD PO SCH (14:54)
[2023-09-01] MEDS: TAMSULOSIN 0.4 MG CAP PO SCH (15:00)
[2023-09-01] MEDS: NADOLOL 20MG TABLET PO SCH (15:05)
[2023-09-01] MEDS: ACAMPROSATE CALCIUM 333MG TABLET (CAMPRAL) PO SCH (17:47)
[2023-09-01] MEDS: MIDODRINE 5 MG TAB PO SCH (17:48)
[2023-09-02 03:59] VITALS: BP 109/75; TEMP 99; O2SAT 98
[2023-09-02 04:54] LABS: BASO % 0.5 % (0.0-1.0); EOS # 0.2 10^3/uL (0.0-0.5); EOS % 2.5 % (0.0-3.0); HEMATOCRIT 29.2 % (42.0-52.0); LYMPH # 1.3 10^3/uL (1.5-5.0); LYMPH % 15.9 % (24.0-44.0); MEAN CORPUSCULAR HEMOGLOBIN 30.5 pg (27.0-33.0); MEAN CORPUSCULAR HGB CONC 34.2 g/dl (32.0-36.5); MONO % 12.5 % (2.0-8.0); NEUTROPHILS # 5.3 10^3/uL (1.5-8.5); NEUTROPHILS % 67.8 % (36.0-66.0); RED BLOOD COUNT 3.28 10^6/uL (4.30-6.10); WHITE BLOOD COUNT 7.9 10^3/uL (4.0-10.0)
[2023-09-02 05:14] LABS: PLATELET COUNT, AUTOMATED 92 10^3/uL (150-450)
[2023-09-02 05:25] LABS: ALBUMIN 2.1 G/DL (3.2-5.2); ALKALINE PHOSPHATASE 148 U/L (46-116); ALT/SGPT 20 U/L (7.0-40); AST/SGOT 38 U/L (<34); BILIRUBIN,TOTAL 2.2 MG/DL (0.3-1.2); BLOOD UREA NITROGEN 7 MG/DL (9-23); CALCIUM LEVEL 7.8 MG/DL (8.5-10.1); CARBON DIOXIDE LEVEL 19 MMOL/L (20-31); CHLORIDE LEVEL 112 MMOL/L (98-107); GLOMERULAR FILTRATION RATE > 60.0 (>60); GLUCOSE, FASTING 102 MG/DL (60-100); MAGNESIUM LEVEL 2.2 MG/DL (1.8-2.4); POTASSIUM SERUM 3.8 MMOL/L (3.5-5.1); SODIUM LEVEL 138 MMOL/L (136-145); TOTAL PROTEIN 6.4 G/DL (5.7-8.2)
[2023-09-02 07:31] VITALS: BP 128/84; TEMP 98.7; O2SAT 98
[2023-09-02 08:14] LABS: ERYTHROCYTE SEDIMENTATION RATE 36 mm/hr (0-15)
[2023-09-02 12:14] VITALS: BP 143/78; TEMP 97.5; O2SAT 90
[2023-09-02 15:59] VITALS: BP 118/76; TEMP 97.9; O2SAT 91
[2023-09-02] MEDS: SODIUM BICARBONATE 325 MG TAB PO SCH (16:57)
[2023-09-02 19:16] VITALS: BP 120/73; TEMP 100.2; O2SAT 93
[2023-09-03] VITALS (7 sets, daily range): BP systolic 109–125; BP diastolic 71–78; TEMP 99.2–100.4; O2SAT 96–98
[2023-09-03 05:19] LABS: BASO % 0.5 % (0.0-1.0); EOS # 0.1 10^3/uL (0.0-0.5); HEMATOCRIT 27.4 % (42.0-52.0); HEMOGLOBIN 9.5 g/dl (13.5-17.5); LYMPH % 17.1 % (24.0-44.0); MEAN CORPUSCULAR HEMOGLOBIN 30.8 pg (27.0-33.0); MEAN CORPUSCULAR HGB CONC 34.7 g/dl (32.0-36.5); MONO # 0.8 10^3/uL (0.0-0.8); MONO % 13.3 % (2.0-8.0); NEUTROPHILS # 3.7 10^3/uL (1.5-8.5); NEUTROPHILS % 65.7 % (36.0-66.0); RED BLOOD COUNT 3.08 10^6/uL (4.30-6.10); WHITE BLOOD COUNT 5.6 10^3/uL (4.0-10.0)
[2023-09-03 05:20] LABS: PLATELET COUNT, AUTOMATED 85 10^3/uL (150-450)
[2023-09-03 05:45] LABS: BLOOD UREA NITROGEN 7 MG/DL (9-23); CALCIUM LEVEL 7.3 MG/DL (8.5-10.1); CARBON DIOXIDE LEVEL 19 MMOL/L (20-31); CHLORIDE LEVEL 112 MMOL/L (98-107); CREATININE FOR GFR 0.61 MG/DL (0.70-1.30); GLOMERULAR FILTRATION RATE > 60.0 (>60); GLUCOSE, FASTING 182 MG/DL (60-100); POTASSIUM SERUM 3.7 MMOL/L (3.5-5.1); SODIUM LEVEL 137 MMOL/L (136-145)
[2023-09-03 07:55] LABS: PROCALCITONIN 0.22 ng/ml
[2023-09-03] MEDS ORDERED: PROHANCE 279.3MG/ML 15ML VIAL As Ordered ONE (10:31)
[2023-09-03] MEDS ORDERED: VANCOMYCIN HCL 1,000 MG, VIAL MATE ADAPTER 1 EACH in D5W 250 ML IV ONE (13:40)
[2023-09-03] MEDS: LACTULOSE 20GM/30ML SYRUP UDC PO SCH (13:49)
[2023-09-03] MEDS: VANCOMYCIN HCL 750 MG, VIAL MATE ADAPTER 1 EACH in D5W 250 ML IV ONE (16:21)
[2023-09-03] MEDS: VANCOMYCIN HCL 500 MG in D5W MINI-BAG PLUS 100 ML IV ONE (18:17)
[2023-09-03] MEDS: VANCOMYCIN HCL 750 MG, VIAL MATE ADAPTER 1 EACH in D5W 250 ML IV SCH (20:55)
[2023-09-04] VITALS (7 sets, daily range): BP systolic 103–127; BP diastolic 64–78; TEMP 97.2–100.9; O2SAT 96–97
[2023-09-04] MEDS: cefTRIAXone SOD 2 GM in D5W MINI-BAG PLUS 50 ML IV SCH (01:02)
[2023-09-04 05:08] LABS: BASO # 0.1 10^3/uL (0.0-0.2); BASO % 0.9 % (0.0-1.0); EOS # 0.2 10^3/uL (0.0-0.5); EOS % 2.6 % (0.0-3.0); HEMATOCRIT 26.2 % (42.0-52.0); HEMOGLOBIN 9.1 g/dl (13.5-17.5); MEAN CORPUSCULAR HEMOGLOBIN 30.5 pg (27.0-33.0); MEAN CORPUSCULAR HGB CONC 34.7 g/dl (32.0-36.5); MEAN CORPUSCULAR VOLUME 87.9 fl (80.0-96.0); MONO # 0.8 10^3/uL (0.0-0.8); NEUTROPHILS # 3.8 10^3/uL (1.5-8.5); NEUTROPHILS % 64.5 % (36.0-66.0); RED BLOOD COUNT 2.98 10^6/uL (4.30-6.10); WHITE BLOOD COUNT 5.8 10^3/uL (4.0-10.0)
[2023-09-04 05:12] LABS: PLATELET COUNT, AUTOMATED 74 10^3/uL (150-450)
[2023-09-04 05:29] LABS: BLOOD UREA NITROGEN 7 MG/DL (9-23); CARBON DIOXIDE LEVEL 18 MMOL/L (20-31); CHLORIDE LEVEL 107 MMOL/L (98-107); CREATININE FOR GFR 0.54 MG/DL (0.70-1.30); GLOMERULAR FILTRATION RATE > 60.0 (>60); GLUCOSE, FASTING 243 MG/DL (60-100); POTASSIUM SERUM 3.5 MMOL/L (3.5-5.1); SODIUM LEVEL 133 MMOL/L (136-145)
[2023-09-04] MEDS: ACETAMINOPHEN TAB 650MG DOSE (2X325MG) PO PRN (09:03)
[2023-09-04] MEDS: NITROGLYCERIN 0.3MG SUBL TAB SL STA (09:50)
[2023-09-04] MEDS: KETOROLAC 30 MG/ML 1ML VIAL IV ONE (10:26)
[2023-09-04] MEDS ORDERED: NITROGLYCERIN 0.3MG SUBL TAB SL PRN (12:30)
[2023-09-04 13:36] LABS: VANCOMYCIN LEVEL TROUGH 12.9 UG/ML (10.0-20.0)
[2023-09-04 15:07] LABS: HIV 1&2 SCREEN NEGATIVE (NEGATIVE)
[2023-09-04 15:15] LABS: HEPATITIS C VIRUS ABY INDEX 0.03 INDEX (<0.8)
[2023-09-04] MEDS: POTASSIUM CHLORIDE 10MEQ SR TABLET PO ONE (16:13)
[2023-09-04] MEDS: LR 1,000 ML IV SCH (16:13)
[2023-09-05] VITALS (11 sets, daily range): BP systolic 100–121; BP diastolic 53–74; TEMP 97.7–101.5; O2SAT 94–97
[2023-09-05 06:37] LABS: BASO % 0.6 % (0.0-1.0); EOS # 0.1 10^3/uL (0.0-0.5); EOS % 2.4 % (0.0-3.0); HEMATOCRIT 23.5 % (42.0-52.0); HEMOGLOBIN 8.2 g/dl (13.5-17.5); LYMPH # 0.9 10^3/uL (1.5-5.0); LYMPH % 15.7 % (24.0-44.0); MEAN CORPUSCULAR HEMOGLOBIN 30.8 pg (27.0-33.0); MEAN CORPUSCULAR HGB CONC 34.9 g/dl (32.0-36.5); MEAN CORPUSCULAR VOLUME 88.3 fl (80.0-96.0); MONO # 0.8 10^3/uL (0.0-0.8); MONO % 15.2 % (2.0-8.0); NEUTROPHILS # 3.5 10^3/uL (1.5-8.5); NEUTROPHILS % 65.4 % (36.0-66.0); RED BLOOD COUNT 2.66 10^6/uL (4.30-6.10); WHITE BLOOD COUNT 5.4 10^3/uL (4.0-10.0)
[2023-09-05 06:38] LABS: PLATELET COUNT, AUTOMATED 65 10^3/uL (150-450)
[2023-09-05 06:56] LABS: BLOOD UREA NITROGEN 8 MG/DL (9-23); CALCIUM LEVEL 7.1 MG/DL (8.5-10.1); CARBON DIOXIDE LEVEL 20 MMOL/L (20-31); CHLORIDE LEVEL 107 MMOL/L (98-107); CREATININE FOR GFR 0.52 MG/DL (0.70-1.30); GLOMERULAR FILTRATION RATE > 60.0 (>60); GLUCOSE, FASTING 285 MG/DL (60-100); POTASSIUM SERUM 3.9 MMOL/L (3.5-5.1); SODIUM LEVEL 133 MMOL/L (136-145)
[2023-09-05] MEDS: LACTULOSE 20GM/30ML SYRUP UDC PO SCH (11:47)
[2023-09-05] MEDS: DOXYCYCLINE HYCLATE 100MG TABLET PO SCH (12:34)
[2023-09-05] MEDS: LevoFLOXacin 750 MG TABLET PO SCH (17:33)
[2023-09-05] MEDS: CYCLOBENZAPRINE 10MG TABLET PO PRN (22:34)
[2023-09-06 03:55] VITALS: BP 107/61; TEMP 99.7; O2SAT 93
[2023-09-06 06:57] LABS: BASO % 0.5 % (0.0-1.0); EOS # 0.2 10^3/uL (0.0-0.5); EOS % 3.2 % (0.0-3.0); HEMATOCRIT 22.9 % (42.0-52.0); HEMOGLOBIN 7.9 g/dl (13.5-17.5); LYMPH # 1.5 10^3/uL (1.5-5.0); LYMPH % 23.4 % (24.0-44.0); MEAN CORPUSCULAR HEMOGLOBIN 30.4 pg (27.0-33.0); MEAN CORPUSCULAR HGB CONC 34.5 g/dl (32.0-36.5); MEAN CORPUSCULAR VOLUME 88.1 fl (80.0-96.0); MONO % 16.7 % (2.0-8.0); NEUTROPHILS # 3.5 10^3/uL (1.5-8.5); NEUTROPHILS % 55.7 % (36.0-66.0); WHITE BLOOD COUNT 6.2 10^3/uL (4.0-10.0)
[2023-09-06 07:05] LABS: PLATELET COUNT, AUTOMATED 60 10^3/uL (150-450)
[2023-09-06 07:14] LABS: ALBUMIN 1.5 G/DL (3.2-5.2); ALKALINE PHOSPHATASE 110 U/L (46-116); ALT/SGPT 20 U/L (7.0-40); AST/SGOT 38 U/L (<34); BILIRUBIN,TOTAL 1.4 MG/DL (0.3-1.2); BLOOD UREA NITROGEN 7 MG/DL (9-23); CALCIUM LEVEL 7.1 MG/DL (8.5-10.1); CARBON DIOXIDE LEVEL 21 MMOL/L (20-31); CHLORIDE LEVEL 110 MMOL/L (98-107); GLOMERULAR FILTRATION RATE > 60.0 (>60); GLUCOSE, FASTING 185 MG/DL (60-100); SODIUM LEVEL 136 MMOL/L (136-145); TOTAL PROTEIN 4.9 G/DL (5.7-8.2)
[2023-09-06 07:57] LABS: PROCALCITONIN 0.17 ng/ml
[2023-09-06 08:00] VITALS: BP 106/75; TEMP 98.3; O2SAT 96
[2023-09-06 10:26] LABS: LIPASE 108 U/L (12-53)
[2023-09-06 11:47] VITALS: BP 108/66; TEMP 99; O2SAT 90
[2023-09-06 16:10] VITALS: BP 100/54; TEMP 99.2; O2SAT 91
[2023-09-06 20:00] VITALS: BP 109/68; TEMP 101; O2SAT 92
[2023-09-06 23:42] VITALS: BP 94/56; TEMP 99.4; O2SAT 93
[2023-09-07] MEDS: traZODone 100 MG TAB PO PRN (00:20)
[2023-09-07 03:25] VITALS: BP 106/55; TEMP 98.8; O2SAT 92
[2023-09-07 04:48] LABS: BASO # 0.1 10^3/uL (0.0-0.2); BASO % 0.7 % (0.0-1.0); EOS # 0.2 10^3/uL (0.0-0.5); EOS % 3.1 % (0.0-3.0); HEMATOCRIT 25.3 % (42.0-52.0); HEMOGLOBIN 8.5 g/dl (13.5-17.5); LYMPH # 1.7 10^3/uL (1.5-5.0); LYMPH % 25.2 % (24.0-44.0); MEAN CORPUSCULAR HEMOGLOBIN 29.8 pg (27.0-33.0); MEAN CORPUSCULAR HGB CONC 33.6 g/dl (32.0-36.5); MEAN CORPUSCULAR VOLUME 88.8 fl (80.0-96.0); MONO # 0.9 10^3/uL (0.0-0.8); MONO % 13.4 % (2.0-8.0); NEUTROPHILS # 3.9 10^3/uL (1.5-8.5); NEUTROPHILS % 56.9 % (36.0-66.0); RED BLOOD COUNT 2.85 10^6/uL (4.30-6.10); WHITE BLOOD COUNT 6.8 10^3/uL (4.0-10.0)
[2023-09-07 04:49] LABS: PLATELET COUNT, AUTOMATED 66 10^3/uL (150-450)
[2023-09-07 05:07] LABS: BLOOD UREA NITROGEN 8 MG/DL (9-23); CALCIUM LEVEL 7.1 MG/DL (8.5-10.1); CARBON DIOXIDE LEVEL 20 MMOL/L (20-31); CHLORIDE LEVEL 110 MMOL/L (98-107); CREATININE FOR GFR 0.51 MG/DL (0.70-1.30); GLOMERULAR FILTRATION RATE > 60.0 (>60); GLUCOSE, FASTING 251 MG/DL (60-100); MAGNESIUM LEVEL 2.1 MG/DL (1.8-2.4); SODIUM LEVEL 136 MMOL/L (136-145)
[2023-09-07 07:45] VITALS: BP 92/50; TEMP 98.6; O2SAT 93
[2023-09-07] MEDS: FUROSEMIDE 20 MG TAB PO SCH (08:29)
[2023-09-07 12:42] VITALS: BP 109/66; O2SAT 90
[2023-09-07 16:00] VITALS: BP 110/65; TEMP 99.2; O2SAT 91
[2023-09-07 19:41] VITALS: BP 101/64; TEMP 99.3; O2SAT 99
[2023-09-07 20:00] VITALS: BP 100/64; PULSE 94; O2SAT 90
[2023-09-07] MEDS: LACTULOSE 20GM/30ML SYRUP UDC PO SCH (20:36)
[2023-09-08 04:00] VITALS: BP 110/66; TEMP 98.7; O2SAT 90
[2023-09-08 06:48] LABS: ALBUMIN 1.6 G/DL (3.2-5.2); ALKALINE PHOSPHATASE 145 U/L (46-116); ALT/SGPT 22 U/L (7.0-40); AST/SGOT 26 U/L (<34); BILIRUBIN,TOTAL 1.4 MG/DL (0.3-1.2); BLOOD UREA NITROGEN 7 MG/DL (9-23); CALCIUM LEVEL 7.7 MG/DL (8.5-10.1); CARBON DIOXIDE LEVEL 20 MMOL/L (20-31); CHLORIDE LEVEL 106 MMOL/L (98-107); CREATININE FOR GFR 0.49 MG/DL (0.70-1.30); GLOMERULAR FILTRATION RATE > 60.0 (>60); GLUCOSE, FASTING 420 MG/DL (60-100); POTASSIUM SERUM 4.1 MMOL/L (3.5-5.1); SODIUM LEVEL 132 MMOL/L (136-145); TOTAL PROTEIN 5.5 G/DL (5.7-8.2)
[2023-09-08 06:52] LABS: BASO # 0.1 10^3/uL (0.0-0.2); BASO % 0.8 % (0.0-1.0); EOS # 0.2 10^3/uL (0.0-0.5); EOS % 3.4 % (0.0-3.0); HEMATOCRIT 24.8 % (42.0-52.0); HEMOGLOBIN 8.3 g/dl (13.5-17.5); LYMPH # 1.7 10^3/uL (1.5-5.0); LYMPH % 28.2 % (24.0-44.0); MEAN CORPUSCULAR HEMOGLOBIN 30.2 pg (27.0-33.0); MEAN CORPUSCULAR HGB CONC 33.5 g/dl (32.0-36.5); MEAN CORPUSCULAR VOLUME 90.2 fl (80.0-96.0); MONO # 0.7 10^3/uL (0.0-0.8); MONO % 12.1 % (2.0-8.0); NEUTROPHILS # 3.2 10^3/uL (1.5-8.5); NEUTROPHILS % 54.5 % (36.0-66.0); RED BLOOD COUNT 2.75 10^6/uL (4.30-6.10); WHITE BLOOD COUNT 5.9 10^3/uL (4.0-10.0)
[2023-09-08 06:53] LABS: PLATELET COUNT, AUTOMATED 72 10^3/uL (150-450)
[2023-09-08] MEDS ORDERED: GLUCOSE 4GM CHEW TABLET PO PRN (07:10)
[2023-09-08] MEDS ORDERED: GLUCAGON INJ 1MG VIAL SC PRN (07:10)
[2023-09-08] MEDS ORDERED: DEXTROSE 50% 50ML SYRINGE IV PRN (07:10)
[2023-09-08 07:35] VITALS: BP 98/56; TEMP 98.7; O2SAT 92
[2023-09-08 07:59] LABS: HEMOGLOBIN A1c 6.2 % (4.0-6.0)
[2023-09-08 08:29] VITALS: BP 98/56
[2023-09-08] MEDS: LEVEMIR (INSULIN DETEMIR) 1 UNITS/0.01ML SC SCH (08:32)
[2023-09-08] MEDS: INSULIN LISPRO (NovoLOG) PER UNIT SC SCH (08:32)
[2023-09-08 11:28] VITALS: BP 96/58; TEMP 97.4; O2SAT 92
[2023-09-08] MEDS ORDERED: METF500T13 PO (12:28)
[2023-09-08] MEDS ORDERED: FURO20TA2 PO (12:28)
[2023-09-08] MEDS ORDERED: LEVO1TAB40 PO (12:28)
[2023-09-08] MEDS ORDERED: SODI650T PO (12:28)
[2023-09-08 15:28] VITALS: BP 100/68
[2023-09-08] MEDS ORDERED: INSULIN LISPRO (NovoLOG) PER UNIT SC SCH (21:00)
== END 2023-09-08 18:17 | disposition home or self-care (01) | DRG 280 ==
LOC: EDBD 14:57 → M ED 14:57 → M ED INP 23:49 → M PCU 09-01 05:55
PROVIDERS: ADMIT Family Medicine; ATTEND Internal Medicine
DX: K76.82 Hepatic encephalopathy (principal); I95.89 Other hypotension; E87.22 Chronic metabolic acidosis; K85.20 Alcohol induced acute pancreatitis without necrosis or infection; I11.0 Hypertensive heart disease with heart failure; K76.6 Portal hypertension; I50.30 Unspecified diastolic (congestive) heart failure; D69.6 Thrombocytopenia, unspecified; K86.1 Other chronic pancreatitis; D50.9 Iron deficiency anemia, unspecified; D53.9 Nutritional anemia, unspecified; E87.6 Hypokalemia; F10.20 Alcohol dependence, uncomplicated; K21.9 Gastro-esophageal reflux disease without esophagitis; N40.0 Benign prostatic hyperplasia without lower urinary tract symptoms; R29.6 Repeated falls; G47.33 Obstructive sleep apnea (adult) (pediatric); M19.90 Unspecified osteoarthritis, unspecified site; F32.A Depression, unspecified; F41.9 Anxiety disorder, unspecified; K29.20 Alcoholic gastritis without bleeding; Z91.119 Patient's noncompliance with dietary regimen due to unspecified reason; Z96.643 Presence of artificial hip joint, bilateral; K70.30 Alcoholic cirrhosis of liver without ascites

== ENCOUNTER 2023-09-15 17:56 | Emergency (ER) | payer OTHER ==
[~2023-09-15] VITALS: Ht 162.6 cm; Wt 61.8 kg
[~2023-09-15 17:56] MED LIST changes: +ACAM0.05 PO; +ACE65ERTAB PO; +CREO12CA PO; +IBUP-359 PO; +LEVO1TAB40 PO; +LORA-622 PO; +METF500T13 PO; -MIRA1POW3 PO; +MIRA33506 PO; +POTA-151 PO; +ROZE8TAB16 PO; +SENN-186 PO; +SERT-141 PO; +SUCR1ORA PO; +THERTAB52 PO
[2023-09-15] MEDS: ONDANSETRON 4MG 2ML VIAL IV ONE (20:56)
[2023-09-15] MEDS: MORPHINE 4 MG/ML 1ML VIAL IV ONE (20:56)
[2023-09-15] MEDS: NS 500 ML IV ONE (20:57)
[2023-09-15 21:18] LABS: BASO # 0.1 10^3/uL (0.0-0.2); EOS # 0.3 10^3/uL (0.0-0.5); EOS % 5.3 % (0.0-3.0); HEMATOCRIT 24.1 % (42.0-52.0); HEMOGLOBIN 8.1 g/dl (13.5-17.5); LYMPH # 1.7 10^3/uL (1.5-5.0); LYMPH % 27.8 % (24.0-44.0); MEAN CORPUSCULAR HEMOGLOBIN 31.2 pg (27.0-33.0); MEAN CORPUSCULAR HGB CONC 33.6 g/dl (32.0-36.5); MEAN CORPUSCULAR VOLUME 92.7 fl (80.0-96.0); MONO # 0.8 10^3/uL (0.0-0.8); MONO % 13.4 % (2.0-8.0); NEUTROPHILS # 3.2 10^3/uL (1.5-8.5); NEUTROPHILS % 51.9 % (36.0-66.0); PLATELET COUNT, AUTOMATED 102 10^3/uL (150-450); WHITE BLOOD COUNT 6.2 10^3/uL (4.0-10.0)
[2023-09-15 21:32] LABS: LIPASE 94 U/L (12-53)
[2023-09-15 21:34] LABS: ALBUMIN 1.9 G/DL (3.2-5.2); ALKALINE PHOSPHATASE 117 U/L (46-116); ALT/SGPT 22 U/L (7.0-40); AST/SGOT 55 U/L (<34); BILIRUBIN,TOTAL 1.7 MG/DL (0.3-1.2); BLOOD UREA NITROGEN 8 MG/DL (9-23); CALCIUM LEVEL 8.5 MG/DL (8.5-10.1); CARBON DIOXIDE LEVEL 24 MMOL/L (20-31); CHLORIDE LEVEL 111 MMOL/L (98-107); CREATININE FOR GFR 0.62 MG/DL (0.70-1.30); GLOMERULAR FILTRATION RATE > 60.0 (>60); GLUCOSE, FASTING 128 MG/DL (60-100); POTASSIUM SERUM 3.2 MMOL/L (3.5-5.1); SODIUM LEVEL 142 MMOL/L (136-145); TOTAL PROTEIN 6.2 G/DL (5.7-8.2)
[2023-09-15 21:36] LABS: THYROID STIMULATING HORMONE 1.651 uIU/ML (0.55-4.78)
[2023-09-15 21:41] LABS: PROCALCITONIN 0.18 ng/ml
[2023-09-15] MEDS: POTASSIUM CHLORIDE 10% LIQ 20MEQ/15ML UDC PO ONE (22:00)
[2023-09-15] MEDS: MORPHINE 2 MG/ML 1ML VIAL IV ONE (22:03)
[2023-09-15] MEDS: ANEXSIA, NORCO 7.5MG/325MG TABLET(HYDROCODONE/APAP) PO ONE (22:03)
[2023-09-15] MEDS ORDERED: PERC5TAB12 PO (22:30)
[2023-09-15] MEDS ORDERED: TAMS1CAP17 PO (22:30)
[2023-09-15] MEDS ORDERED: ONDA4TAB6 PO (22:30)
[2023-09-15] MEDS ORDERED: OXYCODONE/APAP 5MG/325MG(HOME DOSE PACK) PO ONE (22:35)
[2023-09-15] MEDS ORDERED: methylPREDNISolone 125MG 2ML VIAL IV ONE (23:35)
[2023-09-15] MEDS ORDERED: diazePAM 10MG/2ML SYRINGE IV ONE (23:35)
[2023-09-16 00:23] VITALS: BP 117/89; TEMP 97.3; O2SAT 99
== END 2023-09-16 00:26 | disposition home or self-care (01) ==
LOC: EDBD 17:56 → M ED 17:56
DX: K86.1 Other chronic pancreatitis (principal); R53.1 Weakness; M54.50 Low back pain, unspecified; I45.81 Long QT syndrome; G47.33 Obstructive sleep apnea (adult) (pediatric); N40.0 Benign prostatic hyperplasia without lower urinary tract symptoms; K74.60 Unspecified cirrhosis of liver; F17.200 Nicotine dependence, unspecified, uncomplicated; Z96.643 Presence of artificial hip joint, bilateral; Z79.83 Long term (current) use of bisphosphonates; Z79.891 Long term (current) use of opiate analgesic; Z79.1 Long term (current) use of non-steroidal anti-inflammatories (NSAID); Z79.899 Other long term (current) drug therapy
CPT/HCPCS: 71045; 72128; 72131; 80053; 81001; 83690; 83735; 84145; 84443; 85025; 87486; 87581; 87633; 87798; 87880; 93005; 96361; 96374; 96375; 96376; 99284; J2405

== ENCOUNTER 2023-12-15 15:04 | Emergency (ER) | payer MEDICARE, OTHER ==
[~2023-12-15] VITALS: Ht 162.6 cm; Wt 57.3 kg
[~2023-12-15 15:04] MED LIST changes: +DOXY-440 PO; -DOXY-444 PO; +ONDA4TAB6 PO; -POTA10CA60 PO; +POTA10CA70 PO
[2023-12-15 16:37] LABS: BASO % 0.2 % (0.0-1.0); EOS % 0.2 % (0.0-3.0); HEMATOCRIT 37.1 % (42.0-52.0); HEMOGLOBIN 12.8 g/dl (13.5-17.5); LYMPH # 0.6 10^3/uL (1.5-5.0); LYMPH % 13.8 % (24.0-44.0); MEAN CORPUSCULAR HGB CONC 34.5 g/dl (32.0-36.5); MEAN CORPUSCULAR VOLUME 101.4 fl (80.0-96.0); MONO # 0.2 10^3/uL (0.0-0.8); MONO % 3.6 % (2.0-8.0); NEUTROPHILS # 3.4 10^3/uL (1.5-8.5); NEUTROPHILS % 81.7 % (36.0-66.0); RED BLOOD COUNT 3.66 10^6/uL (4.30-6.10); WHITE BLOOD COUNT 4.1 10^3/uL (4.0-10.0)
[2023-12-15 16:41] LABS: PLATELET COUNT, AUTOMATED 74 10^3/uL (150-450)
[2023-12-15] MEDS: MORPHINE 2 MG/ML 1ML VIAL IV ONE ×2 (16:44→20:56)
[2023-12-15 17:29] LABS: BLOOD UREA NITROGEN 9 MG/DL (9-23); CALCIUM LEVEL 8.6 MG/DL (8.5-10.1); CARBON DIOXIDE LEVEL 20 MMOL/L (20-31); CHLORIDE LEVEL 108 MMOL/L (98-107); CREATININE FOR GFR 0.56 MG/DL (0.70-1.30); GLOMERULAR FILTRATION RATE > 60.0 (>60); GLUCOSE, FASTING 224 MG/DL (60-100); POTASSIUM SERUM 2.9 MMOL/L (3.5-5.1); SODIUM LEVEL 140 MMOL/L (136-145)
[2023-12-15] MEDS: POTASSIUM CHLORIDE 10MEQ SR TABLET PO ONE (17:54)
[2023-12-15] MEDS: KCL 10MEQ/100ML SWI (KRUN) 10 MEQ in IV 1 EA IV ONE (17:54)
[2023-12-15] MEDS: NS 1,000 ML IV SCH (18:35)
[2023-12-15 20:56] VITALS: BP 118/80; TEMP 98.8; O2SAT 97
== END 2023-12-15 22:11 | disposition short-term general hospital (02) ==
LOC: EDBD 15:04 → M ED 15:04
DX: M54.50 Low back pain, unspecified (principal); R15.9 Full incontinence of feces; R53.1 Weakness; K62.89 Other specified diseases of anus and rectum; E87.6 Hypokalemia; R00.1 Bradycardia, unspecified; F32.A Depression, unspecified; F41.9 Anxiety disorder, unspecified; K70.30 Alcoholic cirrhosis of liver without ascites; D64.9 Anemia, unspecified; F17.200 Nicotine dependence, unspecified, uncomplicated; Z79.4 Long term (current) use of insulin; Z79.810 Long term (current) use of selective estrogen receptor modulators (SERMs); Z79.811 Long term (current) use of aromatase inhibitors; Z79.899 Other long term (current) drug therapy

== ENCOUNTER 2024-02-03 08:40 | Inpatient (IN) | payer MEDICARE, OTHER ==
[~2024-02-03] VITALS: Ht 162.6 cm; Wt 57.5 kg
[~2024-02-03 08:40] MED LIST changes: +CARV3.12 PO; +ONDA-282 PO; -ONDA4TAB6 PO; +PERC10TA26 PO
[2024-02-03] MEDS ORDERED: LACT10SO PO (08:59)
[2024-02-03] MEDS ORDERED: CARV3.12 PO (08:59)
[2024-02-03] MEDS ORDERED: METH-1165 PO (08:59)
[2024-02-03] MEDS ORDERED: POTA-298 PO (08:59)
[2024-02-03] MEDS ORDERED: FAMO1TAB11 PO (08:59)
[2024-02-03] MEDS ORDERED: FURO20TA2 PO (08:59)
[2024-02-03] MEDS ORDERED: TAMS1CAP17 PO (08:59)
[2024-02-03] MEDS: ONDANSETRON 4MG 2ML VIAL IV ONE (09:32)
[2024-02-03] MEDS: NS 1,000 ML IV ONE (09:32)
[2024-02-03 09:42] LABS: BASO # 0.1 10^3/uL (0.0-0.2); BASO % 1.5 % (0.0-1.0); EOS # 0.2 10^3/uL (0.0-0.5); EOS % 3.3 % (0.0-3.0); HEMATOCRIT 36.3 % (42.0-52.0); HEMOGLOBIN 12.4 g/dl (13.5-17.5); LYMPH # 1.2 10^3/uL (1.5-5.0); MEAN CORPUSCULAR HEMOGLOBIN 33.9 pg (27.0-33.0); MEAN CORPUSCULAR HGB CONC 34.2 g/dl (32.0-36.5); MEAN CORPUSCULAR VOLUME 99.2 fl (80.0-96.0); MONO # 0.4 10^3/uL (0.0-0.8); MONO % 9.5 % (2.0-8.0); NEUTROPHILS # 2.7 10^3/uL (1.5-8.5); NEUTROPHILS % 59.3 % (36.0-66.0); RED BLOOD COUNT 3.66 10^6/uL (4.30-6.10); WHITE BLOOD COUNT 4.5 10^3/uL (4.0-10.0)
[2024-02-03 09:43] LABS: PLATELET COUNT, AUTOMATED 73 10^3/uL (150-450)
[2024-02-03 09:53] LABS: INR 1.38; PARTIAL THROMBOPLASTIN TIME 33.5 SECONDS (24.8-34.2); PROTHROMBIN TIME 16.5 SECONDS (12.5-14.5)
[2024-02-03 10:01] LABS: LIPASE 43 U/L (12-53)
[2024-02-03 10:02] LABS: C REACTIVE PROTEIN QUANTITATIV < 0.40 MG/DL (<1.0)
[2024-02-03 10:03] LABS: ALBUMIN 2.5 G/DL (3.2-5.2); ALKALINE PHOSPHATASE 235 U/L (46-116); ALT/SGPT 20 U/L (7.0-40); AST/SGOT 40 U/L (<34); BILIRUBIN,DIRECT 0.7 MG/DL (<0.4); BILIRUBIN,TOTAL 1.5 MG/DL (0.3-1.2); BLOOD UREA NITROGEN 7 MG/DL (9-23); CALCIUM LEVEL 8.3 MG/DL (8.5-10.1); CARBON DIOXIDE LEVEL 24 MMOL/L (20-31); CHLORIDE LEVEL 115 MMOL/L (98-107); GLOMERULAR FILTRATION RATE > 60.0 (>60); GLUCOSE, FASTING 135 MG/DL (60-100); POTASSIUM SERUM 3.8 MMOL/L (3.5-5.1); SODIUM LEVEL 143 MMOL/L (136-145); TOTAL PROTEIN 6.2 G/DL (5.7-8.2)
[2024-02-03] MEDS ORDERED: ISOVUE-370 76% 100ML VIAL As Ordered ONE (10:35)
[2024-02-03] MEDS ORDERED: KETOROLAC 30 MG/ML 1ML VIAL IV ONE (10:40)
[2024-02-03] MEDS: MORPHINE 4 MG/ML 1ML VIAL IV ONE (10:54)
[2024-02-03] MEDS: fentaNYL 100 MCG/2 ML INJECTION IV ONE (11:48)
[2024-02-03] MEDS: HYDROMORPHONE HCL 0.5 MG/ 0.5 ML SYRINGE IV PRN ×2 (13:37→19:26)
[2024-02-03] MEDS: METOCLOPRAMIDE INJ 10MG/2ML VIAL IV ONE (13:37)
[2024-02-03] MEDS ORDERED: OXYC-517 PO ×2 (15:20)
[2024-02-03] MEDS ORDERED: METF-838 PO (15:36)
[2024-02-03] MEDS ORDERED: HOME MED LIST COMPLETE! XX SCH (15:40)
[2024-02-03] MEDS ORDERED: PROCHLORPERAZINE 10MG 2ML VIAL IV PRN (17:35)
[2024-02-03] MEDS ORDERED: traZODone 100 MG TAB PO PRN (17:35)
[2024-02-03] MEDS ORDERED: ONDANSETRON 4MG 2ML VIAL IV PRN (17:35)
[2024-02-03] MEDS: MIDODRINE 5 MG TAB PO SCH (18:39)
[2024-02-03] MEDS: CREON-12 CAPSULE PO SCH (19:01)
[2024-02-03] MEDS: LR 1,000 ML IV SCH (19:10)
[2024-02-03 20:21] VITALS: BP 114/75; TEMP 97.7; O2SAT 98
[2024-02-03] MEDS: rifAXIMin 550 MG TAB (XIFAXAN) PO SCH (20:40)
[2024-02-03] MEDS: TAMSULOSIN 0.4 MG CAP PO SCH (20:40)
[2024-02-03] MEDS: GABAPENTIN 100 MG CAP PO SCH (20:40)
[2024-02-03] MEDS: PANTOPRAZOLE 40MG VIAL IV SCH (20:41)
[2024-02-03] MEDS: LACTULOSE 20GM/30ML SYRUP UDC PO SCH (20:41)
[2024-02-04] MEDS: HYDROMORPHONE HCL 0.5 MG/ 0.5 ML SYRINGE IV PRN ×3 (00:57→17:30)
[2024-02-04 05:43] VITALS: BP 100/67; TEMP 97.7; O2SAT 98
[2024-02-04 07:11] LABS: BASO # 0.1 10^3/uL (0.0-0.2); BASO % 0.9 % (0.0-1.0); EOS # 0.2 10^3/uL (0.0-0.5); EOS % 4.1 % (0.0-3.0); HEMATOCRIT 32.1 % (42.0-52.0); HEMOGLOBIN 10.9 g/dl (13.5-17.5); LYMPH # 1.5 10^3/uL (1.5-5.0); MEAN CORPUSCULAR HEMOGLOBIN 34.2 pg (27.0-33.0); MEAN CORPUSCULAR VOLUME 100.6 fl (80.0-96.0); MONO # 0.5 10^3/uL (0.0-0.8); MONO % 9.2 % (2.0-8.0); NEUTROPHILS # 3.1 10^3/uL (1.5-8.5); NEUTROPHILS % 57.2 % (36.0-66.0); RED BLOOD COUNT 3.19 10^6/uL (4.30-6.10); WHITE BLOOD COUNT 5.4 10^3/uL (4.0-10.0)
[2024-02-04 07:14] LABS: PLATELET COUNT, AUTOMATED 57 10^3/uL (150-450)
[2024-02-04 07:36] LABS: BLOOD UREA NITROGEN 9 MG/DL (9-23); CALCIUM LEVEL 8.3 MG/DL (8.5-10.1); CARBON DIOXIDE LEVEL 22 MMOL/L (20-31); CHLORIDE LEVEL 114 MMOL/L (98-107); CREATININE FOR GFR 0.63 MG/DL (0.70-1.30); GLOMERULAR FILTRATION RATE > 60.0 (>60); GLUCOSE, FASTING 85 MG/DL (60-100); POTASSIUM SERUM 3.6 MMOL/L (3.5-5.1); SODIUM LEVEL 141 MMOL/L (136-145)
[2024-02-04] MEDS: NADOLOL 20MG TABLET PO SCH (08:01)
[2024-02-04] MEDS: ENOXAPARIN 40MG/0.4ML SYRINGE (J1650 PER 10MG) SC SCH (08:03)
[2024-02-04 12:00] VITALS: BP 93/54; TEMP 98.2; O2SAT 97
[2024-02-04 12:27] LABS: ALKALINE PHOSPHATASE 173 U/L (46-116); ALT/SGPT 18 U/L (7.0-40); AST/SGOT 35 U/L (<34); BILIRUBIN,DIRECT 0.7 MG/DL (<0.4); BILIRUBIN,TOTAL 1.4 MG/DL (0.3-1.2); TOTAL PROTEIN 5.2 G/DL (5.7-8.2)
[2024-02-04 16:10] VITALS: BP 97/56
[2024-02-04 17:20] VITALS: BP 93/58
[2024-02-04 19:20] VITALS: BP 86/52; TEMP 97.7; O2SAT 96
[2024-02-04] MEDS: LR 1,000 ML IV SCH (20:16)
[2024-02-04 22:48] VITALS: BP 100/50
[2024-02-05 04:20] VITALS: BP 99/62; TEMP 98.2; O2SAT 95
[2024-02-05 06:48] LABS: BASO # 0.1 10^3/uL (0.0-0.2); BASO % 1.2 % (0.0-1.0); EOS # 0.2 10^3/uL (0.0-0.5); EOS % 4.4 % (0.0-3.0); HEMATOCRIT 29.9 % (42.0-52.0); HEMOGLOBIN 10.4 g/dl (13.5-17.5); LYMPH # 1.4 10^3/uL (1.5-5.0); MEAN CORPUSCULAR HEMOGLOBIN 33.9 pg (27.0-33.0); MEAN CORPUSCULAR HGB CONC 34.8 g/dl (32.0-36.5); MEAN CORPUSCULAR VOLUME 97.4 fl (80.0-96.0); MONO # 0.5 10^3/uL (0.0-0.8); MONO % 12.4 % (2.0-8.0); NEUTROPHILS # 2.1 10^3/uL (1.5-8.5); NEUTROPHILS % 49.5 % (36.0-66.0); RED BLOOD COUNT 3.07 10^6/uL (4.30-6.10); WHITE BLOOD COUNT 4.3 10^3/uL (4.0-10.0)
[2024-02-05 06:50] LABS: PLATELET COUNT, AUTOMATED 59 10^3/uL (150-450)
[2024-02-05 07:01] LABS: BLOOD UREA NITROGEN 9 MG/DL (9-23); CALCIUM LEVEL 8.4 MG/DL (8.5-10.1); CARBON DIOXIDE LEVEL 23 MMOL/L (20-31); CHLORIDE LEVEL 113 MMOL/L (98-107); CREATININE FOR GFR 0.61 MG/DL (0.70-1.30); GLOMERULAR FILTRATION RATE > 60.0 (>60); GLUCOSE, FASTING 110 MG/DL (60-100); POTASSIUM SERUM 4.3 MMOL/L (3.5-5.1); SODIUM LEVEL 139 MMOL/L (136-145)
[2024-02-05] MEDS: LACTULOSE 20GM/30ML SYRUP UDC PO SCH (08:15)
[2024-02-05 08:18] VITALS: BP 96/61
[2024-02-05] MEDS: oxyCODONE 5MG TAB PO SCH (08:24)
[2024-02-05 09:00] LABS: HEMOGLOBIN A1c 5.8 % (4.0-6.0)
[2024-02-05 12:05] VITALS: TEMP 98.4; O2SAT 93
== END 2024-02-05 14:39 | disposition home or self-care (01) | DRG 392 ==
LOC: M ED 08:40 → EDBD 08:40 → M ED INP 17:33 → M MSPAV 20:03
PROVIDERS: ADMIT Internal Medicine Nephrology; ATTEND Internal Medicine Nephrology
DX: A08.4 Viral intestinal infection, unspecified (principal); K76.6 Portal hypertension; I85.10 Secondary esophageal varices without bleeding; K86.0 Alcohol-induced chronic pancreatitis; K57.90 Diverticulosis of intestine, part unspecified, without perforation or abscess without bleeding; G89.29 Other chronic pain; I95.89 Other hypotension; N40.0 Benign prostatic hyperplasia without lower urinary tract symptoms; G47.33 Obstructive sleep apnea (adult) (pediatric); K70.30 Alcoholic cirrhosis of liver without ascites; G62.1 Alcoholic polyneuropathy; K76.82 Hepatic encephalopathy; D69.6 Thrombocytopenia, unspecified; K29.20 Alcoholic gastritis without bleeding; R29.6 Repeated falls; R27.0 Ataxia, unspecified; F12.90 Cannabis use, unspecified, uncomplicated; F41.9 Anxiety disorder, unspecified; F32.A Depression, unspecified; E61.1 Iron deficiency; M54.59 Other low back pain; Z91.119 Patient's noncompliance with dietary regimen due to unspecified reason; K64.8 Other hemorrhoids; D63.8 Anemia in other chronic diseases classified elsewhere; Z96.643 Presence of artificial hip joint, bilateral; Z79.899 Other long term (current) drug therapy; F17.200 Nicotine dependence, unspecified, uncomplicated

== ENCOUNTER 2024-02-12 17:38 | Emergency (ER) | payer MEDICARE ==
[~2024-02-12] VITALS: Ht 162.6 cm; Wt 61.0 kg
[~2024-02-12 17:38] MED LIST changes: +FAMO1TAB11 PO; +LACT10SO PO; +METF-838 PO; +METH-1165 PO
[2024-02-12 19:26] LABS: BASO # 0.1 10^3/uL (0.0-0.2); BASO % 0.8 % (0.0-1.0); EOS # 0.2 10^3/uL (0.0-0.5); EOS % 3.3 % (0.0-3.0); HEMATOCRIT 35.2 % (42.0-52.0); LYMPH # 1.7 10^3/uL (1.5-5.0); MEAN CORPUSCULAR HEMOGLOBIN 34.2 pg (27.0-33.0); MEAN CORPUSCULAR HGB CONC 34.1 g/dl (32.0-36.5); MEAN CORPUSCULAR VOLUME 100.3 fl (80.0-96.0); MONO # 0.8 10^3/uL (0.0-0.8); MONO % 10.9 % (2.0-8.0); NEUTROPHILS # 4.5 10^3/uL (1.5-8.5); NEUTROPHILS % 61.6 % (36.0-66.0); RED BLOOD COUNT 3.51 10^6/uL (4.30-6.10); WHITE BLOOD COUNT 7.3 10^3/uL (4.0-10.0)
[2024-02-12 19:28] LABS: PLATELET COUNT, AUTOMATED 75 10^3/uL (150-450)
[2024-02-12 19:47] LABS: LIPASE 44 U/L (12-53)
[2024-02-12 19:49] LABS: ALBUMIN 2.6 G/DL (3.2-5.2); ALKALINE PHOSPHATASE 216 U/L (46-116); ALT/SGPT 22 U/L (7.0-40); AST/SGOT 54 U/L (<34); BILIRUBIN,DIRECT 0.9 MG/DL (<0.4); BILIRUBIN,TOTAL 2.1 MG/DL (0.3-1.2); BLOOD UREA NITROGEN 9 MG/DL (9-23); CALCIUM LEVEL 8.9 MG/DL (8.5-10.1); CARBON DIOXIDE LEVEL 24 MMOL/L (20-31); CHLORIDE LEVEL 110 MMOL/L (98-107); CREATININE FOR GFR 0.79 MG/DL (0.70-1.30); GLOMERULAR FILTRATION RATE > 60.0 (>60); GLUCOSE, FASTING 87 MG/DL (60-100); POTASSIUM SERUM 3.6 MMOL/L (3.5-5.1); SODIUM LEVEL 141 MMOL/L (136-145); TOTAL PROTEIN 6.4 G/DL (5.7-8.2)
[2024-02-13] MEDS: methylPREDNISolone 125MG 2ML VIAL IM ONE (00:53)
[2024-02-13] MEDS: diazePAM 10MG/2ML SYRINGE IM ONE (00:53)
[2024-02-13] MEDS ORDERED: ISOVUE-370 76% 100ML VIAL As Ordered ONE (01:32)
[2024-02-13 01:43] LABS: AMPHETAMINES LEVEL URINE NEGATIVE (NEGATIVE); BARBITURATES URINE NEGATIVE (NEGATIVE); BENZODIAZEPINES URINE NEGATIVE (NEGATIVE); COCAINE METABOLITE URINE NEGATIVE (NEGATIVE); METHADONE URINE NEGATIVE (NEGATIVE); OPIATES URINE NEGATIVE (NEGATIVE); PHENCYCLIDINE URINE NEGATIVE (NEGATIVE)
[2024-02-13 02:04] LABS: CANNABINOIDS URINE POSITIVE (NEGATIVE)
[2024-02-13 02:13] LABS: ETHYL ALCOHOL (ETHANOL) 0.003 % (0.000-0.010); MAGNESIUM LEVEL 1.9 MG/DL (1.8-2.4)
[2024-02-13 02:14] LABS: AMYLASE 70 U/L (30-118)
[2024-02-13 02:15] LABS: SALICYLATE LEVEL < 3.0 MG/DL (<30)
[2024-02-13 02:23] LABS: INR 1.36; PARTIAL THROMBOPLASTIN TIME 32.8 SECONDS (24.8-34.2); PROTHROMBIN TIME 16.4 SECONDS (12.5-14.5)
[2024-02-13 05:59] VITALS: BP 122/73; TEMP 99; O2SAT 95
[2024-02-13] MEDS ORDERED: OXYC1CAP2 PO (06:08)
== END 2024-02-13 06:39 | disposition home or self-care (01) ==
LOC: M ED 17:38
DX: A08.4 Viral intestinal infection, unspecified (principal); I10 Essential (primary) hypertension; K70.30 Alcoholic cirrhosis of liver without ascites; M54.50 Low back pain, unspecified; G47.33 Obstructive sleep apnea (adult) (pediatric); F17.200 Nicotine dependence, unspecified, uncomplicated; F12.10 Cannabis abuse, uncomplicated; F10.10 Alcohol abuse, uncomplicated; Z79.899 Other long term (current) drug therapy
CPT/HCPCS: 72128; 72131; 74177; 80048; 80076; 80143; 80307; 81001; 82077; 82140; 82150; 83605; 83690; 83735; 85025; 85049; 85055; 85610; 85730; 96372; 99284; J2919; J3360; Q9967

== ENCOUNTER 2024-02-12 17:51 | Emergency (ER) | payer MEDICARE ==
[2024-02-12 17:51] VITALS: BP 125/81; TEMP 99; O2SAT 97
[2024-02-13] MEDS ORDERED: OXYC1CAP2 PO (06:08)
== END 2024-02-12 18:15 | disposition left against medical advice (07) ==
LOC: M ED 17:51
DX: Z53.21 Procedure and treatment not carried out due to patient leaving prior to being seen by health care provider (principal)

== ENCOUNTER 2024-03-16 16:08 | Observation (INO) | payer MEDICARE ==
[~2024-03-16] VITALS: Ht 162.6 cm; Wt 60.4 kg
[~2024-03-16 16:08] MED LIST changes: +ASPI81TAEC PO; +ATOR80TA59 PO; +NALO4SPR3; +OXYC1CAP2 PO
[2024-03-16 17:09] LABS: BASO # 0.1 10^3/uL (0.0-0.2); BASO % 1.1 % (0.0-1.0); EOS # 0.3 10^3/uL (0.0-0.5); EOS % 5.3 % (0.0-3.0); HEMATOCRIT 28.2 % (42.0-52.0); HEMOGLOBIN 9.9 g/dl (13.5-17.5); LYMPH # 1.3 10^3/uL (1.5-5.0); LYMPH % 22.8 % (24.0-44.0); MEAN CORPUSCULAR HEMOGLOBIN 34.4 pg (27.0-33.0); MEAN CORPUSCULAR HGB CONC 35.1 g/dl (32.0-36.5); MEAN CORPUSCULAR VOLUME 97.9 fl (80.0-96.0); MONO # 0.7 10^3/uL (0.0-0.8); MONO % 12.6 % (2.0-8.0); NEUTROPHILS # 3.3 10^3/uL (1.5-8.5); NEUTROPHILS % 57.7 % (36.0-66.0); RED BLOOD COUNT 2.88 10^6/uL (4.30-6.10); WHITE BLOOD COUNT 5.7 10^3/uL (4.0-10.0)
[2024-03-16 17:10] LABS: PLATELET COUNT, AUTOMATED 71 10^3/uL (150-450)
[2024-03-16] MEDS: NS 1,000 ML IV SCH (17:11)
[2024-03-16 17:20] LABS: INR 1.53; PARTIAL THROMBOPLASTIN TIME 33.2 SECONDS (24.8-34.2); PROTHROMBIN TIME 17.9 SECONDS (12.5-14.5)
[2024-03-16 17:34] LABS: LIPASE 35 U/L (12-53)
[2024-03-16 17:36] LABS: CPK CREATINE PHOSPHOKINASE 63 U/L (46-171)
[2024-03-16 17:39] LABS: ALBUMIN 2.4 G/DL (3.2-5.2); ALKALINE PHOSPHATASE 164 U/L (46-116); ALT/SGPT 43 U/L (7.0-40); AST/SGOT 78 U/L (<34); BILIRUBIN,TOTAL 1.8 MG/DL (0.3-1.2); BLOOD UREA NITROGEN 6 MG/DL (9-23); CALCIUM LEVEL 7.5 MG/DL (8.5-10.1); CARBON DIOXIDE LEVEL 21 MMOL/L (20-31); CHLORIDE LEVEL 114 MMOL/L (98-107); CK-MB VALUE MASS 1.3 NG/ML (<3.6); CREATININE FOR GFR 0.56 MG/DL (0.70-1.30); GLOMERULAR FILTRATION RATE > 60.0 (>60); GLUCOSE, FASTING 123 MG/DL (60-100); MB/CK RELATIVE INDEX 2.06 (< OR =4); POTASSIUM SERUM 2.9 MMOL/L (3.5-5.1); SODIUM LEVEL 141 MMOL/L (136-145); TOTAL PROTEIN 5.8 G/DL (5.7-8.2)
[2024-03-16] MEDS ORDERED: ISOVUE-370 76% 100ML VIAL As Ordered ONE (17:44)
[2024-03-16] MEDS: KCL 10MEQ/100ML SWI (KRUN) 10 MEQ in IV 1 EA IV ONE (18:37)
[2024-03-16] MEDS: POTASSIUM CHLORIDE 10MEQ SR TABLET PO ONE (18:37)
[2024-03-16 19:12] LABS: CK-MB VALUE MASS 1.3 NG/ML (<3.6)
[2024-03-16 19:13] LABS: MB/CK RELATIVE INDEX 1.96 (< OR =4)
[2024-03-16 20:58] LABS: HEMATOCRIT 28.7 % (42.0-52.0); HEMOGLOBIN 9.9 g/dl (13.5-17.5); MEAN CORPUSCULAR HEMOGLOBIN 33.9 pg (27.0-33.0); MEAN CORPUSCULAR HGB CONC 34.5 g/dl (32.0-36.5); MEAN CORPUSCULAR VOLUME 98.3 fl (80.0-96.0); RED BLOOD COUNT 2.92 10^6/uL (4.30-6.10); WHITE BLOOD COUNT 5.4 10^3/uL (4.0-10.0)
[2024-03-16 21:01] LABS: PLATELET COUNT, AUTOMATED 65 10^3/uL (150-450)
[2024-03-16] MEDS: cefTRIAXone SOD 1 GM in D5W MINI-BAG PLUS 50 ML IV ONE (21:12)
[2024-03-16] MEDS: PANTOPRAZOLE 40MG VIAL IV ONE (21:12)
[2024-03-16] MEDS: MORPHINE 4 MG/ML 1ML VIAL IV ONE (21:14)
[2024-03-16] MEDS: KCL 40MEQ in NS 1000ML 1,000 ML IV SCH (21:14)
[2024-03-16 21:32] LABS: BLOOD UREA NITROGEN 5 MG/DL (9-23); CALCIUM LEVEL 7.4 MG/DL (8.5-10.1); CARBON DIOXIDE LEVEL 22 MMOL/L (20-31); CHLORIDE LEVEL 114 MMOL/L (98-107); CREATININE FOR GFR 0.52 MG/DL (0.70-1.30); GLOMERULAR FILTRATION RATE > 60.0 (>60); GLUCOSE, FASTING 91 MG/DL (60-100); MAGNESIUM LEVEL 1.7 MG/DL (1.8-2.4); POTASSIUM SERUM 3.4 MMOL/L (3.5-5.1); SODIUM LEVEL 142 MMOL/L (136-145)
[2024-03-16] MEDS: HYDROMORPHONE HCL 0.5 MG/ 0.5 ML SYRINGE IV PRN (21:55)
[2024-03-16] MEDS ORDERED: ATOR80TA59 PO (22:03)
[2024-03-16] MEDS ORDERED: FERR1TAB8 PO (22:03)
[2024-03-16] MEDS ORDERED: ASPI-615 PO (22:03)
[2024-03-16] MEDS ORDERED: HOME MED LIST COMPLETE! XX SCH (22:05)
[2024-03-16] MEDS: rifAXIMin 550 MG TAB (XIFAXAN) PO SCH (23:01)
[2024-03-16] MEDS: MAG SULF 1GM/100ML (MAG RUN) 1 GM in IV 1 EA IV SCH (23:05)
[2024-03-16 23:48] VITALS: BP 125/80; TEMP 98.2; O2SAT 95
[2024-03-17] MEDS ORDERED: traZODone 100 MG TAB PO PRN (00:10)
[2024-03-17] MEDS ORDERED: GLUCOSE 4 GM CHEW PO PRN ×2 (00:20→20:45)
[2024-03-17] MEDS ORDERED: GLUCAGON INJ 1MG VIAL SC PRN ×2 (00:20→20:45)
[2024-03-17] MEDS ORDERED: DEXTROSE 50% 50ML SYRINGE IV PRN ×2 (00:20→20:45)
[2024-03-17] MEDS: HYDROmorphone HCL 2MG/ML 1ML VIAL IV PRN (01:09)
[2024-03-17 03:16] VITALS: BP 110/65; TEMP 97.4; O2SAT 94
[2024-03-17 05:40] LABS: HEMATOCRIT 29.6 % (42.0-52.0); MEAN CORPUSCULAR HEMOGLOBIN 33.4 pg (27.0-33.0); MEAN CORPUSCULAR HGB CONC 33.8 g/dl (32.0-36.5); RED BLOOD COUNT 2.99 10^6/uL (4.30-6.10); WHITE BLOOD COUNT 4.8 10^3/uL (4.0-10.0)
[2024-03-17 05:47] LABS: PLATELET COUNT, AUTOMATED 66 10^3/uL (150-450)
[2024-03-17 06:05] LABS: ALBUMIN 2.2 G/DL (3.2-5.2); ALKALINE PHOSPHATASE 151 U/L (46-116); ALT/SGPT 40 U/L (7.0-40); AST/SGOT 72 U/L (<34); BILIRUBIN,TOTAL 1.8 MG/DL (0.3-1.2); BLOOD UREA NITROGEN < 5 MG/DL (9-23); CALCIUM LEVEL 7.5 MG/DL (8.5-10.1); CARBON DIOXIDE LEVEL 21 MMOL/L (20-31); CHLORIDE LEVEL 114 MMOL/L (98-107); CREATININE FOR GFR 0.54 MG/DL (0.70-1.30); GLOMERULAR FILTRATION RATE > 60.0 (>60); GLUCOSE, FASTING 80 MG/DL (60-100); MAGNESIUM LEVEL 2.2 MG/DL (1.8-2.4); POTASSIUM SERUM 3.9 MMOL/L (3.5-5.1); SODIUM LEVEL 141 MMOL/L (136-145); TOTAL PROTEIN 5.6 G/DL (5.7-8.2)
[2024-03-17] MEDS: MIDODRINE 5 MG TAB PO SCH (08:00)
[2024-03-17 08:28] VITALS: BP 100/63; TEMP 97.6; O2SAT 98
[2024-03-17] MEDS: PANTOPRAZOLE 40MG VIAL IV SCH (10:42)
[2024-03-17] MEDS: FOLIC ACID 1MG TAB PO SCH (10:43)
[2024-03-17] MEDS: cefTRIAXone SOD 1 GM in D5W MINI-BAG PLUS 50 ML IV SCH (10:43)
[2024-03-17] MEDS: THIAMINE 100 MG TAB PO SCH (10:43)
[2024-03-17] MEDS: TAMSULOSIN 0.4 MG CAP PO SCH (10:44)
[2024-03-17] MEDS: SPIRONOLACTONE 50 MG TAB PO SCH (10:44)
[2024-03-17] MEDS: ONDANSETRON 4MG 2ML VIAL IV ONE (10:58)
[2024-03-17 12:14] VITALS: BP 107/58; TEMP 97.9; O2SAT 95
[2024-03-17] MEDS ORDERED: LACT20EL PO (13:18)
[2024-03-17 16:15] VITALS: BP 107/69; TEMP 98.4; O2SAT 92
[2024-03-17 20:09] VITALS: BP 116/71; TEMP 96.9; O2SAT 93
[2024-03-17] MEDS: INSULIN LISPRO (NovoLOG) PER UNIT SC SCH ×2 (20:46)
[2024-03-17 23:26] VITALS: BP 102/55; TEMP 98; O2SAT 93
[2024-03-18 03:19] VITALS: BP 102/68; TEMP 98; O2SAT 95
[2024-03-18] MEDS: INSULIN LISPRO (NovoLOG) PER UNIT SC SCH (07:30)
[2024-03-18 08:00] VITALS: BP_SYST 105; BP_SYST 93; BP_DIAS 64; BP_DIAS 65; TEMP 97.1; TEMP 99.1; O2SAT 100; O2SAT 93
[2024-03-18] MEDS: PANTOPRAZOLE 40MG TAB (PROTONIX) PO SCH (08:55)
[2024-03-18 09:00] VITALS: BP 95/61
[2024-03-18 09:48] VITALS: BP 92/56
[2024-03-18] MEDS ORDERED: OXYC-517 PO (10:35)
[2024-03-18 12:00] VITALS: BP 105/68; TEMP 98.3; O2SAT 94
== END 2024-03-18 13:52 | disposition home health service (06) ==
LOC: M ED 16:08 → EDBD 16:08 → M ED INP 20:22 → INTOOBSV 20:22 → M PCU 23:43
PROVIDERS: ADMIT Preventive Medicine Undersea and Hyperbaric Medicine; ATTEND Preventive Medicine Undersea and Hyperbaric Medicine
DX: R19.7 Diarrhea, unspecified (principal); E87.6 Hypokalemia; K70.30 Alcoholic cirrhosis of liver without ascites; I85.11 Secondary esophageal varices with bleeding; I86.4 Gastric varices; Z98.890 Other specified postprocedural states; R07.9 Chest pain, unspecified; K21.9 Gastro-esophageal reflux disease without esophagitis; K27.9 Peptic ulcer, site unspecified, unspecified as acute or chronic, without hemorrhage or perforation; K29.20 Alcoholic gastritis without bleeding; K86.0 Alcohol-induced chronic pancreatitis; D69.6 Thrombocytopenia, unspecified; D50.9 Iron deficiency anemia, unspecified; I51.7 Cardiomegaly; E11.9 Type 2 diabetes mellitus without complications; G47.33 Obstructive sleep apnea (adult) (pediatric); N40.0 Benign prostatic hyperplasia without lower urinary tract symptoms; F41.9 Anxiety disorder, unspecified; F32.A Depression, unspecified; R26.81 Unsteadiness on feet; M54.50 Low back pain, unspecified; G89.29 Other chronic pain; G83.4 Cauda equina syndrome; R15.9 Full incontinence of feces; Z87.81 Personal history of (healed) traumatic fracture; I95.9 Hypotension, unspecified; K86.89 Other specified diseases of pancreas; K76.82 Hepatic encephalopathy; F17.210 Nicotine dependence, cigarettes, uncomplicated; F10.11 Alcohol abuse, in remission; Z79.899 Other long term (current) drug therapy; Z79.82 Long term (current) use of aspirin; Z79.891 Long term (current) use of opiate analgesic; Z82.3 Family history of stroke; Z82.49 Family history of ischemic heart disease and other diseases of the circulatory system; Z80.0 Family history of malignant neoplasm of digestive organs; Z66 Do not resuscitate
CPT/HCPCS: 36415; 71045; 74177; 80048; 80053; 80076; 82550; 82553; 83605; 83690; 83735; 84484; 85025; 85027; 85049; 85055; 85610; 85730; 86850; 86900; 86901; 93005; 93041; 96361; 96365; 96366; 96367; 96375; 96376; 99285; G0378; J0696; J1170; J2405; J2470; J3475; Q9967

== ENCOUNTER 2024-03-18 17:25 | Emergency (ER) | payer MEDICARE ==
[~2024-03-18] VITALS: Ht 162.6 cm; Wt 61.4 kg
[~2024-03-18 17:25] MED LIST changes: +ASPI-615 PO; +FERR1TAB8 PO
[2024-03-18 20:04] LABS: BASO # 0.1 10^3/uL (0.0-0.2); EOS # 0.2 10^3/uL (0.0-0.5); EOS % 3.2 % (0.0-3.0); HEMATOCRIT 28.6 % (42.0-52.0); HEMOGLOBIN 9.9 g/dl (13.5-17.5); LYMPH # 1.1 10^3/uL (1.5-5.0); LYMPH % 20.2 % (24.0-44.0); MEAN CORPUSCULAR HEMOGLOBIN 34.1 pg (27.0-33.0); MEAN CORPUSCULAR HGB CONC 34.6 g/dl (32.0-36.5); MEAN CORPUSCULAR VOLUME 98.6 fl (80.0-96.0); MONO # 0.5 10^3/uL (0.0-0.8); MONO % 10.3 % (2.0-8.0); NEUTROPHILS # 3.4 10^3/uL (1.5-8.5); NEUTROPHILS % 64.9 % (36.0-66.0); WHITE BLOOD COUNT 5.3 10^3/uL (4.0-10.0)
[2024-03-18 20:13] LABS: PLATELET COUNT, AUTOMATED 57 10^3/uL (150-450)
[2024-03-18 20:43] LABS: LIPASE 58 U/L (12-53)
[2024-03-18 20:46] LABS: ALBUMIN 2.3 G/DL (3.2-5.2); ALKALINE PHOSPHATASE 189 U/L (46-116); ALT/SGPT 35 U/L (7.0-40); AST/SGOT 64 U/L (<34); BILIRUBIN,DIRECT 0.6 MG/DL (<0.4); BLOOD UREA NITROGEN 8 MG/DL (9-23); CALCIUM LEVEL 8.2 MG/DL (8.5-10.1); CARBON DIOXIDE LEVEL 21 MMOL/L (20-31); CHLORIDE LEVEL 110 MMOL/L (98-107); CREATININE FOR GFR 0.61 MG/DL (0.70-1.30); GLOMERULAR FILTRATION RATE > 60.0 (>60); GLUCOSE, FASTING 126 MG/DL (60-100); POTASSIUM SERUM 4.1 MMOL/L (3.5-5.1); SODIUM LEVEL 138 MMOL/L (136-145)
[2024-03-18] MEDS: ONDANSETRON 4MG ORAL DISINTEGRATING TAB PO ONE (21:12)
[2024-03-18 23:26] VITALS: BP 111/66; TEMP 99.3; O2SAT 97
== END 2024-03-18 23:28 | disposition home or self-care (01) ==
LOC: EDBD 17:25 → M ED 17:25
DX: R11.2 Nausea with vomiting, unspecified (principal); R19.7 Diarrhea, unspecified; K86.1 Other chronic pancreatitis; K74.60 Unspecified cirrhosis of liver; K92.2 Gastrointestinal hemorrhage, unspecified; Z79.82 Long term (current) use of aspirin; Z79.02 Long term (current) use of antithrombotics/antiplatelets; Z79.899 Other long term (current) drug therapy
CPT/HCPCS: 36415; 80048; 80076; 81001; 83690; 84484; 85025; 85049; 85055; 87486; 87581; 87633; 87798; 93005; 99284; J0696; J1170

== ENCOUNTER 2024-03-19 12:23 | Emergency (ER) | payer MEDICARE ==
[~2024-03-19] VITALS: Ht 162.6 cm; Wt 61.4 kg
[2024-03-19] MEDS: PROMETHAZINE 25MG/ML 1ML VIAL IV ONE (14:10)
[2024-03-19] MEDS: LR 1,000 ML IV ONE (14:10)
[2024-03-19 15:25] LABS: BASO % 0.6 % (0.0-1.0); EOS # 0.2 10^3/uL (0.0-0.5); EOS % 3.4 % (0.0-3.0); HEMATOCRIT 28.3 % (42.0-52.0); HEMOGLOBIN 9.8 g/dl (13.5-17.5); LYMPH # 1.2 10^3/uL (1.5-5.0); LYMPH % 22.9 % (24.0-44.0); MEAN CORPUSCULAR HEMOGLOBIN 34.3 pg (27.0-33.0); MEAN CORPUSCULAR HGB CONC 34.6 g/dl (32.0-36.5); MONO # 0.6 10^3/uL (0.0-0.8); MONO % 12.2 % (2.0-8.0); NEUTROPHILS # 3.1 10^3/uL (1.5-8.5); NEUTROPHILS % 60.5 % (36.0-66.0); RED BLOOD COUNT 2.86 10^6/uL (4.30-6.10); WHITE BLOOD COUNT 5.1 10^3/uL (4.0-10.0)
[2024-03-19 15:26] LABS: PLATELET COUNT, AUTOMATED 56 10^3/uL (150-450)
[2024-03-19 15:45] LABS: VITAMIN B12 LEVEL 1139 PG/ML (211-911)
[2024-03-19 15:46] LABS: ALBUMIN 2.4 G/DL (3.2-5.2); ALKALINE PHOSPHATASE 167 U/L (46-116); ALT/SGPT 32 U/L (7.0-40); AST/SGOT 53 U/L (<34); BILIRUBIN,TOTAL 1.7 MG/DL (0.3-1.2); BLOOD UREA NITROGEN 6 MG/DL (9-23); CALCIUM LEVEL 8.2 MG/DL (8.5-10.1); CARBON DIOXIDE LEVEL 22 MMOL/L (20-31); CHLORIDE LEVEL 114 MMOL/L (98-107); CREATININE FOR GFR 0.56 MG/DL (0.70-1.30); FOLATE 17.88 NG/ML (>5.4); GLOMERULAR FILTRATION RATE > 60.0 (>60); GLUCOSE, FASTING 84 MG/DL (60-100); MAGNESIUM LEVEL 1.8 MG/DL (1.8-2.4); POTASSIUM SERUM 3.3 MMOL/L (3.5-5.1); SODIUM LEVEL 141 MMOL/L (136-145); TOTAL PROTEIN 5.9 G/DL (5.7-8.2)
[2024-03-19] MEDS ORDERED: POTASSIUM CHLORIDE 10MEQ SR TABLET PO ONE (16:05)
[2024-03-19] MEDS ORDERED: ONDANSETRON 4MG ORAL DISINTEGRATING TAB PO ONE (16:10)
[2024-03-19 16:37] VITALS: BP 124/66; TEMP 96.9; O2SAT 98
== END 2024-03-19 17:05 | disposition home or self-care (01) ==
LOC: M ED 12:23 → EDBD 12:23 → M ED 17:05
DX: R11.2 Nausea with vomiting, unspecified (principal); R19.7 Diarrhea, unspecified; K70.30 Alcoholic cirrhosis of liver without ascites; F10.10 Alcohol abuse, uncomplicated; Z79.82 Long term (current) use of aspirin; Z79.02 Long term (current) use of antithrombotics/antiplatelets; Z79.83 Long term (current) use of bisphosphonates; Z79.899 Other long term (current) drug therapy
CPT/HCPCS: 36415; 80053; 82140; 82607; 82746; 83735; 85025; 96374; 96375; 99284; J2550

== ENCOUNTER 2024-04-01 18:14 | Emergency (ER) | payer MEDICARE ==
[~2024-04-01] VITALS: Ht 162.6 cm; Wt 61.4 kg
[~2024-04-01 18:14] MED LIST changes: +GABA-1490 PO; -GABA600T4 PO
[2024-04-01] MEDS ORDERED: KETOROLAC 30 MG/ML 1ML VIAL IM ONE (20:55)
[2024-04-01] MEDS: methylPREDNISolone 125MG 2ML VIAL IV ONE (21:47)
[2024-04-01] MEDS: KETOROLAC 30 MG/ML 1ML VIAL IV ONE (21:48)
[2024-04-01] MEDS: methocarbamoL 500 MG TAB PO ONE (21:48)
[2024-04-02] MEDS: MORPHINE 4 MG/ML 1ML VIAL IV ONE (00:06)
[2024-04-02] MEDS ORDERED: MORPHINE 4 MG/ML 1ML VIAL IV PRN (11:15)
[2024-04-02] MEDS: KETOROLAC 30 MG/ML 1ML VIAL IV ONE (11:36)
[2024-04-02] MEDS: PERCOCET 5MG/325MG TAB PO ONE (12:57)
[2024-04-02 13:09] VITALS: BP 126/76; TEMP 97.6; O2SAT 98
== END 2024-04-02 13:58 | disposition short-term general hospital (02) ==
LOC: M ED 18:14
DX: M54.16 Radiculopathy, lumbar region (principal); I95.9 Hypotension, unspecified; R20.2 Paresthesia of skin; I10 Essential (primary) hypertension; N40.0 Benign prostatic hyperplasia without lower urinary tract symptoms; K74.60 Unspecified cirrhosis of liver; F17.200 Nicotine dependence, unspecified, uncomplicated; F10.10 Alcohol abuse, uncomplicated; Z79.82 Long term (current) use of aspirin; Z79.02 Long term (current) use of antithrombotics/antiplatelets; Z79.4 Long term (current) use of insulin; Z79.899 Other long term (current) drug therapy; Z96.643 Presence of artificial hip joint, bilateral
CPT/HCPCS: 72148; 96374; 96375; 96376; 99284; J1885; J2919

== ENCOUNTER 2024-04-12 16:21 | Inpatient (IN) | payer MEDICARE, OTHER ==
[~2024-04-12] VITALS: Ht 162.6 cm; Wt 60.1 kg
[2024-04-12 17:39] LABS: HEMATOCRIT 31.5 % (42.0-52.0); HEMOGLOBIN 10.8 g/dl (13.5-17.5); MEAN CORPUSCULAR HEMOGLOBIN 33.5 pg (27.0-33.0); MEAN CORPUSCULAR HGB CONC 34.3 g/dl (32.0-36.5); MEAN CORPUSCULAR VOLUME 97.8 fl (80.0-96.0); RED BLOOD COUNT 3.22 10^6/uL (4.30-6.10); WHITE BLOOD COUNT 6.1 10^3/uL (4.0-10.0)
[2024-04-12] MEDS: oxyCODONE 5MG TAB PO PRN (17:52)
[2024-04-12 18:00] LABS: PLATELET COUNT, AUTOMATED 68 10^3/uL (150-450)
[2024-04-12 18:01] LABS: ETHYL ALCOHOL (ETHANOL) 0.003 % (0.000-0.010)
[2024-04-12 18:02] LABS: SALICYLATE LEVEL < 3.0 MG/DL (<30)
[2024-04-12 18:10] LABS: ALBUMIN 2.8 G/DL (3.2-5.2); ALKALINE PHOSPHATASE 153 U/L (46-116); ALT/SGPT 27 U/L (7.0-40); AST/SGOT 34 U/L (<34); BILIRUBIN,DIRECT 1.2 MG/DL (<0.4); BILIRUBIN,TOTAL 2.1 MG/DL (0.3-1.2); BLOOD UREA NITROGEN 14 MG/DL (9-23); CALCIUM LEVEL 8.2 MG/DL (8.5-10.1); CARBON DIOXIDE LEVEL 28 MMOL/L (20-31); CHLORIDE LEVEL 104 MMOL/L (98-107); CREATININE FOR GFR 0.91 MG/DL (0.70-1.30); GLOMERULAR FILTRATION RATE > 60.0 (>60); GLUCOSE, FASTING 113 MG/DL (60-100); POTASSIUM SERUM 2.2 MMOL/L (3.5-5.1); SODIUM LEVEL 138 MMOL/L (136-145); THYROID STIMULATING HORMONE 0.372 uIU/ML (0.55-4.78); TOTAL PROTEIN 6.5 G/DL (5.7-8.2)
[2024-04-12] MEDS: POTASSIUM CHLORIDE 10MEQ SR TABLET PO ONE (18:20)
[2024-04-12 18:28] LABS: MAGNESIUM LEVEL 2.3 MG/DL (1.8-2.4)
[2024-04-12] MEDS: KCL 10MEQ/100ML SWI (KRUN) 10 MEQ in IV 1 EA IV ONE ×2 (19:27→20:20)
[2024-04-13] MEDS ORDERED: AMOX500C PO (00:09)
[2024-04-13] MEDS ORDERED: CONS10SO3 PO (00:09)
[2024-04-13] MEDS ORDERED: HOME MED LIST COMPLETE! XX SCH (00:15)
[2024-04-13] MEDS: KCL 10MEQ/100ML SWI (KRUN) 10 MEQ in IV 1 EA IV ONE ×2 (02:55→04:00)
[2024-04-13] MEDS: MIDODRINE 5 MG TAB PO ONE (04:00)
[2024-04-13] MEDS: NS 250 ML IV SCH (04:05)
[2024-04-13] MEDS ORDERED: KCL 40MEQ in NS 1000ML 1,000 ML IV SCH (14:00)
[2024-04-13] MEDS: MIDODRINE 5 MG TAB PO SCH (14:14)
[2024-04-13] MEDS: PANTOPRAZOLE 40MG TAB (PROTONIX) PO SCH (14:14)
[2024-04-13] MEDS: GABAPENTIN 100 MG CAP PO SCH (14:14)
[2024-04-13] MEDS: MAGNESIUM OXIDE 400MG TAB (MAG-OX) PO SCH (14:14)
[2024-04-13] MEDS: SPIRONOLACTONE 50 MG TAB PO SCH (14:14)
[2024-04-13] MEDS: FOLIC ACID 1MG TAB PO SCH (14:15)
[2024-04-13] MEDS: THIAMINE 100 MG TAB PO SCH ×2 (14:15→20:32)
[2024-04-13] MEDS: ASPIRIN 81MG ENTERIC TABLET PO SCH (14:15)
[2024-04-13] MEDS: TAMSULOSIN 0.4 MG CAP PO SCH (14:15)
[2024-04-13] MEDS: FERROUS SULFATE 325MG TAB PO SCH (14:15)
[2024-04-13] MEDS: ENOXAPARIN 40MG/0.4ML SYRINGE (J1650 PER 10MG) SC SCH (14:17)
[2024-04-13] MEDS: KCL 10MEQ/100ML SWI (KRUN) 10 MEQ in IV 1 EA IV SCH (14:59)
[2024-04-13] MEDS: CREON-24 CAPSULE (PANCRELIPASE) PO SCH (14:59)
[2024-04-13 15:55] VITALS: BP 147/85; TEMP 97.9; O2SAT 97
[2024-04-13] MEDS: LACTULOSE 20GM/30ML SYRUP UDC PO SCH (17:04)
[2024-04-13 20:20] VITALS: BP 110/68; TEMP 98.6; O2SAT 97
[2024-04-13 20:22] VITALS: BP 110/68
[2024-04-13] MEDS: KCL 40MEQ in NS 1000ML 1,000 ML IV SCH (20:32)
[2024-04-13] MEDS: FAMOTIDINE 20 MG TAB PO SCH (20:32)
[2024-04-13] MEDS: LORazepam 2 MG TAB PO PRN (20:33)
[2024-04-13 21:58] LABS: BLOOD UREA NITROGEN 12 MG/DL (9-23); CALCIUM LEVEL 8.1 MG/DL (8.5-10.1); CARBON DIOXIDE LEVEL 26 MMOL/L (20-31); CHLORIDE LEVEL 111 MMOL/L (98-107); CREATININE FOR GFR 0.74 MG/DL (0.70-1.30); GLOMERULAR FILTRATION RATE > 60.0 (>60); GLUCOSE, FASTING 134 MG/DL (60-100); POTASSIUM SERUM 3.1 MMOL/L (3.5-5.1); SODIUM LEVEL 140 MMOL/L (136-145)
[2024-04-13 22:45] VITALS: BP 94/48; TEMP 98.1; O2SAT 97
[2024-04-14] VITALS (7 sets, daily range): BP systolic 94–118; BP diastolic 48–73; TEMP 97.7–98.8; O2SAT 95–98
[2024-04-14 07:12] LABS: MEAN CORPUSCULAR HEMOGLOBIN 33.6 pg (27.0-33.0); MEAN CORPUSCULAR HGB CONC 33.3 g/dl (32.0-36.5); MEAN CORPUSCULAR VOLUME 100.7 fl (80.0-96.0); RED BLOOD COUNT 2.98 10^6/uL (4.30-6.10); WHITE BLOOD COUNT 3.7 10^3/uL (4.0-10.0)
[2024-04-14 07:36] LABS: BLOOD UREA NITROGEN 11 MG/DL (9-23); CALCIUM LEVEL 8.4 MG/DL (8.5-10.1); CARBON DIOXIDE LEVEL 23 MMOL/L (20-31); CHLORIDE LEVEL 114 MMOL/L (98-107); CREATININE FOR GFR 0.71 MG/DL (0.70-1.30); GLOMERULAR FILTRATION RATE > 60.0 (>60); GLUCOSE, FASTING 136 MG/DL (60-100); POTASSIUM SERUM 3.2 MMOL/L (3.5-5.1); SODIUM LEVEL 141 MMOL/L (136-145)
[2024-04-14 07:38] LABS: PLATELET COUNT, AUTOMATED 49 10^3/uL (150-450)
[2024-04-14] MEDS: POTASSIUM CHLORIDE 10MEQ SR TABLET PO ONE (10:22)
[2024-04-14] MEDS: FOLIC ACID 1MG TAB PO SCH (10:23)
[2024-04-14] MEDS: LIDOCAINE 5% (LIDODERM) PATCH TD SCH (10:25)
[2024-04-14] MEDS: MULTIVITAMINS/MINERALS THERAP 1 TAB PO SCH (10:32)
[2024-04-14] MEDS ORDERED: POTASSIUM CHLORIDE 10MEQ SR TABLET PO ONE (15:00)
[2024-04-14] MEDS: KCL 10MEQ/100ML SWI (KRUN) 10 MEQ in IV 1 EA IV SCH (16:54)
[2024-04-14] MEDS ORDERED: KCL 10MEQ/100ML SWI (KRUN) 10 MEQ in IV 1 EA IV SCH (17:00)
[2024-04-14] MEDS: LACTULOSE 20GM/30ML SYRUP UDC PR ONE (22:23)
[2024-04-15] VITALS (7 sets, daily range): BP systolic 108–114; BP diastolic 65–74; TEMP 97.7–99.1; O2SAT 98–99
[2024-04-15 06:33] LABS: HEMOGLOBIN 10.8 g/dl (13.5-17.5); MEAN CORPUSCULAR HEMOGLOBIN 33.9 pg (27.0-33.0); MEAN CORPUSCULAR HGB CONC 33.8 g/dl (32.0-36.5); MEAN CORPUSCULAR VOLUME 100.3 fl (80.0-96.0); RED BLOOD COUNT 3.19 10^6/uL (4.30-6.10); WHITE BLOOD COUNT 4.7 10^3/uL (4.0-10.0)
[2024-04-15 06:35] LABS: PLATELET COUNT, AUTOMATED 56 10^3/uL (150-450)
[2024-04-15 06:54] LABS: BLOOD UREA NITROGEN 12 MG/DL (9-23); CALCIUM LEVEL 8.7 MG/DL (8.5-10.1); CARBON DIOXIDE LEVEL 20 MMOL/L (20-31); CHLORIDE LEVEL 117 MMOL/L (98-107); CREATININE FOR GFR 0.76 MG/DL (0.70-1.30); GLOMERULAR FILTRATION RATE > 60.0 (>60); GLUCOSE, FASTING 105 MG/DL (60-100); POTASSIUM SERUM 3.6 MMOL/L (3.5-5.1); SODIUM LEVEL 145 MMOL/L (136-145)
[2024-04-15] MEDS: HYDROMORPHONE HCL 0.5 MG/ 0.5 ML SYRINGE IV ONE (08:42)
[2024-04-15] MEDS: methocarbamoL 500 MG TAB PO PRN (19:52)
[2024-04-15] MEDS: traZODone 100 MG TAB PO PRN (20:48)
[2024-04-16] VITALS (7 sets, daily range): BP systolic 102–117; BP diastolic 62–70; TEMP 98.5–101.3; O2SAT 97–98
[2024-04-16 05:46] LABS: HEMATOCRIT 29.2 % (42.0-52.0); HEMOGLOBIN 9.7 g/dl (13.5-17.5); MEAN CORPUSCULAR HEMOGLOBIN 33.2 pg (27.0-33.0); MEAN CORPUSCULAR HGB CONC 33.2 g/dl (32.0-36.5); RED BLOOD COUNT 2.92 10^6/uL (4.30-6.10); WHITE BLOOD COUNT 4.8 10^3/uL (4.0-10.0)
[2024-04-16 05:47] LABS: PLATELET COUNT, AUTOMATED 46 10^3/uL (150-450)
[2024-04-16 06:00] LABS: BLOOD UREA NITROGEN 12 MG/DL (9-23); CALCIUM LEVEL 8.6 MG/DL (8.5-10.1); CARBON DIOXIDE LEVEL 23 MMOL/L (20-31); CHLORIDE LEVEL 114 MMOL/L (98-107); CREATININE FOR GFR 0.72 MG/DL (0.70-1.30); GLOMERULAR FILTRATION RATE > 60.0 (>60); GLUCOSE, FASTING 105 MG/DL (60-100); POTASSIUM SERUM 3.3 MMOL/L (3.5-5.1); SODIUM LEVEL 142 MMOL/L (136-145)
[2024-04-16] MEDS: POTASSIUM CHLORIDE 10MEQ SR TABLET PO SCH (09:17)
[2024-04-16] MEDS: FUROSEMIDE 20 MG TAB PO SCH (09:18)
[2024-04-16] MEDS ORDERED: POTA-136 PO (11:34)
[2024-04-16] MEDS ORDERED: DICL20GE TP (11:34)
[2024-04-16] MEDS ORDERED: LIDO5TD TD (12:45)
[2024-04-16] MEDS: ACETAMINOPHEN *IV* 1,000 MG in IV 1 EA IV ONE (21:45)
[2024-04-16] MEDS: DICLOFENAC EPOLAMINE 1.3% PATCH TOP SCH (21:46)
[2024-04-16 21:50] LABS: BASO % 0.5 % (0.0-1.0); EOS # 0.2 10^3/uL (0.0-0.5); EOS % 2.8 % (0.0-3.0); HEMATOCRIT 30.7 % (42.0-52.0); HEMOGLOBIN 10.5 g/dl (13.5-17.5); LYMPH # 1.1 10^3/uL (1.5-5.0); LYMPH % 16.3 % (24.0-44.0); MEAN CORPUSCULAR HEMOGLOBIN 33.9 pg (27.0-33.0); MEAN CORPUSCULAR HGB CONC 34.2 g/dl (32.0-36.5); MONO # 0.7 10^3/uL (0.0-0.8); MONO % 10.3 % (2.0-8.0); NEUTROPHILS # 4.5 10^3/uL (1.5-8.5); NEUTROPHILS % 69.6 % (36.0-66.0); WHITE BLOOD COUNT 6.5 10^3/uL (4.0-10.0)
[2024-04-16 21:55] LABS: PLATELET COUNT, AUTOMATED 48 10^3/uL (150-450)
[2024-04-16 21:59] LABS: ERYTHROCYTE SEDIMENTATION RATE 27 mm/hr (0-15)
[2024-04-16 22:06] LABS: ALBUMIN 2.4 G/DL (3.2-5.2); ALKALINE PHOSPHATASE 128 U/L (46-116); ALT/SGPT 22 U/L (7.0-40); AST/SGOT 32 U/L (<34); BILIRUBIN,DIRECT 0.9 MG/DL (<0.4); BILIRUBIN,TOTAL 1.6 MG/DL (0.3-1.2); BLOOD UREA NITROGEN 13 MG/DL (9-23); CALCIUM LEVEL 8.4 MG/DL (8.5-10.1); CARBON DIOXIDE LEVEL 22 MMOL/L (20-31); CHLORIDE LEVEL 112 MMOL/L (98-107); CREATININE FOR GFR 0.66 MG/DL (0.70-1.30); GLOMERULAR FILTRATION RATE > 60.0 (>60); GLUCOSE, FASTING 143 MG/DL (60-100); POTASSIUM SERUM 4.1 MMOL/L (3.5-5.1); SODIUM LEVEL 138 MMOL/L (136-145); TOTAL PROTEIN 6.1 G/DL (5.7-8.2)
[2024-04-16] MEDS: LACTULOSE 20GM/30ML SYRUP UDC PO SCH (23:12)
[2024-04-17 05:33] VITALS: BP 100/56; TEMP 98.1; O2SAT 96
[2024-04-17 05:45] VITALS: TEMP 100.8
[2024-04-17 06:11] LABS: BASO % 0.3 % (0.0-1.0); EOS # 0.1 10^3/uL (0.0-0.5); HEMATOCRIT 30.6 % (42.0-52.0); HEMOGLOBIN 10.5 g/dl (13.5-17.5); LYMPH # 0.4 10^3/uL (1.5-5.0); LYMPH % 6.4 % (24.0-44.0); MEAN CORPUSCULAR HEMOGLOBIN 34.2 pg (27.0-33.0); MEAN CORPUSCULAR HGB CONC 34.3 g/dl (32.0-36.5); MEAN CORPUSCULAR VOLUME 99.7 fl (80.0-96.0); MONO # 0.6 10^3/uL (0.0-0.8); MONO % 9.2 % (2.0-8.0); NEUTROPHILS # 4.9 10^3/uL (1.5-8.5); RED BLOOD COUNT 3.07 10^6/uL (4.30-6.10); WHITE BLOOD COUNT 6.1 10^3/uL (4.0-10.0)
[2024-04-17] MEDS: ACETAMINOPHEN TAB 650MG DOSE (2X325MG) PO ONE (06:23)
[2024-04-17 06:24] LABS: ALBUMIN 2.4 G/DL (3.2-5.2); ALKALINE PHOSPHATASE 128 U/L (46-116); ALT/SGPT 23 U/L (7.0-40); AST/SGOT 31 U/L (<34); BILIRUBIN,TOTAL 1.9 MG/DL (0.3-1.2); BLOOD UREA NITROGEN 11 MG/DL (9-23); CARBON DIOXIDE LEVEL 21 MMOL/L (20-31); CHLORIDE LEVEL 110 MMOL/L (98-107); CREATININE FOR GFR 0.64 MG/DL (0.70-1.30); GLOMERULAR FILTRATION RATE > 60.0 (>60); GLUCOSE, FASTING 191 MG/DL (60-100); MAGNESIUM LEVEL 2.1 MG/DL (1.8-2.4); POTASSIUM SERUM 3.8 MMOL/L (3.5-5.1); SODIUM LEVEL 138 MMOL/L (136-145); TOTAL PROTEIN 6.1 G/DL (5.7-8.2)
[2024-04-17 06:27] LABS: PLATELET COUNT, AUTOMATED 41 10^3/uL (150-450)
[2024-04-17 06:32] LABS: ERYTHROCYTE SEDIMENTATION RATE 26 mm/hr (0-15)
[2024-04-17 06:56] LABS: PROCALCITONIN 0.16 ng/ml
[2024-04-17 12:00] VITALS: BP 120/75; TEMP 97.5; O2SAT 98
[2024-04-17] MEDS: ACETAMINOPHEN TAB 650MG DOSE (2X325MG) PO PRN (17:54)
[2024-04-17 18:56] VITALS: TEMP 102.2
[2024-04-17 20:00] VITALS: BP 90/57; TEMP 102; O2SAT 96
[2024-04-17] MEDS: rifAXIMin 550 MG TAB (XIFAXAN) PO SCH (20:39)
[2024-04-17] MEDS ORDERED: ISOVUE-370 76% 100ML VIAL As Ordered ONE (21:45)
[2024-04-17 22:04] LABS: VENOUS BASE EXCESS -1.4 (-2.0-2.0); VENOUS HCO3 21.1 MMOL/L (23.0-27.0); VENOUS PARTIAL PRESSURE CO2 28.4 mmHg (38.0-50.0); VENOUS PARTIAL PRESSURE O2 181.9 mmHg (30.0-50.0); VENOUS PH 7.489 UNITS (7.330-7.430); VENOUS STANDARD HCO3 23.4 MMOL/L
[2024-04-17 22:24] LABS: BASO % 0.4 % (0.0-1.0); EOS % 0.7 % (0.0-3.0); HEMATOCRIT 29.3 % (42.0-52.0); LYMPH # 0.5 10^3/uL (1.5-5.0); LYMPH % 8.1 % (24.0-44.0); MEAN CORPUSCULAR HEMOGLOBIN 33.9 pg (27.0-33.0); MEAN CORPUSCULAR HGB CONC 34.1 g/dl (32.0-36.5); MEAN CORPUSCULAR VOLUME 99.3 fl (80.0-96.0); MONO # 0.6 10^3/uL (0.0-0.8); MONO % 11.4 % (2.0-8.0); NEUTROPHILS # 4.3 10^3/uL (1.5-8.5); NEUTROPHILS % 77.8 % (36.0-66.0); RED BLOOD COUNT 2.95 10^6/uL (4.30-6.10); WHITE BLOOD COUNT 5.5 10^3/uL (4.0-10.0)
[2024-04-17 22:30] LABS: ERYTHROCYTE SEDIMENTATION RATE 31 mm/hr (0-15); PLATELET COUNT, AUTOMATED 39 10^3/uL (150-450)
[2024-04-17 22:38] LABS: LIPASE 28 U/L (12-53)
[2024-04-17 22:39] LABS: AMYLASE 29 U/L (30-118)
[2024-04-17 22:40] LABS: ALBUMIN 2.3 G/DL (3.2-5.2); ALKALINE PHOSPHATASE 131 U/L (46-116); ALT/SGPT 22 U/L (7.0-40); AST/SGOT 30 U/L (<34); BILIRUBIN,DIRECT 1.1 MG/DL (<0.4); BILIRUBIN,TOTAL 1.7 MG/DL (0.3-1.2); BLOOD UREA NITROGEN 11 MG/DL (9-23); CALCIUM LEVEL 8.5 MG/DL (8.5-10.1); CARBON DIOXIDE LEVEL 22 MMOL/L (20-31); CHLORIDE LEVEL 109 MMOL/L (98-107); CREATININE FOR GFR 0.62 MG/DL (0.70-1.30); GLOMERULAR FILTRATION RATE > 60.0 (>60); GLUCOSE, FASTING 175 MG/DL (60-100); MAGNESIUM LEVEL 2.1 MG/DL (1.8-2.4); POTASSIUM SERUM 4.5 MMOL/L (3.5-5.1); SODIUM LEVEL 136 MMOL/L (136-145); TOTAL PROTEIN 5.8 G/DL (5.7-8.2)
[2024-04-18] VITALS: TEMP 98.2
[2024-04-18] MEDS ORDERED: FLEET ENEMA PR PRN (01:10)
[2024-04-18 04:00] VITALS: BP 106/64; TEMP 99; O2SAT 98
[2024-04-18 06:00] LABS: HEMATOCRIT 27.9 % (42.0-52.0); HEMOGLOBIN 9.3 g/dl (13.5-17.5); MEAN CORPUSCULAR HEMOGLOBIN 33.6 pg (27.0-33.0); MEAN CORPUSCULAR HGB CONC 33.3 g/dl (32.0-36.5); MEAN CORPUSCULAR VOLUME 100.7 fl (80.0-96.0); RED BLOOD COUNT 2.77 10^6/uL (4.30-6.10); WHITE BLOOD COUNT 3.9 10^3/uL (4.0-10.0)
[2024-04-18 06:19] LABS: PLATELET COUNT, AUTOMATED 31 10^3/uL (150-450)
[2024-04-18 06:26] LABS: ALKALINE PHOSPHATASE 122 U/L (46-116); ALT/SGPT 22 U/L (7.0-40); AST/SGOT 31 U/L (<34); BILIRUBIN,TOTAL 1.3 MG/DL (0.3-1.2); BLOOD UREA NITROGEN 10 MG/DL (9-23); CALCIUM LEVEL 8.5 MG/DL (8.5-10.1); CARBON DIOXIDE LEVEL 20 MMOL/L (20-31); CHLORIDE LEVEL 109 MMOL/L (98-107); CREATININE FOR GFR 0.67 MG/DL (0.70-1.30); GLOMERULAR FILTRATION RATE > 60.0 (>60); GLUCOSE, FASTING 233 MG/DL (60-100); MAGNESIUM LEVEL 2.1 MG/DL (1.8-2.4); POTASSIUM SERUM 4.5 MMOL/L (3.5-5.1); SODIUM LEVEL 134 MMOL/L (136-145); TOTAL PROTEIN 5.3 G/DL (5.7-8.2)
[2024-04-18 06:28] LABS: ATYPICAL LYMPH 3 % (0-5); EOSINOPHILS 3 % (0-3); LYMPHOCYTES 10 % (16-44); MONOCYTES 12 % (0-5); NEUTROPHILS 66 % (28-66); PLATELET ESTIMATE MARKED DECREASE (NORMAL)
[2024-04-18 06:29] LABS: ANISOCYTOSIS 1+; HYPOCHROMASIA 1+; OVALOCYTES 1+; POLYCHROMASIA 1+
[2024-04-18] MEDS: DOCUSATE SODIUM 100MG CAPSULE PO SCH (08:37)
[2024-04-18 12:00] VITALS: BP 102/70; TEMP 98.8; O2SAT 97
[2024-04-18 20:00] VITALS: BP 102/70; TEMP 98.8; O2SAT 95
[2024-04-19 05:20] VITALS: BP 105/67; TEMP 98.6; O2SAT 93
[2024-04-19 06:20] LABS: HEMATOCRIT 27.7 % (42.0-52.0); HEMOGLOBIN 9.6 g/dl (13.5-17.5); MEAN CORPUSCULAR HEMOGLOBIN 33.9 pg (27.0-33.0); MEAN CORPUSCULAR HGB CONC 34.7 g/dl (32.0-36.5); MEAN CORPUSCULAR VOLUME 97.9 fl (80.0-96.0); RED BLOOD COUNT 2.83 10^6/uL (4.30-6.10); WHITE BLOOD COUNT 3.9 10^3/uL (4.0-10.0)
[2024-04-19 06:24] LABS: PLATELET COUNT, AUTOMATED 36 10^3/uL (150-450)
[2024-04-19 12:00] VITALS: BP 101/67; TEMP 98.6; O2SAT 94
[2024-04-19] MEDS: ONDANSETRON 4MG TAB PO PRN (14:27)
[2024-04-19 20:40] VITALS: BP_SYST 107; BP_SYST 172; BP_DIAS 68; BP_DIAS 81; TEMP 99.1; O2SAT 95
[2024-04-20 03:10] VITALS: BP 105/68; TEMP 98.6; O2SAT 94
[2024-04-20 06:19] LABS: HEMATOCRIT 28.6 % (42.0-52.0); HEMOGLOBIN 9.9 g/dl (13.5-17.5); MEAN CORPUSCULAR HEMOGLOBIN 33.4 pg (27.0-33.0); MEAN CORPUSCULAR HGB CONC 34.6 g/dl (32.0-36.5); MEAN CORPUSCULAR VOLUME 96.6 fl (80.0-96.0); RED BLOOD COUNT 2.96 10^6/uL (4.30-6.10); WHITE BLOOD COUNT 3.9 10^3/uL (4.0-10.0)
[2024-04-20 06:46] LABS: ALBUMIN 2.2 G/DL (3.2-5.2); ALKALINE PHOSPHATASE 149 U/L (46-116); ALT/SGPT 20 U/L (7.0-40); AST/SGOT 31 U/L (<34); BILIRUBIN,TOTAL 1.1 MG/DL (0.3-1.2); BLOOD UREA NITROGEN 10 MG/DL (9-23); CALCIUM LEVEL 8.9 MG/DL (8.5-10.1); CARBON DIOXIDE LEVEL 24 MMOL/L (20-31); CHLORIDE LEVEL 108 MMOL/L (98-107); CREATININE FOR GFR 0.63 MG/DL (0.70-1.30); GLOMERULAR FILTRATION RATE > 60.0 (>60); GLUCOSE, FASTING 150 MG/DL (60-100); POTASSIUM SERUM 4.8 MMOL/L (3.5-5.1); SODIUM LEVEL 135 MMOL/L (136-145); TOTAL PROTEIN 5.8 G/DL (5.7-8.2)
[2024-04-20 10:45] LABS: ANISOCYTOSIS 1+; ATYPICAL LYMPH 2 % (0-5); EOSINOPHILS 6 % (0-3); LYMPHOCYTES 46 % (16-44); MONOCYTES 11 % (0-5); NEUTROPHILS 35 % (28-66); PLATELET ESTIMATE DECREASED (NORMAL); POIKILOCYTOSIS 1+; POLYCHROMASIA 1+
[2024-04-20 10:47] LABS: PLATELET COUNT, AUTOMATED 51 10^3/uL (150-450)
[2024-04-20 11:41] VITALS: BP 112/70
[2024-04-20] MEDS: LACTULOSE 20GM/30ML SYRUP UDC PO SCH (14:24)
[2024-04-20 15:19] LABS: PROCALCITONIN 0.22 ng/ml
[2024-04-20 15:57] VITALS: BP 102/64
[2024-04-20 21:13] VITALS: BP 102/65; TEMP 98.8; O2SAT 95
[2024-04-21 04:52] VITALS: BP 105/66; TEMP 99; O2SAT 96
[2024-04-21] MEDS: BISACODYL 10MG SUPP PR PRN (06:06)
[2024-04-21 06:07] LABS: BASO % 0.8 % (0.0-1.0); EOS # 0.4 10^3/uL (0.0-0.5); EOS % 6.9 % (0.0-3.0); HEMATOCRIT 30.9 % (42.0-52.0); HEMOGLOBIN 10.6 g/dl (13.5-17.5); LYMPH # 1.2 10^3/uL (1.5-5.0); LYMPH % 23.1 % (24.0-44.0); MEAN CORPUSCULAR HEMOGLOBIN 33.5 pg (27.0-33.0); MEAN CORPUSCULAR HGB CONC 34.3 g/dl (32.0-36.5); MEAN CORPUSCULAR VOLUME 97.8 fl (80.0-96.0); MONO # 1.1 10^3/uL (0.0-0.8); MONO % 20.4 % (2.0-8.0); NEUTROPHILS # 2.5 10^3/uL (1.5-8.5); NEUTROPHILS % 47.8 % (36.0-66.0); RED BLOOD COUNT 3.16 10^6/uL (4.30-6.10); WHITE BLOOD COUNT 5.2 10^3/uL (4.0-10.0)
[2024-04-21 06:10] LABS: PLATELET COUNT, AUTOMATED 56 10^3/uL (150-450)
[2024-04-21 06:44] LABS: ALBUMIN 2.3 G/DL (3.2-5.2); ALKALINE PHOSPHATASE 160 U/L (46-116); ALT/SGPT 24 U/L (7.0-40); AST/SGOT 33 U/L (<34); BILIRUBIN,TOTAL 1.1 MG/DL (0.3-1.2); BLOOD UREA NITROGEN 12 MG/DL (9-23); CALCIUM LEVEL 9.1 MG/DL (8.5-10.1); CARBON DIOXIDE LEVEL 22 MMOL/L (20-31); CHLORIDE LEVEL 109 MMOL/L (98-107); CREATININE FOR GFR 0.61 MG/DL (0.70-1.30); GLOMERULAR FILTRATION RATE > 60.0 (>60); GLUCOSE, FASTING 222 MG/DL (60-100); POTASSIUM SERUM 4.7 MMOL/L (3.5-5.1); SODIUM LEVEL 134 MMOL/L (136-145); TOTAL PROTEIN 6.1 G/DL (5.7-8.2)
[2024-04-21 08:00] VITALS: BP 130/87
[2024-04-21 12:00] VITALS: BP 125/85; TEMP 99; O2SAT 96
[2024-04-22] MEDS ORDERED: DICL100G10 (14:11)
[2024-04-22] MEDS ORDERED: ONDA-282 (14:11)
== END 2024-04-21 13:19 | disposition home or self-care (01) | DRG 809 ==
LOC: EDBD 16:21 → M ED 16:21 → M ED INP 16:22 → M MSPAV 04-13 15:51 → OBSVTOIN 04-20 08:58
PROVIDERS: ADMIT Internal Medicine; ATTEND Internal Medicine
DX: D61.818 Other pancytopenia (principal); K76.6 Portal hypertension; R45.851 Suicidal ideations; J98.11 Atelectasis; D84.9 Immunodeficiency, unspecified; E72.20 Disorder of urea cycle metabolism, unspecified; F11.20 Opioid dependence, uncomplicated; E87.6 Hypokalemia; I10 Essential (primary) hypertension; E78.5 Hyperlipidemia, unspecified; F32.A Depression, unspecified; K76.82 Hepatic encephalopathy; F17.210 Nicotine dependence, cigarettes, uncomplicated; K57.90 Diverticulosis of intestine, part unspecified, without perforation or abscess without bleeding; G89.29 Other chronic pain; R33.9 Retention of urine, unspecified; I95.89 Other hypotension; K70.31 Alcoholic cirrhosis of liver with ascites; M54.59 Other low back pain; D69.6 Thrombocytopenia, unspecified; Z79.899 Other long term (current) drug therapy; Z79.82 Long term (current) use of aspirin; N40.0 Benign prostatic hyperplasia without lower urinary tract symptoms; F10.10 Alcohol abuse, uncomplicated; K59.00 Constipation, unspecified

== ENCOUNTER 2024-04-23 22:36 | Emergency (ER) | payer MEDICARE ==
[~2024-04-23] VITALS: Ht 162.6 cm; Wt 61.3 kg
[~2024-04-23 22:36] MED LIST changes: +AMOX500C PO; +CONS10SO3 PO; +DICL100G10; +DICL20GE TP; +LIDO5TD TD; +ONDA-282; +POTA-136 PO
[2024-04-23 22:44] VITALS: TEMP 99
[2024-04-24 00:31] LABS: BASO # 0.1 10^3/uL (0.0-0.2); BASO % 1.4 % (0.0-1.0); EOS # 0.5 10^3/uL (0.0-0.5); EOS % 6.6 % (0.0-3.0); HEMATOCRIT 34.1 % (42.0-52.0); HEMOGLOBIN 11.7 g/dl (13.5-17.5); LYMPH # 1.5 10^3/uL (1.5-5.0); LYMPH % 20.4 % (24.0-44.0); MEAN CORPUSCULAR HEMOGLOBIN 34.1 pg (27.0-33.0); MEAN CORPUSCULAR HGB CONC 34.3 g/dl (32.0-36.5); MEAN CORPUSCULAR VOLUME 99.4 fl (80.0-96.0); MONO # 0.9 10^3/uL (0.0-0.8); MONO % 12.4 % (2.0-8.0); NEUTROPHILS # 3.9 10^3/uL (1.5-8.5); NEUTROPHILS % 55.4 % (36.0-66.0); PLATELET COUNT, AUTOMATED 114 10^3/uL (150-450); RED BLOOD COUNT 3.43 10^6/uL (4.30-6.10); WHITE BLOOD COUNT 7.1 10^3/uL (4.0-10.0)
[2024-04-24 00:32] LABS: LIPASE 55 U/L (12-53)
[2024-04-24 00:50] LABS: ALKALINE PHOSPHATASE 199 U/L (46-116); ALT/SGPT 37 U/L (7.0-40); AST/SGOT 56 U/L (<34); BILIRUBIN,DIRECT 0.7 MG/DL (<0.4); BILIRUBIN,TOTAL 1.3 MG/DL (0.3-1.2); BLOOD UREA NITROGEN 11 MG/DL (9-23); CALCIUM LEVEL 8.6 MG/DL (8.5-10.1); CARBON DIOXIDE LEVEL 17 MMOL/L (20-31); CHLORIDE LEVEL 106 MMOL/L (98-107); CREATININE FOR GFR 0.59 MG/DL (0.70-1.30); GLOMERULAR FILTRATION RATE > 60.0 (>60); GLUCOSE, FASTING 203 MG/DL (60-100); POTASSIUM SERUM 4.2 MMOL/L (3.5-5.1); SODIUM LEVEL 132 MMOL/L (136-145); TOTAL PROTEIN 7.5 G/DL (5.7-8.2)
[2024-04-24] MEDS ORDERED: ISOVUE-370 76% 100ML VIAL As Ordered ONE (05:38)
[2024-04-24] MEDS: MORPHINE 2 MG/ML 1ML VIAL IV ONE (05:43)
[2024-04-24] MEDS: METOCLOPRAMIDE INJ 10MG/2ML VIAL IV ONE (05:43)
[2024-04-24] MEDS: FAMOTIDINE 20MG/2ML VIAL IVP ONE (06:50)
[2024-04-24] MEDS: NS 1,000 ML IV ONE (06:50)
[2024-04-24] MEDS ORDERED: FLEEENE12 PR (08:38)
[2024-04-24 09:00] VITALS: BP 113/63
[2024-04-24 09:06] VITALS: O2SAT 98
== END 2024-04-24 09:34 | disposition home or self-care (01) ==
LOC: M ED 22:36 → EDBD 22:36 → M ED 04-24 09:34
DX: K59.09 Other constipation (principal); D35.02 Benign neoplasm of left adrenal gland; K86.1 Other chronic pancreatitis; K21.9 Gastro-esophageal reflux disease without esophagitis; K74.60 Unspecified cirrhosis of liver; N40.0 Benign prostatic hyperplasia without lower urinary tract symptoms; E11.9 Type 2 diabetes mellitus without complications; F17.200 Nicotine dependence, unspecified, uncomplicated; Z79.84 Long term (current) use of oral hypoglycemic drugs; Z79.82 Long term (current) use of aspirin; Z79.899 Other long term (current) drug therapy
CPT/HCPCS: 74177; 80048; 80076; 83690; 85025; 96374; 96375; 99284; J2765; Q9967

== ENCOUNTER → 2024-04-27 | Outpatient (CLI) | payer MEDICARE ==
[~2024-04-27] MED LIST changes: +FLEEENE12 PR
== END ==
LOC: M RAD 13:19
PROVIDERS: ATTEND Radiology Diagnostic Radiology
DX: N28.1 Cyst of kidney, acquired (principal); K74.60 Unspecified cirrhosis of liver
CPT/HCPCS: 76700; 93975; G0463

== ENCOUNTER 2024-05-11 08:00 | Inpatient (IN) | payer MEDICARE ==
[~2024-05-11] VITALS: Ht 162.6 cm; Wt 58.2 kg
[~2024-05-11 08:00] MED LIST changes: +GABA-1172 PO; -GABA-282 PO
[2024-05-11] MEDS: ONDANSETRON 4MG 2ML VIAL IV ONE (08:52)
[2024-05-11] MEDS: LOPERAMIDE 2 MG CAPLET PO ONE (08:52)
[2024-05-11 09:06] LABS: BASO # 0.1 10^3/uL (0.0-0.2); BASO % 1.8 % (0.0-1.0); EOS # 0.1 10^3/uL (0.0-0.5); EOS % 2.3 % (0.0-3.0); HEMATOCRIT 34.2 % (42.0-52.0); HEMOGLOBIN 11.7 g/dl (13.5-17.5); LYMPH # 0.8 10^3/uL (1.5-5.0); LYMPH % 18.9 % (24.0-44.0); MEAN CORPUSCULAR HEMOGLOBIN 33.7 pg (27.0-33.0); MEAN CORPUSCULAR HGB CONC 34.2 g/dl (32.0-36.5); MEAN CORPUSCULAR VOLUME 98.6 fl (80.0-96.0); MONO # 0.3 10^3/uL (0.0-0.8); MONO % 7.4 % (2.0-8.0); NEUTROPHILS % 69.4 % (36.0-66.0); RED BLOOD COUNT 3.47 10^6/uL (4.30-6.10); WHITE BLOOD COUNT 4.4 10^3/uL (4.0-10.0)
[2024-05-11 09:08] LABS: PLATELET COUNT, AUTOMATED 73 10^3/uL (150-450)
[2024-05-11 09:15] LABS: INR 1.45; PROTHROMBIN TIME 17.2 SECONDS (12.5-14.5)
[2024-05-11 09:24] LABS: C REACTIVE PROTEIN QUANTITATIV < 0.40 MG/DL (<1.0); LIPASE 31 U/L (12-53)
[2024-05-11 09:29] LABS: ALBUMIN 2.7 G/DL (3.2-5.2); ALKALINE PHOSPHATASE 140 U/L (46-116); ALT/SGPT 32 U/L (7.0-40); AST/SGOT 78 U/L (<34); BILIRUBIN,DIRECT 0.7 MG/DL (<0.4); BILIRUBIN,TOTAL 1.3 MG/DL (0.3-1.2); BLOOD UREA NITROGEN 6 MG/DL (9-23); CALCIUM LEVEL 8.4 MG/DL (8.5-10.1); CARBON DIOXIDE LEVEL 21 MMOL/L (20-31); CHLORIDE LEVEL 113 MMOL/L (98-107); CREATININE FOR GFR 0.57 MG/DL (0.70-1.30); GLOMERULAR FILTRATION RATE > 60.0 (>60); GLUCOSE, FASTING 143 MG/DL (60-100); POTASSIUM SERUM 2.8 MMOL/L (3.5-5.1); SODIUM LEVEL 144 MMOL/L (136-145); TOTAL PROTEIN 6.7 G/DL (5.7-8.2)
[2024-05-11] MEDS ORDERED: KCL 10MEQ/100ML SWI (KRUN) 10 MEQ in IV 1 EA IV ONE ×3 (09:40)
[2024-05-11] MEDS: KCL 10MEQ/100ML SWI (KRUN) 10 MEQ in IV 1 EA IV SCH (10:00)
[2024-05-11] MEDS: PIPERACILLIN/TAZOBACTAM SOD 4.5 GM in D5W MINI-BAG PLUS 50 ML IV ONE (10:00)
[2024-05-11] MEDS: NS 1,850 ML in IV 1 EA IV ONE (10:00)
[2024-05-11] MEDS ORDERED: DICL20GE TOP (10:19)
[2024-05-11] MEDS ORDERED: POTA-136 PO (10:28)
[2024-05-11] MEDS ORDERED: HOME MED LIST COMPLETE! XX SCH (10:40)
[2024-05-11] MEDS ORDERED: ISOVUE-370 76% 100ML VIAL As Ordered ONE (11:06)
[2024-05-11] MEDS: KETOROLAC 30 MG/ML 1ML VIAL IV ONE (13:11)
[2024-05-11] MEDS: TAMSULOSIN 0.4 MG CAP PO SCH (15:11)
[2024-05-11] MEDS: ASPIRIN 81MG ENTERIC TABLET PO SCH (15:11)
[2024-05-11] MEDS: FOLIC ACID 1MG TAB PO SCH (15:11)
[2024-05-11] MEDS: THIAMINE 100 MG TAB PO SCH (15:11)
[2024-05-11] MEDS: POTASSIUM CHLORIDE 10MEQ SR TABLET PO SCH (15:11)
[2024-05-11] MEDS: MIDODRINE 5 MG TAB PO SCH (15:12)
[2024-05-11] MEDS: SPIRONOLACTONE 50 MG TAB PO SCH (15:12)
[2024-05-11] MEDS: oxyCODONE 5MG TAB PO PRN (15:12)
[2024-05-11 16:10] LABS: AMPHETAMINES LEVEL URINE NEGATIVE (NEGATIVE); BARBITURATES URINE NEGATIVE (NEGATIVE); BENZODIAZEPINES URINE NEGATIVE (NEGATIVE); COCAINE METABOLITE URINE NEGATIVE (NEGATIVE); METHADONE URINE NEGATIVE (NEGATIVE); OPIATES URINE NEGATIVE (NEGATIVE); PHENCYCLIDINE URINE NEGATIVE (NEGATIVE)
[2024-05-11 16:13] LABS: CANNABINOIDS URINE POSITIVE (NEGATIVE)
[2024-05-11] MEDS: ACETAMINOPHEN 325 MG TAB PO PRN (17:58)
[2024-05-11 18:09] VITALS: BP 137/89; TEMP 99; O2SAT 99
[2024-05-11] MEDS: METOCLOPRAMIDE INJ 10MG/2ML VIAL IV SCH (18:35)
[2024-05-11] MEDS: CIPROFLOXACIN 400 MG in IV 1 EA IV SCH (18:35)
[2024-05-11] MEDS: CREON-12 CAPSULE (PANCRELIPASE) PO SCH (18:35)
[2024-05-11] MEDS: metroNIDAZOLE 500 MG in IV 1 EA IV SCH (19:52)
[2024-05-11] MEDS: MAGNESIUM OXIDE 400MG TAB (MAG-OX) PO SCH (19:53)
[2024-05-11] MEDS: PANTOPRAZOLE 40MG TAB (PROTONIX) PO SCH (19:53)
[2024-05-11] MEDS: FAMOTIDINE 20 MG TAB PO SCH (19:53)
[2024-05-11] MEDS: CARVedilol 3.125 MG TAB PO SCH (19:57)
[2024-05-11] MEDS: GABAPENTIN 100 MG CAP PO SCH (19:57)
[2024-05-11 20:13] VITALS: BP 134/68; TEMP 99.8; O2SAT 98
[2024-05-12 04:16] VITALS: BP 102/64; TEMP 99; O2SAT 98
[2024-05-12 05:49] LABS: MEAN CORPUSCULAR HEMOGLOBIN 33.1 pg (27.0-33.0); MEAN CORPUSCULAR HGB CONC 33.3 g/dl (32.0-36.5); MEAN CORPUSCULAR VOLUME 99.3 fl (80.0-96.0); RED BLOOD COUNT 2.78 10^6/uL (4.30-6.10); WHITE BLOOD COUNT 4.2 10^3/uL (4.0-10.0)
[2024-05-12 06:23] LABS: ALBUMIN 1.9 G/DL (3.2-5.2); ALKALINE PHOSPHATASE 97 U/L (46-116); ALT/SGPT 22 U/L (7.0-40); AST/SGOT 51 U/L (<34); BILIRUBIN,TOTAL 1.5 MG/DL (0.3-1.2); BLOOD UREA NITROGEN 5 MG/DL (9-23); CALCIUM LEVEL 7.1 MG/DL (8.5-10.1); CARBON DIOXIDE LEVEL 20 MMOL/L (20-31); CHLORIDE LEVEL 115 MMOL/L (98-107); GLOMERULAR FILTRATION RATE > 60.0 (>60); GLUCOSE, FASTING 95 MG/DL (60-100); MAGNESIUM LEVEL 1.8 MG/DL (1.8-2.4); POTASSIUM SERUM 3.1 MMOL/L (3.5-5.1); SODIUM LEVEL 141 MMOL/L (136-145)
[2024-05-12 06:26] LABS: PLATELET COUNT, AUTOMATED 56 10^3/uL (150-450)
[2024-05-12 06:27] LABS: HEMATOCRIT 27.6 % (42.0-52.0); HEMOGLOBIN 9.2 g/dl (13.5-17.5)
[2024-05-12] MEDS: POTASSIUM CHLORIDE 10MEQ SR TABLET PO SCH (09:44)
[2024-05-12] MEDS: MAG SULF 1GM/100ML (MAG RUN) 1 GM in IV 1 EA IV SCH (09:50)
[2024-05-12 12:00] VITALS: BP 103/64; TEMP 98.8; O2SAT 97
[2024-05-12 13:26] LABS: FREE T4 0.92 NG/DL (0.89-1.76)
[2024-05-12 13:27] LABS: THYROID STIMULATING HORMONE 1.405 uIU/ML (0.55-4.78)
[2024-05-12] MEDS: KCL 10MEQ/100ML SWI (KRUN) 10 MEQ in IV 1 EA IV SCH (14:51)
[2024-05-12] MEDS ORDERED: KCL 10MEQ IN STERILE WATER 100ML As Ordered ONE (15:43)
[2024-05-12 20:00] VITALS: BP 98/58; TEMP 98.8; O2SAT 97
[2024-05-13 04:00] VITALS: BP 92/52; TEMP 98.6; O2SAT 94
[2024-05-13 05:55] LABS: EOS # 0.2 10^3/uL (0.0-0.5); EOS % 6.2 % (0.0-3.0); HEMOGLOBIN 9.1 g/dl (13.5-17.5); LYMPH # 0.8 10^3/uL (1.5-5.0); LYMPH % 26.1 % (24.0-44.0); MEAN CORPUSCULAR HEMOGLOBIN 32.7 pg (27.0-33.0); MEAN CORPUSCULAR HGB CONC 32.5 g/dl (32.0-36.5); MEAN CORPUSCULAR VOLUME 100.7 fl (80.0-96.0); MONO # 0.4 10^3/uL (0.0-0.8); MONO % 11.8 % (2.0-8.0); NEUTROPHILS # 1.7 10^3/uL (1.5-8.5); NEUTROPHILS % 54.2 % (36.0-66.0); RED BLOOD COUNT 2.78 10^6/uL (4.30-6.10); WHITE BLOOD COUNT 3.1 10^3/uL (4.0-10.0)
[2024-05-13 06:07] LABS: PLATELET COUNT, AUTOMATED 47 10^3/uL (150-450)
[2024-05-13 06:24] LABS: ALBUMIN 1.8 G/DL (3.2-5.2); ALKALINE PHOSPHATASE 105 U/L (46-116); ALT/SGPT 21 U/L (7.0-40); AST/SGOT 45 U/L (<34); BILIRUBIN,TOTAL 1.1 MG/DL (0.3-1.2); BLOOD UREA NITROGEN 6 MG/DL (9-23); CALCIUM LEVEL 7.5 MG/DL (8.5-10.1); CARBON DIOXIDE LEVEL 19 MMOL/L (20-31); CHLORIDE LEVEL 116 MMOL/L (98-107); CREATININE FOR GFR 0.76 MG/DL (0.70-1.30); GLOMERULAR FILTRATION RATE > 60.0 (>60); GLUCOSE, FASTING 146 MG/DL (60-100); MAGNESIUM LEVEL 2.3 MG/DL (1.8-2.4); POTASSIUM SERUM 3.8 MMOL/L (3.5-5.1); SODIUM LEVEL 140 MMOL/L (136-145); TOTAL PROTEIN 4.9 G/DL (5.7-8.2)
[2024-05-13] MEDS: SODIUM BICARBONATE 325 MG TAB PO SCH (10:29)
[2024-05-13 12:00] VITALS: BP 93/53; TEMP 98.5; O2SAT 93
[2024-05-13 15:49] VITALS: BP 91/51
[2024-05-13 20:00] VITALS: BP 93/66; TEMP 99; O2SAT 93
[2024-05-13] MEDS: traZODone 100 MG TAB PO PRN (20:47)
[2024-05-14] MEDS ORDERED: LIDOCAINE 5% (LIDODERM) PATCH TD PRN (01:00)
[2024-05-14] MEDS: GASTROGRAFIN SOLUTION 30ML PO SCH (01:08)
[2024-05-14 04:00] VITALS: BP 107/69; TEMP 97.9; O2SAT 95
[2024-05-14 05:24] VITALS: BP 133/85; TEMP 98.8; O2SAT 96
[2024-05-14 06:10] LABS: BASO % 1.2 % (0.0-1.0); EOS # 0.3 10^3/uL (0.0-0.5); EOS % 7.2 % (0.0-3.0); HEMOGLOBIN 9.7 g/dl (13.5-17.5); LYMPH % 29.3 % (24.0-44.0); MEAN CORPUSCULAR HEMOGLOBIN 33.2 pg (27.0-33.0); MEAN CORPUSCULAR HGB CONC 33.4 g/dl (32.0-36.5); MEAN CORPUSCULAR VOLUME 99.3 fl (80.0-96.0); MONO # 0.4 10^3/uL (0.0-0.8); MONO % 11.6 % (2.0-8.0); NEUTROPHILS # 1.7 10^3/uL (1.5-8.5); NEUTROPHILS % 50.1 % (36.0-66.0); RED BLOOD COUNT 2.92 10^6/uL (4.30-6.10); WHITE BLOOD COUNT 3.5 10^3/uL (4.0-10.0)
[2024-05-14 06:26] LABS: PLATELET COUNT, AUTOMATED 50 10^3/uL (150-450)
[2024-05-14 06:28] LABS: C REACTIVE PROTEIN QUANTITATIV < 0.40 MG/DL (<1.0)
[2024-05-14 06:30] LABS: BLOOD UREA NITROGEN < 5 MG/DL (9-23); CALCIUM LEVEL 7.9 MG/DL (8.5-10.1); CARBON DIOXIDE LEVEL 19 MMOL/L (20-31); CHLORIDE LEVEL 118 MMOL/L (98-107); CREATININE FOR GFR 0.62 MG/DL (0.70-1.30); GLOMERULAR FILTRATION RATE > 60.0 (>60); GLUCOSE, FASTING 140 MG/DL (60-100); MAGNESIUM LEVEL 2.1 MG/DL (1.8-2.4); POTASSIUM SERUM 4.3 MMOL/L (3.5-5.1); SODIUM LEVEL 142 MMOL/L (136-145)
[2024-05-14 06:32] LABS: ALBUMIN 1.9 G/DL (3.2-5.2); BILIRUBIN,DIRECT 0.5 MG/DL (<0.4); BILIRUBIN,TOTAL 0.9 MG/DL (0.3-1.2)
[2024-05-14 09:45] VITALS: BP 98/58
[2024-05-14] MEDS: SODIUM BICARBONATE 325 MG TAB PO SCH (10:29)
[2024-05-14 12:00] VITALS: BP 109/64; TEMP 98.6; O2SAT 98
[2024-05-14 17:17] VITALS: BP 104/54
[2024-05-14 20:30] VITALS: BP 111/67; TEMP 98.5; O2SAT 98
[2024-05-15 04:00] VITALS: BP 96/66; TEMP 99.3; O2SAT 96
[2024-05-15] MEDS ORDERED: METOCLOPRAMIDE 10MG TAB PO PRN (10:20)
[2024-05-15 12:00] VITALS: BP 121/75; TEMP 99; O2SAT 97
[2024-05-15] MEDS: metroNIDAZOLE (FLAGYL) 500MG TABLET PO SCH (12:32)
[2024-05-15 14:57] VITALS: BP 108/68
[2024-05-15 17:27] VITALS: BP 99/62
[2024-05-15] MEDS: CIPROFLOXACIN 500MG TABLET PO SCH (17:32)
[2024-05-15 20:13] VITALS: BP 105/60; TEMP 98.8; O2SAT 96
[2024-05-16 04:28] VITALS: BP 114/64; TEMP 99.3; O2SAT 98
[2024-05-16 05:19] LABS: BASO % 0.6 % (0.0-1.0); EOS # 0.4 10^3/uL (0.0-0.5); EOS % 7.7 % (0.0-3.0); HEMOGLOBIN 9.9 g/dl (13.5-17.5); LYMPH # 1.2 10^3/uL (1.5-5.0); LYMPH % 23.7 % (24.0-44.0); MEAN CORPUSCULAR HEMOGLOBIN 33.1 pg (27.0-33.0); MEAN CORPUSCULAR HGB CONC 34.1 g/dl (32.0-36.5); MONO # 0.8 10^3/uL (0.0-0.8); MONO % 15.6 % (2.0-8.0); NEUTROPHILS # 2.6 10^3/uL (1.5-8.5); NEUTROPHILS % 51.8 % (36.0-66.0); RED BLOOD COUNT 2.99 10^6/uL (4.30-6.10); WHITE BLOOD COUNT 4.9 10^3/uL (4.0-10.0)
[2024-05-16 05:24] LABS: PLATELET COUNT, AUTOMATED 64 10^3/uL (150-450)
[2024-05-16 05:40] LABS: BLOOD UREA NITROGEN 9 MG/DL (9-23); CALCIUM LEVEL 8.4 MG/DL (8.5-10.1); CARBON DIOXIDE LEVEL 22 MMOL/L (20-31); CHLORIDE LEVEL 114 MMOL/L (98-107); CREATININE FOR GFR 0.66 MG/DL (0.70-1.30); GLOMERULAR FILTRATION RATE > 60.0 (>60); GLUCOSE, FASTING 218 MG/DL (60-100); POTASSIUM SERUM 4.7 MMOL/L (3.5-5.1); SODIUM LEVEL 139 MMOL/L (136-145)
[2024-05-16] MEDS: NS 1,000 ML IV SCH (10:17)
[2024-05-16 12:00] VITALS: BP 111/65; TEMP 98.8; O2SAT 97
[2024-05-16 14:28] VITALS: BP 96/54
[2024-05-16 15:16] VITALS: BP 105/65
[2024-05-16 19:51] VITALS: BP 93/49; TEMP 99; O2SAT 99
[2024-05-17 04:00] VITALS: BP 110/75; TEMP 99.3; O2SAT 95
[2024-05-17] MEDS ORDERED: MIDAZOLAM INJ 2MG/2ML VIAL As Ordered ONE (11:59)
[2024-05-17] MEDS ORDERED: fentaNYL 100 MCG/2 ML INJECTION As Ordered ONE (11:59)
[2024-05-17] MEDS ORDERED: propofoL 200 MG/20 ML VIAL As Ordered ONE (12:00)
[2024-05-17] MEDS ORDERED: NS 1,000 ML IV SCH (12:15)
[2024-05-17] MEDS: LR 1,000 ML IV SCH (12:15)
[2024-05-17] MEDS ORDERED: ISOVUE-300 61% 100ML VIAL As Ordered ONE (12:31)
[2024-05-17] MEDS ORDERED: LIDOCAINE 1% MDV 20ML VIAL As Ordered ONE (12:32)
[2024-05-17] MEDS ORDERED: PHENYLephrine 500MCG 5ML (100MCG/ML) SYRINGE As Ordered ONE (13:30)
[2024-05-17] MEDS ORDERED: PERCOCET 5MG/325MG TAB PO PRN (14:00)
[2024-05-17 15:00] VITALS: BP 108/62; TEMP 97.9; O2SAT 98
[2024-05-17] MEDS: NS 1,000 ML IV SCH (15:18)
[2024-05-17 19:31] VITALS: BP 93/62; TEMP 98.5; O2SAT 96
[2024-05-18 04:00] VITALS: BP 106/67; TEMP 97.3; O2SAT 97
[2024-05-18 06:22] LABS: HEMOGLOBIN 9.2 g/dl (13.5-17.5); MEAN CORPUSCULAR HEMOGLOBIN 33.8 pg (27.0-33.0); MEAN CORPUSCULAR HGB CONC 34.1 g/dl (32.0-36.5); MEAN CORPUSCULAR VOLUME 99.3 fl (80.0-96.0); RED BLOOD COUNT 2.72 10^6/uL (4.30-6.10); WHITE BLOOD COUNT 5.3 10^3/uL (4.0-10.0)
[2024-05-18 06:23] LABS: PLATELET COUNT, AUTOMATED 56 10^3/uL (150-450)
[2024-05-18 06:50] LABS: ALKALINE PHOSPHATASE 146 U/L (46-116); ALT/SGPT 18 U/L (7.0-40); AST/SGOT 32 U/L (<34); BILIRUBIN,TOTAL 0.8 MG/DL (0.3-1.2); BLOOD UREA NITROGEN 9 MG/DL (9-23); CALCIUM LEVEL 8.1 MG/DL (8.5-10.1); CARBON DIOXIDE LEVEL 21 MMOL/L (20-31); CHLORIDE LEVEL 111 MMOL/L (98-107); CREATININE FOR GFR 0.56 MG/DL (0.70-1.30); GLOMERULAR FILTRATION RATE > 60.0 (>60); GLUCOSE, FASTING 160 MG/DL (60-100); POTASSIUM SERUM 4.3 MMOL/L (3.5-5.1); SODIUM LEVEL 137 MMOL/L (136-145); TOTAL PROTEIN 5.2 G/DL (5.7-8.2)
[2024-05-18 09:14] VITALS: BP 105/68
[2024-05-18] MEDS ORDERED: SODI325T9 PO (09:57)
[2024-05-18] MEDS ORDERED: METR-265 PO (09:57)
[2024-05-18] MEDS ORDERED: CIPR500T39 PO (09:57)
[2024-05-18] MEDS ORDERED: PROB250C PO (09:58)
[2024-05-18 10:15] VITALS: O2SAT 95
== END 2024-05-18 13:05 | disposition home or self-care (01) | DRG 253 ==
LOC: M ED 08:00 → EDBD 08:00 → M ED INP 13:35 → M MSPAV 16:52
PROVIDERS: ADMIT Hospitalist; ATTEND Internal Medicine
PROC: 05L Upper Veins, Occlusion (ICD-10-PCS; principal; 2024-05-17 12:30)
DX: I86.8 Varicose veins of other specified sites (principal); K76.6 Portal hypertension; Z59.00 Homelessness unspecified; K86.1 Other chronic pancreatitis; Q26.9 Congenital malformation of great vein, unspecified; K52.9 Noninfective gastroenteritis and colitis, unspecified; F17.210 Nicotine dependence, cigarettes, uncomplicated; I95.9 Hypotension, unspecified; G89.29 Other chronic pain; F12.90 Cannabis use, unspecified, uncomplicated; N40.0 Benign prostatic hyperplasia without lower urinary tract symptoms; M54.59 Other low back pain; I10 Essential (primary) hypertension; K70.31 Alcoholic cirrhosis of liver with ascites; E87.6 Hypokalemia; G47.00 Insomnia, unspecified; Z76.5 Malingerer [conscious simulation]; E78.5 Hyperlipidemia, unspecified; Z79.899 Other long term (current) drug therapy; Z79.82 Long term (current) use of aspirin

== ENCOUNTER 2024-05-22 12:20 | Inpatient (IN) | payer MEDICARE ==
[~2024-05-22] VITALS: Ht 162.6 cm; Wt 61.4 kg
[~2024-05-22 12:20] MED LIST changes: +DICL20GE TOP; +METR-265 PO; +PROB250C PO
[2024-05-22 14:48] LABS: BASO % 0.8 % (0.0-1.0); EOS # 0.2 10^3/uL (0.0-0.5); HEMATOCRIT 31.1 % (42.0-52.0); HEMOGLOBIN 10.5 g/dl (13.5-17.5); LYMPH # 0.9 10^3/uL (1.5-5.0); LYMPH % 17.9 % (24.0-44.0); MEAN CORPUSCULAR HEMOGLOBIN 33.1 pg (27.0-33.0); MEAN CORPUSCULAR HGB CONC 33.8 g/dl (32.0-36.5); MEAN CORPUSCULAR VOLUME 98.1 fl (80.0-96.0); MONO # 0.4 10^3/uL (0.0-0.8); MONO % 8.7 % (2.0-8.0); NEUTROPHILS # 3.4 10^3/uL (1.5-8.5); RED BLOOD COUNT 3.17 10^6/uL (4.30-6.10); WHITE BLOOD COUNT 4.9 10^3/uL (4.0-10.0)
[2024-05-22 15:09] LABS: INR 1.64; PARTIAL THROMBOPLASTIN TIME 33.4 SECONDS (24.8-34.2); PLATELET COUNT, AUTOMATED 88 10^3/uL (150-450); PROTHROMBIN TIME 18.9 SECONDS (12.5-14.5)
[2024-05-22 15:14] LABS: ERYTHROCYTE SEDIMENTATION RATE 42 mm/hr (0-15)
[2024-05-22 15:23] LABS: LIPASE 26 U/L (12-53)
[2024-05-22 15:25] LABS: C REACTIVE PROTEIN QUANTITATIV < 0.40 MG/DL (<1.0); ETHYL ALCOHOL (ETHANOL) < 0.003 % (0.000-0.010)
[2024-05-22 15:26] LABS: ALBUMIN 2.6 G/DL (3.2-5.2); ALKALINE PHOSPHATASE 173 U/L (46-116); ALT/SGPT 26 U/L (7.0-40); AST/SGOT 66 U/L (<34); BILIRUBIN,DIRECT 0.9 MG/DL (<0.4); BILIRUBIN,TOTAL 1.9 MG/DL (0.3-1.2); BLOOD UREA NITROGEN 12 MG/DL (9-23); CALCIUM LEVEL 8.6 MG/DL (8.5-10.1); CARBON DIOXIDE LEVEL 22 MMOL/L (20-31); CHLORIDE LEVEL 112 MMOL/L (98-107); CREATININE FOR GFR 0.55 MG/DL (0.70-1.30); GLOMERULAR FILTRATION RATE > 60.0 (>60); GLUCOSE, FASTING 101 MG/DL (60-100); POTASSIUM SERUM 3.9 MMOL/L (3.5-5.1); SALICYLATE LEVEL < 3.0 MG/DL (<30); SODIUM LEVEL 139 MMOL/L (136-145); TOTAL PROTEIN 6.5 G/DL (5.7-8.2)
[2024-05-22 15:28] LABS: THYROID STIMULATING HORMONE 1.359 uIU/ML (0.55-4.78)
[2024-05-22 16:27] LABS: AMPHETAMINES LEVEL URINE NEGATIVE (NEGATIVE); BARBITURATES URINE NEGATIVE (NEGATIVE); BENZODIAZEPINES URINE NEGATIVE (NEGATIVE); COCAINE METABOLITE URINE NEGATIVE (NEGATIVE); METHADONE URINE NEGATIVE (NEGATIVE); OPIATES URINE NEGATIVE (NEGATIVE); PHENCYCLIDINE URINE NEGATIVE (NEGATIVE)
[2024-05-22 16:37] LABS: CANNABINOIDS URINE POSITIVE (NEGATIVE)
[2024-05-22] MEDS ORDERED: ISOVUE-370 76% 100ML VIAL As Ordered ONE (17:24)
[2024-05-22] MEDS: FOLIC ACID 1MG TAB PO SCH (21:00)
[2024-05-22] MEDS ORDERED: ASPI81CH33 PO (23:41)
[2024-05-22] MEDS ORDERED: SODI650T PO (23:41)
[2024-05-22] MEDS ORDERED: HOME MED LIST COMPLETE! XX SCH (23:45)
[2024-05-23] MEDS ORDERED: IBUPROFEN 400MG TAB PO PRN (01:10)
[2024-05-23] MEDS ORDERED: traZODone 50 MG TAB PO PRN (01:10)
[2024-05-23] MEDS ORDERED: MOM 30ML SUSPENSION UDC PO PRN (01:10)
[2024-05-23 01:53] VITALS: BP 117/74; TEMP 97.6; O2SAT 98
[2024-05-23] MEDS ORDERED: GLUCOSE 4 GM CHEW PO PRN (03:25)
[2024-05-23] MEDS ORDERED: DEXTROSE 50% 50ML SYRINGE IV PRN (03:25)
[2024-05-23] MEDS ORDERED: GLUCAGON INJ 1MG VIAL SC PRN (03:25)
[2024-05-23 06:11] VITALS: BP 132/74; TEMP 97.4; O2SAT 97
[2024-05-23 07:34] VITALS: BP 132/70
[2024-05-23] MEDS: INSULIN LISPRO (NovoLOG) PER UNIT SC SCH ×2 (07:52→22:56)
[2024-05-23] MEDS: TAMSULOSIN 0.4 MG CAP PO SCH (09:23)
[2024-05-23] MEDS: FUROSEMIDE 20 MG TAB PO SCH (09:23)
[2024-05-23] MEDS: ASPIRIN 81MG CHEW TABLET PO SCH (09:23)
[2024-05-23] MEDS: SODIUM BICARBONATE 325 MG TAB PO SCH (09:23)
[2024-05-23] MEDS: THIAMINE 100 MG TAB PO SCH (09:23)
[2024-05-23] MEDS: MIDODRINE 5 MG TAB PO SCH (09:24)
[2024-05-23] MEDS: GABAPENTIN 100 MG CAP PO SCH (09:24)
[2024-05-23] MEDS: CREON-12 CAPSULE (PANCRELIPASE) PO SCH (09:24)
[2024-05-23] MEDS: MAGNESIUM OXIDE 400MG TAB (MAG-OX) PO SCH (09:24)
[2024-05-23] MEDS: PANTOPRAZOLE 40MG TAB (PROTONIX) PO SCH (09:24)
[2024-05-23] MEDS: POTASSIUM CHLORIDE 10MEQ SR TABLET PO SCH (09:24)
[2024-05-23] MEDS: LORazepam 1 MG TAB PO ONE (12:09)
[2024-05-23 15:15] VITALS: BP 93/60; TEMP 98.2; O2SAT 98
[2024-05-23 15:36] VITALS: BP 76/93
[2024-05-23] MEDS: SERTRALINE HCL 25 MG TABLET PO SCH (22:56)
[2024-05-24] MEDS: diphenhydrAMINE 25MG CAP PO PRN (03:24)
[2024-05-24] MEDS: MAALOX 30 ML SUSP *UDC PO PRN (04:48)
[2024-05-24 06:18] VITALS: BP 110/66; TEMP 99; O2SAT 100
[2024-05-24 06:19] VITALS: BP 110/66
[2024-05-24 08:19] VITALS: BP 100/62
[2024-05-24] MEDS: ONDANSETRON 4MG TAB PO PRN (08:23)
[2024-05-24 14:50] VITALS: BP 114/70
[2024-05-24 16:47] VITALS: BP 114/70; TEMP 99.5
[2024-05-24] MEDS: traZODone 100 MG TAB PO SCH (20:23)
[2024-05-25 06:00] VITALS: BP 91/56
[2024-05-25 06:20] VITALS: BP 91/56; TEMP 99; O2SAT 98
[2024-05-25] MEDS: ACETAMINOPHEN 325 MG TAB PO PRN (08:40)
[2024-05-25 08:45] VITALS: BP 101/61
[2024-05-25 10:00] VITALS: BP 101/61
[2024-05-25] MEDS: metFORMIN XR 500MG TAB *GLUCOPHAGE XR PO SCH (11:08)
[2024-05-25] MEDS: oxyCODONE 5MG TAB PO PRN (11:09)
[2024-05-25 15:16] VITALS: BP 113/72; TEMP 97.9; O2SAT 99
[2024-05-25 15:50] VITALS: BP 130/64
[2024-05-25] MEDS: traZODone 100 MG TAB PO PRN (20:39)
[2024-05-25] MEDS: DICLOFENAC EPOLAMINE 1.3% PATCH TOP SCH (20:39)
[2024-05-26 06:16] VITALS: BP 90/55; TEMP 97.8; O2SAT 95
[2024-05-26 07:35] VITALS: BP 99/62
[2024-05-26 11:06] LABS: BASO % 0.5 % (0.0-1.0); EOS # 0.2 10^3/uL (0.0-0.5); EOS % 5.9 % (0.0-3.0); HEMATOCRIT 31.3 % (42.0-52.0); HEMOGLOBIN 10.2 g/dl (13.5-17.5); LYMPH # 0.9 10^3/uL (1.5-5.0); LYMPH % 23.7 % (24.0-44.0); MEAN CORPUSCULAR HEMOGLOBIN 32.3 pg (27.0-33.0); MEAN CORPUSCULAR HGB CONC 32.6 g/dl (32.0-36.5); MEAN CORPUSCULAR VOLUME 99.1 fl (80.0-96.0); MONO # 0.3 10^3/uL (0.0-0.8); NEUTROPHILS # 2.3 10^3/uL (1.5-8.5); NEUTROPHILS % 61.6 % (36.0-66.0); RED BLOOD COUNT 3.16 10^6/uL (4.30-6.10); WHITE BLOOD COUNT 3.8 10^3/uL (4.0-10.0)
[2024-05-26 11:12] LABS: PLATELET COUNT, AUTOMATED 73 10^3/uL (150-450)
[2024-05-26 11:25] LABS: LIPASE 65 U/L (12-53)
[2024-05-26 11:26] LABS: C REACTIVE PROTEIN QUANTITATIV < 0.40 MG/DL (<1.0)
[2024-05-26 11:27] LABS: ALBUMIN 2.6 G/DL (3.2-5.2); ALKALINE PHOSPHATASE 219 U/L (46-116); ALT/SGPT 25 U/L (7.0-40); AST/SGOT 45 U/L (<34); BLOOD UREA NITROGEN 13 MG/DL (9-23); CALCIUM LEVEL 8.8 MG/DL (8.5-10.1); CARBON DIOXIDE LEVEL 21 MMOL/L (20-31); CHLORIDE LEVEL 111 MMOL/L (98-107); CREATININE FOR GFR 0.72 MG/DL (0.70-1.30); GLOMERULAR FILTRATION RATE > 60.0 (>60); GLUCOSE, FASTING 201 MG/DL (60-100); SODIUM LEVEL 141 MMOL/L (136-145); TOTAL PROTEIN 6.3 G/DL (5.7-8.2)
[2024-05-26] MEDS ORDERED: LACTULOSE 20GM/30ML SYRUP UDC PO PRN (12:00)
[2024-05-26 14:59] VITALS: BP 116/73; TEMP 99.1; O2SAT 96
[2024-05-27 06:11] VITALS: BP 103/66; TEMP 98.5; O2SAT 93
[2024-05-27 07:04] LABS: ALBUMIN 2.1 G/DL (3.2-5.2); ALKALINE PHOSPHATASE 180 U/L (46-116); ALT/SGPT 19 U/L (7.0-40); AST/SGOT 35 U/L (<34); BILIRUBIN,DIRECT 0.5 MG/DL (<0.4); BILIRUBIN,TOTAL 0.8 MG/DL (0.3-1.2); BLOOD UREA NITROGEN 14 MG/DL (9-23); CALCIUM LEVEL 8.7 MG/DL (8.5-10.1); CARBON DIOXIDE LEVEL 25 MMOL/L (20-31); CHLORIDE LEVEL 114 MMOL/L (98-107); CREATININE FOR GFR 0.55 MG/DL (0.70-1.30); GLOMERULAR FILTRATION RATE > 60.0 (>60); GLUCOSE, FASTING 100 MG/DL (60-100); MAGNESIUM LEVEL 1.8 MG/DL (1.8-2.4); POTASSIUM SERUM 3.9 MMOL/L (3.5-5.1); SODIUM LEVEL 143 MMOL/L (136-145); TOTAL PROTEIN 5.4 G/DL (5.7-8.2)
[2024-05-27] MEDS ORDERED: LACTULOSE 20GM/30ML SYRUP UDC PO PRN (08:35)
[2024-05-27 16:00] VITALS: BP 104/67; TEMP 99; O2SAT 96
[2024-05-27 16:21] VITALS: BP 102/62
[2024-05-27] MEDS: CREON-24 CAPSULE (PANCRELIPASE) PO SCH (17:44)
[2024-05-27] MEDS: LACTULOSE 20GM/30ML SYRUP UDC PO SCH (20:06)
[2024-05-28 06:31] VITALS: BP 107/63; TEMP 98.3; O2SAT 94
[2024-05-28 16:48] VITALS: BP 100/55; TEMP 98.7; O2SAT 95
[2024-05-29 06:26] VITALS: BP 109/69; TEMP 98; O2SAT 96
[2024-05-29 10:45] VITALS: BP 117/68; TEMP 99.1; O2SAT 96
[2024-05-29 11:22] LABS: BASO % 0.6 % (0.0-1.0); EOS # 0.2 10^3/uL (0.0-0.5); EOS % 5.5 % (0.0-3.0); HEMATOCRIT 27.9 % (42.0-52.0); HEMOGLOBIN 9.5 g/dl (13.5-17.5); LYMPH # 0.8 10^3/uL (1.5-5.0); LYMPH % 22.7 % (24.0-44.0); MEAN CORPUSCULAR HEMOGLOBIN 33.7 pg (27.0-33.0); MEAN CORPUSCULAR HGB CONC 34.1 g/dl (32.0-36.5); MEAN CORPUSCULAR VOLUME 98.9 fl (80.0-96.0); MONO # 0.4 10^3/uL (0.0-0.8); MONO % 11.4 % (2.0-8.0); NEUTROPHILS % 59.5 % (36.0-66.0); RED BLOOD COUNT 2.82 10^6/uL (4.30-6.10); WHITE BLOOD COUNT 3.4 10^3/uL (4.0-10.0)
[2024-05-29 11:40] VITALS: BP 105/64; TEMP 99.8; O2SAT 94
[2024-05-29 11:44] LABS: BLOOD UREA NITROGEN 17 MG/DL (9-23); CALCIUM LEVEL 9.1 MG/DL (8.5-10.1); CARBON DIOXIDE LEVEL 26 MMOL/L (20-31); CHLORIDE LEVEL 110 MMOL/L (98-107); CREATININE FOR GFR 0.51 MG/DL (0.70-1.30); GLOMERULAR FILTRATION RATE > 60.0 (>60); GLUCOSE, FASTING 162 MG/DL (60-100); MAGNESIUM LEVEL 1.9 MG/DL (1.8-2.4); POTASSIUM SERUM 3.9 MMOL/L (3.5-5.1); SODIUM LEVEL 140 MMOL/L (136-145)
[2024-05-29 11:47] LABS: PLATELET COUNT, AUTOMATED 58 10^3/uL (150-450)
[2024-05-29] MEDS ORDERED: NS 1,000 ML IV SCH (12:20)
[2024-05-29 12:39] VITALS: BP 100/63; TEMP 99.2; O2SAT 93
[2024-05-29 13:09] VITALS: BP 90/54; TEMP 100.2; O2SAT 97
[2024-05-29] MEDS ORDERED: CREO24CA PO ×2 (14:06→16:20)
[2024-05-29] MEDS ORDERED: MIDO5TA PO (16:20)
[2024-05-29] MEDS ORDERED: ASPI81CH8 PO (16:20)
[2024-05-29] MEDS ORDERED: POTA-136 PO (16:20)
[2024-05-29] MEDS ORDERED: TRAZ-257 PO (16:20)
[2024-05-29] MEDS ORDERED: MAGN400T2 PO (16:20)
[2024-05-29] MEDS ORDERED: INSUHUMDS SC ×2 (16:20)
[2024-05-29] MEDS ORDERED: DICL1PAT6 TOP (16:20)
[2024-05-29] MEDS ORDERED: FLOM0.4C39 PO (16:20)
[2024-05-29] MEDS ORDERED: SODI325T9 PO (16:20)
[2024-05-29] MEDS ORDERED: THIA100TA PO (16:20)
[2024-05-29] MEDS ORDERED: LACT20EL PO (16:20)
[2024-05-29] MEDS ORDERED: FURO20TA2 PO (16:20)
[2024-05-29] MEDS ORDERED: GLUC1KIT SC (16:20)
[2024-05-29] MEDS ORDERED: FOLI1TAB11 PO (16:20)
[2024-05-29] MEDS ORDERED: GABA-1171 PO (16:20)
[2024-05-29] MEDS ORDERED: SERT25TA21 PO (16:20)
[2024-05-29] MEDS ORDERED: METF-838 PO (16:20)
[2024-05-29] MEDS ORDERED: PANT40TA29 PO (16:20)
[2024-05-29] MEDS ORDERED: ONDA-83 PO (16:20)
== END 2024-05-29 14:30 | disposition short-term general hospital (02) | DRG 885 ==
LOC: M ED 12:20 → EDBD 12:20 → M ED INP 05-23 01:07 → M PSY 05-23 01:44
PROVIDERS: ADMIT Psychiatry & Neurology Psychiatry; ATTEND Psychiatry & Neurology Psychiatry
DX: F32.0 Major depressive disorder, single episode, mild (principal); R45.851 Suicidal ideations; K86.1 Other chronic pancreatitis; I10 Essential (primary) hypertension; E78.5 Hyperlipidemia, unspecified; I95.9 Hypotension, unspecified; K70.30 Alcoholic cirrhosis of liver without ascites; E11.9 Type 2 diabetes mellitus without complications; R11.2 Nausea with vomiting, unspecified; R19.7 Diarrhea, unspecified; G47.33 Obstructive sleep apnea (adult) (pediatric); N40.0 Benign prostatic hyperplasia without lower urinary tract symptoms; M54.9 Dorsalgia, unspecified; G89.29 Other chronic pain; Z56.0 Unemployment, unspecified; G47.00 Insomnia, unspecified; Z79.82 Long term (current) use of aspirin; Z79.4 Long term (current) use of insulin; Z79.899 Other long term (current) drug therapy; F17.200 Nicotine dependence, unspecified, uncomplicated

== ENCOUNTER 2024-05-29 13:19 | Inpatient (IN) | payer MEDICARE ==
[~2024-05-29 13:19] MED LIST changes: +ASPI81CH33 PO
[2024-05-29] MEDS ORDERED: GLUCAGON INJ 1MG VIAL SC PRN (14:00)
[2024-05-29] MEDS ORDERED: DEXTROSE 50% 50ML SYRINGE IV PRN (14:00)
[2024-05-29] MEDS ORDERED: GLUCOSE 4 GM CHEW PO PRN (14:00)
[2024-05-29] MEDS ORDERED: CREO24CA PO ×2 (14:06→16:20)
[2024-05-29 14:49] VITALS: BP 119/77; TEMP 98.2; O2SAT 97
[2024-05-29] MEDS ORDERED: cefTRIAXone SOD 2GM VIAL IM SCH (14:50)
[2024-05-29] MEDS: rifAXIMin 550 MG TAB (XIFAXAN) PO SCH (14:52)
[2024-05-29] MEDS: NS 1,000 ML IV SCH (15:00)
[2024-05-29 15:30] LABS: BASO % 0.8 % (0.0-1.0); EOS # 0.1 10^3/uL (0.0-0.5); EOS % 3.3 % (0.0-3.0); HEMATOCRIT 29.2 % (42.0-52.0); HEMOGLOBIN 9.9 g/dl (13.5-17.5); LYMPH # 0.6 10^3/uL (1.5-5.0); LYMPH % 15.4 % (24.0-44.0); MEAN CORPUSCULAR HEMOGLOBIN 33.6 pg (27.0-33.0); MEAN CORPUSCULAR HGB CONC 33.9 g/dl (32.0-36.5); MONO # 0.4 10^3/uL (0.0-0.8); MONO % 10.2 % (2.0-8.0); NEUTROPHILS # 2.5 10^3/uL (1.5-8.5); NEUTROPHILS % 69.7 % (36.0-66.0); RED BLOOD COUNT 2.95 10^6/uL (4.30-6.10); WHITE BLOOD COUNT 3.6 10^3/uL (4.0-10.0)
[2024-05-29 15:36] LABS: PLATELET COUNT, AUTOMATED 59 10^3/uL (150-450)
[2024-05-29 15:48] LABS: ALBUMIN 2.5 G/DL (3.2-5.2); ALKALINE PHOSPHATASE 177 U/L (40-129); ALT/SGPT 22 U/L (7.0-40); AST/SGOT 38 U/L (<34); BILIRUBIN,TOTAL 1.3 MG/DL (0.3-1.2); BLOOD UREA NITROGEN 16 MG/DL (9-23); CALCIUM LEVEL 9.2 MG/DL (8.5-10.1); CARBON DIOXIDE LEVEL 24 MMOL/L (20-31); CHLORIDE LEVEL 107 MMOL/L (98-107); CREATININE FOR GFR 0.54 MG/DL (0.70-1.30); GLOMERULAR FILTRATION RATE > 60.0 (>60); GLUCOSE, FASTING 147 MG/DL (60-100); MAGNESIUM LEVEL 1.9 MG/DL (1.8-2.4); POTASSIUM SERUM 4.2 MMOL/L (3.5-5.1); SODIUM LEVEL 139 MMOL/L (136-145); TOTAL PROTEIN 6.2 G/DL (5.7-8.2)
[2024-05-29] MEDS: MIDODRINE 5 MG TAB PO SCH (15:57)
[2024-05-29] MEDS: LACTULOSE 20GM/30ML SYRUP UDC PO SCH (15:57)
[2024-05-29] MEDS: SODIUM BICARBONATE 325 MG TAB PO SCH (15:57)
[2024-05-29] MEDS: cefTRIAXone SOD 2 GM in DEXTROSE 5% (D5W) ADV/MINI-BAG 50 ML IV SCH (15:57)
[2024-05-29] MEDS ORDERED: GABA-1171 PO (16:20)
[2024-05-29] MEDS ORDERED: MIDO5TA PO (16:20)
[2024-05-29] MEDS ORDERED: ASPI81CH8 PO (16:20)
[2024-05-29] MEDS ORDERED: TRAZ-257 PO (16:20)
[2024-05-29] MEDS ORDERED: PANT40TA29 PO (16:20)
[2024-05-29] MEDS ORDERED: DICL1PAT6 TOP (16:20)
[2024-05-29] MEDS ORDERED: FURO20TA2 PO (16:20)
[2024-05-29] MEDS ORDERED: FOLI1TAB11 PO (16:20)
[2024-05-29] MEDS ORDERED: POTA-136 PO (16:20)
[2024-05-29] MEDS ORDERED: GLUC1KIT SC (16:20)
[2024-05-29] MEDS ORDERED: LACT20EL PO (16:20)
[2024-05-29] MEDS ORDERED: THIA100TA PO (16:20)
[2024-05-29] MEDS ORDERED: INSUHUMDS SC ×2 (16:20)
[2024-05-29] MEDS ORDERED: SODI325T9 PO (16:20)
[2024-05-29] MEDS ORDERED: SERT25TA21 PO (16:20)
[2024-05-29] MEDS ORDERED: MAGN400T2 PO (16:20)
[2024-05-29] MEDS ORDERED: ONDA-83 PO (16:20)
[2024-05-29] MEDS ORDERED: METF-838 PO (16:20)
[2024-05-29] MEDS ORDERED: FLOM0.4C39 PO (16:20)
[2024-05-29] MEDS: INSULIN LISPRO (NovoLOG) PER UNIT SC SCH ×2 (16:56→20:36)
[2024-05-29] MEDS: CREON-24 CAPSULE (PANCRELIPASE) PO SCH (18:25)
[2024-05-29] MEDS: oxyCODONE 5MG TAB PO PRN (18:25)
[2024-05-29 19:52] VITALS: BP 100/59; TEMP 98.3; O2SAT 96
[2024-05-29] MEDS: GABAPENTIN 100 MG CAP PO SCH (20:11)
[2024-05-29] MEDS: PANTOPRAZOLE 40MG TAB (PROTONIX) PO SCH (20:11)
[2024-05-29] MEDS: FOLIC ACID 1MG TAB PO SCH (20:11)
[2024-05-29] MEDS: MAGNESIUM OXIDE 400MG TAB (MAG-OX) PO SCH (20:12)
[2024-05-29 22:17] LABS: INR 1.31; PROTHROMBIN TIME 16.6 SECONDS (12.5-14.5)
[2024-05-29 23:00] VITALS: BP 113/68; TEMP 98.4; O2SAT 99
[2024-05-30] VITALS (13 sets, daily range): BP systolic 98–120; BP diastolic 53–75; TEMP 98–100.5; O2SAT 95–99
[2024-05-30 06:30] LABS: HEMATOCRIT 28.7 % (42.0-52.0); HEMOGLOBIN 9.5 g/dl (13.5-17.5); MEAN CORPUSCULAR HEMOGLOBIN 33.2 pg (27.0-33.0); MEAN CORPUSCULAR HGB CONC 33.1 g/dl (32.0-36.5); MEAN CORPUSCULAR VOLUME 100.3 fl (80.0-96.0); RED BLOOD COUNT 2.86 10^6/uL (4.30-6.10); WHITE BLOOD COUNT 3.9 10^3/uL (4.0-10.0)
[2024-05-30 06:31] LABS: PLATELET COUNT, AUTOMATED 60 10^3/uL (150-450)
[2024-05-30 06:56] LABS: ALBUMIN 2.3 G/DL (3.2-5.2); ALKALINE PHOSPHATASE 169 U/L (40-129); ALT/SGPT 21 U/L (7.0-40); AST/SGOT 37 U/L (<34); BILIRUBIN,TOTAL 0.9 MG/DL (0.3-1.2); BLOOD UREA NITROGEN 13 MG/DL (9-23); CALCIUM LEVEL 8.4 MG/DL (8.5-10.1); CARBON DIOXIDE LEVEL 26 MMOL/L (20-31); CHLORIDE LEVEL 110 MMOL/L (98-107); CREATININE FOR GFR 0.54 MG/DL (0.70-1.30); GLOMERULAR FILTRATION RATE > 60.0 (>60); GLUCOSE, FASTING 101 MG/DL (60-100); POTASSIUM SERUM 3.9 MMOL/L (3.5-5.1); SODIUM LEVEL 141 MMOL/L (136-145); TOTAL PROTEIN 5.7 G/DL (5.7-8.2)
[2024-05-30 09:52] LABS: LDH LACTATE DEHYDROGENASE 176 U/L (120-246)
[2024-05-30] MEDS: POTASSIUM CHLORIDE 10MEQ SR TABLET PO SCH (10:15)
[2024-05-30] MEDS: ASPIRIN 81MG CHEW TABLET PO SCH (10:16)
[2024-05-30] MEDS: TAMSULOSIN 0.4 MG CAP PO SCH (10:16)
[2024-05-30] MEDS: FUROSEMIDE 20 MG TAB PO SCH (10:17)
[2024-05-30] MEDS: THIAMINE 100 MG TAB PO SCH (10:17)
[2024-05-30 10:32] LABS: SOURCE, BODY FLUID ASCITES
[2024-05-30 10:33] LABS: ASCITES FL COLOR PALE YELLOW (COLORLESS)
[2024-05-30 10:34] LABS: APPEARANCE, BODY FLUID HAZY (CLEAR)
[2024-05-30 11:00] LABS: LDH, BODY FLUID 37 U/L (NOT ESTABLISHED); SOURCE, BODY FLUID LDH PERITONEAL
[2024-05-30] MEDS: ACETAMINOPHEN 325 MG TAB PO PRN (18:36)
[2024-05-30] MEDS: traZODone 100 MG TAB PO PRN (20:15)
[2024-05-31] VITALS (7 sets, daily range): BP systolic 92–108; BP diastolic 51–72; TEMP 98.1–98.8; O2SAT 96
[2024-05-31 06:45] LABS: BASO % 0.8 % (0.0-1.0); EOS # 0.2 10^3/uL (0.0-0.5); EOS % 6.3 % (0.0-3.0); HEMATOCRIT 27.2 % (42.0-52.0); HEMOGLOBIN 9.1 g/dl (13.5-17.5); LYMPH % 27.2 % (24.0-44.0); MEAN CORPUSCULAR HEMOGLOBIN 33.5 pg (27.0-33.0); MEAN CORPUSCULAR HGB CONC 33.5 g/dl (32.0-36.5); MONO # 0.5 10^3/uL (0.0-0.8); MONO % 13.4 % (2.0-8.0); NEUTROPHILS # 1.9 10^3/uL (1.5-8.5); RED BLOOD COUNT 2.72 10^6/uL (4.30-6.10); WHITE BLOOD COUNT 3.7 10^3/uL (4.0-10.0)
[2024-05-31 06:48] LABS: PLATELET COUNT, AUTOMATED 60 10^3/uL (150-450)
[2024-05-31 07:14] LABS: ALBUMIN 2.2 G/DL (3.2-5.2); ALKALINE PHOSPHATASE 184 U/L (40-129); ALT/SGPT 20 U/L (7.0-40); AST/SGOT 35 U/L (<34); BILIRUBIN,TOTAL 0.8 MG/DL (0.3-1.2); BLOOD UREA NITROGEN 12 MG/DL (9-23); CALCIUM LEVEL 8.4 MG/DL (8.5-10.1); CARBON DIOXIDE LEVEL 26 MMOL/L (20-31); CHLORIDE LEVEL 112 MMOL/L (98-107); CREATININE FOR GFR 0.59 MG/DL (0.70-1.30); GLOMERULAR FILTRATION RATE > 60.0 (>60); GLUCOSE, FASTING 186 MG/DL (60-100); MAGNESIUM LEVEL 2.2 MG/DL (1.8-2.4); SODIUM LEVEL 143 MMOL/L (136-145); TOTAL PROTEIN 5.5 G/DL (5.7-8.2)
[2024-06-01 04:00] VITALS: BP 104/68; TEMP 98.2; O2SAT 96
[2024-06-01 06:01] LABS: HEMATOCRIT 27.7 % (42.0-52.0); HEMOGLOBIN 9.1 g/dl (13.5-17.5); MEAN CORPUSCULAR HEMOGLOBIN 32.4 pg (27.0-33.0); MEAN CORPUSCULAR HGB CONC 32.9 g/dl (32.0-36.5); MEAN CORPUSCULAR VOLUME 98.6 fl (80.0-96.0); RED BLOOD COUNT 2.81 10^6/uL (4.30-6.10); WHITE BLOOD COUNT 3.9 10^3/uL (4.0-10.0)
[2024-06-01 06:03] LABS: PLATELET COUNT, AUTOMATED 64 10^3/uL (150-450)
[2024-06-01 06:28] LABS: ALBUMIN 2.2 G/DL (3.2-5.2); ALKALINE PHOSPHATASE 189 U/L (40-129); ALT/SGPT 21 U/L (7.0-40); AST/SGOT 34 U/L (<34); BILIRUBIN,TOTAL 0.8 MG/DL (0.3-1.2); BLOOD UREA NITROGEN 11 MG/DL (9-23); CALCIUM LEVEL 9.1 MG/DL (8.5-10.1); CARBON DIOXIDE LEVEL 26 MMOL/L (20-31); CHLORIDE LEVEL 112 MMOL/L (98-107); CREATININE FOR GFR 0.63 MG/DL (0.70-1.30); GLOMERULAR FILTRATION RATE > 60.0 (>60); GLUCOSE, FASTING 151 MG/DL (60-100); SODIUM LEVEL 142 MMOL/L (136-145); TOTAL PROTEIN 5.8 G/DL (5.7-8.2)
[2024-06-01 12:00] VITALS: BP 100/65; TEMP 98.2; O2SAT 97
[2024-06-01] MEDS ORDERED: MIRALAX *UNIT DOSE* 17GM PACKET PO PRN (12:30)
[2024-06-01] MEDS: BACTRIM 160MG/800MG DS TAB PO SCH (13:23)
[2024-06-01 15:34] VITALS: BP 99/63
[2024-06-01] MEDS ORDERED: XIFA550T PO (15:37)
[2024-06-01] MEDS ORDERED: BACTDSTA PO (15:37)
[2024-06-01] MEDS ORDERED: MIDO5TA PO (15:37)
[2024-06-01] MEDS ORDERED: MIRA33506 PO (15:37)
[2024-06-01] MEDS ORDERED: FLOM0.4C39 PO (15:37)
[2024-06-01] MEDS ORDERED: FOLI1TAB11 PO (15:37)
[2024-06-01] MEDS ORDERED: SODI325T9 PO (15:37)
[2024-06-01] MEDS ORDERED: GABA-1171 PO (15:37)
[2024-06-01] MEDS ORDERED: ASPI81CH8 PO (15:47)
[2024-06-01] MEDS ORDERED: MAGN400T2 PO (15:47)
[2024-06-01] MEDS ORDERED: PANT40TA29 PO (15:47)
[2024-06-01] MEDS ORDERED: OXYC-517 PO (15:47)
[2024-06-01] MEDS ORDERED: TRAZ-257 PO (15:47)
[2024-06-01] MEDS ORDERED: THIA100TA PO (15:47)
[2024-06-01] MEDS ORDERED: CREO24CA PO (15:47)
[2024-06-01] MEDS ORDERED: POTA-136 PO (15:47)
[2024-06-01] MEDS ORDERED: FURO20TA2 PO (15:47)
[2024-06-01] MEDS ORDERED: LACT20EL PO (15:47)
[2024-06-01 20:00] VITALS: BP 98/64; TEMP 98.6; O2SAT 96
== END 2024-06-01 22:53 | DRG 433 ==
LOC: M PCU 14:28 → M MSPAV 05-30 22:50
PROVIDERS: ADMIT Hospitalist; ATTEND Student in an Organized Health Care Education/Training Program
PROC: 0W9G3ZZ Drainage of Peritoneal Cavity, Percutaneous Approach (ICD-10-PCS; principal; 2024-05-30 09:15)
DX: K70.31 Alcoholic cirrhosis of liver with ascites (principal); R45.851 Suicidal ideations; K76.6 Portal hypertension; K86.1 Other chronic pancreatitis; K76.82 Hepatic encephalopathy; I10 Essential (primary) hypertension; F06.31 Mood disorder due to known physiological condition with depressive features; E11.9 Type 2 diabetes mellitus without complications; E78.5 Hyperlipidemia, unspecified; G47.33 Obstructive sleep apnea (adult) (pediatric); M54.9 Dorsalgia, unspecified; K59.09 Other constipation; G89.29 Other chronic pain; N40.0 Benign prostatic hyperplasia without lower urinary tract symptoms; K25.9 Gastric ulcer, unspecified as acute or chronic, without hemorrhage or perforation; F17.200 Nicotine dependence, unspecified, uncomplicated; I95.89 Other hypotension; F39 Unspecified mood [affective] disorder; Z79.82 Long term (current) use of aspirin; Z79.4 Long term (current) use of insulin; Z79.899 Other long term (current) drug therapy

== ENCOUNTER 2024-06-01 16:49 | Inpatient (IN) | payer MEDICARE ==
[~2024-06-01] VITALS: Ht 160 cm; Wt 57.7 kg
[~2024-06-01 16:49] MED LIST changes: +ASPI81CH8 PO; +CREO24CA PO; +DICL1PAT6 TOP; +GLUC1KIT SC; +INSUHUMDS SC; -LACT10SO3 PO; +LACT10SO94 PO; -MIDO10TA PO; +MIDO10TA3 PO; +NALO4SPR20; -NALO4SPR3; +ONDA-83 PO; +SERT25TA21 PO; +THIA100TA PO
[2024-06-01] MEDS ORDERED: MOM 30ML SUSPENSION UDC PO PRN (17:55)
[2024-06-01] MEDS ORDERED: MAALOX 30 ML SUSP *UDC PO PRN (17:55)
[2024-06-01] MEDS ORDERED: MIRALAX *UNIT DOSE* 17GM PACKET PO PRN (20:00)
[2024-06-01] MEDS ORDERED: DEXTROSE 50% 50ML SYRINGE IV PRN (20:00)
[2024-06-01] MEDS ORDERED: GLUCAGON INJ 1MG VIAL SC PRN (20:00)
[2024-06-01] MEDS ORDERED: DICLOFENAC EPOLAMINE 1.3% PATCH TOP SCH (20:00)
[2024-06-01] MEDS ORDERED: GLUCOSE 4 GM CHEW PO PRN (20:00)
[2024-06-01] MEDS ORDERED: ONDANSETRON 4MG TAB PO PRN (20:00)
[2024-06-01] MEDS ORDERED: GABAPENTIN 100 MG CAP PO SCH (21:00)
[2024-06-01 23:00] VITALS: BP 98/60; TEMP 98.2; O2SAT 94
[2024-06-01] MEDS: FOLIC ACID 1MG TAB PO SCH (23:45)
[2024-06-01] MEDS: INSULIN LISPRO (NovoLOG) PER UNIT SC SCH (23:45)
[2024-06-02 06:05] VITALS: BP 107/69; TEMP 98.3; O2SAT 94
[2024-06-02] MEDS: INSULIN LISPRO (NovoLOG) PER UNIT SC SCH (07:44)
[2024-06-02] MEDS: MIDODRINE 5 MG TAB PO SCH (08:00)
[2024-06-02 08:22] VITALS: BP 104/64
[2024-06-02] MEDS: LACTULOSE 20GM/30ML SYRUP UDC PO SCH (08:26)
[2024-06-02] MEDS: CREON-24 CAPSULE (PANCRELIPASE) PO SCH (08:26)
[2024-06-02] MEDS: PANTOPRAZOLE 40MG TAB (PROTONIX) PO SCH (08:26)
[2024-06-02] MEDS: FUROSEMIDE 20 MG TAB PO SCH (08:27)
[2024-06-02] MEDS: TAMSULOSIN 0.4 MG CAP PO SCH (08:27)
[2024-06-02] MEDS: ASPIRIN 81MG CHEW TABLET PO SCH (08:27)
[2024-06-02] MEDS: POTASSIUM CHLORIDE 10MEQ SR TABLET PO SCH (08:27)
[2024-06-02] MEDS: GABAPENTIN 100 MG CAP PO SCH (08:27)
[2024-06-02] MEDS: rifAXIMin 550 MG TAB (XIFAXAN) PO SCH (08:28)
[2024-06-02] MEDS: THIAMINE 100 MG TAB PO SCH (08:28)
[2024-06-02] MEDS: MAGNESIUM OXIDE 400MG TAB (MAG-OX) PO SCH (08:28)
[2024-06-02] MEDS: BACTRIM 160MG/800MG DS TAB PO SCH (08:29)
[2024-06-02] MEDS: DICLOFENAC EPOLAMINE 1.3% PATCH TOP SCH (09:30)
[2024-06-02 14:53] VITALS: BP 112/70; TEMP 99; O2SAT 98
[2024-06-02] MEDS: traZODone 50 MG TAB PO PRN (20:18)
[2024-06-02] MEDS: oxyCODONE 5MG TAB PO PRN (20:19)
[2024-06-03 06:15] VITALS: BP 103/57; TEMP 99.4; O2SAT 97
[2024-06-03 07:30] VITALS: BP 103/57; TEMP 99.4; O2SAT 97
[2024-06-03 16:03] VITALS: BP 122/70; TEMP 97.8; O2SAT 97
[2024-06-03] MEDS: diphenhydrAMINE 25MG CAP PO PRN (21:25)
[2024-06-03] MEDS: SERTRALINE HCL 25 MG TABLET PO SCH (21:26)
[2024-06-04 06:54] VITALS: BP 112/69; TEMP 98.4; O2SAT 97
[2024-06-04 08:18] VITALS: BP 122/78
[2024-06-04 14:42] VITALS: BP 117/77; TEMP 98.9; O2SAT 98
[2024-06-04 15:07] VITALS: BP 122/64
[2024-06-05 06:21] VITALS: BP 113/55; TEMP 98.7; O2SAT 94
[2024-06-05 08:34] VITALS: BP 94/58
[2024-06-05 15:37] VITALS: BP 122/70; TEMP 98.7; O2SAT 98
[2024-06-05] MEDS: SODIUM CHLORIDE NASAL 0.65% SPRAY BTL (OCEAN) PRN (20:29)
[2024-06-06] MEDS: SERTRALINE HCL 50 MG TAB PO SCH (15:21)
[2024-06-06 15:33] LABS: BASO # 0.1 10^3/uL (0.0-0.2); BASO % 1.3 % (0.0-1.0); EOS # 0.3 10^3/uL (0.0-0.5); HEMATOCRIT 28.8 % (42.0-52.0); HEMOGLOBIN 9.6 g/dl (13.5-17.5); LYMPH # 1.2 10^3/uL (1.5-5.0); LYMPH % 31.8 % (24.0-44.0); MEAN CORPUSCULAR HEMOGLOBIN 32.7 pg (27.0-33.0); MEAN CORPUSCULAR HGB CONC 33.3 g/dl (32.0-36.5); MONO # 0.6 10^3/uL (0.0-0.8); MONO % 16.4 % (2.0-8.0); NEUTROPHILS # 1.7 10^3/uL (1.5-8.5); NEUTROPHILS % 43.2 % (36.0-66.0); RED BLOOD COUNT 2.94 10^6/uL (4.30-6.10); WHITE BLOOD COUNT 3.8 10^3/uL (4.0-10.0)
[2024-06-06 15:36] LABS: PLATELET COUNT, AUTOMATED 75 10^3/uL (150-450)
[2024-06-06 16:01] LABS: ALBUMIN 2.6 G/DL (3.2-5.2); ALKALINE PHOSPHATASE 153 U/L (40-129); ALT/SGPT 21 U/L (7.0-40); AST/SGOT 38 U/L (<34); BILIRUBIN,TOTAL 1.3 MG/DL (0.3-1.2); BLOOD UREA NITROGEN 12 MG/DL (9-23); CALCIUM LEVEL 8.9 MG/DL (8.5-10.1); CARBON DIOXIDE LEVEL 23 MMOL/L (20-31); CHLORIDE LEVEL 111 MMOL/L (98-107); CREATININE FOR GFR 0.59 MG/DL (0.70-1.30); GLOMERULAR FILTRATION RATE > 60.0 (>60); GLUCOSE, FASTING 80 MG/DL (60-100); SODIUM LEVEL 143 MMOL/L (136-145); TOTAL PROTEIN 6.4 G/DL (5.7-8.2)
[2024-06-06 16:54] VITALS: BP 114/68; TEMP 99.1; O2SAT 97
[2024-06-06] MEDS: traZODone 100 MG TAB PO SCH (20:16)
[2024-06-07 06:05] VITALS: BP 98/57; TEMP 97.9; O2SAT 95
[2024-06-07] MEDS: NS 1,000 ML IV SCH (07:15)
[2024-06-07] MEDS ORDERED: TRIAMCINOLONE ACETONIDE SUSP 40MG/ML 1ML VIAL As Ordered ONE (07:21)
[2024-06-07] MEDS ORDERED: MIDAZOLAM INJ 2MG/2ML VIAL As Ordered ONE (07:45)
[2024-06-07] MEDS ORDERED: fentaNYL 100 MCG/2 ML INJECTION As Ordered ONE (07:45)
[2024-06-07] MEDS ORDERED: ISOVUE-300 61% 100ML VIAL As Ordered ONE (07:59)
[2024-06-07] MEDS ORDERED: LIDOCAINE 1% MDV 20ML VIAL As Ordered ONE (08:00)
[2024-06-07 11:13] VITALS: BP 136/91; TEMP 97.4; O2SAT 97
[2024-06-07] MEDS: SPIRONOLACTONE 50 MG TAB PO SCH (11:22)
[2024-06-07] MEDS: TRIAMCINOLONE ACETONIDE SUSP 40MG/ML 1ML VIAL IM ONE (11:24)
[2024-06-07 12:00] VITALS: BP 117/76
[2024-06-07 15:56] VITALS: BP 108/65; TEMP 98.8; O2SAT 97
[2024-06-07 18:45] VITALS: BP 136/82; O2SAT 98
[2024-06-08 06:22] VITALS: BP 142/81; TEMP 98.9; O2SAT 96
[2024-06-08 08:06] VITALS: BP 131/78
[2024-06-08 11:44] VITALS: BP 128/73
[2024-06-08 15:14] VITALS: BP 117/66; TEMP 99.2; O2SAT 97
[2024-06-09 06:27] VITALS: BP 120/64; TEMP 98.9; O2SAT 94
[2024-06-09 07:38] VITALS: BP 108/68
[2024-06-09 12:16] VITALS: BP 115/70
[2024-06-09 15:13] VITALS: BP 107/61; TEMP 98.2; O2SAT 97
[2024-06-10 06:20] VITALS: BP 110/57; TEMP 98.9; O2SAT 94
[2024-06-10 07:29] VITALS: BP 118/72
[2024-06-10] MEDS: IBUPROFEN 400MG TAB PO PRN (09:39)
[2024-06-10 12:05] VITALS: BP 142/79
[2024-06-10] MEDS: LEVEMIR (INSULIN DETEMIR) 1 UNITS/0.01ML SC SCH (14:26)
[2024-06-10 17:01] VITALS: BP 131/72; TEMP 98.7; O2SAT 97
[2024-06-10] MEDS: INSULIN LISPRO (NovoLOG) PER UNIT SC SCH (17:21)
[2024-06-11 06:29] VITALS: BP 126/79; TEMP 97.8; O2SAT 97
[2024-06-11 07:58] VITALS: BP 124/75
[2024-06-11] MEDS ORDERED: LEVEMIR (INSULIN DETEMIR) 1 UNITS/0.01ML SC SCH ×2 (09:00)
[2024-06-11] MEDS: ACETAMINOPHEN 325 MG TAB PO PRN (11:00)
[2024-06-11 11:59] VITALS: BP 125/75
[2024-06-11 15:27] VITALS: BP 126/79
[2024-06-11 16:09] VITALS: BP 126/79; TEMP 98.8; O2SAT 97
[2024-06-11] MEDS: LORazepam 0.5 MG TAB PO ONE (18:41)
[2024-06-11 21:00] VITALS: BP 135/75
[2024-06-12 06:47] VITALS: BP 120/73; TEMP 97.8; O2SAT 97
[2024-06-12] MEDS: INSULIN LISPRO (NovoLOG) PER UNIT SC SCH (07:30)
[2024-06-12] MEDS: LEVEMIR (INSULIN DETEMIR) 1 UNITS/0.01ML SC SCH (07:40)
[2024-06-12 08:33] LABS: EOS # 0.1 10^3/uL (0.0-0.5); EOS % 1.3 % (0.0-3.0); HEMATOCRIT 29.6 % (42.0-52.0); LYMPH # 0.5 10^3/uL (1.5-5.0); LYMPH % 11.8 % (24.0-44.0); MEAN CORPUSCULAR HEMOGLOBIN 32.8 pg (27.0-33.0); MEAN CORPUSCULAR HGB CONC 33.8 g/dl (32.0-36.5); MONO # 0.4 10^3/uL (0.0-0.8); MONO % 10.5 % (2.0-8.0); NEUTROPHILS # 2.9 10^3/uL (1.5-8.5); NEUTROPHILS % 75.9 % (36.0-66.0); RED BLOOD COUNT 3.05 10^6/uL (4.30-6.10); WHITE BLOOD COUNT 3.8 10^3/uL (4.0-10.0)
[2024-06-12 08:36] LABS: PLATELET COUNT, AUTOMATED 63 10^3/uL (150-450)
[2024-06-12 08:54] LABS: BLOOD UREA NITROGEN 15 MG/DL (9-23); CALCIUM LEVEL 9.5 MG/DL (8.5-10.1); CARBON DIOXIDE LEVEL 21 MMOL/L (20-31); CHLORIDE LEVEL 108 MMOL/L (98-107); CREATININE FOR GFR 0.57 MG/DL (0.70-1.30); GLOMERULAR FILTRATION RATE > 60.0 (>60); GLUCOSE, FASTING 437 MG/DL (60-100); POTASSIUM SERUM 4.3 MMOL/L (3.5-5.1); SODIUM LEVEL 135 MMOL/L (136-145)
[2024-06-12] MEDS ORDERED: LEVEMIR (INSULIN DETEMIR) 1 UNITS/0.01ML SC SCH (09:00)
[2024-06-12 16:26] VITALS: BP 130/74; TEMP 99.4; O2SAT 97
[2024-06-12] MEDS ORDERED: LEVEMIR (INSULIN DETEMIR) 1 UNITS/0.01ML SC ONE (17:05)
[2024-06-12] MEDS: INSULIN LISPRO (NovoLOG) PER UNIT SC ONE (17:15)
[2024-06-12] MEDS: LEVEMIR (INSULIN DETEMIR) 1 UNITS/0.01ML SC ONE (17:23)
[2024-06-13 06:36] VITALS: BP 111/66; TEMP 98.4; O2SAT 98
[2024-06-13 07:57] VITALS: BP 132/72
[2024-06-13] MEDS: LEVEMIR (INSULIN DETEMIR) 1 UNITS/0.01ML SC SCH (08:12)
[2024-06-13 10:50] LABS: HEMOGLOBIN A1c 6.5 % (4.0-6.0)
[2024-06-13 12:32] VITALS: BP 138/84
[2024-06-13 15:30] VITALS: BP 133/72; TEMP 98.9; O2SAT 98
[2024-06-14 06:44] VITALS: BP 131/74; TEMP 98.4; O2SAT 98
[2024-06-14] MEDS: LEVEMIR (INSULIN DETEMIR) 1 UNITS/0.01ML SC SCH (08:21)
[2024-06-14] MEDS: SITagliptin 50 MG TAB (JANUVIA) PO SCH (08:23)
[2024-06-14 11:46] VITALS: BP 140/72
[2024-06-14 14:58] VITALS: BP 124/66; TEMP 98.9; O2SAT 97
[2024-06-15 06:23] VITALS: BP 127/67; TEMP 99; O2SAT 96
[2024-06-15] MEDS ORDERED: ALDA50TA2 PO (08:31)
[2024-06-15] MEDS ORDERED: SERT50TA29 PO (08:31)
[2024-06-15] MEDS ORDERED: Sodium Chloride Nasal Spray (08:31)
[2024-06-15] MEDS ORDERED: SITA50TAB PO (08:31)
[2024-06-15 14:00] VITALS: BP 120/70; TEMP 99.1; O2SAT 97
[2024-06-16] MEDS ORDERED: JANU100T PO (07:46)
== END 2024-06-15 14:30 | disposition home or self-care (01) | DRG 885 ==
LOC: M PSY 23:04
PROVIDERS: ADMIT Psychiatry & Neurology Psychiatry; ATTEND Psychiatry & Neurology Psychiatry
PROC: 3E0T3BZ Introduction of Anesthetic Agent into Peripheral Nerves and Plexi, Percutaneous Approach (ICD-10-PCS; principal; 2024-06-07 08:00)
DX: F33.2 Major depressive disorder, recurrent severe without psychotic features (principal); K86.0 Alcohol-induced chronic pancreatitis; R45.851 Suicidal ideations; K76.6 Portal hypertension; I85.10 Secondary esophageal varices without bleeding; F10.10 Alcohol abuse, uncomplicated; F12.90 Cannabis use, unspecified, uncomplicated; Z79.82 Long term (current) use of aspirin; Z79.899 Other long term (current) drug therapy; K70.30 Alcoholic cirrhosis of liver without ascites; I10 Essential (primary) hypertension; E11.9 Type 2 diabetes mellitus without complications; E78.5 Hyperlipidemia, unspecified; G47.33 Obstructive sleep apnea (adult) (pediatric); K57.90 Diverticulosis of intestine, part unspecified, without perforation or abscess without bleeding; M54.59 Other low back pain; N40.0 Benign prostatic hyperplasia without lower urinary tract symptoms; D53.9 Nutritional anemia, unspecified; I95.89 Other hypotension; D69.6 Thrombocytopenia, unspecified; F41.9 Anxiety disorder, unspecified; K76.82 Hepatic encephalopathy; K64.8 Other hemorrhoids; R29.6 Repeated falls; R26.89 Other abnormalities of gait and mobility; Z96.643 Presence of artificial hip joint, bilateral

== ENCOUNTER → 2024-06-22 | Outpatient (CLI) | payer MEDICARE ==
[~2024-06-22] MED LIST changes: +JANU100T PO; +SITA50TAB PO; +Sodium Chloride Nasal Spray
== END ==
LOC: M OUTALCOH 12:42
PROVIDERS: ATTEND Psychiatry & Neurology Psychiatry
DX: Z03.89 Encounter for observation for other suspected diseases and conditions ruled out (principal); Z72.0 Tobacco use

== ENCOUNTER 2024-07-07 14:43 | Outpatient (RCR) | payer MEDICARE | END 2024-08-02 | LOC: M OUTALCOH 14:43 | PROVIDERS: ATTEND Psychiatry & Neurology Psychiatry | DX: Z03.89 Encounter for observation for other suspected diseases and conditions ruled out (principal); Z72.0 Tobacco use ==

== ENCOUNTER 2024-08-18 06:28 | Day surgery (SDC) | payer MEDICARE ==
[~2024-08-18] VITALS: Ht 162.6 cm; Wt 64.6 kg
[~2024-08-18 06:28] MED LIST changes: +ASPI81CH48 PO; +BACT800T5 PO; +INSU100V6 SQ; +MAGN400T35 PO; +MIRA3350; +OXYC5CAP56 PO; +PHENYLEPHRINE 10% OPHTH SOL 5ML OD PRN
[2024-08-18] MEDS: OFLOXACIN 0.3 % (OCUFLOX) OPTH SOL 5ML OD ONE (06:45)
[2024-08-18] MEDS: LIDOCAINE 3.5 % 1ML OPHTH TOPICAL GEL OU ONE (06:45)
[2024-08-18] MEDS: PHENYLEPHRINE 2.5% OPHTH SOL 2ML OD SCH (07:07)
[2024-08-18] MEDS: TROPICAMIDE 1% OPHTH SOLN 15ML OD SCH (07:07)
[2024-08-18] MEDS: CYCLOPENTOLATE 1% OPHTH SOLN 2ML BTL OD SCH (07:07)
[2024-08-18] MEDS ORDERED: fentaNYL 100 MCG/2 ML INJECTION As Ordered ONE (07:09)
[2024-08-18] MEDS ORDERED: MIDAZOLAM INJ 2MG/2ML VIAL As Ordered ONE (07:09)
[2024-08-18] MEDS: BSS IRRIG/VANCO(10MG)/TOBRA(5MG)/EPINEPH(1:1000-0.5CC)500ML BAG-ORONLY As Ordered ONE (07:49)
[2024-08-18] MEDS: LIDOCAINE 1% SDV 5ML VIAL As Ordered ONE (07:49)
[2024-08-18] MEDS: CEFUROXIME 1MG/0.1ML INTRACAMERAL INJ As Ordered ONE (08:00)
[2024-08-18 08:05] VITALS: BP 104/68; TEMP 98.4; O2SAT 94
== END 2024-08-18 09:57 | disposition home or self-care (01) ==
LOC: M SDC 06:28
PROVIDERS: ATTEND Ophthalmology
DX: H25.11 Age-related nuclear cataract, right eye (principal); E11.9 Type 2 diabetes mellitus without complications; Z79.899 Other long term (current) drug therapy; F17.210 Nicotine dependence, cigarettes, uncomplicated
CPT/HCPCS: 66984; J0697; J2250; J3010; V2632

== ENCOUNTER 2024-08-20 19:39 | Emergency (ER) | payer MEDICARE ==
[~2024-08-20] VITALS: Ht 165.1 cm; Wt 79.0 kg
[~2024-08-20 19:39] MED LIST changes: -PHENYLEPHRINE 10% OPHTH SOL 5ML OD PRN
[2024-08-20 20:58] LABS: KETONE, URINE AUTO RFX NEGATIVE (NEGATIVE); LEUKOCYTE ESTERASE UR AUTO RFX NEGATIVE (NEGATIVE); MUCUS, URINE RFX SMALL (NEGATIVE); NITRITE, URINE AUTO RFX NEGATIVE (NEGATIVE); RBC, URINE AUTO RFX 4 /HPF (0-3); SQUAM EPITHELIAL CELL UR AURFX 1 /HPF (0-6); WBC, URINE AUTO RFX 1 /HPF (0-3)
[2024-08-20 21:01] LABS: BASO % 0.8 % (0.0-1.0); EOS # 0.3 10^3/uL (0.0-0.5); EOS % 5.8 % (0.0-3.0); HEMATOCRIT 30.1 % (42.0-52.0); HEMOGLOBIN 10.1 g/dl (13.5-17.5); LYMPH # 1.1 10^3/uL (1.5-5.0); LYMPH % 20.9 % (24.0-44.0); MEAN CORPUSCULAR HEMOGLOBIN 29.9 pg (27.0-33.0); MEAN CORPUSCULAR HGB CONC 33.6 g/dl (32.0-36.5); MEAN CORPUSCULAR VOLUME 89.1 fl (80.0-96.0); MONO # 0.7 10^3/uL (0.0-0.8); MONO % 13.5 % (2.0-8.0); RED BLOOD COUNT 3.38 10^6/uL (4.30-6.10); WHITE BLOOD COUNT 5.2 10^3/uL (4.0-10.0)
[2024-08-20 21:02] LABS: PLATELET COUNT, AUTOMATED 60 10^3/uL (150-450)
[2024-08-20 21:21] LABS: ETHYL ALCOHOL (ETHANOL) 0.008 % (0.000-0.010)
[2024-08-20 21:23] LABS: ALKALINE PHOSPHATASE 99 U/L (40-129); ALT/SGPT 21 U/L (7.0-40); AST/SGOT 39 U/L (<34); BILIRUBIN,DIRECT 0.7 MG/DL (<0.4); BILIRUBIN,TOTAL 1.5 MG/DL (0.3-1.2); BLOOD UREA NITROGEN 9 MG/DL (9-23); CALCIUM LEVEL 9.3 MG/DL (8.5-10.1); CARBON DIOXIDE LEVEL 22 MMOL/L (20-31); CHLORIDE LEVEL 114 MMOL/L (98-107); CREATININE FOR GFR 0.65 MG/DL (0.70-1.30); GLOMERULAR FILTRATION RATE > 60.0 (>60); GLUCOSE, FASTING 94 MG/DL (60-100); POTASSIUM SERUM 3.8 MMOL/L (3.5-5.1); SALICYLATE LEVEL < 3.0 MG/DL (<30); SODIUM LEVEL 145 MMOL/L (136-145); TOTAL PROTEIN 6.6 G/DL (5.7-8.2)
[2024-08-20 21:25] LABS: THYROID STIMULATING HORMONE 2.082 uIU/ML (0.55-4.78)
[2024-08-20 23:34] LABS: CK-MB VALUE MASS 5.2 NG/ML (<3.6)
[2024-08-20 23:35] LABS: MB/CK RELATIVE INDEX 2.84 (< OR =4)
[2024-08-21 01:01] LABS: CK-MB VALUE MASS 7.1 NG/ML (<3.6)
[2024-08-21 01:06] LABS: MB/CK RELATIVE INDEX 3.15 (< OR =4)
[2024-08-21 02:06] VITALS: BP 137/92; TEMP 97.9; O2SAT 96
== END 2024-08-21 02:09 | disposition home or self-care (01) ==
LOC: EDBD 19:39 → M ED 19:39
DX: R41.0 Disorientation, unspecified (principal); N40.0 Benign prostatic hyperplasia without lower urinary tract symptoms; K57.30 Diverticulosis of large intestine without perforation or abscess without bleeding; F17.200 Nicotine dependence, unspecified, uncomplicated; F10.10 Alcohol abuse, uncomplicated; Z79.82 Long term (current) use of aspirin; Z79.4 Long term (current) use of insulin; Z79.899 Other long term (current) drug therapy

== ENCOUNTER 2024-09-15 10:24 | Day surgery (SDC) | payer MEDICARE ==
[~2024-09-15] VITALS: Ht 162.6 cm; Wt 66.6 kg
[2024-09-15] MEDS ORDERED: fentaNYL 100 MCG/2 ML INJECTION As Ordered ONE (10:41)
[2024-09-15] MEDS ORDERED: MIDAZOLAM INJ 2MG/2ML VIAL As Ordered ONE (10:41)
[2024-09-15] MEDS: CYCLOPENTOLATE 1% OPHTH SOLN 2ML BTL OS SCH (11:09)
[2024-09-15] MEDS: LIDOCAINE 3.5 % 1ML OPHTH TOPICAL GEL OU ONE (11:09)
[2024-09-15] MEDS: PHENYLEPHRINE 2.5% OPHTH SOL 2ML OS SCH (11:10)
[2024-09-15] MEDS: TROPICAMIDE 1% OPHTH SOLN 15ML OS SCH (11:11)
[2024-09-15] MEDS: OFLOXACIN 0.3 % (OCUFLOX) OPTH SOL 5ML OS ONE (11:11)
[2024-09-15] MEDS: PHENYLEPHRINE 10% OPHTH SOL 5ML OS PRN (11:31)
[2024-09-15] MEDS: LIDOCAINE 1% SDV 5ML VIAL As Ordered ONE (11:43)
[2024-09-15] MEDS: CEFUROXIME 1MG/0.1ML INTRACAMERAL INJ As Ordered ONE (11:43)
[2024-09-15] MEDS: BSS IRRIG/VANCO(10MG)/TOBRA(5MG)/EPINEPH(1:1000-0.5CC)500ML BAG-ORONLY As Ordered ONE (11:43)
[2024-09-15 12:02] VITALS: BP 110/71; TEMP 97.6; O2SAT 94
== END 2024-09-15 12:15 | disposition home or self-care (01) ==
LOC: M SDC 10:24
PROVIDERS: ATTEND Ophthalmology
DX: E11.36 Type 2 diabetes mellitus with diabetic cataract (principal); H25.12 Age-related nuclear cataract, left eye; K70.30 Alcoholic cirrhosis of liver without ascites; Z79.899 Other long term (current) drug therapy; Z79.84 Long term (current) use of oral hypoglycemic drugs; Z79.82 Long term (current) use of aspirin; F17.210 Nicotine dependence, cigarettes, uncomplicated; Z79.4 Long term (current) use of insulin; F10.21 Alcohol dependence, in remission
CPT/HCPCS: 66984; J0697; J2250; J3010; V2632

== ENCOUNTER → 2024-09-21 | Outpatient (POV) | payer MEDICARE ==
[~2024-09-21] VITALS: Ht 162.6 cm; Wt 68.6 kg
[~2024-09-21] MED LIST changes: +MIDAZOLAM INJ 2MG/2ML VIAL As Ordered ONE; +fentaNYL 100 MCG/2 ML INJECTION As Ordered ONE
[2024-09-21 08:50] VITALS: BP 118/69; O2SAT 97
== END ==
LOC: M IRPOV 08:37
PROVIDERS: ATTEND Radiology Diagnostic Radiology
DX: Z48.812 Encounter for surgical aftercare following surgery on the circulatory system (principal); K70.30 Alcoholic cirrhosis of liver without ascites; K76.82 Hepatic encephalopathy; M54.9 Dorsalgia, unspecified; G89.29 Other chronic pain; F17.210 Nicotine dependence, cigarettes, uncomplicated; I27.20 Pulmonary hypertension, unspecified

== ENCOUNTER 2025-01-26 14:37 | Inpatient (IN) | payer MEDICARE, MEDICAID ==
[~2025-01-26] VITALS: Ht 162.6 cm; Wt 63.4 kg
[~2025-01-26 14:37] MED LIST changes: +AMOX875T PO; -FLOM0.4C39 PO; -GLUC1KIT SC; +GLUC1VIA14 SC; +LIDO1ADH93 TOP; -LIDO5DIS41 TOP; +LORA-1164 PO; -LORA-622 PO; -MIDAZOLAM INJ 2MG/2ML VIAL As Ordered ONE; -MIRA3350; -NADO20TA PO; +NADO20TA38 PO; +TAMS-18 PO; -fentaNYL 100 MCG/2 ML INJECTION As Ordered ONE
[2025-01-26 16:47] VITALS: BP 111/79; TEMP 97.9; O2SAT 97
[2025-01-26] MEDS ORDERED: VANCOMYCIN HCL 1,000 MG, VIAL MATE ADAPTER 1 EACH in NS 250 ML IV SCH (16:55)
[2025-01-26] MEDS: **PLEASE UPDATE HEIGHT/WEIGHT XX SCH (17:00)
[2025-01-26] MEDS ORDERED: GLUCAGON INJ 1 MG VIAL SC PRN (17:15)
[2025-01-26] MEDS ORDERED: DEXTROSE 50% 50 ML SYRINGE IV PRN (17:15)
[2025-01-26] MEDS ORDERED: GLUCOSE 4 GM CHEW PO PRN (17:15)
[2025-01-26] MEDS ORDERED: PANT-23 PO (17:22)
[2025-01-26] MEDS ORDERED: CREO24CA PO (17:22)
[2025-01-26] MEDS ORDERED: TRAZ-189 PO (17:22)
[2025-01-26] MEDS ORDERED: CLON0.5T2 PO (17:24)
[2025-01-26] MEDS ORDERED: B-1100TA2 PO (17:24)
[2025-01-26] MEDS ORDERED: HOME MED LIST COMPLETE! XX SCH (17:25)
[2025-01-26 17:27] LABS: BASO # 0.0 10^3/uL (0.0-0.2); BASO % 0.6 % (0.0-1.0); EOS # 0.2 10^3/uL (0.0-0.5); EOS % 3.2 % (0.0-3.0); LYMPH # 1.1 10^3/uL (1.5-5.0); LYMPH % 20.7 % (24.0-44.0); MONO # 0.5 10^3/uL (0.0-0.8); MONO % 10.1 % (2.0-8.0); NEUTROPHILS # 3.4 10^3/uL (1.5-8.5); NEUTROPHILS % 64.4 % (36.0-66.0)
[2025-01-26] MEDS ORDERED: NALOXONE INJ 0.4 MG/1 ML VIAL IV PRN (17:40)
[2025-01-26 17:43] LABS: INR 1.35
[2025-01-26] MEDS: LR 1,000 ML IV ONE ×2 (17:52→22:38)
[2025-01-26 17:56] LABS: ALT/SGPT 21 U/L (7.0-40); AST/SGOT 43 U/L (<34); C REACTIVE PROTEIN QUANTITATIV 2.33 MG/DL (<1.0); CALCIUM LEVEL 8.2 MG/DL (8.5-10.1); CARBON DIOXIDE LEVEL 23 MMOL/L (20-31); CHLORIDE LEVEL 101 MMOL/L (98-107); CREATININE FOR GFR 0.56 MG/DL (0.70-1.30); GLOMERULAR FILTRATION RATE > 90.0 (>60); POTASSIUM SERUM 3.0 MMOL/L (3.5-5.1); SODIUM LEVEL 138 MMOL/L (136-145)
[2025-01-26 17:57] LABS: PLATELET COUNT, AUTOMATED 46 10^3/uL (150-450)
[2025-01-26 18:02] LABS: KETONE, URINE AUTO RFX NEGATIVE (NEGATIVE); LEUKOCYTE ESTERASE UR AUTO RFX NEGATIVE (NEGATIVE); MUCUS, URINE RFX SMALL (NEGATIVE); NITRITE, URINE AUTO RFX NEGATIVE (NEGATIVE); RBC, URINE AUTO RFX 0 /HPF (0-3); SQUAM EPITHELIAL CELL UR AURFX 0 /HPF (0-6); WBC, URINE AUTO RFX 1 /HPF (0-3)
[2025-01-26 18:03] LABS: ERYTHROCYTE SEDIMENTATION RATE 90 mm/hr (0-15)
[2025-01-26] MEDS: MIDODRINE 5 MG TAB PO ONE (18:12)
[2025-01-26] MEDS: MORPHINE 2 MG/ML 1 ML VIAL IV ONE (18:13)
[2025-01-26] MEDS: KETOROLAC 30 MG/ML 1 ML VIAL IV ONE (18:13)
[2025-01-26 19:08] LABS: MAGNESIUM LEVEL 1.8 MG/DL (1.8-2.4); PHOSPHORUS LEVEL 1.7 MG/DL (2.5-4.9)
[2025-01-26] MEDS: INSULIN LISPRO (NovoLOG) PER UNIT SC SCH ×2 (19:09→21:00)
[2025-01-26] MEDS ORDERED: clonazePAM 0.5 MG TAB PO PRN (19:40)
[2025-01-26] MEDS: POTASSIUM CHLORIDE 10MEQ SR TABLET PO SCH (19:55)
[2025-01-26] MEDS: VANCOMYCIN HCL 1,250 MG, VIAL MATE ADAPTER 1 EACH in NS 250 ML IV ONE (19:55)
[2025-01-26 20:45] VITALS: BP 96/54; TEMP 97.7; O2SAT 100
[2025-01-26 21:10] LABS: FREE T4 1.06 NG/DL (0.89-1.76)
[2025-01-26 21:18] LABS: ESTIMATED AVERAGE GLUCOSE 123.0 MG/DL (60-110)
[2025-01-26] MEDS: GABAPENTIN 100 MG CAP PO SCH (22:11)
[2025-01-26] MEDS: traZODone 100 MG TAB PO SCH (22:11)
[2025-01-26] MEDS: PANTOPRAZOLE 40MG TAB PO SCH (22:12)
[2025-01-27] MEDS: NS (Normal Saline) 0.9% 1,000 ML IV SCH (00:19)
[2025-01-27 04:50] VITALS: BP 106/67; TEMP 97.7; O2SAT 98
[2025-01-27] MEDS: VANCOMYCIN HCL 750 MG, VIAL MATE ADAPTER 1 EACH in NS 250 ML IV SCH ×2 (04:54→13:14)
[2025-01-27 05:54] LABS: BASO # 0.0 10^3/uL (0.0-0.2); BASO % 0.6 % (0.0-1.0); EOS # 0.2 10^3/uL (0.0-0.5); EOS % 4.3 % (0.0-3.0); LYMPH # 1.2 10^3/uL (1.5-5.0); LYMPH % 25.8 % (24.0-44.0); MONO # 0.4 10^3/uL (0.0-0.8); MONO % 8.9 % (2.0-8.0); NEUTROPHILS # 2.7 10^3/uL (1.5-8.5); NEUTROPHILS % 59.3 % (36.0-66.0)
[2025-01-27 06:09] LABS: PLATELET COUNT, AUTOMATED 52 10^3/uL (150-450)
[2025-01-27 06:22] LABS: CALCIUM LEVEL 8.4 MG/DL (8.5-10.1); CARBON DIOXIDE LEVEL 24 MMOL/L (20-31); CHLORIDE LEVEL 104 MMOL/L (98-107); CREATININE FOR GFR 0.62 MG/DL (0.70-1.30); GLOMERULAR FILTRATION RATE > 90.0 (>60); POTASSIUM SERUM 4.0 MMOL/L (3.5-5.1); SODIUM LEVEL 139 MMOL/L (136-145)
[2025-01-27] MEDS: LR 1,000 ML IV ONE ×2 (07:02→10:15)
[2025-01-27 07:11] LABS: MAGNESIUM LEVEL 1.6 MG/DL (1.8-2.4)
[2025-01-27 07:13] LABS: C REACTIVE PROTEIN QUANTITATIV 2.10 MG/DL (<1.0)
[2025-01-27] MEDS: INSULIN LISPRO (NovoLOG) PER UNIT SQ SCH (07:30)
[2025-01-27] MEDS: MIDODRINE 5 MG TAB PO ONE (08:00)
[2025-01-27] MEDS ORDERED: MIDODRINE 5 MG TAB PO SCH (08:00)
[2025-01-27] MEDS ORDERED: ISOVUE-370 76% 100 ML VIAL As Ordered ONE (08:02)
[2025-01-27 08:05] LABS: ERYTHROCYTE SEDIMENTATION RATE 46 mm/hr (0-15)
[2025-01-27] MEDS: CREON-24 CAPSULE (PANCRELIPASE) PO SCH (10:08)
[2025-01-27] MEDS: FOLIC ACID 1 MG TAB PO SCH (10:08)
[2025-01-27] MEDS: ASPIRIN 81 MG CHEWABLE TABLET PO SCH (10:09)
[2025-01-27] MEDS: TAMSULOSIN 0.4 MG CAP PO SCH (10:12)
[2025-01-27] MEDS: THIAMINE 100 MG TAB PO SCH (10:13)
[2025-01-27] MEDS: SERTRALINE HCL 50 MG TAB PO SCH (10:13)
[2025-01-27] MEDS: LR 1,000 ML IV SCH (11:21)
[2025-01-27 12:00] VITALS: BP 134/91; TEMP 97.2; O2SAT 90
[2025-01-27] MEDS ORDERED: PROHANCE 279.3MG/ML 15ML VIAL As Ordered ONE (19:12)
[2025-01-27 20:00] VITALS: BP 116/74; TEMP 97.7; O2SAT 89
[2025-01-27 21:30] VITALS: BP 116/74; TEMP 97.7; O2SAT 89
[2025-01-28 04:11] VITALS: BP 107/60; TEMP 97.9; O2SAT 83
[2025-01-28 04:34] VITALS: O2SAT 92
[2025-01-28 05:41] LABS: BASO # 0.0 10^3/uL (0.0-0.2); BASO % 0.7 % (0.0-1.0); EOS # 0.2 10^3/uL (0.0-0.5); EOS % 4.8 % (0.0-3.0); LYMPH # 1.0 10^3/uL (1.5-5.0); LYMPH % 23.2 % (24.0-44.0); MONO # 0.4 10^3/uL (0.0-0.8); MONO % 9.2 % (2.0-8.0); NEUTROPHILS # 2.5 10^3/uL (1.5-8.5); NEUTROPHILS % 61.4 % (36.0-66.0)
[2025-01-28 05:44] LABS: PLATELET COUNT, AUTOMATED 46 10^3/uL (150-450)
[2025-01-28 06:03] LABS: CALCIUM LEVEL 8.4 MG/DL (8.5-10.1); CARBON DIOXIDE LEVEL 26 MMOL/L (20-31); CHLORIDE LEVEL 107 MMOL/L (98-107); CREATININE FOR GFR 0.59 MG/DL (0.70-1.30); GLOMERULAR FILTRATION RATE > 90.0 (>60); POTASSIUM SERUM 4.2 MMOL/L (3.5-5.1); SODIUM LEVEL 140 MMOL/L (136-145)
[2025-01-28 12:00] VITALS: BP 122/79; TEMP 97.7; O2SAT 91
[2025-01-28] MEDS: KETOROLAC 30 MG/ML 1 ML VIAL IV ONE (13:49)
[2025-01-28] MEDS: HYDROMORPHONE HCL 0.5 MG/0.5 ML SYRINGE IV ONE (14:20)
[2025-01-28] MEDS: LR 1,000 ML IV ONE (16:38)
[2025-01-28] MEDS: SANTYL OINT 30GM TOP SCH (17:56)
[2025-01-28 20:54] VITALS: BP 122/77; TEMP 97.5; O2SAT 92
[2025-01-29 04:44] VITALS: BP 103/56; TEMP 98.1; O2SAT 90
[2025-01-29 05:31] LABS: BASO # 0.0 10^3/uL (0.0-0.2); BASO % 0.5 % (0.0-1.0); EOS # 0.2 10^3/uL (0.0-0.5); EOS % 3.5 % (0.0-3.0); LYMPH # 0.9 10^3/uL (1.5-5.0); LYMPH % 20.5 % (24.0-44.0); MONO # 0.4 10^3/uL (0.0-0.8); MONO % 8.1 % (2.0-8.0); NEUTROPHILS # 2.9 10^3/uL (1.5-8.5); NEUTROPHILS % 66.7 % (36.0-66.0)
[2025-01-29 05:33] LABS: PLATELET COUNT, AUTOMATED 45 10^3/uL (150-450)
[2025-01-29 05:59] LABS: CALCIUM LEVEL 8.2 MG/DL (8.5-10.1); CARBON DIOXIDE LEVEL 25 MMOL/L (20-31); CHLORIDE LEVEL 106 MMOL/L (98-107); CREATININE FOR GFR 0.69 MG/DL (0.70-1.30); GLOMERULAR FILTRATION RATE > 90.0 (>60); POTASSIUM SERUM 4.1 MMOL/L (3.5-5.1); SODIUM LEVEL 140 MMOL/L (136-145)
[2025-01-29 11:34] VITALS: BP 107/69; TEMP 97.2; O2SAT 92
[2025-01-29] MEDS: HYDROMORPHONE HCL 0.5 MG/0.5 ML SYRINGE IV ONE (13:03)
[2025-01-29] MEDS: HYDROmorphone 2 MG TAB PO PRN (19:28)
[2025-01-30 04:53] VITALS: BP 91/52; TEMP 97.6; O2SAT 91
[2025-01-30] MEDS: NS 500 ML IV ONE (06:00)
[2025-01-30 06:28] LABS: BASO # 0.0 10^3/uL (0.0-0.2); BASO % 0.5 % (0.0-1.0); EOS # 0.2 10^3/uL (0.0-0.5); EOS % 4.0 % (0.0-3.0); LYMPH # 1.2 10^3/uL (1.5-5.0); LYMPH % 27.1 % (24.0-44.0); MONO # 0.4 10^3/uL (0.0-0.8); MONO % 9.6 % (2.0-8.0); NEUTROPHILS # 2.5 10^3/uL (1.5-8.5); NEUTROPHILS % 58.3 % (36.0-66.0)
[2025-01-30 06:38] LABS: CALCIUM LEVEL 8.6 MG/DL (8.5-10.1); CARBON DIOXIDE LEVEL 25 MMOL/L (20-31); CHLORIDE LEVEL 108 MMOL/L (98-107); CREATININE FOR GFR 0.64 MG/DL (0.70-1.30); GLOMERULAR FILTRATION RATE > 90.0 (>60); POTASSIUM SERUM 4.0 MMOL/L (3.5-5.1); SODIUM LEVEL 142 MMOL/L (136-145)
[2025-01-30 06:39] LABS: PLATELET COUNT, AUTOMATED 42 10^3/uL (150-450)
[2025-01-30] MEDS: SODIUM CHLORIDE 0.9% INJ 10 ML SYR IV SCH (08:00)
[2025-01-30 08:15] VITALS: BP 116/85; TEMP 97.7; O2SAT 92
[2025-01-30] MEDS ORDERED: SODIUM CHLORIDE 0.9% INJ 10 ML SYR IV PRN (10:20)
[2025-01-30 12:00] VITALS: BP 113/69; TEMP 97.7; O2SAT 94
[2025-01-30 12:38] LABS: CPK CREATINE PHOSPHOKINASE 41 U/L (46-171)
[2025-01-30 20:39] VITALS: BP 112/71; TEMP 98.1; O2SAT 90
[2025-01-31 04:32] VITALS: BP 115/70; TEMP 97.5; O2SAT 92
[2025-01-31 05:54] LABS: BASO # 0.0 10^3/uL (0.0-0.2); BASO % 0.5 % (0.0-1.0); EOS # 0.1 10^3/uL (0.0-0.5); EOS % 2.4 % (0.0-3.0); LYMPH # 1.2 10^3/uL (1.5-5.0); LYMPH % 21.3 % (24.0-44.0); MONO # 0.6 10^3/uL (0.0-0.8); MONO % 10.2 % (2.0-8.0); NEUTROPHILS # 3.8 10^3/uL (1.5-8.5); NEUTROPHILS % 65.4 % (36.0-66.0)
[2025-01-31 06:00] LABS: PLATELET COUNT, AUTOMATED 43 10^3/uL (150-450)
[2025-01-31 06:14] LABS: CALCIUM LEVEL 8.5 MG/DL (8.5-10.1); CARBON DIOXIDE LEVEL 23 MMOL/L (20-31); CHLORIDE LEVEL 108 MMOL/L (98-107); CREATININE FOR GFR 0.55 MG/DL (0.70-1.30); GLOMERULAR FILTRATION RATE > 90.0 (>60); POTASSIUM SERUM 3.7 MMOL/L (3.5-5.1); SODIUM LEVEL 143 MMOL/L (136-145)
[2025-01-31] MEDS ORDERED: PILL CUTTER 1 EACH XX ONE (10:52)
[2025-01-31 11:45] VITALS: BP 128/81; TEMP 97.9; O2SAT 95
[2025-01-31] MEDS: BACLOFEN 10 MG TAB PO SCH (15:51)
[2025-01-31] MEDS ORDERED: PILL CUTTER 1 EACH XX PRN (18:25)
[2025-01-31] MEDS: RAMELTEON 8 MG TAB PO SCH (20:20)
[2025-01-31] MEDS: HYDROmorphone 2 MG TAB PO PRN (20:21)
[2025-01-31 20:44] VITALS: BP 140/98; TEMP 97.7; O2SAT 91
[2025-02-01 04:03] VITALS: BP 102/66; TEMP 97.5; O2SAT 91
[2025-02-01] MEDS: HYDROmorphone 2 MG TAB PO PRN (05:47)
[2025-02-01 06:24] LABS: BASO # 0.0 10^3/uL (0.0-0.2); BASO % 0.6 % (0.0-1.0); EOS # 0.3 10^3/uL (0.0-0.5); EOS % 4.2 % (0.0-3.0); LYMPH # 1.7 10^3/uL (1.5-5.0); LYMPH % 27.3 % (24.0-44.0); MONO # 0.7 10^3/uL (0.0-0.8); MONO % 10.8 % (2.0-8.0); NEUTROPHILS # 3.5 10^3/uL (1.5-8.5); NEUTROPHILS % 56.6 % (36.0-66.0)
[2025-02-01 06:38] LABS: PLATELET COUNT, AUTOMATED 47 10^3/uL (150-450)
[2025-02-01 06:55] LABS: CALCIUM LEVEL 8.1 MG/DL (8.5-10.1); CARBON DIOXIDE LEVEL 23 MMOL/L (20-31); CHLORIDE LEVEL 107 MMOL/L (98-107); CREATININE FOR GFR 0.55 MG/DL (0.70-1.30); GLOMERULAR FILTRATION RATE > 90.0 (>60); POTASSIUM SERUM 3.7 MMOL/L (3.5-5.1); SODIUM LEVEL 141 MMOL/L (136-145)
[2025-02-01] MEDS ORDERED: HYDROmorphone 2 MG TAB PO PRN (09:45)
[2025-02-01 12:00] VITALS: BP 117/75; TEMP 97.5; O2SAT 93
[2025-02-01 20:06] VITALS: BP 115/72; TEMP 97.7; O2SAT 93
[2025-02-01] MEDS: LORazepam 1 MG TAB PO SCH (21:14)
[2025-02-02 03:46] VITALS: O2SAT 84
[2025-02-02 04:07] VITALS: BP 127/74; TEMP 97.7; O2SAT 93
[2025-02-02 06:30] LABS: BASO # 0.0 10^3/uL (0.0-0.2); BASO % 0.7 % (0.0-1.0); EOS # 0.3 10^3/uL (0.0-0.5); EOS % 5.4 % (0.0-3.0); LYMPH # 1.1 10^3/uL (1.5-5.0); LYMPH % 24.1 % (24.0-44.0); MONO # 0.6 10^3/uL (0.0-0.8); MONO % 12.6 % (2.0-8.0); NEUTROPHILS # 2.6 10^3/uL (1.5-8.5); NEUTROPHILS % 56.5 % (36.0-66.0)
[2025-02-02 06:47] LABS: PLATELET COUNT, AUTOMATED 47 10^3/uL (150-450)
[2025-02-02 06:52] LABS: CALCIUM LEVEL 8.2 MG/DL (8.5-10.1); CARBON DIOXIDE LEVEL 25 MMOL/L (20-31); CHLORIDE LEVEL 109 MMOL/L (98-107); CREATININE FOR GFR 0.52 MG/DL (0.70-1.30); GLOMERULAR FILTRATION RATE > 90.0 (>60); POTASSIUM SERUM 3.6 MMOL/L (3.5-5.1); SODIUM LEVEL 144 MMOL/L (136-145)
[2025-02-02 11:30] VITALS: BP 110/74; TEMP 97.7; O2SAT 97
[2025-02-02 13:14] LABS: VENOUS BASE EXCESS -0.2 (-2.0-2.0); VENOUS HCO3 23.2 MMOL/L (23.0-27.0); VENOUS O2 SATURATION 98.6 % (60.0-80.0); VENOUS PARTIAL PRESSURE CO2 33.8 mmHg (38.0-50.0); VENOUS PARTIAL PRESSURE O2 144.8 mmHg (30.0-50.0); VENOUS PH 7.455 UNITS (7.330-7.430); VENOUS STANDARD HCO3 24.4 MMOL/L; VENOUS TOTAL CO2 24.3 MMOL/L (24.0-28.0)
[2025-02-02] MEDS: LACTULOSE 20 GM/30 ML SYRUP UDC PO SCH (15:39)
[2025-02-02 20:16] VITALS: BP 128/74; TEMP 97.9; O2SAT 90
[2025-02-02] MEDS: RAMELTEON 8 MG TAB PO PRN (21:00)
[2025-02-02] MEDS: traZODone 100 MG TAB PO PRN (23:18)
[2025-02-03 04:54] VITALS: BP 131/74; TEMP 97.9; O2SAT 93
[2025-02-03 08:59] LABS: PLATELET COUNT, AUTOMATED 49 10^3/uL (150-450)
[2025-02-03 09:17] LABS: ALT/SGPT 17 U/L (7.0-40); AST/SGOT 35 U/L (<34); CALCIUM LEVEL 8.2 MG/DL (8.5-10.1); CARBON DIOXIDE LEVEL 22 MMOL/L (20-31); CHLORIDE LEVEL 110 MMOL/L (98-107); CREATININE FOR GFR 0.56 MG/DL (0.70-1.30); GLOMERULAR FILTRATION RATE > 90.0 (>60); POTASSIUM SERUM 3.4 MMOL/L (3.5-5.1); SODIUM LEVEL 142 MMOL/L (136-145)
[2025-02-03 12:00] VITALS: BP 100/63; TEMP 97.3; O2SAT 93
[2025-02-03 16:55] VITALS: BP 103/61
[2025-02-03 20:00] VITALS: BP 109/60; TEMP 97.7; O2SAT 91
[2025-02-04 04:05] VITALS: BP 128/82; TEMP 97.5; O2SAT 91
[2025-02-04 08:18] LABS: PLATELET COUNT, AUTOMATED 55 10^3/uL (150-450)
[2025-02-04 08:49] LABS: ALT/SGPT 19 U/L (7.0-40); AST/SGOT 41 U/L (<34); CALCIUM LEVEL 8.3 MG/DL (8.5-10.1); CARBON DIOXIDE LEVEL 22 MMOL/L (20-31); CHLORIDE LEVEL 110 MMOL/L (98-107); CREATININE FOR GFR 0.57 MG/DL (0.70-1.30); GLOMERULAR FILTRATION RATE > 90.0 (>60); MAGNESIUM LEVEL 1.9 MG/DL (1.8-2.4); POTASSIUM SERUM 3.7 MMOL/L (3.5-5.1); SODIUM LEVEL 141 MMOL/L (136-145)
[2025-02-04] MEDS: POTASSIUM CHLORIDE 10MEQ SR TABLET PO SCH (09:08)
[2025-02-04 12:00] VITALS: BP 107/67; TEMP 98.2; O2SAT 90
[2025-02-04 20:03] VITALS: BP 121/72; TEMP 97.9; O2SAT 92
[2025-02-05 03:18] VITALS: BP 109/66; TEMP 97.7; O2SAT 91
[2025-02-05 05:51] LABS: PLATELET COUNT, AUTOMATED 55 10^3/uL (150-450)
[2025-02-05 06:15] LABS: ALT/SGPT 19 U/L (7.0-40); AST/SGOT 40 U/L (<34); CALCIUM LEVEL 8.9 MG/DL (8.5-10.1); CARBON DIOXIDE LEVEL 23 MMOL/L (20-31); CHLORIDE LEVEL 111 MMOL/L (98-107); CREATININE FOR GFR 0.56 MG/DL (0.70-1.30); GLOMERULAR FILTRATION RATE > 90.0 (>60); MAGNESIUM LEVEL 2.0 MG/DL (1.8-2.4); POTASSIUM SERUM 4.1 MMOL/L (3.5-5.1); SODIUM LEVEL 142 MMOL/L (136-145)
[2025-02-05 12:00] VITALS: BP 106/56; TEMP 97.7; O2SAT 95
[2025-02-05 21:16] VITALS: BP 121/74; TEMP 98.1; O2SAT 94
[2025-02-06 03:44] VITALS: BP 114/71; TEMP 97.7; O2SAT 95
[2025-02-06 06:39] LABS: PLATELET COUNT, AUTOMATED 60 10^3/uL (150-450)
[2025-02-06 06:58] LABS: CPK CREATINE PHOSPHOKINASE 34 U/L (46-171)
[2025-02-06 06:59] LABS: ALT/SGPT 21 U/L (7.0-40); AST/SGOT 44 U/L (<34); CALCIUM LEVEL 8.7 MG/DL (8.5-10.1); CARBON DIOXIDE LEVEL 24 MMOL/L (20-31); CHLORIDE LEVEL 109 MMOL/L (98-107); CREATININE FOR GFR 0.59 MG/DL (0.70-1.30); GLOMERULAR FILTRATION RATE > 90.0 (>60); MAGNESIUM LEVEL 1.9 MG/DL (1.8-2.4); POTASSIUM SERUM 4.5 MMOL/L (3.5-5.1); SODIUM LEVEL 143 MMOL/L (136-145)
[2025-02-06 12:00] VITALS: BP 112/71; TEMP 97.9; O2SAT 91
[2025-02-07 04:15] VITALS: BP 108/72; TEMP 97.7; O2SAT 92
[2025-02-07 06:19] LABS: PLATELET COUNT, AUTOMATED 55 10^3/uL (150-450)
[2025-02-07 06:37] LABS: ALT/SGPT 20 U/L (7.0-40); AST/SGOT 47 U/L (<34); CALCIUM LEVEL 8.5 MG/DL (8.5-10.1); CARBON DIOXIDE LEVEL 25 MMOL/L (20-31); CHLORIDE LEVEL 109 MMOL/L (98-107); CREATININE FOR GFR 0.52 MG/DL (0.70-1.30); GLOMERULAR FILTRATION RATE > 90.0 (>60); MAGNESIUM LEVEL 2.0 MG/DL (1.8-2.4); POTASSIUM SERUM 4.0 MMOL/L (3.5-5.1); SODIUM LEVEL 140 MMOL/L (136-145)
[2025-02-07] MEDS ORDERED: MAG SULF 1GM/100ML (MAG RUN) 1 GM in IV 1 EA IV SCH (08:00)
[2025-02-07 12:00] VITALS: BP 109/66; TEMP 97.9; O2SAT 90
[2025-02-07] MEDS: MAGNESIUM OXIDE 400 MG TAB PO SCH (18:37)
[2025-02-07 20:00] VITALS: BP 116/80; TEMP 97.7; O2SAT 93
[2025-02-08 04:11] VITALS: BP 118/82; TEMP 97.9; O2SAT 92
[2025-02-08] MEDS: FUROSEMIDE 20 MG TAB PO SCH (08:15)
[2025-02-08 08:16] VITALS: BP 118/82
[2025-02-08] MEDS: SPIRONOLACTONE 50 MG TAB PO SCH (08:16)
[2025-02-08 12:00] VITALS: BP 114/74; TEMP 98.1; O2SAT 97
[2025-02-08] MEDS ORDERED: DAPT500V8 IV (12:26)
[2025-02-08] MEDS ORDERED: LACT20EL PO (12:26)
[2025-02-08] MEDS ORDERED: BACL10TA2 PO (12:26)
[2025-02-08] MEDS ORDERED: RISATAB3 PO (12:26)
[2025-02-08] MEDS ORDERED: DILA2TAB6 PO (12:26)
[2025-02-08 14:00] VITALS: BP 110/77; TEMP 97.5; O2SAT 95
== END 2025-02-08 14:03 | DRG 559 ==
LOC: M MSPAV 16:41
PROVIDERS: ADMIT Family Medicine; ATTEND Internal Medicine
DX: T84.63XA Infection and inflammatory reaction due to internal fixation device of spine, initial encounter (principal); G93.41 Metabolic encephalopathy; K76.6 Portal hypertension; D68.9 Coagulation defect, unspecified; K86.0 Alcohol-induced chronic pancreatitis; I85.10 Secondary esophageal varices without bleeding; R78.81 Bacteremia; M46.26 Osteomyelitis of vertebra, lumbar region; E72.20 Disorder of urea cycle metabolism, unspecified; E87.3 Alkalosis; K70.30 Alcoholic cirrhosis of liver without ascites; D69.6 Thrombocytopenia, unspecified; D64.9 Anemia, unspecified; E78.00 Pure hypercholesterolemia, unspecified; E78.5 Hyperlipidemia, unspecified; R10.9 Unspecified abdominal pain; G89.29 Other chronic pain; E88.09 Other disorders of plasma-protein metabolism, not elsewhere classified; E83.42 Hypomagnesemia; I95.9 Hypotension, unspecified; I86.4 Gastric varices; E87.6 Hypokalemia; F41.9 Anxiety disorder, unspecified; E11.22 Type 2 diabetes mellitus with diabetic chronic kidney disease; F39 Unspecified mood [affective] disorder; N18.30 Chronic kidney disease, stage 3 unspecified; I12.9 Hypertensive chronic kidney disease with stage 1 through stage 4 chronic kidney disease, or unspecified chronic kidney disease; E11.69 Type 2 diabetes mellitus with other specified complication; G25.3 Myoclonus; K21.9 Gastro-esophageal reflux disease without esophagitis; G47.33 Obstructive sleep apnea (adult) (pediatric); N40.0 Benign prostatic hyperplasia without lower urinary tract symptoms; K76.82 Hepatic encephalopathy; Z79.899 Other long term (current) drug therapy; S32.039D Unspecified fracture of third lumbar vertebra, subsequent encounter for fracture with routine healing; Y83.1 Surgical operation with implant of artificial internal device as the cause of abnormal reaction of the patient, or of later complication, without mention of misadventure at the time of the procedure; F12.90 Cannabis use, unspecified, uncomplicated; F17.200 Nicotine dependence, unspecified, uncomplicated; Z79.82 Long term (current) use of aspirin; Z79.4 Long term (current) use of insulin; Z66 Do not resuscitate

== ENCOUNTER → 2025-03-06 | Outpatient (REF) ==
[~2025-03-06] MED LIST changes: -ACE65ERTAB PO; +ACET-1593 PO; +B-1100TA2 PO; +BACL10TA2 PO; +CLON0.5T2 PO; +DAPT500V8 IV; +DILA2TAB6 PO; +RISATAB3 PO; +SENN-225 PO; -SENO8.6T5 PO
== END ==
LOC: M CAHLAB 17:40
DX: Z13.9 Encounter for screening, unspecified (principal)

== ENCOUNTER → 2025-03-08 | Outpatient (REF) | LOC: M LAB REF 06:00 → M CAHLAB 06:00 | DX: Z86.19 Personal history of other infectious and parasitic diseases (principal) ==

== ENCOUNTER → 2025-03-30 | Outpatient (CLI) | payer MEDICARE ==
[~2025-03-30] MED LIST changes: -IBUP1TAB6 PO; +ISOVUE-370 76% 100 ML VIAL As Ordered ONE; +SFHIBU600 PO
== END ==
LOC: M RAD 12:48
PROVIDERS: ATTEND Radiology Diagnostic Radiology
DX: I85.00 Esophageal varices without bleeding (principal); I70.0 Atherosclerosis of aorta
CPT/HCPCS: 74177; Q9967

== ENCOUNTER → 2025-04-05 | Outpatient (POV) | payer MEDICARE, MEDICAID ==
[~2025-04-05] VITALS: Ht 160 cm; Wt 61.9 kg
[~2025-04-05] MED LIST changes: -ISOVUE-370 76% 100 ML VIAL As Ordered ONE
[2025-04-05 11:50] VITALS: BP 120/78; O2SAT 96
== END ==
LOC: M IRPOV 11:16
PROVIDERS: ATTEND Radiology Diagnostic Radiology
DX: I85.00 Esophageal varices without bleeding (principal); K70.30 Alcoholic cirrhosis of liver without ascites; K76.6 Portal hypertension; Z79.2 Long term (current) use of antibiotics; Z97.8 Presence of other specified devices; Z98.1 Arthrodesis status

== ENCOUNTER 2025-05-24 10:43 | Inpatient (IN) | payer MEDICARE, MEDICAID ==
[~2025-05-24] VITALS: Ht 162.6 cm; Wt 62.0 kg
[2025-05-24 12:53] LABS: BASO # 0.0 10^3/uL (0.0-0.2); BASO % 0.6 % (0.0-1.0); EOS # 0.1 10^3/uL (0.0-0.5); EOS % 2.3 % (0.0-3.0); LYMPH # 0.5 10^3/uL (1.5-5.0); LYMPH % 10.3 % (24.0-44.0); MONO # 0.5 10^3/uL (0.0-0.8); MONO % 9.5 % (2.0-8.0); NEUTROPHILS # 3.9 10^3/uL (1.5-8.5); NEUTROPHILS % 75.9 % (36.0-66.0)
[2025-05-24 12:55] LABS: PLATELET COUNT, AUTOMATED 65 10^3/uL (150-450)
[2025-05-24 13:04] LABS: INR 1.35
[2025-05-24 13:16] LABS: ALT/SGPT 16.0 U/L (7.0-40); AST/SGOT 34.0 U/L (<34)
[2025-05-24] MEDS: NS (Normal Saline) 0.9% 1,000 ML IV ONE (14:19)
[2025-05-24] MEDS: LACTULOSE 20 GM/30 ML SYRUP UDC PO ONE (14:32)
[2025-05-24] MEDS ORDERED: ISOVUE-370 76% 100 ML VIAL As Ordered ONE (14:54)
[2025-05-24] MEDS ORDERED: DOXY100C3 PO (15:04)
[2025-05-24] MEDS ORDERED: FERR1TAB8 PO (15:04)
[2025-05-24] MEDS ORDERED: HOME MED LIST COMPLETE! XX SCH (15:05)
[2025-05-24 16:23] LABS: APPEARANCE, BODY FLUID HAZY (CLEAR); ASCITES FL COLOR YELLOW (COLORLESS); SOURCE, BODY FLUID ASCITES
[2025-05-24] MEDS: cefTRIAXone SOD 1 GM in DEXTROSE 5% (D5W) ADV/MINI-BAG 50 ML IV ONE ×2 (17:01→19:19)
[2025-05-24] MEDS ORDERED: GLUCOSE 4 GM CHEW PO PRN (18:45)
[2025-05-24] MEDS ORDERED: DEXTROSE 50% 50 ML SYRINGE IV PRN (18:45)
[2025-05-24] MEDS ORDERED: GLUCAGON INJ 1 MG VIAL SC PRN (18:45)
[2025-05-24 20:21] LABS: CALCIUM LEVEL 8.2 MG/DL (8.5-10.1); CARBON DIOXIDE LEVEL 23 MMOL/L (20-31); CHLORIDE LEVEL 104 MMOL/L (98-107); CREATININE FOR GFR 0.57 MG/DL (0.70-1.30); GLOMERULAR FILTRATION RATE > 90.0 (>60); POTASSIUM SERUM 3.5 MMOL/L (3.5-5.1); SODIUM LEVEL 139 MMOL/L (136-145)
[2025-05-24 22:45] VITALS: BP 91/55; TEMP 98; O2SAT 92
[2025-05-24] MEDS: GABAPENTIN 100 MG CAP PO SCH (22:54)
[2025-05-24] MEDS: LACTULOSE 20 GM/30 ML SYRUP UDC PO SCH (22:54)
[2025-05-24] MEDS: PANTOPRAZOLE 40MG TAB PO SCH (22:54)
[2025-05-24 23:38] VITALS: BP 96/62; TEMP 97.2; O2SAT 93
[2025-05-24 23:39] VITALS: BP 96/62; TEMP 97.2; O2SAT 93
[2025-05-24 23:50] VITALS: BP 95/60; O2SAT 94
[2025-05-24 23:51] VITALS: BP 95/60; TEMP 98.3; O2SAT 94
[2025-05-25] VITALS (8 sets, daily range): BP systolic 86–101; BP diastolic 50–60; TEMP 97.4–98.8; O2SAT 94–95
[2025-05-25] MEDS: MIDODRINE 5 MG TAB PO ONE (02:53)
[2025-05-25 07:00] LABS: PLATELET COUNT, AUTOMATED 52 10^3/uL (150-450)
[2025-05-25 07:28] LABS: ALT/SGPT 11 U/L (7.0-40); AST/SGOT 26 U/L (<34); CALCIUM LEVEL 8.2 MG/DL (8.5-10.1); CARBON DIOXIDE LEVEL 24 MMOL/L (20-31); CHLORIDE LEVEL 107 MMOL/L (98-107); CREATININE FOR GFR 0.55 MG/DL (0.70-1.30); GLOMERULAR FILTRATION RATE > 90.0 (>60); MAGNESIUM LEVEL 2.2 MG/DL (1.8-2.4); POTASSIUM SERUM 3.6 MMOL/L (3.5-5.1); SODIUM LEVEL 141 MMOL/L (136-145)
[2025-05-25] MEDS: INSULIN LISPRO (NovoLOG) PER UNIT SC SCH (07:30)
[2025-05-25] MEDS: CREON-24 CAPSULE (PANCRELIPASE) PO SCH (08:04)
[2025-05-25] MEDS: MIDODRINE 5 MG TAB PO SCH (08:04)
[2025-05-25] MEDS: HEPARIN SOD 5000 UNITS/ML 1 ML VIAL/SYRINGE SQ SCH (09:00)
[2025-05-25] MEDS: FOLIC ACID 1 MG TAB PO SCH (10:48)
[2025-05-25] MEDS: SPIRONOLACTONE 50 MG TAB PO SCH (10:48)
[2025-05-25] MEDS: FUROSEMIDE 20 MG TAB PO SCH (10:48)
[2025-05-25] MEDS: SERTRALINE HCL 50 MG TAB PO SCH (10:49)
[2025-05-25] MEDS: TAMSULOSIN 0.4 MG CAP PO SCH (10:49)
[2025-05-25] MEDS: THIAMINE 100 MG TAB PO SCH (10:49)
[2025-05-25] MEDS ORDERED: cefTRIAXone SOD 2 GM in DEXTROSE 5% (D5W) ADV/MINI-BAG 50 ML IV SCH (16:00)
== END 2025-05-25 12:51 | disposition home or self-care (01) | DRG 433 ==
LOC: M ED 10:43 → M ED INP 17:36
PROVIDERS: ADMIT Student in an Organized Health Care Education/Training Program; ATTEND Student in an Organized Health Care Education/Training Program
PROC: 0W9G3ZZ Drainage of Peritoneal Cavity, Percutaneous Approach (ICD-10-PCS; 2025-05-24)
PROC: 30233J1 Transfusion of Nonautologous Serum Albumin into Peripheral Vein, Percutaneous Approach (ICD-10-PCS; principal; 2025-05-24 15:27)
DX: K70.31 Alcoholic cirrhosis of liver with ascites (principal); I85.10 Secondary esophageal varices without bleeding; K76.6 Portal hypertension; K86.1 Other chronic pancreatitis; M46.26 Osteomyelitis of vertebra, lumbar region; I95.9 Hypotension, unspecified; D69.6 Thrombocytopenia, unspecified; K76.82 Hepatic encephalopathy; G89.29 Other chronic pain; G47.33 Obstructive sleep apnea (adult) (pediatric); M19.90 Unspecified osteoarthritis, unspecified site; F41.9 Anxiety disorder, unspecified; N40.0 Benign prostatic hyperplasia without lower urinary tract symptoms; E11.69 Type 2 diabetes mellitus with other specified complication; G47.00 Insomnia, unspecified; Z96.643 Presence of artificial hip joint, bilateral; Z98.49 Cataract extraction status, unspecified eye; Z79.2 Long term (current) use of antibiotics; Z79.4 Long term (current) use of insulin; Z79.84 Long term (current) use of oral hypoglycemic drugs; Z79.899 Other long term (current) drug therapy; L89.159 Pressure ulcer of sacral region, unspecified stage

== ENCOUNTER 2025-06-14 12:27 | Emergency (ER) | payer MEDICAID, MEDICARE ==
[~2025-06-14] VITALS: Ht 162.6 cm; Wt 62.4 kg
[~2025-06-14 12:27] MED LIST changes: +DOXY100C3 PO
[2025-06-14 13:05] LABS: BASO # 0.0 10^3/uL (0.0-0.2); BASO % 0.5 % (0.0-1.0); EOS # 0.1 10^3/uL (0.0-0.5); EOS % 1.0 % (0.0-3.0); LYMPH # 0.4 10^3/uL (1.5-5.0); LYMPH % 6.5 % (24.0-44.0); MONO # 0.6 10^3/uL (0.0-0.8); MONO % 8.8 % (2.0-8.0); NEUTROPHILS # 5.1 10^3/uL (1.5-8.5); NEUTROPHILS % 81.9 % (36.0-66.0)
[2025-06-14 13:09] LABS: PLATELET COUNT, AUTOMATED 76 10^3/uL (150-450)
[2025-06-14 13:27] LABS: ALT/SGPT 18 U/L (7.0-40); AST/SGOT 43 U/L (<34); CALCIUM LEVEL 8.6 MG/DL (8.5-10.1); CARBON DIOXIDE LEVEL 19 MMOL/L (20-31); CHLORIDE LEVEL 102 MMOL/L (98-107); CREATININE FOR GFR 0.77 MG/DL (0.70-1.30); GLOMERULAR FILTRATION RATE > 90.0 (>60); POTASSIUM SERUM 3.6 MMOL/L (3.5-5.1); SODIUM LEVEL 136 MMOL/L (136-145)
[2025-06-14 14:45] LABS: INR 1.32
[2025-06-14 17:15] VITALS: BP 101/68; TEMP 98.8; O2SAT 91
== END 2025-06-14 17:38 | disposition home or self-care (01) ==
LOC: EDBD 12:27 → M ED 12:27
DX: K70.31 Alcoholic cirrhosis of liver with ascites (principal); F17.200 Nicotine dependence, unspecified, uncomplicated; G47.33 Obstructive sleep apnea (adult) (pediatric); E78.5 Hyperlipidemia, unspecified; I86.4 Gastric varices; N40.0 Benign prostatic hyperplasia without lower urinary tract symptoms; F32.A Depression, unspecified; M54.50 Low back pain, unspecified; K57.30 Diverticulosis of large intestine without perforation or abscess without bleeding; Z79.82 Long term (current) use of aspirin; Z79.899 Other long term (current) drug therapy; Z79.4 Long term (current) use of insulin

== ENCOUNTER 2025-06-20 10:44 | Inpatient (IN) | payer MEDICARE ==
[~2025-06-20] VITALS: Ht 162.6 cm; Wt 60.8 kg
[~2025-06-20 10:44] MED LIST changes: +ACET-1387 PO; -ACET-1593 PO; -BACTDSTA PO; +SULF-8 PO
[2025-06-20] MEDS: NS 500 ML IV ONE ×2 (12:10→14:17)
[2025-06-20 12:19] LABS: BASO # 0.0 10^3/uL (0.0-0.2); BASO % 0.3 % (0.0-1.0); EOS # 0.0 10^3/uL (0.0-0.5); EOS % 0.1 % (0.0-3.0); LYMPH # 0.2 10^3/uL (1.5-5.0); LYMPH % 2.8 % (24.0-44.0); MONO # 0.6 10^3/uL (0.0-0.8); MONO % 6.6 % (2.0-8.0); NEUTROPHILS # 7.5 10^3/uL (1.5-8.5); NEUTROPHILS % 86.6 % (36.0-66.0)
[2025-06-20 12:30] LABS: PLATELET COUNT, AUTOMATED 94 10^3/uL (150-450)
[2025-06-20 13:10] LABS: INR 1.33
[2025-06-20 13:29] LABS: CK-MB VALUE MASS 2.7 NG/ML (<3.6)
[2025-06-20 13:33] LABS: FREE T4 1.1 NG/DL (0.89-1.76)
[2025-06-20 13:45] LABS: ALT/SGPT 26.0 U/L (7.0-40); AST/SGOT 49.0 U/L (<34); CALCIUM LEVEL 9.8 MG/DL (8.5-10.1); CARBON DIOXIDE LEVEL 13.0 MMOL/L (20-31); CHLORIDE LEVEL 95.0 MMOL/L (98-107); CPK CREATINE PHOSPHOKINASE 85.0 U/L (46-171); CREATININE FOR GFR 1.18 MG/DL (0.70-1.30); GLOMERULAR FILTRATION RATE 76.1 (>60); MAGNESIUM LEVEL 2.4 MG/DL (1.8-2.4); MB/CK RELATIVE INDEX 3.17 (< OR =4); POTASSIUM SERUM 5.5 MMOL/L (3.5-5.1); SODIUM LEVEL 130.0 MMOL/L (136-145)
[2025-06-20] MEDS ORDERED: ISOVUE-370 76% 100 ML VIAL As Ordered ONE (14:30)
[2025-06-20] MEDS: cefTRIAXone SOD 2 GM in DEXTROSE 5% (D5W) ADV/MINI-BAG 50 ML IV ONE (14:50)
[2025-06-20 15:07] LABS: KETONE, URINE AUTO RFX TRACE mg/dL (NEGATIVE); LEUKOCYTE ESTERASE UR AUTO RFX NEGATIVE (NEGATIVE); MUCUS, URINE RFX SMALL (NEGATIVE); NITRITE, URINE AUTO RFX NEGATIVE (NEGATIVE); RBC, URINE AUTO RFX 128 /HPF (0-3); SQUAM EPITHELIAL CELL UR AURFX 0 /HPF (0-6); WBC, URINE AUTO RFX 6 /HPF (0-3)
[2025-06-20 17:19] LABS: APPEARANCE, BODY FLUID CLEAR (CLEAR); PERITONEAL FL COLOR PALE YELLOW (COLORLESS); SOURCE, BODY FLUID PERITONEAL
[2025-06-20] MEDS ORDERED: POTA1TAB23 PO (17:21)
[2025-06-20] MEDS ORDERED: HOME MED LIST COMPLETE! XX SCH (17:25)
[2025-06-20 17:43] LABS: ABG BASE EXCESS -7.8 (-2.0-2.0); ABG HCO3 15.6 MMOL/L (22.0-26.0); ABG O2 SATURATION 97.9 % (95.0-99.0); ABG PARTIAL PRESSURE CO2 26.1 mmHg (35.0-45.0); ABG PARTIAL PRESSURE O2 101.4 mmHg (75.0-100.0); ABG STANDARD HCO3 18.2 MMOL/L. (22.0-26.0); ABG TOTAL CO2 16.4 MMOL/L (22.0-29.0); ABG pH (ARTERIAL) 7.393 UNITS (7.350-7.450)
[2025-06-20] MEDS: LACTULOSE 20 GM/30 ML SYRUP UDC PO SCH (18:14)
[2025-06-20 18:32] LABS: CALCIUM LEVEL 8.8 MG/DL (8.5-10.1); CARBON DIOXIDE LEVEL 15.0 MMOL/L (20-31); CHLORIDE LEVEL 97.0 MMOL/L (98-107); CREATININE FOR GFR 1.35 MG/DL (0.70-1.30); GLOMERULAR FILTRATION RATE 64.8 (>60); POTASSIUM SERUM 6.0 MMOL/L (3.5-5.1); SODIUM LEVEL 129.0 MMOL/L (136-145)
[2025-06-20] MEDS: SODIUM BICARBONATE 150 MEQ in D5W 1,000 ML IV SCH (20:53)
[2025-06-20 21:30] VITALS: BP 107/61; TEMP 97.7; O2SAT 97
[2025-06-20 22:30] VITALS: BP 105/57; TEMP 97.4; O2SAT 98
[2025-06-21] MEDS: HEPARIN SOD 5000 UNITS/ML 1 ML VIAL/SYRINGE SC SCH (06:00)
[2025-06-21] MEDS: CALCIUM GLUCONATE 1,000 MG in DEXTROSE 5% (D5W) MINI-BAG PLU 100 ML IV ONE ×2 (06:36→15:28)
[2025-06-21] MEDS: DEXTROSE 50% 50 ML SYRINGE IV STA (06:37)
[2025-06-21] MEDS: HumuLIN R (REGULAR) INSULIN (NovoLIN R) **100 U/ML** PER UNIT IV STA (06:42)
[2025-06-21 06:57] LABS: BASO # 0.0 10^3/uL (0.0-0.2); BASO % 0.1 % (0.0-1.0); EOS # 0.0 10^3/uL (0.0-0.5); EOS % 0.4 % (0.0-3.0); LYMPH # 0.4 10^3/uL (1.5-5.0); LYMPH % 4.3 % (24.0-44.0); MONO # 0.9 10^3/uL (0.0-0.8); MONO % 9.2 % (2.0-8.0); NEUTROPHILS # 8.3 10^3/uL (1.5-8.5); NEUTROPHILS % 84.8 % (36.0-66.0); PLATELET COUNT, AUTOMATED 91 10^3/uL (150-450)
[2025-06-21] MEDS: ALBUTEROL SULFATE 2.5 MG/0.5 ML INH CONCENTRATE NEB SOLN NEB ONE (07:07)
[2025-06-21 07:27] LABS: ALT/SGPT 22.0 U/L (7.0-40); AST/SGOT 38.0 U/L (<34); CALCIUM LEVEL 8.8 MG/DL (8.5-10.1); CARBON DIOXIDE LEVEL 18.0 MMOL/L (20-31); CHLORIDE LEVEL 96.0 MMOL/L (98-107); CREATININE FOR GFR 1.89 MG/DL (0.70-1.30); GLOMERULAR FILTRATION RATE 43.3 (>60); MAGNESIUM LEVEL 2.6 MG/DL (1.8-2.4); POTASSIUM SERUM 6.0 MMOL/L (3.5-5.1); SODIUM LEVEL 131.0 MMOL/L (136-145)
[2025-06-21] MEDS ORDERED: cefTRIAXone SOD 1 GM in DEXTROSE 5% (D5W) ADV/MINI-BAG 50 ML IV SCH (09:00)
[2025-06-21 13:07] LABS: CALCIUM LEVEL 9.4 MG/DL (8.5-10.1); CARBON DIOXIDE LEVEL 17.0 MMOL/L (20-31); CHLORIDE LEVEL 96.0 MMOL/L (98-107); CREATININE FOR GFR 2.07 MG/DL (0.70-1.30); GLOMERULAR FILTRATION RATE 38.8 (>60); POTASSIUM SERUM 6.2 MMOL/L (3.5-5.1); SODIUM LEVEL 131.0 MMOL/L (136-145)
[2025-06-21] MEDS: THIAMINE 100 MG TAB PO SCH (15:28)
[2025-06-21] MEDS: TAMSULOSIN 0.4 MG CAP PO SCH (15:28)
[2025-06-21] MEDS: FOLIC ACID 1 MG TAB PO SCH (15:28)
[2025-06-21] MEDS: SERTRALINE HCL 50 MG TAB PO SCH (15:28)
[2025-06-21] MEDS: ASPIRIN 81 MG CHEWABLE TABLET PO SCH (15:28)
[2025-06-21 16:55] LABS: CALCIUM LEVEL 9.5 MG/DL (8.5-10.1); CARBON DIOXIDE LEVEL 19.0 MMOL/L (20-31); CHLORIDE LEVEL 95.0 MMOL/L (98-107); CREATININE FOR GFR 2.16 MG/DL (0.70-1.30); GLOMERULAR FILTRATION RATE 36.9 (>60); POTASSIUM SERUM 5.6 MMOL/L (3.5-5.1); SODIUM LEVEL 131.0 MMOL/L (136-145)
[2025-06-21] MEDS: FUROSEMIDE injection 100 MG, VIAL 2 BAG 13MM ADAPTER 1 EACH in NS 100 ML IV SCH (17:12)
[2025-06-21] MEDS: VANCOMYCIN HCL 1,250 MG, VIAL MATE ADAPTER 1 EACH in NS 250 ML IV ONE (17:25)
[2025-06-21] MEDS: CREON-24 CAPSULE (PANCRELIPASE) PO SCH (18:12)
[2025-06-21] MEDS: MIDODRINE 5 MG TAB PO SCH (18:12)
[2025-06-21 20:00] VITALS: BP 128/84; TEMP 97.9; O2SAT 95
[2025-06-21 20:29] LABS: CALCIUM LEVEL 9.2 MG/DL (8.5-10.1); CARBON DIOXIDE LEVEL 22.0 MMOL/L (20-31); CHLORIDE LEVEL 94.0 MMOL/L (98-107); CREATININE FOR GFR 2.18 MG/DL (0.70-1.30); GLOMERULAR FILTRATION RATE 36.4 (>60); POTASSIUM SERUM 4.9 MMOL/L (3.5-5.1); SODIUM LEVEL 133.0 MMOL/L (136-145)
[2025-06-21 21:00] VITALS: BP 105/71; TEMP 97.9; O2SAT 99
[2025-06-21] MEDS ORDERED: DOXYCYCLINE HYCLATE 100 MG TABLET PO SCH (21:00)
[2025-06-21] MEDS: PANTOPRAZOLE 40MG TAB PO SCH (21:18)
[2025-06-21 21:21] VITALS: BP 128/80; O2SAT 100
[2025-06-21 22:00] VITALS: BP 109/67; O2SAT 99
[2025-06-21 23:00] VITALS: BP 93/55; O2SAT 98
[2025-06-22] VITALS (38 sets, daily range): BP systolic 72–160; BP diastolic 45–92; TEMP 97.4–101.9; O2SAT 81–100
[2025-06-22 02:46] LABS: CALCIUM LEVEL 8.9 MG/DL (8.5-10.1); CARBON DIOXIDE LEVEL 27.0 MMOL/L (20-31); CHLORIDE LEVEL 92.0 MMOL/L (98-107); CREATININE FOR GFR 2.09 MG/DL (0.70-1.30); GLOMERULAR FILTRATION RATE 38.3 (>60); POTASSIUM SERUM 4.9 MMOL/L (3.5-5.1); SODIUM LEVEL 132.0 MMOL/L (136-145)
[2025-06-22] MEDS: HYALURONIDASE 15 UNIT/ML 1 ML SYRINGE SC ONE (05:05)
[2025-06-22 08:04] LABS: BASO # 0.0 10^3/uL (0.0-0.2); BASO % 0.0 % (0.0-1.0); EOS # 0.1 10^3/uL (0.0-0.5); EOS % 1.6 % (0.0-3.0); LYMPH # 0.3 10^3/uL (1.5-5.0); LYMPH % 7.6 % (24.0-44.0); MONO # 0.4 10^3/uL (0.0-0.8); MONO % 9.0 % (2.0-8.0); NEUTROPHILS # 3.5 10^3/uL (1.5-8.5); NEUTROPHILS % 81.1 % (36.0-66.0)
[2025-06-22 08:07] LABS: PLATELET COUNT, AUTOMATED 60 10^3/uL (150-450)
[2025-06-22 08:22] LABS: CALCIUM LEVEL 8.7 MG/DL (8.5-10.1); CARBON DIOXIDE LEVEL 25.0 MMOL/L (20-31); CHLORIDE LEVEL 92.0 MMOL/L (98-107); CREATININE FOR GFR 2.01 MG/DL (0.70-1.30); GLOMERULAR FILTRATION RATE 40.2 (>60); POTASSIUM SERUM 4.2 MMOL/L (3.5-5.1); SODIUM LEVEL 129.0 MMOL/L (136-145)
[2025-06-22 08:26] LABS: ALT/SGPT 22.0 U/L (7.0-40); AST/SGOT 56.0 U/L (<34)
[2025-06-22] MEDS ORDERED: VANCOMYCIN HCL 1,000 MG, VIAL MATE ADAPTER 1 EACH in NS 250 ML IV SCH (10:00)
[2025-06-22 14:47] LABS: CALCIUM LEVEL 9.1 MG/DL (8.5-10.1); CARBON DIOXIDE LEVEL 25.0 MMOL/L (20-31); CHLORIDE LEVEL 89.0 MMOL/L (98-107); CREATININE FOR GFR 1.89 MG/DL (0.70-1.30); GLOMERULAR FILTRATION RATE 43.3 (>60); POTASSIUM SERUM 4.7 MMOL/L (3.5-5.1); SODIUM LEVEL 129.0 MMOL/L (136-145)
[2025-06-22 16:17] LABS: INR 1.58
[2025-06-22 16:38] LABS: ALT/SGPT 22.0 U/L (7.0-40); AST/SGOT 60.0 U/L (<34)
[2025-06-22] MEDS: CEFEPIME HCL 1 GM in DEXTROSE 5% (D5W) ADV/MINI-BAG 50 ML IV SCH (17:54)
[2025-06-22 18:04] LABS: PLATELET COUNT, AUTOMATED 45 10^3/uL (150-450)
[2025-06-22 18:19] LABS: CALCIUM LEVEL 8.3 MG/DL (8.5-10.1); CARBON DIOXIDE LEVEL 24.0 MMOL/L (20-31); CHLORIDE LEVEL 93.0 MMOL/L (98-107); CREATININE FOR GFR 1.92 MG/DL (0.70-1.30); GLOMERULAR FILTRATION RATE 42.4 (>60); POTASSIUM SERUM 3.8 MMOL/L (3.5-5.1); SODIUM LEVEL 129.0 MMOL/L (136-145)
[2025-06-22] MEDS ORDERED: NOREPINEPHRINE 4MG IN D5 250ML 4 MG in IV 1 EA IV SCH (19:10)
[2025-06-22] MEDS: PANTOPRAZOLE 40MG VIAL IV ONE (19:32)
[2025-06-22] MEDS: OCTREOTIDE ACETATE 100 MCG/ML VIAL **IV ADMINISTRATION ONLY IV ONE (19:33)
[2025-06-22] MEDS: OCTREOTIDE ACETATE 1,200 MCG in NS 238.8 ML IV SCH (20:31)
[2025-06-22] MEDS: NOREPINEPHRINE 4MG IN D5 250ML 4 MG in IV 1 EA IV SCH (20:44)
== END 2025-06-22 23:28 | disposition critical access hospital (66) | DRG 432 ==
LOC: M ED 10:44 → M ED INP 17:24 → M PCU 06-22 13:38 → M ICU 06-22 19:14
PROVIDERS: ADMIT Internal Medicine; ATTEND Internal Medicine
PROC: 0W9G3ZZ Drainage of Peritoneal Cavity, Percutaneous Approach (ICD-10-PCS; 2025-06-21)
PROC: 30233N1 Transfusion of Nonautologous Red Blood Cells into Peripheral Vein, Percutaneous Approach (ICD-10-PCS; principal; 2025-06-22)
PROC: 05HM33Z Insertion of Infusion Device into Right Internal Jugular Vein, Percutaneous Approach (ICD-10-PCS; 2025-06-22)
DX: K70.31 Alcoholic cirrhosis of liver with ascites (principal); G93.41 Metabolic encephalopathy; A41.9 Sepsis, unspecified organism; R57.8 Other shock; I85.11 Secondary esophageal varices with bleeding; N17.9 Acute kidney failure, unspecified; E87.20 Acidosis, unspecified; E87.1 Hypo-osmolality and hyponatremia; K76.6 Portal hypertension; D68.9 Coagulation defect, unspecified; M46.20 Osteomyelitis of vertebra, site unspecified; D84.9 Immunodeficiency, unspecified; E72.20 Disorder of urea cycle metabolism, unspecified; D62 Acute posthemorrhagic anemia; K86.0 Alcohol-induced chronic pancreatitis; I95.89 Other hypotension; E11.9 Type 2 diabetes mellitus without complications; D69.6 Thrombocytopenia, unspecified; G47.33 Obstructive sleep apnea (adult) (pediatric); K76.82 Hepatic encephalopathy; E87.5 Hyperkalemia; I86.4 Gastric varices; M19.90 Unspecified osteoarthritis, unspecified site; F41.9 Anxiety disorder, unspecified; N40.0 Benign prostatic hyperplasia without lower urinary tract symptoms; Z79.899 Other long term (current) drug therapy; Z79.82 Long term (current) use of aspirin; Z88.8 Allergy status to other drugs, medicaments and biological substances

== ENCOUNTER → 2025-07-03 | Outpatient (CLI) | payer MEDICARE ==
[~2025-07-03] VITALS: Ht 162.6 cm; Wt 63.0 kg
== END ==
LOC: M IRPRO 07:08
PROVIDERS: ATTEND Radiology Diagnostic Radiology
DX: K70.30 Alcoholic cirrhosis of liver without ascites (principal)

== ENCOUNTER 2025-07-11 12:45 | Observation (INO) | payer MEDICARE ==
[~2025-07-11] VITALS: Ht 162.6 cm; Wt 59.1 kg
[2025-07-11 13:38] LABS: BASO # 0.0 10^3/uL (0.0-0.2); BASO % 0.6 % (0.0-1.0); EOS # 0.2 10^3/uL (0.0-0.5); EOS % 3.9 % (0.0-3.0); LYMPH # 0.7 10^3/uL (1.5-5.0); LYMPH % 13.3 % (24.0-44.0); MONO # 0.7 10^3/uL (0.0-0.8); MONO % 12.9 % (2.0-8.0); NEUTROPHILS # 3.5 10^3/uL (1.5-8.5); NEUTROPHILS % 67.9 % (36.0-66.0); PLATELET COUNT, AUTOMATED 111 10^3/uL (150-450)
[2025-07-11 14:13] LABS: ALT/SGPT 18 U/L (7.0-40); AST/SGOT 37 U/L (<34); CALCIUM LEVEL 9.2 MG/DL (8.5-10.1); CARBON DIOXIDE LEVEL 22 MMOL/L (20-31); CHLORIDE LEVEL 98 MMOL/L (98-107); CREATININE FOR GFR 0.56 MG/DL (0.70-1.30); GLOMERULAR FILTRATION RATE > 90.0 (>60); POTASSIUM SERUM 4.8 MMOL/L (3.5-5.1); SODIUM LEVEL 132 MMOL/L (136-145)
[2025-07-11] MEDS ORDERED: ACETAMINOPHEN 325 MG TAB PO PRN (16:55)
[2025-07-11 18:15] LABS: APPEARANCE, BODY FLUID CLOUDY (CLEAR); ASCITES FL COLOR YELLOW (COLORLESS); SOURCE, BODY FLUID ASCITES
[2025-07-11] MEDS ORDERED: ECOT81TA5 PO (20:38)
[2025-07-11] MEDS ORDERED: HOME MED LIST COMPLETE! XX SCH (21:00)
[2025-07-11 21:32] VITALS: BP 101/63; TEMP 99.2; O2SAT 93
[2025-07-11] MEDS ORDERED: SODIUM BICARBONATE 325 MG TAB PO PRN (21:35)
[2025-07-11] MEDS ORDERED: GLUCAGON INJ 1 MG VIAL SC PRN (21:35)
[2025-07-11] MEDS ORDERED: DEXTROSE 50% 50 ML SYRINGE IV PRN (21:35)
[2025-07-11] MEDS ORDERED: GLUCOSE 4 GM CHEW PO PRN (21:35)
[2025-07-11] MEDS ORDERED: FUROSEMIDE 20 MG TAB PO PRN (21:35)
[2025-07-11 23:35] VITALS: BP 97/61; TEMP 98.5; O2SAT 97
[2025-07-12] VITALS: BP 111/68; TEMP 98; O2SAT 96
[2025-07-12] MEDS: LACTULOSE 20 GM/30 ML SYRUP UDC PO SCH (00:12)
[2025-07-12] MEDS: FERROUS SULFATE 325 MG TAB PO SCH (00:12)
[2025-07-12] MEDS: GABAPENTIN 100 MG CAP PO SCH (00:12)
[2025-07-12] MEDS: traZODone 100 MG TAB PO SCH (00:12)
[2025-07-12] MEDS: MAGNESIUM OXIDE 400 MG TAB PO SCH (00:13)
[2025-07-12] MEDS: POTASSIUM CHLORIDE 10MEQ SR TABLET PO SCH (00:13)
[2025-07-12] MEDS: DOXYCYCLINE HYCLATE 100 MG TABLET PO SCH (00:14)
[2025-07-12 02:24] VITALS: BP 113/68; TEMP 98; O2SAT 95
[2025-07-12 07:23] LABS: INR 1.37
[2025-07-12 07:25] LABS: ALT/SGPT 16 U/L (7.0-40); AST/SGOT 22 U/L (<34); CALCIUM LEVEL 9.1 MG/DL (8.5-10.1); CARBON DIOXIDE LEVEL 23 MMOL/L (20-31); CHLORIDE LEVEL 101 MMOL/L (98-107); CREATININE FOR GFR 0.48 MG/DL (0.70-1.30); GLOMERULAR FILTRATION RATE > 90.0 (>60); POTASSIUM SERUM 4.0 MMOL/L (3.5-5.1); SODIUM LEVEL 134 MMOL/L (136-145)
[2025-07-12] MEDS: INSULIN LISPRO (NovoLOG) PER UNIT SC SCH (07:30)
[2025-07-12 07:42] LABS: PLATELET COUNT, AUTOMATED 93 10^3/uL (150-450)
[2025-07-12] MEDS: CREON-24 CAPSULE (PANCRELIPASE) PO SCH (08:00)
[2025-07-12] MEDS: ASPIRIN 81 MG ENTERIC TABLET PO SCH (08:08)
[2025-07-12] MEDS: MIDODRINE 5 MG TAB PO SCH (08:09)
[2025-07-12] MEDS: SERTRALINE HCL 50 MG TAB PO SCH (08:09)
[2025-07-12] MEDS: FOLIC ACID 1 MG TAB PO SCH (08:10)
[2025-07-12] MEDS: PANTOPRAZOLE 40MG TAB PO SCH (08:11)
[2025-07-12] MEDS: TAMSULOSIN 0.4 MG CAP PO SCH (08:11)
[2025-07-12] MEDS: THIAMINE 100 MG TAB PO SCH (08:11)
[2025-07-12] MEDS: SPIRONOLACTONE 50 MG TAB PO SCH (09:00)
[2025-07-12 12:42] VITALS: BP 101/67
[2025-07-12 14:02] VITALS: BP 100/60; TEMP 98.2; O2SAT 92
[2025-07-12] MEDS ORDERED: INSULIN LISPRO (NovoLOG) PER UNIT SC SCH (21:00)
== END 2025-07-12 14:09 | disposition home health service (06) ==
LOC: EDBD 12:45 → M ED 12:45 → M ED INP 12:46
PROVIDERS: ADMIT Student in an Organized Health Care Education/Training Program; ATTEND Student in an Organized Health Care Education/Training Program
DX: K70.31 Alcoholic cirrhosis of liver with ascites (principal); Z66 Do not resuscitate; K31.89 Other diseases of stomach and duodenum; D69.6 Thrombocytopenia, unspecified; K86.1 Other chronic pancreatitis; I95.9 Hypotension, unspecified; E11.9 Type 2 diabetes mellitus without complications; G89.29 Other chronic pain; E43 Unspecified severe protein-calorie malnutrition; D64.9 Anemia, unspecified; E83.42 Hypomagnesemia; E87.6 Hypokalemia; L89.159 Pressure ulcer of sacral region, unspecified stage; Z68.22 Body mass index [BMI] 22.0-22.9, adult; K21.9 Gastro-esophageal reflux disease without esophagitis; N40.0 Benign prostatic hyperplasia without lower urinary tract symptoms; F39 Unspecified mood [affective] disorder; Z79.82 Long term (current) use of aspirin; Z79.2 Long term (current) use of antibiotics; Z79.4 Long term (current) use of insulin; Z79.899 Other long term (current) drug therapy; Z88.8 Allergy status to other drugs, medicaments and biological substances
CPT/HCPCS: 36415; 49083; 74176; 80048; 80053; 80076; 82042; 82945; 83690; 84157; 85025; 85027; 85049; 85055; 85610; 87070; 87205; 89051; 93041; 94760; 99285; G0378; J1815; P9047

== ENCOUNTER → 2025-07-17 | Outpatient (CLI) | payer MEDICARE ==
[~2025-07-17] MED LIST changes: +ACETAMINOPHEN 325 MG TAB PO PRN; +ECOT81TA5 PO
[2025-07-17 14:05] VITALS: TEMP 98.5
[2025-07-17 15:48] VITALS: BP 117/68; O2SAT 96
== END ==
LOC: M IRPRO 13:56
PROVIDERS: ATTEND Radiology Diagnostic Radiology
DX: K70.31 Alcoholic cirrhosis of liver with ascites (principal)

== ENCOUNTER → 2025-07-18 | Outpatient (REF) | payer MEDICARE ==
[~2025-07-18] MED LIST changes: -ACETAMINOPHEN 325 MG TAB PO PRN; +MED REC COMMENT
[2025-07-18 18:41] LABS: BASO # 0.0 10^3/uL (0.0-0.2); BASO % 0.4 % (0.0-1.0); EOS # 0.2 10^3/uL (0.0-0.5); EOS % 1.6 % (0.0-3.0); LYMPH # 0.7 10^3/uL (1.5-5.0); LYMPH % 7.0 % (24.0-44.0); MONO # 1.2 10^3/uL (0.0-0.8); MONO % 12.1 % (2.0-8.0); NEUTROPHILS # 7.4 10^3/uL (1.5-8.5); NEUTROPHILS % 76.6 % (36.0-66.0); PLATELET COUNT, AUTOMATED 138 10^3/uL (150-450)
[2025-07-18 18:44] LABS: ALT/SGPT 21 U/L (7.0-40); AST/SGOT 29 U/L (<34); CALCIUM LEVEL 9.2 MG/DL (8.5-10.1); CARBON DIOXIDE LEVEL 20 MMOL/L (20-31); CHLORIDE LEVEL 94 MMOL/L (98-107); CREATININE FOR GFR 0.71 MG/DL (0.70-1.30); GLOMERULAR FILTRATION RATE > 90.0 (>60); IRON (FE) 99 UG/DL (65-175); PERCENT SATURATION 46.5 % (19.7-50.0); POTASSIUM SERUM 5.2 MMOL/L (3.5-5.1); SODIUM LEVEL 125 MMOL/L (136-145)
== END ==
LOC: M LABDRAWC 17:49
PROVIDERS: ATTEND Internal Medicine Medical Oncology
DX: D50.9 Iron deficiency anemia, unspecified (principal)

== ENCOUNTER 2025-07-19 20:08 | Inpatient (IN) | payer MEDICARE ==
[~2025-07-19] VITALS: Ht 162.6 cm; Wt 57.4 kg
[~2025-07-19 20:08] MED LIST changes: -MED REC COMMENT
[2025-07-19] MEDS ORDERED: NOREPINEPHRINE 4 MG IN D5W 250 ML IVBAG (16 MCG/ML) As Ordered ONE (20:22)
[2025-07-19 20:43] LABS: PLATELET COUNT, AUTOMATED 105 10^3/uL (150-450)
[2025-07-19] MEDS: CEFEPIME HCL 2 GM in DEXTROSE 5% (D5W) ADV/MINI-BAG 50 ML IV ONE (20:54)
[2025-07-19] MEDS: CALCIUM GLUCONATE 1,000 MG in DEXTROSE 5% (D5W) MINI-BAG PLU 100 ML IV ONE (20:54)
[2025-07-19] MEDS: VANCOMYCIN HCL 1,000 MG, VIAL MATE ADAPTER 1 EACH in NS 250 ML IV STA (20:54)
[2025-07-19] MEDS: NS (Normal Saline) 0.9% 1,000 ML IV ONE ×2 (20:55)
[2025-07-19] MEDS: PANTOPRAZOLE 40MG VIAL IV ONE (20:58)
[2025-07-19 21:01] LABS: BASOPHILS 1 % (0-1); LYMPHOCYTES 5 % (16-44); METAMYELOCYTES 4 % (0-0); MONOCYTES 1 % (0-5); NEUTROPHILS 75 % (28-66)
[2025-07-19] MEDS: MIDAZOLAM 100MG/100ML-0.9%NACL 100 MG in IV 1 EA IV SCH (21:05)
[2025-07-19] MEDS: NOREPINEPHRINE 4MG IN D5 250ML 4 MG in IV 1 EA IV SCH (21:08)
[2025-07-19 21:09] LABS: PLATELET ESTIMATE DECREASED (NORMAL)
[2025-07-19 21:15] LABS: C REACTIVE PROTEIN QUANTITATIV 4.32 MG/DL (<1.0)
[2025-07-19 21:22] LABS: ABG BASE EXCESS -32.3 (-2.0-2.0); ABG HCO3 3.0 MMOL/L (22.0-26.0); ABG O2 SATURATION 96.0 % (95.0-99.0); ABG PARTIAL PRESSURE CO2 38.0 mmHg (35.0-45.0); ABG PARTIAL PRESSURE O2 168.9 mmHg (75.0-100.0); ABG STANDARD HCO3 0.6 MMOL/L. (22.0-26.0); ABG TOTAL CO2 4.2 MMOL/L (22.0-29.0)
[2025-07-19 21:24] LABS: ABG pH (ARTERIAL) 6.521 UNITS (7.350-7.450)
[2025-07-19 21:27] LABS: ALT/SGPT 19 U/L (7.0-40); AST/SGOT 48 U/L (<34); CALCIUM LEVEL 8.2 MG/DL (8.5-10.1); CARBON DIOXIDE LEVEL < 10.0 MMOL/L (20-31); CHLORIDE LEVEL 99 MMOL/L (98-107); CREATININE FOR GFR 1.54 MG/DL (0.70-1.30); GLOMERULAR FILTRATION RATE 55.3 (>60); POTASSIUM SERUM 6.8 MMOL/L (3.5-5.1); SODIUM LEVEL 130 MMOL/L (136-145)
[2025-07-19 21:33] LABS: KETONE, URINE AUTO RFX NEGATIVE (NEGATIVE); LEUKOCYTE ESTERASE UR AUTO RFX NEGATIVE (NEGATIVE); MUCUS, URINE RFX SMALL (NEGATIVE); NITRITE, URINE AUTO RFX NEGATIVE (NEGATIVE); RBC, URINE AUTO RFX 1 /HPF (0-3); SQUAM EPITHELIAL CELL UR AURFX 1 /HPF (0-6); WBC, URINE AUTO RFX 2 /HPF (0-3)
[2025-07-19] MEDS: LACTULOSE 20 GM/30 ML SYRUP UDC NG ONE (21:35)
[2025-07-19] MEDS: SODIUM BICARBONATE 8.4% INJ 50ML SYRINGE IV STA (21:35)
[2025-07-19] MEDS ORDERED: SODIUM BICARBONATE 150 MEQ in NS 1,000 ML IV SCH (21:45)
[2025-07-19 21:49] VITALS: BP 82/39; TEMP 89.8; O2SAT 93
[2025-07-19] MEDS ORDERED: ISOVUE-370 76% 100 ML VIAL As Ordered ONE (21:49)
[2025-07-19 22:04] VITALS: BP 75/38; TEMP 89; O2SAT 91
[2025-07-19] MEDS: HYDROCORTISONE 100 MG/2 ML VIAL IV ONE (22:06)
[2025-07-19] MEDS: VASOPRESSIN IN 0.9 % NACL 20 UNIT in IV 1 EA IV SCH (22:07)
[2025-07-19] MEDS: SODIUM BICARBONATE 150 MEQ in STERILE WATER LITER BAG 1,000 ML IV SCH (22:11)
[2025-07-19] MEDS ORDERED: MED REC COMMENT (22:30)
[2025-07-19] MEDS ORDERED: HOME MED LIST COMPLETE! XX SCH (22:35)
[2025-07-19 22:39] VITALS: BP 91/55; TEMP 90; O2SAT 90
[2025-07-19 22:54] VITALS: BP 88/49; TEMP 90.5; O2SAT 98
[2025-07-20] VITALS (102 sets, daily range): BP systolic 43–119; BP diastolic 25–80; TEMP 94.8–99; O2SAT 72–100
[2025-07-20 00:05] LABS: ABG BASE EXCESS -24.7 (-2.0-2.0); ABG HCO3 6.9 MMOL/L (22.0-26.0); ABG O2 SATURATION 99.5 % (95.0-99.0); ABG PARTIAL PRESSURE CO2 34.8 mmHg (35.0-45.0); ABG PARTIAL PRESSURE O2 334.3 mmHg (75.0-100.0); ABG STANDARD HCO3 6.7 MMOL/L. (22.0-26.0); ABG TOTAL CO2 7.9 MMOL/L (22.0-29.0); ABG pH (ARTERIAL) 6.912 UNITS (7.350-7.450)
[2025-07-20] MEDS ORDERED: PHENYLEPHRINE HCL INJ 50 MG in D5W 495 ML IV SCH ×2 (00:05→08:30)
[2025-07-20 00:26] LABS: ALT/SGPT 64 U/L (7.0-40); AST/SGOT 214 U/L (<34); CALCIUM LEVEL 6.3 MG/DL (8.5-10.1); CARBON DIOXIDE LEVEL < 10.0 MMOL/L (20-31); CHLORIDE LEVEL 103 MMOL/L (98-107); CREATININE FOR GFR 1.19 MG/DL (0.70-1.30); GLOMERULAR FILTRATION RATE 75.4 (>60); POTASSIUM SERUM 6.3 MMOL/L (3.5-5.1); SODIUM LEVEL 134 MMOL/L (136-145)
[2025-07-20 00:28] LABS: INR 3.41
[2025-07-20] MEDS: NS (Normal Saline) 0.9% 1,000 ML IV ONE ×2 (00:42→00:43)
[2025-07-20] MEDS: PHENYLEPHRINE HCL INJ 50 MG in D5W 495 ML IV SCH (01:16)
[2025-07-20] MEDS: DEXTROSE 50% 50 ML SYRINGE IV ONE (01:52)
[2025-07-20] MEDS: HumuLIN R (REGULAR) INSULIN (NovoLIN R) **100 U/ML** PER UNIT IV ONE (01:54)
[2025-07-20] MEDS: CALCIUM GLUCONATE 1,000 MG in DEXTROSE 5% (D5W) MINI-BAG PLU 100 ML IV ONE ×2 (01:54→10:58)
[2025-07-20] MEDS: LACTULOSE 20 GM/30 ML SYRUP UDC NG STA (04:03)
[2025-07-20 04:31] LABS: PLATELET COUNT, AUTOMATED 45 10^3/uL (150-450)
[2025-07-20] MEDS: LR 1,000 ML IV SCH (05:01)
[2025-07-20] MEDS: NOREPINEPHRINE BITARTRATE 16 MG in D5W 484 ML IV SCH (05:02)
[2025-07-20] MEDS: VASOPRESSIN IN 0.9 % NACL 20 UNIT in IV 1 EA IV SCH (05:03)
[2025-07-20] MEDS: PIPERACILLIN/TAZOBACTAM SOD 4.5 GM in DEXTROSE 5% (D5W) ADV/MINI-BAG 50 ML IV SCH (05:12)
[2025-07-20] MEDS: OCTREOTIDE ACETATE 100 MCG/ML VIAL **IV ADMINISTRATION ONLY IV SCH (05:13)
[2025-07-20 05:29] LABS: ALT/SGPT 113 U/L (7.0-40); AST/SGOT 402 U/L (<34); CALCIUM LEVEL 6.1 MG/DL (8.5-10.1); CARBON DIOXIDE LEVEL < 10.0 MMOL/L (20-31); CHLORIDE LEVEL 96 MMOL/L (98-107); CREATININE FOR GFR 1.29 MG/DL (0.70-1.30); GLOMERULAR FILTRATION RATE 68.4 (>60); POTASSIUM SERUM 6.5 MMOL/L (3.5-5.1); SODIUM LEVEL 126 MMOL/L (136-145)
[2025-07-20] MEDS: SODIUM BICARBONATE 150 MEQ in D5W 1,000 ML IV SCH (05:34)
[2025-07-20] MEDS: SUCRALFATE 1 GM TAB PO SCH (05:37)
[2025-07-20 05:45] LABS: ABG BASE EXCESS -26.1 (-2.0-2.0); ABG HCO3 5.0 MMOL/L (22.0-26.0); ABG O2 SATURATION 99.1 % (95.0-99.0); ABG PARTIAL PRESSURE CO2 24.8 mmHg (35.0-45.0); ABG PARTIAL PRESSURE O2 397.5 mmHg (75.0-100.0); ABG STANDARD HCO3 6.1 MMOL/L. (22.0-26.0); ABG TOTAL CO2 5.8 MMOL/L (22.0-29.0)
[2025-07-20 05:50] LABS: ABG pH (ARTERIAL) 6.926 UNITS (7.350-7.450)
[2025-07-20 05:59] LABS: INR 5.92
[2025-07-20] MEDS: ALBUTEROL SULFATE 2.5 MG/0.5 ML INH CONCENTRATE NEB SOLN NEB ONE (06:01)
[2025-07-20] MEDS ORDERED: PHENYLEPHRINE 10MG/ML 1ML VIAL As Ordered ONE (06:05)
[2025-07-20] MEDS: HumuLIN R (REGULAR) INSULIN (NovoLIN R) **100 U/ML** PER UNIT IV STA (06:11)
[2025-07-20] MEDS ORDERED: PHYTONADIONE 10MG/ML 1ML INJECTION As Ordered ONE (06:26)
[2025-07-20] MEDS: PHENYLEPHRINE HCL INJ 100 MG in D5W 990 ML IV SCH (06:30)
[2025-07-20] MEDS: PHYTONADIONE INJection 10 MG in NS 50 ML IV ONE (06:42)
[2025-07-20] MEDS ORDERED: SODIUM BICARBONATE 8.4% INJ 50ML SYRINGE IV STA (07:19)
[2025-07-20] MEDS: SODIUM BICARBONATE 8.4% INJ 50ML SYRINGE IV SCH (07:25)
[2025-07-20] MEDS: CALCIUM GLUCONATE 1,000 MG in DEXTROSE 5% (D5W) MINI-BAG PLU 100 ML IV SCH ×2 (07:33→23:25)
[2025-07-20] MEDS ORDERED: CALCIUM GLUCONATE IV ONE (08:00)
[2025-07-20] MEDS ORDERED: D5W IV ONE (08:00)
[2025-07-20] MEDS: OCTREOTIDE ACETATE 1,200 MCG in NS 238.8 ML IV SCH (08:53)
[2025-07-20] MEDS: PANTOPRAZOLE 40MG VIAL IV SCH (08:54)
[2025-07-20 09:09] LABS: ABG BASE EXCESS -21.1 (-2.0-2.0); ABG HCO3 7.5 MMOL/L (22.0-26.0); ABG O2 SATURATION 97.0 % (95.0-99.0); ABG PARTIAL PRESSURE CO2 26.5 mmHg (35.0-45.0); ABG PARTIAL PRESSURE O2 106.0 mmHg (75.0-100.0); ABG STANDARD HCO3 8.9 MMOL/L. (22.0-26.0); ABG TOTAL CO2 8.4 MMOL/L (22.0-29.0)
[2025-07-20 09:11] LABS: ABG pH (ARTERIAL) 7.072 UNITS (7.350-7.450)
[2025-07-20] MEDS ORDERED: NOREPINEPHRINE 4 MG/4 ML AMP As Ordered ONE (09:12)
[2025-07-20] MEDS: SODIUM BICARBONATE 8.4% INJ 50ML SYRINGE IV STA (09:49)
[2025-07-20] MEDS: THIAMINE 200MG 2ML VIAL IV SCH (09:53)
[2025-07-20 09:56] LABS: CALCIUM LEVEL 5.9 MG/DL (8.5-10.1); CARBON DIOXIDE LEVEL < 10.0 MMOL/L (20-31); CHLORIDE LEVEL 90 MMOL/L (98-107); CREATININE FOR GFR 1.33 MG/DL (0.70-1.30); GLOMERULAR FILTRATION RATE 65.9 (>60); MAGNESIUM LEVEL 2.0 MG/DL (1.8-2.4); PHOSPHORUS LEVEL 10.4 MG/DL (2.5-4.9); POTASSIUM SERUM 5.8 MMOL/L (3.5-5.1); SODIUM LEVEL 125 MMOL/L (136-145)
[2025-07-20 09:57] LABS: PLATELET COUNT, AUTOMATED 61 10^3/uL (150-450)
[2025-07-20] MEDS ORDERED: DEXTROSE 50% 50 ML SYRINGE IV PRN (10:00)
[2025-07-20] MEDS ORDERED: GLUCOSE 4 GM CHEW PO PRN (10:00)
[2025-07-20] MEDS ORDERED: GLUCAGON INJ 1 MG VIAL SC PRN (10:00)
[2025-07-20 10:26] LABS: INR 6.05
[2025-07-20] MEDS: ALBUTEROL SULFATE 2.5 MG/0.5 ML INH CONCENTRATE NEB SOLN NEB PRN (11:05)
[2025-07-20] MEDS ORDERED: FENTANYL DRIP LOCK BOX KEY 1 EACH XX PRN (11:15)
[2025-07-20] MEDS: INSULIN LISPRO (NovoLOG) PER UNIT SC SCH (12:06)
[2025-07-20 12:16] LABS: VANCOMYCIN RANDOM < 3.0 UG/ML
[2025-07-20] MEDS ORDERED: VANCOMYCIN HCL 1,000 MG, VIAL MATE ADAPTER 1 EACH in NS 250 ML IV SCH (13:00)
[2025-07-20] MEDS: fentaNYL CITRATE/NaCl 1,000 MCG in IV 1 EA IV SCH (13:04)
[2025-07-20] MEDS: EPINEPHrine HCL INJ 4 MG in D5W 246 ML IV SCH (13:27)
[2025-07-20 14:29] LABS: ABG BASE EXCESS -16.9 (-2.0-2.0); ABG HCO3 10.2 MMOL/L (22.0-26.0); ABG O2 SATURATION 95.8 % (95.0-99.0); ABG PARTIAL PRESSURE CO2 28.8 mmHg (35.0-45.0); ABG PARTIAL PRESSURE O2 91.1 mmHg (75.0-100.0); ABG STANDARD HCO3 11.8 MMOL/L. (22.0-26.0); ABG TOTAL CO2 11.1 MMOL/L (22.0-29.0)
[2025-07-20 14:34] LABS: ABG pH (ARTERIAL) 7.168 UNITS (7.350-7.450)
[2025-07-20] MEDS: MEROPENEM 1 GM in IV 1 EA IV SCH (14:46)
[2025-07-20 15:02] LABS: INR 4.61
[2025-07-20 15:09] LABS: CALCIUM LEVEL 5.9 MG/DL (8.5-10.1); CARBON DIOXIDE LEVEL 12.0 MMOL/L (20-31); CHLORIDE LEVEL 85.0 MMOL/L (98-107); CREATININE FOR GFR 1.43 MG/DL (0.70-1.30); GLOMERULAR FILTRATION RATE 60.4 (>60); PHOSPHORUS LEVEL 7.5 MG/DL (2.5-4.9); POTASSIUM SERUM 5.5 MMOL/L (3.5-5.1); SODIUM LEVEL 119.0 MMOL/L (136-145)
[2025-07-20 18:18] LABS: ABG BASE EXCESS -13.9 (-2.0-2.0); ABG HCO3 13.3 MMOL/L (22.0-26.0); ABG O2 SATURATION 89.5 % (95.0-99.0); ABG PARTIAL PRESSURE CO2 35.6 mmHg (35.0-45.0); ABG PARTIAL PRESSURE O2 63.8 mmHg (75.0-100.0); ABG STANDARD HCO3 13.6 MMOL/L. (22.0-26.0); ABG TOTAL CO2 14.4 MMOL/L (22.0-29.0)
[2025-07-20 18:32] LABS: ABG pH (ARTERIAL) 7.191 UNITS (7.350-7.450)
[2025-07-20 18:57] LABS: CALCIUM LEVEL 5.5 MG/DL (8.5-10.1); CARBON DIOXIDE LEVEL 15.0 MMOL/L (20-31); CHLORIDE LEVEL 82.0 MMOL/L (98-107); CREATININE FOR GFR 1.58 MG/DL (0.70-1.30); GLOMERULAR FILTRATION RATE 53.6 (>60); MAGNESIUM LEVEL 1.6 MG/DL (1.8-2.4); PHOSPHORUS LEVEL 7.1 MG/DL (2.5-4.9); POTASSIUM SERUM 5.5 MMOL/L (3.5-5.1); SODIUM LEVEL 115.0 MMOL/L (136-145)
[2025-07-20 19:19] LABS: INR 5.96
[2025-07-20 21:42] LABS: ABG BASE EXCESS -15.8 (-2.0-2.0); ABG HCO3 13.2 MMOL/L (22.0-26.0); ABG O2 SATURATION 97.6 % (95.0-99.0); ABG PARTIAL PRESSURE CO2 44.5 mmHg (35.0-45.0); ABG PARTIAL PRESSURE O2 136.2 mmHg (75.0-100.0); ABG STANDARD HCO3 12.3 MMOL/L. (22.0-26.0); ABG TOTAL CO2 14.6 MMOL/L (22.0-29.0)
[2025-07-20 21:50] LABS: ABG pH (ARTERIAL) 7.091 UNITS (7.350-7.450)
[2025-07-20 22:25] LABS: CALCIUM LEVEL 5.2 MG/DL (8.5-10.1); CARBON DIOXIDE LEVEL 16.0 MMOL/L (20-31); CHLORIDE LEVEL 80.0 MMOL/L (98-107); CREATININE FOR GFR 1.69 MG/DL (0.70-1.30); GLOMERULAR FILTRATION RATE 49.5 (>60); MAGNESIUM LEVEL 1.7 MG/DL (1.8-2.4); PHOSPHORUS LEVEL 8.5 MG/DL (2.5-4.9); POTASSIUM SERUM 5.7 MMOL/L (3.5-5.1); SODIUM LEVEL 114.0 MMOL/L (136-145)
[2025-07-20 22:43] LABS: INR 8.13
[2025-07-20] MEDS: EPINEPHrine HCL INJ 16 MG in D5W 984 ML IV SCH (22:58)
[2025-07-21] VITALS (17 sets, daily range): BP systolic 64–96; BP diastolic 54–75; TEMP 97.2
[2025-07-21 01:07] LABS: CALCIUM LEVEL 5.2 MG/DL (8.5-10.1); CARBON DIOXIDE LEVEL 19.0 MMOL/L (20-31); CHLORIDE LEVEL 77.0 MMOL/L (98-107); CREATININE FOR GFR 1.72 MG/DL (0.70-1.30); GLOMERULAR FILTRATION RATE 48.4 (>60); POTASSIUM SERUM 5.8 MMOL/L (3.5-5.1); SODIUM LEVEL 110.0 MMOL/L (136-145)
[2025-07-21 01:38] LABS: ABG BASE EXCESS -14.9 (-2.0-2.0); ABG HCO3 14.4 MMOL/L (22.0-26.0); ABG O2 SATURATION 98.7 % (95.0-99.0); ABG PARTIAL PRESSURE CO2 51.1 mmHg (35.0-45.0); ABG PARTIAL PRESSURE O2 172.9 mmHg (75.0-100.0); ABG STANDARD HCO3 12.7 MMOL/L. (22.0-26.0); ABG TOTAL CO2 15.9 MMOL/L (22.0-29.0)
[2025-07-21 01:42] LABS: ABG pH (ARTERIAL) 7.067 UNITS (7.350-7.450)
[2025-07-21] MEDS: CALCIUM GLUCONATE 1,000 MG in DEXTROSE 5% (D5W) MINI-BAG PLU 100 ML IV SCH (02:09)
[2025-07-21] MEDS: HumuLIN R (REGULAR) INSULIN (NovoLIN R) **100 U/ML** PER UNIT IV ONE ×2 (02:17→03:30)
[2025-07-21 02:47] LABS: INR 13.89
[2025-07-21 03:06] LABS: CALCIUM LEVEL 5.5 MG/DL (8.5-10.1); CARBON DIOXIDE LEVEL 18.0 MMOL/L (20-31); CHLORIDE LEVEL 76.0 MMOL/L (98-107); CREATININE FOR GFR 1.75 MG/DL (0.70-1.30); GLOMERULAR FILTRATION RATE 47.4 (>60); MAGNESIUM LEVEL 1.6 MG/DL (1.8-2.4); PHOSPHORUS LEVEL 9.1 MG/DL (2.5-4.9); POTASSIUM SERUM 6.0 MMOL/L (3.5-5.1); SODIUM LEVEL 108.0 MMOL/L (136-145)
[2025-07-21] MEDS ORDERED: ONDANSETRON 4MG/2ML VIAL IV PRN (03:55)
[2025-07-21] MEDS: MORPHINE SULF IN 0.9% NACL 100 MG in IV 1 EA IV SCH (03:55)
[2025-07-21] MEDS: MORPHINE 2 MG/ML 1 ML VIAL IV PRN (04:19)
== END 2025-07-21 04:30 | disposition expired | DRG 871 ==
LOC: M ED 20:08 → EDBD 20:08 → M ED INP 07-20 03:49 → M ICU 07-20 04:31
PROVIDERS: ADMIT Student in an Organized Health Care Education/Training Program; ATTEND Student in an Organized Health Care Education/Training Program
PROC: 5A1945Z Respiratory Ventilation, 24-96 Consecutive Hours (ICD-10-PCS; principal; 2025-07-20)
PROC: 30233N1 Transfusion of Nonautologous Red Blood Cells into Peripheral Vein, Percutaneous Approach (ICD-10-PCS; 2025-07-20)
PROC: 30233R1 Transfusion of Nonautologous Platelets into Peripheral Vein, Percutaneous Approach (ICD-10-PCS; 2025-07-20)
PROC: 30233K1 Transfusion of Nonautologous Frozen Plasma into Peripheral Vein, Percutaneous Approach (ICD-10-PCS; 2025-07-20)
DX: A41.9 Sepsis, unspecified organism (principal); I85.01 Esophageal varices with bleeding; G93.41 Metabolic encephalopathy; K65.2 Spontaneous bacterial peritonitis; K72.01 Acute and subacute hepatic failure with coma; J96.00 Acute respiratory failure, unspecified whether with hypoxia or hypercapnia; K86.1 Other chronic pancreatitis; E72.20 Disorder of urea cycle metabolism, unspecified; E87.20 Acidosis, unspecified; K76.6 Portal hypertension; D68.9 Coagulation defect, unspecified; R57.8 Other shock; E11.9 Type 2 diabetes mellitus without complications; K70.31 Alcoholic cirrhosis of liver with ascites; D69.6 Thrombocytopenia, unspecified; D64.9 Anemia, unspecified; Z96.643 Presence of artificial hip joint, bilateral; E83.51 Hypocalcemia; E87.5 Hyperkalemia